=== PATIENT | male | born 1945 | race Caucasian/White ===

== ENCOUNTER 2016-10-21 17:18 | Observation (INO) ==
[2016-10-21 18:51] LABS: Basophils # 0.1 K/mcL (0.0-0.2); Basophils % 0.8 %; Eosinophils # 0.4 K/mcL (0.0-0.6); Eosinophils % 2.9 %; Hematocrit 41.1 % (37.5-50.1); Hemoglobin 12.8 g/dL (12.9-16.9); Immature Granulocytes % 0.3 % (0-4); Lymphocytes # 1.9 K/mcL (0.6-4.6); Lymphocytes % 14.7 %; Mean Corpuscular HGB Conc 31.1 g/dL (31.6-35.5); Mean Corpuscular Volume 89.9 fL (83.0-100.0); Mean Platelet Volume 9.7 fL (9.4-12.4); Monocytes % 7.8 %; Neutrophils # 9.3 K/mcL (1.6-8.9); Platelet Count 293 K/mcL (140-400); Red Blood Count 4.57 M/mcL (4.19-5.50); Red Cell Distribution Width 14.5 % (11.5-14.5); Segmented Neutrophils % 73.5 %
[2016-10-21 19:04] LABS: Calcium 10.2 mg/dL (8.6-10.8)
[2016-10-21 19:10] LABS: Potassium 6.9 mEq/L (3.5-4.5)
[2016-10-21] MEDS ORDERED: 0.9 % Sodium Chloride 500 ML IV ONE ×2 (19:32→21:41)
--- NOTE | 2016-10-21 19:40 | Emergency Department Note ---
Disposition Clinical Impression: Hyperkalemia, Hypoxia Disposition: Admitted As Inpatient Condition: Good Time of Disposition: 23:00 SOB HPI - General Chief Complaint: ED Shortness of Breath/Dyspnea Stated Complaint: sob Time Seen by Provider: 10/21/16 19:14 Source: patient Limitations: no limitations Nursing Notes Reviewed: Yes Vital Signs Reviewed: Yes - History of Present Illness 71-year-old male with a past medical history of CAD, DM, CKD stage III presents to the emergency department complaining of increased shortness of breath and cough for 3 days. He denies history of COPD, however he states a year ago he had pneumonia and is worried that he has this again. He has had congestion and cough that has worsened over the last 3 days, along with wheezing. He is coughing up yellow sputum occasionally. He has had a harder time breathing and is using his 's home oxygen. He does not regularly use home oxygen. He has also been using an albuterol inhaler. He states that when he is sitting on the cot he is having a worse time catching his breath. He complains that his abdomen is distended, but this is a chronic problem. He states it has not worsened in the last few days. He does state that the size of his belly makes it harder to breathe while sitting up. He cannot state whether or not it feels better if he is lying down or sitting up. He does state his SOB worsens when he is up walking around and coughing. He denies fever, chest pain, abdominal pain, nausea, vomiting, diarrhea, dysuria. - Related Data Home Medications Medication Instructions Recorded Confirmed Albuterol Sulfate [Proair 2 puff IH Q4HR PRN 10/04/15 07/25/16 Respiclick] Atorvastatin [Lipitor] 40 mg PO HS 10/04/15 07/25/16 Clopidogrel [Plavix] 75 mg PO DAILY 10/04/15 07/25/16 Metoprolol [Lopressor] 100 mg PO BID 10/04/15 07/25/16 OxyCODONE/APAP 5/325 [Percocet 1 each PO Q6HR PRN 10/04/15 07/25/16 5/325 MG] Previous Rx's Medication Instructions Recorded Isosorbide MONOnitrate (24 HR) 30 mg PO DAILY #30 tab.er.24h 01/25/16 [Imdur] Budesonide/Formoterol 160/4.5 2 puff IH BIDR #1 inhaler 03/19/16 [Symbicort 160/4.5] Ranitidine HCl 150 mg PO BID PRN #60 capsule 03/19/16 Azithromycin [Zithromax] 250 mg PO Q24H #3 tablet 07/28/16 Cefuroxime PO [Ceftin] 500 mg PO Q12HR #6 tablet 07/28/16 CloNIDine HCl 0.1 mg PO Q8HR #90 tablet 07/28/16 Insulin NPH/REG 70/30 (HUMAN) 55 unit SQ QPM@1700 [id number] 07/28/16 [Humulin 70/30 Vial] Insulin NPH/REG 70/30 (HUMAN) 75 unit SQ QAM@0800 [id number] 07/28/16 [Humulin 70/30 Vial] Lactobacillus [Culturelle] 1 each PO BID #6 cap.sprink 07/28/16 Allergies Allergy/AdvReac Type Severity Reaction Status Date / Time No Known Allergies Allergy Verified 10/21/16 17:28 All systems ED: reviewed and negative except as stated. Past Medical History - Past Medical History Medical history: Reports: CVA, dementia, diabetes, GERD, hyperlipidemia, hypertension, other Surgical history: Reports: coronary bypass (CABG) Psychiatric history: Reports: no psych history - Social History Smoking Status: Former smoker Smokeless Tobacco Status: No Alcohol use: Reports: none Drug use: Reports: none Physical Exam General: Alert and in no acute distress. Skin: Warm, dry, intact Head: Normocephalic and atraumatic Eye: PERRLA, EOMI Neck: Supple, trachea midline and no tenderness Cardiovascular: RRR, no murmur, normal perfusion, peripheral pulses equal b/l UE /LE Respiratory: diffuse expiratory wheezing throughout b/l, rhonci. No acute respiratory distress. Patient able to speak in full sentences, no tachypnea GI: Soft, nontender, nondistended. Bowel sounds present Musculoskeletal: Muscle strength WNL, no tenderness, swelling or deformity. b/l LE wrapped with kerlix, has chronic wounds. Neuro: A&O to person, place, time and situation. No focal deficits noted on exam Psychiatric: Cooperative and appropriate mood and affect - General Limitations: no limitations General appearance: alert, in no apparent distress Course Course Narrative: 71-year-old male with a past medical history of CAD, DM, CKD stage III presents to the emergency department complaining of increased shortness of breath and cough for 3 days. He denies history of COPD, however he states a year ago he had pneumonia and is worried that he has this again. He has had congestion and cough that has worsened over the last 3 days, along with wheezing. He is coughing up yellow sputum occasionally. He has had a harder time breathing and is using his 's home oxygen. He does not regularly use home oxygen. He has also been using an albuterol inhaler. He states that when he is sitting on the cot he is having a worse time catching his breath. He complains that his abdomen is distended, but this is a chronic problem. He states it has not worsened in the last few days. He does state that the size of his belly makes it harder to breathe while sitting up. He cannot state whether or not it feels better if he is lying down or sitting up. He does state his SOB worsens when he is up walking around and coughing. He denies fever, chest pain, abdominal pain, nausea, vomiting, diarrhea, dysuria. CXR shows Small bilateral pleural effusions and mild left basilar atelectasis versus scarring. WBC 12.7 with a left shift, K 6.9, Cr 1.48 which is around his baseline, BNP 594 which is elevated from baseline. Will recheck Potassium. May be high as patient states he drinks OJ, eats oranges, spaghetti sauce and even drinks cold spaghetti sauce daily. Repeat potassium 6.5. SOB has improved after duoneb and solumedrol. Discussed admission for hyperkalemia with hospitalist. Patient will be admitted in stable condition. - Consultations Consultation #1: Case discussed with hospitalist who has accepted for admission. Vital Signs Temperature 98.2 F 10/21/16 17:26 Pulse Rate 71 10/21/16 17:26 Respiratory Rate 20 10/21/16 17:26 Blood Pressure 183/70 10/21/16 17:26 O2 Sat by Pulse Oximetry 82 L 10/21/16 17:26 Temperature 98.2 F 10/21/16 23:59 Pulse Rate 84 10/21/16 23:59 Respiratory Rate 18 10/21/16 23:59 Blood Pressure 194/65 10/21/16 23:59 O2 Sat by Pulse Oximetry 94 L 10/21/16 23:59 Oxygen Delivery Oxygen Delivery Nasal Cannula Shortness of Breath/Dyspnea - Medical Records Medical records reviewed: Yes I reviewed the patient's medical records. - Lab Data Lab results reviewed: Yes I reviewed the patient's lab results. Result diagrams: 10/21/16 18:42 10/22/16 00:06 Lab Results 10/21/16 10/21/16 10/21/16 Range/Units 18:42 18:42 18:42 WBC 12.7 H (4.3-11.1) K/mcL RBC 4.57 (4.19-5.50) M/mcL Hgb 12.8 L (12.9-16.9) g/dL Hct 41.1 (37.5-50.1) % MCV 89.9 (83.0-100.0) fL MCH 28.0 (28.0-33.3) pg MCHC 31.1 L (31.6-35.5) g/dL RDW 14.5 (11.5-14.5) % Plt Count 293 (140-400) K/mcL MPV 9.7 (9.4-12.4) fL Immature Gran % 0.3 (0-4) % Seg Neutrophils % 73.5 % Lymphocytes % 14.7 % Monocytes % 7.8 % Eosinophils % 2.9 % Basophils % 0.8 % Neutrophils # 9.3 H (1.6-8.9) K/mcL Lymphocytes # 1.9 (0.6-4.6) K/mcL Monocytes # 1.0 (0.0-1.3) K/mcL Eosinophils # 0.4 (0.0-0.6) K/mcL Basophils # 0.1 (0.0-0.2) K/mcL Sodium 142 (136-145) mEq/L Potassium 6.9 H* (3.5-4.5) mEq/L Chloride 108 (98-109) mEq/L Carbon Dioxide 24 (19-29) mEq/L BUN 28 H (8-26) mg/dL Creatinine 1.48 H (0.72-1.25) mg/dL Est GFR ( Amer) 56 L (> 60) Est GFR (Non-Af Amer) 47 L (> 60) BUN/Creatinine Ratio 19 (6-26) Glucose 153 H (70-99) mg/dL Calculated Osmolality 303 H (280-300) Calcium 10.2 (8.6-10.8) mg/dL Troponin I 0.01 (0-0.03) ng/mL B-Natriuretic Peptide (0-100) pg/mL 10/21/16 10/21/16 Range/Units 18:42 20:22 WBC (4.3-11.1) K/mcL RBC (4.19-5.50) M/mcL Hgb (12.9-16.9) g/dL Hct (37.5-50.1) % MCV (83.0-100.0) fL MCH (28.0-33.3) pg MCHC (31.6-35.5) g/dL RDW (11.5-14.5) % Plt Count (140-400) K/mcL MPV (9.4-12.4) fL Immature Gran % (0-4) % Seg Neutrophils % % Lymphocytes % % Monocytes % % Eosinophils % % Basophils % % Neutrophils # (1.6-8.9) K/mcL Lymphocytes # (0.6-4.6) K/mcL Monocytes # (0.0-1.3) K/mcL Eosinophils # (0.0-0.6) K/mcL Basophils # (0.0-0.2) K/mcL Sodium 140 (136-145) mEq/L Potassium 6.5 H* (3.5-4.5) mEq/L Chloride 106 (98-109) mEq/L Carbon Dioxide 24 (19-29) mEq/L BUN 28 H (8-26) mg/dL Creatinine 1.42 H (0.72-1.25) mg/dL Est GFR ( Amer) 59 L (> 60) Est GFR (Non-Af Amer) 49 L (> 60) BUN/Creatinine Ratio 20 (6-26) Glucose 141 H (70-99) mg/dL Calculated Osmolality 298 (280-300) Calcium 9.9 (8.6-10.8) mg/dL Troponin I (0-0.03) ng/mL B-Natriuretic Peptide 564 H (0-100) pg/mL - Radiology Data Radiology results reviewed: Yes I reviewed the patient's radiology results. Chest X-Ray 10/21/16 18:18 IMPRESSION: Small bilateral pleural effusions and mild left basilar atelectasis versus scarring. D/ / Augustine Conley MD / Augustine Conley MD Interpreting Provider: Augustine Conley MD - EKG Data EKG attestation: Yes I reviewed and interpreted this EKG. EKG results narrative: Sinus Rhythm, VR 74 BPM, SC 204ms, QRS 82ms, QT 354. Q wave in V3/V4 Prior EKG show sinus tachycardia. Attestation Statement - Attestation Attestation: Dr. Boggs note: Patient was seen in conjunction with the resident Dr. Barnard; please see her chart for complete documentation. I spent [id number] time with the patient and agree with the patient's treatment and disposition. He presents short of breath progressive hypoxia but is noted also to have hyperkalemia. Mild renal insufficiency is not new. Patient admits to dietary intake of a large amount of orange juice, oranges, and tomato juice on almost a daily basis which is likely contributing to his hypokalemia. I discussed admission with the hospitalist prior to admission. His hyperkalemia has been treated with fluids and Kayexalate. No significant EKG changes of the QT interval or prolonged SC interval at this time. No indication for calcium gluconate, insulin, or bicarbonate.
[2016-10-21] MEDS ORDERED: Ipratropium/Albuterol Neb 3 ML IH ONE ×2 (19:41→19:42)
[2016-10-21] MEDS ORDERED: methylPREDNISolone 125 MG/2 ML VIAL IVP ONE (19:41)
[2016-10-21 20:42] LABS: Calcium 9.9 mg/dL (8.6-10.8)
[2016-10-21 20:47] LABS: Potassium 6.5 mEq/L (3.5-4.5)
[2016-10-22] MEDS ORDERED: Calcium Gluconate 1,000 MG in D5% in Water 100 ML IVPB ONE (00:58)
[2016-10-22] MEDS ORDERED: Lactulose Oral Soln 20 GM/30 ML UDC PO STA (00:59)
[2016-10-22] MEDS: cloNIDine HCl 0.1 MG TABLET PO SCH ×2 (01:26→07:43)
[2016-10-22] MEDS ORDERED: Naloxone 0.4 MG/ML INJ IVP PRN (03:23)
[2016-10-22] MEDS ORDERED: Acetaminophen 325 MG TABLET PO PRN (03:23)
[2016-10-22] MEDS ORDERED: D5% in Water 1,000 ML IV PRN (03:25)
[2016-10-22] MEDS ORDERED: *HR* Dextrose 50 % in Water (Syg) 50 ML SYRINGE IVP PRN (03:25)
[2016-10-22] MEDS ORDERED: Dextrose Gel 15 GM PO PRN ×2 (03:25)
[2016-10-22] MEDS ORDERED: levoFLOXacin 500 MG TABLET PO SCH (03:30)
--- NOTE | 2016-10-22 03:48 | Internal Med History&Physical ---
Date of Encounter: 10/22/16 Time of Encounter: 01:30 Assessment and Plan (1) Hyperkalemia Current visit: Yes Status: Acute Possibly secondary to oral intake of potassium / oranges and CKD. Treat with the calcium gluconate, IV sodium bicarbonate and Kayexalate. Monitor potassium levels. Advised patient to cut down/avoid orange juice. Renal / low potassium diet (2) COPD exacerbation Current visit: Yes Status: Acute Patient does not have prior diagnosis of COPD. However his presentation similar to COPD exacerbation. Will treat him with low-dose steroids in view of his diabetes, levofloxacin, mucinex and bronchodilators. (3) Acute respiratory failure Current visit: Yes Status: Acute Acute secondary to exacerbation of bronchitis/COPD. Continue supplemental oxygen. Patient may need resting and walking pulse ox monitor prior to discharge Qualifiers: Respiratory failure complication: hypoxia Qualified Code(s): J96.01 - Acute respiratory failure with hypoxia (4) CAD (coronary artery disease) Current visit: Yes Status: Chronic Stable. continue home meds Qualifiers: Coronary Disease-Associated Artery/Lesion type: [place] artery [place] vs. transplanted heart: [place] heart Associated angina: without angina Qualified Code(s): I25.10 - Atherosclerotic heart disease of [place] coronary artery without angina pectoris (5) GERD (gastroesophageal reflux disease) Current visit: No Status: Acute Qualifiers: Esophagitis presence: esophagitis presence not specified Qualified Code(s) : K21.9 - Gastro-esophageal reflux disease without esophagitis (6) CKD (chronic kidney disease) stage 3, GFR 30-59 ml/min Current visit: No Status: Chronic Monitor renal function. Avoid nephrotoxics (7) DM type 2 (diabetes mellitus, type 2) Current visit: Yes Status: Chronic Start sliding scale insulin. Resume home medications, when verified by pharmacy. At risk of hyperglycemia, due to steroids Qualifiers: Diabetes mellitus complication status: with kidney complications Diabetes mellitus complication detail: with chronic kidney disease Diabetes mellitus group home insulin use: without middle or intermediate school principal use Chronic kidney disease stage: stage 3 (moderate) Qualified Code(s): E11.22 - Type 2 diabetes mellitus with diabetic chronic kidney disease; N18.3 - Chronic kidney disease, stage 3 ( moderate) Internal Medicine - H&P: HPI Chief complaint: Shortness of breath Admitted From: Emergency Dept Plans for Post Hospital Care: Home History of present illness: 71-year-old male with a past medical history of CAD, DM, CKD stage III, HTN, GERD presents to the emergency department, with progressively worsening shortness of breath and cough with expectoration. He reports shortness of breath on exertion, which is worse now. He has been using an albuterol inhaler. He had congestion and cough that has worsened over the last 3 days, along with wheezing. He is coughing up clear to yellow sputum. He apparently has been using his wifes oxygen, which was helping his shortness of breath. He does not have a diagnosis of COPD. He is an ex- smoker. He denies chest pain, fever , chills, nausea, vomiting. He was evaluated in the emergency department and was given Solu-Medrol and duo-nebs. In the emergency department, he was noted to have hyperkalemia with serum potassium of 6.9 and repeat serum potassium was 6.5. He was given Kayexalate. He is admitted to the hospitalist service for further workup and management. Patient reports drinking a lot of orange juice, when his blood glucose is low and apparently drinks several times a day. He is not on oral potassium supplements Past Med Surg Social Fam HX - Past Medical History Medical history: CVA, dementia, diabetes, GERD, hyperlipidemia, hypertension, other Psychiatric history: no psych history - Past Surgical History Surgical History: coronary bypass (CABG) - Social History Smoking Status: Former smoker Smokeless Tobacco Status: No Alcohol use: none Drug use: none - Family History Mother Adopted: No Family Member Ethnicity: Non- Living Status: Age at : 82 Cause of : old age Hx Family Cardiac Disorders: No Hx Family Respiratory Disorders: No Hx Family Cancer: Yes (brother) Hx Family GI Disorders: No Hx Family Genitourinary Disorders: No Hx Family Endocrine Disorder: No Hx Family Musculoskeletal Disorders: No Hx Family Neuromuscular Disorders: No Hx Family Neurologic Disorders: No Hx Family HEENT Disorders: No Hx Family Autoimmune Disorders: No Hx Family Reproductive Disorders: No Hx Family Psychosocial Disorders: No Hx Family Medical Disorders: No Internal Medicine - H&P: Meds Albuterol Sulfate [Proair Respiclick] 2 puff IH Q4HR PRN 10/04/15 [History] Atorvastatin [Lipitor] 40 mg PO HS 10/04/15 [History] Clopidogrel [Plavix] 75 mg PO DAILY 10/04/15 [History] Metoprolol [Lopressor] 100 mg PO BID 10/04/15 [History] OxyCODONE/APAP 5/325 [Percocet 5/325 MG] 1 each PO Q6HR PRN 10/04/15 [History] Isosorbide MONOnitrate (24 HR) [Imdur] 30 mg PO DAILY #30 tab.er.24h 10/07/15 [ Rx] Budesonide/Formoterol 160/4.5 [Symbicort 160/4.5] 2 puff IH BIDR #1 inhaler 03/28 [Rx] Ranitidine HCl 150 mg PO BID PRN #60 capsule 03/19/16 [Rx] Azithromycin [Zithromax] 250 mg PO Q24H #3 tablet 07/28/16 [Rx] Cefuroxime PO [Ceftin] 500 mg PO Q12HR #6 tablet 07/28/16 [Rx] CloNIDine HCl 0.1 mg PO Q8HR #90 tablet 07/28/16 [Rx] Insulin NPH/REG 70/30 (HUMAN) [Humulin 70/30 Vial] 55 unit SQ QPM@1700 [id number] 07/28/16 [Rx] Insulin NPH/REG 70/30 (HUMAN) [Humulin 70/30 Vial] 75 unit SQ QAM@0800 [id number] 07/28/16 [Rx] Lactobacillus [Culturelle] 1 each PO BID #6 cap.sprink 07/28/16 [Rx] Allergies No Known Allergies Allergy (Verified 10/21/16 17:28) All Systems PM: A 10-system review of systems was performed and is negative for pertinent findings except as documented above in the HPI. - Constitutional Vitals: Temp Pulse Resp BP Pulse Ox 98.2 F 84 18 194/65 94 L 10/21/16 23:59 10/21/16 23:59 10/21/16 23:59 10/21/16 23:59 10/21/16 23:59 Exam: General: Not in acute distress at the time of my evaluation HEENT: Oral mucosa is moist. No conjunctival palor or scleral icterus Neck: No obvious neck swellings Lungs: Bilateral wheeze present Cardiac: Regular rate and rhythm. No significant murmurs Abdomen: Soft, non tender. Bowel sounds present Genitourinary: No alford catheter Neurological: Alert and oriented. No gross localizing deficits Psych: Not aggressive or agitated Extremities: Dressing present over both lower extremities Skin: No generalized rash Internal Med - H&P Results - Labs CBC & Chem 7: 10/21/16 18:42 10/22/16 00:06 Labs: BMP 10/22/16 00:06 Potassium 6.5 H* - EKG Data EKG shows normal: sinus rhythm Rate: normal - EKG Data EKG comments: Prominent T Waves. Q waves in the anterior chest leads. 10/22/16 05:10 - Impressions ITS Impressions Chest X-Ray 10/21/16 18:18 IMPRESSION: Small bilateral pleural effusions and mild left basilar atelectasis versus scarring. D/ / Augustine Conley MD / Augustine Conley MD Interpreting Provider: Augustine Conley MD - VTE Reasons for not Prescribing Prophylaxis: Treatment not Indicated - Low risk for VTE
[2016-10-22] MEDS: Ipratropium/Albuterol Neb 3 ML IH PRN ×2 (06:15→10:51)
[2016-10-22 06:23] LABS: Hemoglobin 12.1 g/dL (12.9-16.9); Mean Corpuscular HGB Conc 30.3 g/dL (31.6-35.5); Mean Corpuscular Hemoglobin 27.2 pg (28.0-33.3); Mean Corpuscular Volume 89.9 fL (83.0-100.0); Platelet Count 304 K/mcL (140-400); Red Blood Count 4.45 M/mcL (4.19-5.50); Red Cell Distribution Width 14.5 % (11.5-14.5)
[2016-10-22 06:35] LABS: Calcium 9.6 mg/dL (8.6-10.8); Potassium 5.9 mEq/L (3.5-4.5)
[2016-10-22] MEDS: Insulin LISPRO 300 UNITS/3 ML VIAL SQ SCH ×2 (07:43→11:52)
[2016-10-22] MEDS ORDERED: predniSONE 20 MG TABLET PO SCH (09:00)
[2016-10-22] MEDS ORDERED: Isosorbide MONOnitrate (24 HR) 30 MG TAB.ER.24H PO SCH (09:00)
[2016-10-22] MEDS ORDERED: Aspirin 81 MG TAB.CHEW PO SCH (09:00)
[2016-10-22] MEDS ORDERED: amLODIPine 5 MG TABLET PO SCH (09:00)
[2016-10-22] MEDS ORDERED: Metoprolol 100 MG TABLET PO SCH (09:00)
[2016-10-22] MEDS ORDERED: Budesonide/Formoterol 160/4.5 MDI IH SCH (10:00)
[2016-10-22 14:01] VITALS: BP 166/65
--- NOTE | 2016-10-22 14:09 | Discharge Summary ---
Date of Encounter: 10/23/16 Time of Encounter: 14:06 - Discharge Diagnosis (1) COPD exacerbation Priority: Primary Status: Acute (2) Hyperkalemia Priority: Primary Status: Acute (3) CAD (coronary artery disease) Priority: Secondary Status: Chronic Qualifiers: Coronary Disease-Associated Artery/Lesion type: [place] artery [place] vs. transplanted heart: [place] heart Associated angina: without angina Qualified Code(s): I25.10 - Atherosclerotic heart disease of [place] coronary artery without angina pectoris (4) DM type 2 (diabetes mellitus, type 2) Priority: Secondary Status: Chronic Qualifiers: Diabetes mellitus complication status: with kidney complications Diabetes mellitus complication detail: with chronic kidney disease Diabetes mellitus mcfp insulin use: without buttermaker continuous churn use Chronic kidney disease stage: stage 3 (moderate) Qualified Code(s): E11.22 - Type 2 diabetes mellitus with diabetic chronic kidney disease; N18.3 - Chronic kidney disease, stage 3 ( moderate) - Discharge Medications Prescriptions: Levofloxacin [Levaquin] 500 mg PO DAILY #3 tablet PredniSONE 20 mg PO DAILY #5 tablet Home Medications: Albuterol Sulfate [Proair Respiclick] 2 puff IH Q4HR PRN 10/04/15 [History] Atorvastatin [Lipitor] 40 mg PO HS 10/04/15 [History] Clopidogrel [Plavix] 75 mg PO DAILY 10/04/15 [History] Metoprolol [Lopressor] 100 mg PO BID 10/04/15 [History] OxyCODONE/APAP 5/325 [Percocet 5/325 MG] 1 each PO Q6HR PRN 10/04/15 [History] Isosorbide MONOnitrate (24 HR) [Imdur] 30 mg PO DAILY #30 tab.er.24h 10/07/15 [ Rx] Budesonide/Formoterol 160/4.5 [Symbicort 160/4.5] 2 puff IH BIDR #1 inhaler 03/28 [Rx] Ranitidine HCl 150 mg PO BID PRN #60 capsule 03/19/16 [Rx] CloNIDine HCl 0.1 mg PO Q8HR #90 tablet 07/28/16 [Rx] Lactobacillus [Culturelle] 1 each PO BID #6 cap.sprink 07/28/16 [Rx] Albuterol Neb [Proventil Neb] 2.5 mg IH Q4H PRN 10/22/16 [History] Amlodipine Besylate 10 mg PO DAILY 10/22/16 [History] Aspirin 81 mg PO DAILY 10/22/16 [History] Insulin NPH/REG 70/30 (HUMAN) [Humulin 70/30 Vial] 40 unit SQ QPM@1700 10/22/16 [History] Insulin NPH/REG 70/30 (HUMAN) [Humulin 70/30 Vial] 50 unit SQ QAM@0800 10/22/16 [History] Levofloxacin [Levaquin] 500 mg PO DAILY #3 tablet 10/22/16 [Rx] Lisinopril [Zestril] 20 mg PO DAILY 10/22/16 [History] PredniSONE 20 mg PO DAILY #5 tablet 10/22/16 [Rx] Allergies/Adverse Reactions: Allergies No Known Allergies Allergy (Verified 10/21/16 17:28) Date of admission: 10/21/16 23:04 Primary care physician: Antonietta Butler Consults: 10/22/16 04:37 Consult to Wound Care [CONS] Routine Reason for Consult: bilat leg dressings Call Completed: No Discharging clinician: Kelly Villanueva Anticipated date of discharge: 10/22/16 - Patient Status Disposition: Home, Self-Care Condition: Fair Functional capacity at discharge: independent ambulation Overall status at discharge: patient is back to baseline - Discharge Instructions Instructions: Prednisone (By mouth), Levofloxacin (By mouth), Hyperkalemia (DC) Follow Up With: Antonietta Butler MD [Primary Care Provider] - 10/27/16 4:00 pm (Please follow up as schedule.....) Additional Instructions: please check chemistry panel for hyperkalemia on the day of followup with PCP on 10/27 - Diet and Activity Activity: resume usual activities as tolerated Diet: advance to your usual diet Interval History: 1-year-old male with a past medical history of CAD, DM, CKD stage III, HTN, GERD presents to the emergency department, with progressively worsening shortness of breath and cough with expectoration. He does not have a diagnosis of COPD. He is an ex- smoker. He denies chest pain, fever, chills, nausea, vomiting. He was evaluated in the emergency department and was given Solu- Medrol and duo-nebs. In the emergency department, he was noted to have hyperkalemia with serum potassium of 6.9 and repeat serum potassium was 6.5. He was given Kayexalate. He is admitted to the hospitalist service for further workup and management. Patient reports drinking a lot of orange juice, when his blood glucose is low and apparently drinks several times a day. He is not on oral potassium supplements. he improved on IV steroids and breathing tx, no infiltrate on CXR. repeat K was 5.9, he refused to take additional dose of kayexalate due to diarrhea. he remained asymptomatic and stable.he is being dc today to f/u as OP with PCP and wound clinic with rpeat chem. will also dc on his home inhalers and oral prednisone for 5 days with oral levoflox for 5 days. Hospital course: Mr. Galindo is a 71 year old male Time spent discussing smoking cessation with patient: more than 10 minutes - Time Spent with Patient Total time spent providing and/or coordinating discharge services: Greater than 30 minutes - Constitutional Vitals: Temp Pulse Resp BP Pulse Ox 98.3 F 75 20 166/65 93 L 10/22/16 11:16 10/22/16 11:16 10/22/16 11:16 10/22/16 14:00 10/22/16 11:16 General appearance: Present: A&O X 3, no acute distress Exam: HEENT: Oral mucosa is moist. No conjunctival palor or scleral icterus Neck: No obvious neck swellings Lungs: Bilateral occ wheezing, no creptns Cardiac: Regular rate and rhythm. No significant murmurs Abdomen: Soft, non tender. Bowel sounds present Genitourinary: No alford catheter Neurological: Alert and oriented. No gross localizing deficits Psych: Not aggressive or agitated Extremities: Dressing present over both lower extremities Skin: No generalized rash - VTE Reasons for not Prescribing Prophylaxis: Treatment not Indicated - Low risk for VTE
--- NOTE | 2016-10-22 16:35 | Electrocardiograph Report ---
[place] [id number] Test Date: 2016-10-21 Pat Name: Joao Galindo Department: 105 Room: 2A Gender: M Operator: : 1945 Requested By: Jonnathan Smyth Order Number: [id number] Reading MD: Maury Alonzo Measurements Intervals [place] Rate: 74 P: 40 NV: 204 QRS: 27 QRSD: 82 T: 65 QT: 354 QTc: 381 Interpretive Statements SINUS RHYTHM Electronically Signed On 10-22-2016 16:33:50 EST by Maury Alonzo
[2016-10-22] MEDS ORDERED: Lisinopril 20 MG TABLET PO SCH (21:00)
== END 2016-10-22 14:50 | disposition home or self-care (01) ==
LOC: 2ANU 17:18 → EMEROO 17:18 → 2ANU 23:26
PROVIDERS: ADMIT Internal Medicine Endocrinology, Diabetes & Metabolism; ATTEND Internal Medicine Endocrinology, Diabetes & Metabolism

== ENCOUNTER 2018-08-30 01:23 | Inpatient (IN) ==
[2018-08-30] MEDS ORDERED: Ondansetron 4 MG/2 ML VIAL IVP PRN (01:40)
[2018-08-30] MEDS ORDERED: Naloxone 0.4 MG/ML INJ IVP PRN (01:42)
[2018-08-30] MEDS ORDERED: *HR* HYDROcodone/Acet 5/325 mg TABLET PO PRN (01:42)
[2018-08-30] MEDS ORDERED: Acetaminophen 325 MG TABLET PO PRN (01:42)
[2018-08-30] MEDS ORDERED: Ipratropium/Albuterol Neb 3 ML IH ONE (01:43)
[2018-08-30] MEDS ORDERED: Insulin Human Regular 10 UNIT in 0.9 % Sodium Chloride 10 ML IV ONE (01:45)
[2018-08-30] MEDS ORDERED: Albuterol 2.5 MG/3 ML NEBULIZER IH ONE (01:45)
[2018-08-30] MEDS ORDERED: *HR* Dextrose 50 % in Water (Syg) 50 ML SYRINGE IVP ONE (01:45)
[2018-08-30] MEDS ORDERED: 0.9 % Sodium Chloride 500 ML IVC ONE (01:47)
--- NOTE | 2018-08-30 02:04 | Internal Med History&Physical ---
<Blanca Paiz - Last Filed: 08/30/18 02:27> Date of Encounter: 08/30/18 Time of Encounter: 02:04 Internal Medicine - H&P: HPI Chief complaint: Hypertensive Emergency Admitted From: Hospital to Hospital Transfer History of present illness: Mr. Galindo is a 72 year old male with significant PMHx of CAD, hypertension, COPD, and dementia transferred to our facility for hypertensive emergency. Patient is a poor historian in the room. He states he went to the outside emergency department because he wasn't feeling well and hurting all over. At this time the patient denies any concerns or complaints. Patient denies any chest pain. Does disclose shortness of breath but he states this is baseline for him and is not getting worse. En route to our hospital patient was hypertensive with systolic blood pressure readings of 170s and 200s. Past Med Surg Social Fam HX - Past Medical History Source: old records reviewed Medical history: CHF, COPD, dementia, diabetes, GERD, hyperlipidemia, hypertension, other Additional medical history: CAD, Ventricular systolic function, obesity, dylipidemia, ascvd, unstable angina, lumbar degenerative disc disease, pvd, renal artery stenosis, osteomyelitis Psychiatric history: no psych history - Past Surgical History Surgical History: coronary bypass (CABG) Additional surgical history: open heart, bypass 5 vessel in 2006. right great toe amputation March 2016. cataracts - Social History Smoking Status: Former smoker Smokeless Tobacco Status: No Alcohol use: none Drug use: none - Family History Mother Adopted: No Family Member Ethnicity: Non- Living Status: Hx Family Cardiac Disorders: No Hx Family Respiratory Disorders: No Hx Family Cancer: No Hx Family GI Disorders: No Hx Family Endocrine Disorder: No Hx Family Neuromuscular Disorders: No Hx Family Neurologic Disorders: No Hx Family HEENT Disorders: No Hx Family Autoimmune Disorders: No Internal Medicine - H&P: Meds Albuterol Sulfate [Proair Respiclick] 2 puff IH Q4HR PRN 10/04/15 [History] Atorvastatin [Lipitor] 40 mg PO HS 10/04/15 [History] Clopidogrel [Plavix] 75 mg PO DAILY 10/04/15 [History] Metoprolol [Lopressor] 100 mg PO BID 10/04/15 [History] OxyCODONE/APAP 5/325 [Percocet 5/325 MG] 1 each PO TID 10/04/15 [History] Budesonide/Formoterol 160/4.5 [Symbicort 160/4.5] 2 puff IH BIDR #1 inhaler 03/19/16 [Rx] Albuterol Neb [Proventil Neb] 2.5 mg IH Q4H PRN 10/22/16 [History] Aspirin 81 mg PO DAILY 10/22/16 [History] cloNIDine HCl [Clonidine HCl] 0.2 mg PO Q8H #90 tab 11/06/16 [Rx] Lisinopril [Zestril] 20 mg PO DAILY 12/30/16 [History] Furosemide [Lasix] 20 mg PO DAILY 02/11/17 [History] Insulin NPH Hum/Reg Insulin Hm [Novolin 70-30 100 Unit/ml Vial] 35 unit SQ QPM 02/11/17 [History] Insulin NPH Hum/Reg Insulin Hm [Novolin 70-30 100 Unit/ml Vial] 40 unit SQ QAM 02/11/17 [History] amLODIPine [Norvasc] 5 mg PO DAILY #30 tablet 12/21/17 [Rx] Gabapentin [Neurontin] 200 mg PO HS 08/29/18 [History] Loratadine [Claritin] 10 mg PO DAILY 08/29/18 [History] Allergy/AdvReac Type Severity Reaction Status Date / Time ampicillin AdvReac Vomiting Verified 02/11/17 07:18 sulfamethoxazole AdvReac Vomiting Verified 02/11/17 07:18 [From Bactrim] trimethoprim [From Bactrim] AdvReac Vomiting Verified 02/11/17 07:18 All Systems PM: A 10-system review of systems was performed and is negative for pertinent findings except as documented above in the HPI. - Constitutional Constitutional: no fever(s) - EENT Eyes: as per HPI Ears: as per HPI Nose, mouth and throat: as per HPI - Breasts Breasts: as per HPI - Cardiovascular Cardiovascular ROS IM: dyspnea, no chest pain, no syncope - Respiratory Respiratory: dyspnea, no hemoptysis, no stridor - Gastrointestinal Gastrointestinal: no abdominal pain - Genitourinary Genitourinary ROS male: as per HPI - Musculoskeletal Musculoskeletal ROS IM: as per HPI - Integumentary Integumentary IM: as per HPI - Neurological Neurological ROS: as per HPI - Psychiatric Psychiatric: as per HPI - Endocrine Endocrine IM: as per HPI - Hematologic/Lymphatic Hematologic/Lymphatic: as per HPI - Allergic/Immunologic Allergic/Immunologic: as per HPI - Constitutional General appearance: Present: pleasant, no acute distress Exam: Patient in no distress on exam, pleasant, poor historian - Head Head exam: Present: atraumatic, normal inspection - ENT ENT exam: Present: mucous membranes moist - Respiratory Respiratory exam: Present: wheezes (greater on the right than the left). Absent: rales, respiratory distress - Cardiovascular Cardiovascular exam: Present: RRR - GI/Abdominal GI/Abdominal exam: Present: soft. Absent: rebound, rigid, tenderness - Extremities Exam Additional comments: bilateral lower extremities with redness and chronic venous stasis changes - Neurological Exam Neurological exam: Present: alert, no focal deficits - Skin Additional comments: redness and chronic venous stasis with small open wounds of the bilateral lower extremities redness and skin irritation in the groin area - Assessment and plan (1) Hypertensive emergency Current Visit: Yes Status: Acute Assessment and plan: Patient with systolic BPs >200 and elevated trop Will start cardene drip and q4 hour troponin levels (2) Elevated troponin Current Visit: Yes Status: Acute Assessment and plan: Repeat trop q4 hours Patient denies any chest pain EKG no STEMI (3) Chronic venous stasis Current Visit: Yes Status: Acute Assessment and plan: Wound consult placed (4) Wheezing Current Visit: Yes Status: Acute Assessment and plan: Albuterol Chest xray completed at outside ED negative for focal consolidation (5) Hyperkalemia Current Visit: Yes Status: Acute Assessment and plan: repeat BMP in the am albuterol, insulin/glucose, kayexalate (6) CKD (chronic kidney disease) Current Visit: Yes Status: Acute Assessment and plan: 500 fluid bolus, continue to monitor with bmp daily Qualifiers: Chronic kidney disease stage: unspecified stage Qualified Code(s): N18.9 - Chronic kidney disease, unspecified (7) DVT prophylaxis Current Visit: Yes Status: Acute Assessment and plan: SQ heparin - Time Spent With Patient Total time spent is greater than 50% in coordination of care (as documented) at patient's floor/unit and/or counseling patient: <Skip Ortiz - Last Filed: 08/30/18 07:37> Date of Encounter: 08/30/18 Internal Medicine - H&P: HPI History of present illness: Mr. Galindo is a 72 year old male All Systems PM: A 10-system review of systems was performed and is negative for pertinent findings except as documented above in the HPI. - Constitutional Vitals: Temp Pulse Resp BP Pulse Ox 98.6 F 73 14 153/63 96 08/30/18 01:56 08/30/18 06:00 08/30/18 06:00 08/30/18 06:00 08/30/18 06:00 Internal Med - H&P Results - Labs CBC & Chem 7: 08/30/18 02:48 08/30/18 02:48 Labs: Short CBC 08/30/18 Range/Units 02:48 WBC 10.9 (4.3-11.1) K/mcL Hgb 13.1 (12.9-16.9) g/dL Hct 42.4 (37.5-50.1) % Plt Count 297 (140-400) K/mcL Neutrophils # 8.0 (1.6-8.9) K/mcL BMP 08/30/18 02:48 Sodium 138 Potassium 4.9 Chloride 104 Carbon Dioxide 28 BUN 29 H Creatinine 1.52 H Glucose 225 H Calcium 9.3 Cardiac Enzymes 08/30/18 Range/Units 02:48 Troponin I 0.05 H* (< 0.04) ng/mL - Time Spent With Patient Total time spent is greater than 50% in coordination of care (as documented) at patient's floor/unit and/or counseling patient: - Attending Attestation I saw and evaluated the patient. I reviewed the residents note, performed my own physical examination and agree with findings and plan as documented in the residents note. Patient seen and examined on 08/30/18. Patient presented with hypertension, and elevated troponins. Patient denies chest pain. Patient is pleasant and cooperative with exam. No distress. Started cardene drip to help with blood pressures, and patient corrected quickly. Discontinued the drip and we will continue to monitor. Patient states that he has chronic wounds on his legs, but does not follow with wound care. Has history of toe amputations bilaterally on his feet secondary to diabetes. We placed wound care consult. Continue to monitor.
[2018-08-30] MEDS: niCARdipine 40 MG/200 ML MLS IVC SCH ×3 (02:12→18:10)
[2018-08-30] MEDS ORDERED: Dextrose Gel 15 GM/37.5 ML TUBE PO PRN ×2 (02:26)
[2018-08-30] MEDS ORDERED: D5% in Water 1,000 ML IVC PRN (02:26)
[2018-08-30 03:39] LABS: Basophils # 0.1 K/mcL (0.0-0.2); Basophils % 0.6 %; Eosinophils # 0.2 K/mcL (0.0-0.6); Eosinophils % 2.1 %; Hematocrit 42.4 % (37.5-50.1); Hemoglobin 13.1 g/dL (12.9-16.9); Immature Granulocytes % 0.6 % (0-4); Immature Platelets 2.6 % (1.1-6.1); Lymphocytes # 1.5 K/mcL (0.6-4.6); Lymphocytes % 13.7 %; Mean Corpuscular HGB Conc 30.9 g/dL (31.6-35.5); Mean Corpuscular Hemoglobin 27.6 pg (28.0-33.3); Mean Corpuscular Volume 89.5 fL (83.0-100.0); Mean Platelet Volume 10.5 fL (9.4-12.4); Monocytes # 1.1 K/mcL (0.0-1.3); Monocytes % 9.9 %; Platelet Count 297 K/mcL (140-400); Red Blood Count 4.74 M/mcL (4.19-5.50); Red Cell Distribution Width 13.7 % (11.5-14.5); Segmented Neutrophils % 73.1 %
[2018-08-30 03:54] LABS: Calcium 9.3 mg/dL (8.6-10.3); Potassium 4.9 mEq/L (3.5-5.1)
[2018-08-30] MEDS: *HR* Heparin 5,000 UNIT/ML VIAL SQ SCH ×2 (07:12→18:06)
[2018-08-30] MEDS: amLODIPine 5 MG TABLET PO SCH (08:44)
[2018-08-30] MEDS: Aspirin 81 MG TAB.CHEW PO SCH (08:44)
[2018-08-30] MEDS: Metoprolol 100 MG TABLET PO SCH ×2 (08:44→20:12)
[2018-08-30] MEDS: Furosemide 20 MG TABLET PO SCH (08:45)
[2018-08-30] MEDS: Nystatin POWDER 30 GM BOTTLE TP SCH ×3 (08:46→20:13)
[2018-08-30] MEDS ORDERED: amLODIPine 5 MG TABLET PO SCH (09:00)
[2018-08-30] MEDS ORDERED: Insulin LISPRO 300 UNITS/3 ML VIAL SQ ONE (11:33)
[2018-08-30] MEDS ORDERED: Insulin LISPRO 300 UNITS/3 ML VIAL SQ SCH ×3 (11:45→21:00)
--- NOTE | 2018-08-30 11:53 | Event Note ---
Date of Encounter: 08/30/18 Time of Encounter: 09:00 H&P reviewed. Patient with history of CAD, hypertension, COPD, diabetes is admitted for HTN emergency/urgency. Troponin 0.05 but downtrending. No focal complaints including chest pain, SOB, headache, leg swelling, or blurring of vision. No rhonchi or wheezing on exam. BP improved with cardene gtt, davonte resume all his home meds and increase norvasc to 10mg in an attempt to wean down cardene. Moderate dose sliding scale. Transfer to if beds available.
[2018-08-30] MEDS: cloNIDine HCl 0.1 MG TABLET PO SCH ×2 (13:26→20:13)
[2018-08-30] MEDS: Insulin LISPRO 300 UNITS/3 ML VIAL SQ SCH (13:26)
[2018-08-30] MEDS ORDERED: Gabapentin 100 MG CAPSULE PO SCH (21:00)
[2018-08-30] MEDS ORDERED: traZODone 50 MG TABLET PO SCH (21:00)
[2018-08-31] MEDS: niCARdipine 40 MG/200 ML MLS IVC SCH (03:30)
[2018-08-31] MEDS: cloNIDine HCl 0.1 MG TABLET PO SCH (03:31)
[2018-08-31 04:04] VITALS: BP 128/59
[2018-08-31] MEDS: *HR* Heparin 5,000 UNIT/ML VIAL SQ SCH (05:30)
[2018-08-31 06:32] LABS: Hematocrit 40.7 % (37.5-50.1); Hemoglobin 12.7 g/dL (12.9-16.9); Mean Corpuscular HGB Conc 31.2 g/dL (31.6-35.5); Mean Corpuscular Hemoglobin 27.9 pg (28.0-33.3); Mean Corpuscular Volume 89.3 fL (83.0-100.0); Platelet Count 302 K/mcL (140-400); Red Blood Count 4.56 M/mcL (4.19-5.50); Red Cell Distribution Width 13.9 % (11.5-14.5)
[2018-08-31 06:48] LABS: Calcium 8.9 mg/dL (8.6-10.3); Potassium 4.9 mEq/L (3.5-5.1)
[2018-08-31] MEDS: Aspirin 81 MG TAB.CHEW PO SCH (07:41)
[2018-08-31] MEDS: amLODIPine 5 MG TABLET PO SCH (07:41)
[2018-08-31] MEDS: Furosemide 20 MG TABLET PO SCH (07:41)
[2018-08-31] MEDS: Insulin LISPRO 300 UNITS/3 ML VIAL SQ SCH (07:42)
[2018-08-31] MEDS: Metoprolol 100 MG TABLET PO SCH (07:42)
[2018-08-31] MEDS ORDERED: Lisinopril 20 MG TABLET PO SCH (09:00)
--- NOTE | 2018-08-31 11:17 | Discharge Summary ---
- NOTES TO OUTPATIENT PROVIDER Notes to Outpatient Provider: Patient was admitted for hypertensive emergency requiring Cardene drip. He appears to have missed a few doses of his anti-HTN meds as he needs to take care of his who is debilitated. He was offered a possibility of short term rehab at [facility] but declined. Norvasc was increased to 10mg QD. He was also advised to hold off on lasix for 3 days with follow up BMP in 3 days. Defer reinitiation of lasix to PCP. Date of Encounter: 08/31/18 Time of Encounter: 08:45 - Discharge Diagnosis (1) CKD (chronic kidney disease) Priority: Secondary Status: Acute Qualifiers: Chronic kidney disease stage: unspecified stage Qualified Code(s): N18.9 - Chronic kidney disease, unspecified (2) Chronic venous stasis Priority: Secondary Status: Acute (3) Hypertensive emergency Priority: Primary Status: Acute Hospital course: Mr. Glaindo is a 72 year old male with PMHx of HTN, CAD, COPD, who was admitted for hypertensive emergency requiring Cardene drip. He appears to have missed a few doses of his anti-HTN meds as he needs to take care of his who is debilitated. He was offered a possibility of short term rehab at [facility] but de clined. Norvasc was increased to 10mg QD. He was also advised to hold off on lasix for 3 days with follow up BMP in 3 days. Defer reinitiation of lasix to PCP. Discharge discussed with: patient, nurse - Time Spent with Patient Total time spent providing and/or coordinating discharge services: 33 mins - Discharge Medications Prescriptions: amLODIPine [Norvasc] 10 mg PO DAILY 30 Days #60 tablet Home Medications: Albuterol Sulfate [Proair Respiclick] 2 puff IH Q4HR PRN 10/04/15 [History] Atorvastatin [Lipitor] 40 mg PO HS 10/04/15 [History] Clopidogrel [Plavix] 75 mg PO DAILY 10/04/15 [History] Metoprolol [Lopressor] 100 mg PO BID 10/04/15 [History] OxyCODONE/APAP 5/325 [Percocet 5/325 MG] 1 each PO Q6H PRN 10/04/15 [History] Budesonide/Formoterol 160/4.5 [Symbicort 160/4.5] 2 puff IH BIDR #1 inhaler 03/19/16 [Rx] Albuterol Neb [Proventil Neb] 2.5 mg IH Q4H 10/22/16 [History] Aspirin 81 mg PO DAILY 10/22/16 [History] cloNIDine HCl [Clonidine HCl] 0.2 mg PO Q8H #90 tab 11/06/16 [Rx] Lisinopril [Zestril] 20 mg PO DAILY 12/30/16 [History] Insulin NPH Hum/Reg Insulin Hm [Novolin 70-30 100 Unit/ml Vial] 40 unit SQ QPM 02/11/17 [History] Insulin NPH Hum/Reg Insulin Hm [Novolin 70-30 100 Unit/ml Vial] 50 unit SQ QAM 02/11/17 [History] Gabapentin [Neurontin] 200 mg PO HS 08/29/18 [History] Loratadine [Claritin] 10 mg PO DAILY 08/29/18 [History] Trazodone HCl 100 mg PO HS 08/30/18 [History] amLODIPine [Norvasc] 10 mg PO DAILY 30 Days #60 tablet 08/31/18 [Rx] Allergies/Adverse Reactions: Allergy/AdvReac Type Severity Reaction Status Date / Time ampicillin AdvReac Vomiting Verified 02/11/17 07:18 sulfamethoxazole AdvReac Vomiting Verified 02/11/17 07:18 [From Bactrim] trimethoprim [From Bactrim] AdvReac Vomiting Verified 02/11/17 07:18 Date of admission: 08/30/18 09:40 Primary care physician: Antonietta Butler Consults: 08/30/18 01:44 Consult to Wound Care [CONS] Routine Reason for Consult: Lower extremity venous stasis with open wounds Call Completed: No - Constitutional Vitals: Temp Pulse Resp BP Pulse Ox 97.8 F 60 18 128/59 97 08/31/18 07:40 08/31/18 07:00 08/31/18 03:58 08/31/18 03:58 08/31/18 03:58 General appearance: Present: pleasant, no acute distress Exam: General: Alert and oriented, not in acute distress. Cardiovascular:Normal S1 & S2, No JVD. Pulse regular. Lungs: clear to auscultation, no wheezes/rales Abdomen:Soft, non-tender, no rigidity. Extremities:No deformity or swelling Neurological:Normal cognition and motor skills. Non-focal - Patient Status Disposition: Home, Self-Care Condition: Fair Overall status at discharge: patient is progressing back to baseline - Discharge Instructions Instructions: Chronic Hypertension (DC) Follow Up With: Antonietta Butler MD [Primary Care Provider] - Additional Instructions: Norvasc increased to 10mg QD Lasix on hold in view of fluctuating Cr, BMP in 3 days and reinitiate lasix at the discretion of PCP - Diet and Activity Activity: resume usual activities as tolerated Diet: low salt diet
== END 2018-08-31 13:05 | disposition home or self-care (01) | DRG 305 ==
LOC: ICNU → SUATTDRO 01:23
PROVIDERS: ADMIT Internal Medicine; ATTEND Internal Medicine

== ENCOUNTER 2019-03-31 17:24 | Inpatient (IN) ==
[2019-03-31] MEDS ORDERED: Naloxone 0.4 MG/ML INJ IVP PRN (21:55)
[2019-03-31] MEDS ORDERED: *HR* Dextrose 50 % in Water (Syg) 50 ML SYRINGE IVP PRN (21:56)
[2019-03-31] MEDS ORDERED: Dextrose Gel 15 GM/37.5 ML TUBE PO PRN ×2 (21:56)
[2019-03-31] MEDS ORDERED: D5% in Water 1,000 ML IVC PRN (21:56)
--- NOTE | 2019-03-31 22:39 | Internal Med History&Physical ---
<Jonnathan Li - Last Filed: 04/01/19 02:11> Date of Encounter: 04/01/19 Time of Encounter: 20:45 Internal Medicine - H&P: HPI Chief complaint: Diabetic foot ulcer Admitted From: Hospital to Hospital Transfer Plans for Post Hospital Care: Home History of present illness: Mr. Galindo is a 73 year old male with history of diabetes, CAD status post CABG in 2004, CHF, COPD, dementia, hypertension, right and left great toe amputation who presents to the hospital from [facility] due to pain in right heel. He says that this started about one month ago and has been getting progressively worse. He has pain so severe that he has a hard time supporting weight on his right foot, and he feels that his legs are becoming more weak as well. He says that he has noticed a foul smelling odor coming from his foot as well. He does not notice any fevers, chills or sweats. He does find that he's had edema in his foot relat ed to this problem, and feels that he's had some redness as well. He denies any bleeding or purulent drainage from the wound. He was supposed to have an appointment with his vessel engineer, Dr. Mcintyre, on 03/29 however he was not able to attend. It was rescheduled for 04/10 however he did not feel that he could make it until then. In the ED at [facility] the patient had labs that demonstrated sodium 135, potassium 5.5, BUN 42, serum creatinine 2.3 (baseline 1.5), WBC 15.1, hemoglobin 11.3, platelet 445, ESR 130, CRP 16, lactate 1.2, UA normal. Right foot XR was negative for acute osteo, and CXR showed possible LLL infiltrate. He did receive a dose of kayexelate as well as vancomycin and rocephin. He will be admitted for treatment of diabetic foot ulcer, cellulitis and consultation by podiatry. Past Med Surg Social Fam HX - Past Medical History Medical history: CHF, COPD, dementia, diabetes, GERD, hyperlipidemia, hypertension, other Additional medical history: CAD, Ventricular systolic function, obesity, dylipidemia, ascvd, unstable angina, lumbar degenerative disc disease, pvd, renal artery stenosis, osteomyelitis Psychiatric history: no psych history - Past Surgical History Surgical History: coronary bypass (CABG) Additional surgical history: open heart, bypass 5 vessel in 2006. right great toe amputation March 2016. cataracts. lt great toe amputation - Social History Smoking Status: Former smoker Smokeless Tobacco Status: No Alcohol use: none Drug use: none - Family History Mother Adopted: No Family Member Ethnicity: Non- Living Status: Hx Family Cardiac Disorders: No Hx Family Respiratory Disorders: No Hx Family Cancer: No Hx Family GI Disorders: No Hx Family Endocrine Disorder: No Hx Family Neuromuscular Disorders: No Hx Family Neurologic Disorders: No Hx Family HEENT Disorders: No Hx Family Autoimmune Disorders: No Father Living Status: Internal Medicine - H&P: Meds Albuterol Sulfate [Proair Respiclick] 2 puff IH Q4HR PRN 10/04/15 [History] Atorvastatin [Lipitor] 40 mg PO HS 10/04/15 [History] Clopidogrel [Plavix] 75 mg PO DAILY 10/04/15 [History] Albuterol Neb [Proventil Neb] 2.5 mg IH Q4H 10/22/16 [History] Aspirin 81 mg PO DAILY 10/22/16 [History] cloNIDine HCl [Clonidine HCl] 0.2 mg PO Q8H #90 tab 11/06/16 [Rx] Insulin NPH Hum/Reg Insulin Hm [Novolin 70-30 100 Unit/ml Vial] 40 unit SQ QPM 02/11/17 [History] Insulin NPH Hum/Reg Insulin Hm [Novolin 70-30 100 Unit/ml Vial] 50 unit SQ QAM 02/11/17 [History] Loratadine [Claritin] 10 mg PO DAILY 08/29/18 [History] Trazodone HCl 50 mg PO HS 08/30/18 [History] Furosemide [Lasix] 20 mg PO DAILY 09/16/18 [History] Ibuprofen 800 mg PO TID PRN #15 tablet 09/16/18 [Rx] Oxycodone HCl/Acetaminophen [Percocet 10-325 mg Tablet] 1 each PO QID 09/16/18 [History] Amlodipine Besylate 10 mg PO DAILY 03/31/19 [History] Nebivolol HCl [Bystolic] 10 mg PO DAILY 03/31/19 [History] Vitamin B Complex [Balanced B-50] 1 each PO HS 03/31/19 [History] Allergy/AdvReac Type Severity Reaction Status Date / Time ampicillin AdvReac Vomiting Verified 09/16/18 10:01 sulfamethoxazole AdvReac Vomiting Verified 09/16/18 10:01 [From Bactrim] trimethoprim [From Bactrim] AdvReac Vomiting Verified 09/16/18 10:01 All Systems PM: A 10-system review of systems was performed and is negative for pertinent findings except as documented above in the HPI. Review of systems: Constitutional: Denies fevers, chills, weight loss, generalized fatigue Head/Neck: Denies LEE, neck stiffness EENT: Denies vision changes/blurriness, rhinorrhea, congestion, sore throat CVS: Denies chest pain, palpitations, SESAY, orthopnea, edema, PND Pulm: Denies SOB, cough, sputum, hemoptysis, wheezing GI: Denies abdominal pain, nausea, vomiting, diarrhea, constipation, melena, hematemasis : Denies dysuria, increased frequency, urgency, hematuria Heme: Denies ease of bleeding or bruising MSK: Denies joint pain, limited ROM Skin: Admits to redness and swelling of bilateral lower extremities, as well as ulceration right heel Neuro: Denies LEE, paresthesias, focal deficits, ataxia - Constitutional Vitals: Temp Pulse Resp BP Pulse Ox 98.7 F 69 18 163/61 94 03/31/19 20:54 03/31/19 20:54 03/31/19 20:54 03/31/19 20:54 03/31/19 20:54 Exam: Gen: Vitals noted. No acute distress. Eyes: anicteric sclerae, moist conjunctivae; no lid-lag; Pupils equal and reactive to light HENT: Atraumatic; oropharynx clear with moist mucous membranes and no mucosal ulcerations; normal hard and soft palate Neck: Trachea midline; supple, no thyromegaly or lymphadenopathy Cardiac: RRR, no murmur, +S1/S2 Pulmonary: CTA bilaterally, no wheezes, rales or rhonchi, equal chest expansion Abdomen: soft, nontender, no guarding. No masses or hepatosplenomegaly MSK: ROM intact, no joint swelling noted Extremities: 1-2+ b/l LE edema to knees with redness and evidence of chronic stasis. b/l great toe amputation Skin: Normal temperature, turgor. Chronic stasis present in b/l LEs, keratanized skin. There are nodules present on patient's upper back suspicious for sebaceous cysts vs lipoma. The patient has large 3x4cm malodorous ulcer present on right calcaneal surface with blackened appearance and surrounding necrotic tissue Neuro: moves all extremities, no focal deficits. Psych: Appropriate mood and behavior. A&Ox3 Internal Med - H&P Results - Labs CBC & Chem 7: 03/31/19 22:50 03/31/19 22:50 - Assessment and Plan (1) Diabetic foot ulcer Current Visit: Yes Status: Acute Assessment and plan: Diabetic foot ulcer involving heel Highly malodorous, blackened eschar appearance Uncertain depth, appears to involve at least the fat layers Patient is afebrile, however WBC 16.5. ESR >130, CRP 173 Ulceration Present for at least 3-4 weeks according to patient, high risk of osteomyelitis Blood cultures taken at [facility], will repeat here Will order MRI of right foot Podiatry consult ordered, NPO at midnight Start Vancomycin, Cefepime, Flagyl Qualifiers: Diabetic foot ulcer location: heel Diabetes mellitus type: type 2 Laterality: right Non-pressure ulcer stage: with fat layer exposed Qualified Code(s): E11.621 - Type 2 diabetes mellitus with foot ulcer; L97.412 - Non- pressure chronic ulcer of right heel and midfoot with fat layer exposed (2) Cellulitis Current Visit: Yes Status: Acute Assessment and plan: Cellulitis of skin surrounding right DM foot ulcer No purulent drainage noted at this time MRI of area pending Podiatry consult pending in AM Start Vanc, cefepime, flagyl Qualifiers: Site of cellulitis: extremity Site of cellulitis of extremity: lower extremity Laterality: right Qualified Code(s): L03.115 - Cellulitis of right lower limb (3) DM type 2 (diabetes mellitus, type 2) Current Visit: No Status: Chronic Assessment and plan: DM 2, in adequate control Glucose 78 on admission Will give q6h accuchecks while NPO Initiate levemir and SSI Qualifiers: Diabetes mellitus terminal clerk insulin use: without retirement use Diabetes mellitus complication status: with kidney complications Diabetes mellitus complication detail: with chronic kidney disease Chronic kidney disease stage: stage 3 (moderate) Qualified Code(s): E11.22 - Type 2 diabetes mellitus with diabetic chronic kidney disease; N18.3 - Chronic kidney disease, stage 3 (moderate) (4) Venous stasis dermatitis of both lower extremities Current Visit: No Status: Acute Assessment and plan: Patient has legs wrapped to reduce edema Will continue (5) CAD (coronary artery disease) Current Visit: Yes Status: Chronic Assessment and plan: CAD, hx of CABG Will hold ASA + Plavix pending surgical eval Conitnue statin, BB Qualifiers: Coronary Disease-Associated Artery/Lesion type: augustine artery Ruby vs. transplanted heart: augustine heart Associated angina: without angina Qualified Code(s): I25.10 - Atherosclerotic heart disease of augustine coronary artery without angina pectoris (6) Hypertension Current Visit: Yes Status: Chronic Assessment and plan: Continue home meds Qualifiers: Hypertension type: essential hypertension Qualified Code(s): I10 - Essential (primary) hypertension - Time Spent With Patient Total time spent is greater than 50% in coordination of care (as documented) at patient's floor/unit and/or counseling patient: <Blanquita Poole - Last Filed: 04/01/19 06:53> Date of Encounter: 03/31/19 Internal Medicine - H&P: HPI History of present illness: Mr. Galindo is a 73 year old male All Systems PM: A 10-system review of systems was performed and is negative for pertinent findings except as documented above in the HPI. - Constitutional Vitals: Temp Pulse Resp BP Pulse Ox 97.7 F 68 16 164/74 95 04/01/19 04:20 04/01/19 04:20 04/01/19 04:20 04/01/19 04:20 04/01/19 04:20 Internal Med - H&P Results - Labs CBC & Chem 7: 04/01/19 03:57 04/01/19 03:57 Labs: Short CBC 03/31/19 04/01/19 Range/Units 22:50 03:57 WBC 16.5 H 16.6 H (4.3-11.1) K/mcL Hgb 11.3 L 11.0 L (12.9-16.9) g/dL Hct 35.7 L 35.9 L (37.5-50.1) % Plt Count 368 412 H (140-400) K/mcL Neutrophils # 12.4 H 12.2 H (1.6-8.9) K/mcL BMP 03/31/19 04/01/19 22:50 03:57 Sodium 137 136 Potassium 5.1 5.0 Chloride 105 104 Carbon Dioxide 23 26 BUN 43 H 40 H Creatinine 2.08 H 1.97 H Glucose 168 H 147 H Calcium 8.8 8.9 - Time Spent With Patient Total time spent is greater than 50% in coordination of care (as documented) at patient's floor/unit and/or counseling patient: - Attending Attestation I performed a history and physical examination of the patient and discussed his management with the resident. I reviewed the residents note and agree with the documented findings and plan of care.
[2019-03-31] MEDS: Albuterol 2.5 MG/3 ML NEBULIZER IH SCH ×2 (22:40→22:54)
[2019-03-31 23:15] LABS: Basophils # 0.1 K/mcL (0.0-0.2); Basophils % 0.4 %; Eosinophils # 0.2 K/mcL (0.0-0.6); Eosinophils % 1.3 %; Hematocrit 35.7 % (37.5-50.1); Hemoglobin 11.3 g/dL (12.9-16.9); Immature Granulocytes % 0.4 % (0-4); Lymphocytes # 1.7 K/mcL (0.6-4.6); Lymphocytes % 10.2 %; Mean Corpuscular HGB Conc 31.7 g/dL (31.6-35.5); Mean Corpuscular Hemoglobin 27.4 pg (28.0-33.3); Mean Corpuscular Volume 86.7 fL (83.0-100.0); Mean Platelet Volume 9.9 fL (9.4-12.4); Monocytes # 2.1 K/mcL (0.0-1.3); Monocytes % 12.6 %; Neutrophils # 12.4 K/mcL (1.6-8.9); Platelet Count 368 K/mcL (140-400); Red Blood Count 4.12 M/mcL (4.19-5.50); Red Cell Distribution Width 14.6 % (11.5-14.5); Segmented Neutrophils % 75.1 %; White Blood Count 16.5 K/mcL (4.3-11.1)
[2019-03-31 23:22] LABS: Estimated Average Glucose 163 mg/dl
[2019-03-31 23:35] LABS: Calcium 8.8 mg/dL (8.6-10.3); Potassium 5.1 mEq/L (3.5-5.1)
[2019-03-31 23:37] LABS: Platelet Clumps Few (Not Present)
[2019-04-01] MEDS ORDERED: *HR* OxyCODONE Immed Rel 5 MG TABLET PO ONE (00:39)
[2019-04-01] MEDS: cloNIDine HCl 0.1 MG TABLET PO SCH ×4 (00:41→21:10)
[2019-04-01] MEDS: *HR* Heparin 5,000 UNIT/ML VIAL SQ SCH ×4 (00:41→21:11)
[2019-04-01] MEDS: Insulin LISPRO 300 UNITS/3 ML VIAL SQ SCH ×6 (00:49→21:12)
[2019-04-01] MEDS: Albuterol 2.5 MG/3 ML NEBULIZER IH SCH ×5 (04:05→19:50)
[2019-04-01 04:22] LABS: Basophils # 0.1 K/mcL (0.0-0.2); Basophils % 0.4 %; Eosinophils # 0.2 K/mcL (0.0-0.6); Eosinophils % 1.1 %; Hematocrit 35.9 % (37.5-50.1); Immature Granulocytes % 0.5 % (0-4); Lymphocytes # 2.1 K/mcL (0.6-4.6); Lymphocytes % 12.9 %; Mean Corpuscular HGB Conc 30.6 g/dL (31.6-35.5); Mean Platelet Volume 9.4 fL (9.4-12.4); Monocytes % 11.9 %; Neutrophils # 12.2 K/mcL (1.6-8.9); Platelet Count 412 K/mcL (140-400); Red Blood Count 4.08 M/mcL (4.19-5.50); Red Cell Distribution Width 14.6 % (11.5-14.5); Segmented Neutrophils % 73.2 %; White Blood Count 16.6 K/mcL (4.3-11.1)
[2019-04-01 04:29] LABS: INR 1.3; Prothrombin Time 14.3 Seconds (9.4-12.1)
[2019-04-01 04:33] LABS: Calcium 8.9 mg/dL (8.6-10.3); Magnesium 1.9 mg/dL (1.6-2.6); Phosphorous 2.9 mg/dL (2.7-4.5)
--- NOTE | 2019-04-01 08:15 | Internal Med Progress Note ---
Hospitalist Progress Note - Encounter Date of Encounter: 04/01/19 Time of Encounter: 08:12 - Subjective Interval History: Patient seen and examined this morning at bedside. No acute overnight events. Admitted overnight. Denies any fevers chills nausea vomiting or diarrhea. Denies any chest pain difficulty breathing. Has the some tingling numbness in both lower extremity. Feels his right leg is swollen. Denies significant pain. - Exam Vitals: Temp Pulse Resp BP Pulse Ox 98.8 F 64 16 171/77 93 04/01/19 07:23 04/01/19 07:23 04/01/19 07:23 04/01/19 07:23 04/01/19 07:23 Exam: General: In no acute distress. Respiratory exam: CTAB. no accessory muscle use, rales, rhonchi, wheezes Cardiovascular exam: RRR, +S1, +S2. no murmur, gallop, rubs. GI/Abdominal exam: Non-tender, Non-distended, normal bowel sounds, soft, no peritoneal signs. Extremities exam: feeble pulses palpable in b/l lower extremities. no calf tenderness. + 1b/l LE edema. b/l great toe amputation Skin: Chronic stasis dermatitis present in b/l LEs, keratanized skin. large 3x4cm malodorous ulcer present on right calcaneal surface with blackened appearance and surrounding necrotic tissue Neurological exam: CN II-XII intact, AO X3, no focal deficits. - Assessment and Plan (1) Diabetic foot ulcer Current Visit: Yes Status: Acute (2) CAD (coronary artery disease) Current Visit: Yes Status: Chronic (3) Hypertension Current Visit: Yes Status: Chronic (4) Chronic venous stasis Current Visit: No Status: Acute (5) Diabetic foot ulcer with osteomyelitis Current Visit: No Status: Acute (6) GERD (gastroesophageal reflux disease) Current Visit: No Status: Acute (7) CKD (chronic kidney disease) stage 3, GFR 30-59 ml/min Current Visit: No Status: Chronic (8) DM type 2 (diabetes mellitus, type 2) Current Visit: No Status: Chronic - Summary of Assessment and Plan Summary of Assessment and Plan: Assessment Acute Diabetic foot ulcer Early osteomyelitis of calcaneous. LORETO on CKD3 Chronic CAD COPD Dementia DM HLD HTN Plan - MRI with early signs of osteomyelitis on calcaneum. Podiatry consulted. c/w empiric vancomycin, cefepime and metronidazole. No signs of sepsis. f/u blood culture. Will need infectious disease input on wednesday. - c/w accuchecks achs with sliding scale and levemir at current regimen - hold lasix given loreto on ckd. keep on gentle IVF. Obtain urine sodium and creat. On ibuprofen prn at home. Will dc - c/w home antihypertensives. prn hydralazine for sbp>180 - aspirin, plavix hed. No h/o coronary stenting. will resume if no surgery is planned. - sc heparin for dvt Internal Medicine: Result - Labs CBC & Chem 7: 04/01/19 03:57 04/01/19 03:57 Labs: Short CBC 03/31/19 04/01/19 Range/Units 22:50 03:57 WBC 16.5 H 16.6 H (4.3-11.1) K/mcL Hgb 11.3 L 11.0 L (12.9-16.9) g/dL Hct 35.7 L 35.9 L (37.5-50.1) % Plt Count 368 412 H (140-400) K/mcL Neutrophils # 12.4 H 12.2 H (1.6-8.9) K/mcL BMP 03/31/19 04/01/19 22:50 03:57 Sodium 137 136 Potassium 5.1 5.0 Chloride 105 104 Carbon Dioxide 23 26 BUN 43 H 40 H Creatinine 2.08 H 1.97 H Glucose 168 H 147 H Calcium 8.8 8.9 - ABG Interpretation ABG results: PT/INR, D-dimer PT 14.3 Seconds (9.4-12.1) H 04/01/19 03:57 Consult Discharge Plan - Plan Referrals: Antonietta Butler MD [Primary Care Provider] - (1) Diabetic foot ulcer Qualifiers: Diabetic foot ulcer location: heel Diabetes mellitus type: type 2 Laterality: right Non-pressure ulcer stage: with fat layer exposed Qualified Code(s): E11.621 - Type 2 diabetes mellitus with foot ulcer; L97.412 - Non- pressure chronic ulcer of right heel and midfoot with fat layer exposed (2) CAD (coronary artery disease) Qualifiers: Coronary Disease-Associated Artery/Lesion type: [place] artery [place] vs. 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
[2019-04-01] MEDS ORDERED: Furosemide 20 MG TABLET PO SCH (09:00)
[2019-04-01] MEDS: metroNIDAZOLE 500 MG TABLET PO SCH ×3 (10:00→21:10)
[2019-04-01] MEDS: Cefepime HCl 1,000 MG in 0.9 % Sodium Chloride Mini Bag 100 ML IVPB SCH (10:01)
[2019-04-01] MEDS: amLODIPine 5 MG TABLET PO SCH (10:01)
[2019-04-01] MEDS: *HR* OxyCODONE/APAP 10/325 TABLET PO SCH ×4 (10:01→21:19)
[2019-04-01] MEDS: Loratadine 10 MG TABLET PO SCH (10:01)
[2019-04-01] MEDS ORDERED: Ringers Solution, Lactated 1,000 ML IVC SCH (12:00)
[2019-04-01 15:59] LABS: Sodium, Urine 115.8 mEq/L
[2019-04-01] MEDS: traZODone 50 MG TABLET PO SCH (21:10)
[2019-04-01] MEDS: Insulin DETEMIR 100 UNIT/ML X5UNITS SQ SCH (21:11)
[2019-04-02] MEDS: Albuterol 2.5 MG/3 ML NEBULIZER IH SCH ×7 (00:23→23:10)
[2019-04-02 04:28] LABS: Hematocrit 34.8 % (37.5-50.1); Hemoglobin 10.8 g/dL (12.9-16.9); Mean Corpuscular Hemoglobin 27.6 pg (28.0-33.3); Mean Corpuscular Volume 88.8 fL (83.0-100.0); Mean Platelet Volume 9.1 fL (9.4-12.4); Platelet Count 416 K/mcL (140-400); Red Blood Count 3.92 M/mcL (4.19-5.50); Red Cell Distribution Width 14.5 % (11.5-14.5); White Blood Count 12.9 K/mcL (4.3-11.1)
[2019-04-02 04:44] LABS: Calcium 8.9 mg/dL (8.6-10.3); Potassium 4.6 mEq/L (3.5-5.1)
[2019-04-02] MEDS: *HR* Heparin 5,000 UNIT/ML VIAL SQ SCH ×3 (05:16→21:28)
[2019-04-02] MEDS: cloNIDine HCl 0.1 MG TABLET PO SCH ×3 (05:16→21:27)
[2019-04-02] MEDS: Insulin LISPRO 300 UNITS/3 ML VIAL SQ SCH ×4 (08:30→21:28)
[2019-04-02] MEDS: Loratadine 10 MG TABLET PO SCH (08:31)
[2019-04-02] MEDS: *HR* OxyCODONE/APAP 10/325 TABLET PO SCH ×4 (08:31→21:27)
[2019-04-02] MEDS: metroNIDAZOLE 500 MG TABLET PO SCH ×3 (08:31→21:27)
[2019-04-02] MEDS: amLODIPine 5 MG TABLET PO SCH (08:31)
[2019-04-02] MEDS: Cefepime HCl 1,000 MG in 0.9 % Sodium Chloride Mini Bag 100 ML IVPB SCH (08:31)
--- NOTE | 2019-04-02 16:22 | Internal Med Progress Note ---
Hospitalist Progress Note - Encounter Date of Encounter: 04/02/19 Time of Encounter: 10:00 - Subjective Interval History: No major events overnight. Patient was seen this a.m. He denied fever, chills or night sweats. He has no nausea, vomiting or abdominal pain. Patient denied chest pain, shortness of breath or palpitation. History complaining about foul- smelling coming from his legs and he is requesting to clean his legs. - Exam Vitals: Temp Pulse Resp BP Pulse Ox 97.8 F 100 15 174/68 100 04/02/19 15:33 04/02/19 15:33 04/02/19 15:33 04/02/19 15:33 04/02/19 15:33 Exam: General: Patient is alert, oriented 3. Head: Atraumatic, normal inspection, normocephalic. Eye: EOMI, PERRLA, no scleral icterus noted. ENT: Mucous membranes moist. No odontogenic infection noted. Neck: Normal inspection, no meningismus. Respiratory: No respiratory distress, rhonchi, or wheezes noted. Cardiovascular: Regular rate and regular rhythm, S1 and S2 audible. No murmurs, rubs, or gallops. GI: Soft, nondistended, normal bowel sounds. Extremities:No joint swelling, pedal edema, or tenderness noted. Neurological: Alert, oriented 3, no focal deficits. Psychiatric: normal affect, normal mood. Skin: Dry, intact, warm. Normal color. large 3x4cm malodorous ulcer present on right calcaneal surface with blackened appearance and surrounding necrotic tissue - Assessment and Plan (1) Diabetic foot ulcer with osteomyelitis Current Visit: Yes Status: Acute (2) CKD (chronic kidney disease) stage 3, GFR 30-59 ml/min Current Visit: Yes Status: Chronic (3) DM type 2 (diabetes mellitus, type 2) Current Visit: Yes Status: Chronic (4) CAD (coronary artery disease) Current Visit: Yes Status: Chronic (5) GERD (gastroesophageal reflux disease) Current Visit: No Status: Acute (6) Hypertension Current Visit: Yes Status: Chronic (7) Chronic venous stasis Current Visit: Yes Status: Chronic (8) Diabetic foot ulcer Current Visit: Yes Status: Acute - Summary of Assessment and Plan Summary of Assessment and Plan: 73-year-old male with history of CAD status post CABG, IDDM, HTN, bilateral toe amputation, CKD STAGE III who came into the hospital after he failed outpatient therapy for his right heel foot ulcer. Right calcaneus OM: - On renally dosed vanc, cefepime and Flagyl. - Elevated ESR and CRP. MRI was significant of OM. Patient is afebrile, hemodynamically stable. Has leukocytosis. - Pediatrics consulted, we keep patient nothing by mouth in anticipation of procedure tomorrow. - Blood cultures are still pending. MRSA swab is pending. - Check CBC tomorrow. - Consult ID. LORETO on CKD stage III: - Cr bl is 1.3-1.4. Today 1.8. likely pre-renal from dehydration related to infection vs NSAIDs use. - We will keep lasix on hold. I/O -300 ml - check bmp tomorrow. IDDM: - A1c is 7.3 - On 70/30 protocol at home total of 90 units a day. - On Levemir 26 units with low sliding scale insulin. Accu-Chek 3 times a day before meals. CAD status post CABG: - Continue aspirin, beta blockers and Lipitor. HTN: - Continue with Norvasc and clonidine DVT ppx : heparin sc I reviewed independently all laboratory workup, pertinent images including x- rays and CT scans. I also reviewed independently and EKGs and my findings are in the body of my assessment and plan. I ordered the laboratory workup and images myself. I discussed finding with patient's, their families, RN's and consultants involved in the care of the patient. - Time Spent with Patient Total time spent is greater than 50% in coordination of care (as documented) at patient's floor/unit and/or counseling patient: Plan of Care Discussed with: patient Internal Medicine: Result - Labs CBC & Chem 7: 04/02/19 04:00 04/02/19 04:00 Labs: Short CBC 04/02/19 Range/Units 04:00 WBC 12.9 H (4.3-11.1) K/mcL Hgb 10.8 L (12.9-16.9) g/dL Hct 34.8 L (37.5-50.1) % Plt Count 416 H (140-400) K/mcL BMP 04/02/19 04:00 Sodium 136 Potassium 4.6 Chloride 103 Carbon Dioxide 28 BUN 39 H Creatinine 1.80 H Glucose 248 H Calcium 8.9 - ABG Interpretation ABG results: PT/INR, D-dimer PT 14.3 Seconds (9.4-12.1) H 04/01/19 03:57 Consult Discharge Plan - Plan Referrals: Antonietta Butler MD [Primary Care Provider] - (3) DM type 2 (diabetes mellitus, type 2) Qualifiers: Diabetes mellitus terminal gauger insulin use: with prison use Diabetes mellitus complication status: with kidney complications Diabetes mellitus complication detail: with chronic kidney disease Chronic kidney disease stage: stage 3 (moderate) Qualified Code(s): E11.22 - Type 2 diabetes mellitus with diabetic chronic kidney disease; N18.3 - Chronic kidney disease, stage 3 (moderate); Z 79.4 - snf (current) use of insulin (4) CAD (coronary artery disease) Qualifiers: Coronary Disease-Associated Artery/Lesion type: [place] artery [place] vs. transplanted heart: [place] heart Associated angina: without angina Qualified Code(s): I25.10 - Atherosclerotic heart disease of [place] coronary artery without angina pectoris (5) GERD (gastroesophageal reflux disease) Qualifiers: Esophagitis presence: esophagitis presence not specified Qualified Code(s): K21.9 - Gastro-esophageal reflux disease without esophagitis (6) Hypertension Qualifiers: Hypertension type: essential hypertension Qualified Code(s): I10 - Essential (primary) hypertension (8) Diabetic foot ulcer Qualifiers: Diabetic foot ulcer location: heel Diabetes mellitus type: type 2 Laterality: right Non-pressure ulcer stage: with fat layer exposed Qualified Code(s): E11.621 - Type 2 diabetes mellitus with foot ulcer; L97.412 - Non- pressure chronic ulcer of right heel and midfoot with fat layer exposed
--- NOTE | 2019-04-02 16:33 | Podiatry Consult Note ---
Date of Encounter: 04/02/19 Time of Encounter: 16:33 Assessment and Plan (1) Diabetic foot ulcer with osteomyelitis Current visit: Yes Status: Acute Assessment: #1: Necrotic ulcer right calcaneus with foul fetid odor and surrounding cellulitis #2: Multiple comorbidities Plan: #1: Agree with present broad-spectrum antibiotic therapy #2: Recommend formal incision and drainage and debridement of all necrotic tissue and deep cultures to guide antibiotic therapy #3: Discussed treatment options and surgical intervention in detail. #4: We will begin local wound care, and offloading. History of Present Illness Chief complaint: "I thought I got a [place] in my foot", is been about 4 weeks. HPI: Mr. Galindo is a 73 year old male, presented to [facility] with infection of his right foot and cellulitis with ongoing leukocytosis and left shift. Patient is known to me from previous treatment for venous ulcerations of both legs wound care clinic. He was lost to follow-up. Patient states he thought he got a "[place] in my foot". Patient states she has had wound there for at least 4 weeks he is aware of. Patient states his primary care doctor placed him on antibiotics to no avail. He now has a foul fetid necrotic ulceration on the plantar aspect plantar medial aspect of his right calcaneus. Long history of venous insufficiency which is been controlled with compression dressings. He presently is not complaining of any fever chills nausea vomiting chest pain or shortness of breath. He was using a nebulizer inhaler when examined today. Wound is an obvious need of debridement. MR is suspicious for osteomyelitis of the calcaneus. We will order plain films and wound care orders. Recommend patient proceed to the operating room with the next 24 hours for formal debridement and wound cultures and tissue cultures. We discussed risks versus benefits as well as alternatives to surgical intervention in terms he could understand. Risks include but limited to loss of toe toes foot leg life DVT blood clots, need for further surgery. Failure procedure produce desired results. We discussed types of anesthetic can be employed. Patient ample opportunity ask questions about planned procedure. Those questions are answered to his satisfaction. We will proceed expectantly. Past Med Surg Social Fam HX - Past Medical History Medical history: CHF, COPD, dementia, diabetes, GERD, hyperlipidemia, hypertension, other Additional medical history: CAD, Ventricular systolic function, obesity, dylipidemia, ascvd, unstable angina, lumbar degenerative disc disease, pvd, renal artery stenosis, osteomyelitis Psychiatric history: no psych history - Past Surgical History Surgical History: coronary bypass (CABG) Additional surgical history: open heart, bypass 5 vessel in 2006. right great toe amputation March 2016. cataracts. lt great toe amputation - Social History Smoking Status: Former smoker Smokeless Tobacco Status: No Alcohol use: none Drug use: none - Family History Mother Adopted: No Family Member Ethnicity: Non- Living Status: Hx Family Cardiac Disorders: No Hx Family Respiratory Disorders: No Hx Family Cancer: No Hx Family GI Disorders: No Hx Family Endocrine Disorder: No Hx Family Neuromuscular Disorders: No Hx Family Neurologic Disorders: No Hx Family HEENT Disorders: No Hx Family Autoimmune Disorders: No Father Living Status: Medications and Allergies Albuterol Sulfate [Proair Respiclick] 2 puff IH Q4HR PRN 10/04/15 [History] Atorvastatin [Lipitor] 40 mg PO HS 10/04/15 [History] Clopidogrel [Plavix] 75 mg PO DAILY 10/04/15 [History] Albuterol Neb [Proventil Neb] 2.5 mg IH Q4H 10/22/16 [History] Aspirin 81 mg PO DAILY 10/22/16 [History] cloNIDine HCl [Clonidine HCl] 0.2 mg PO Q8H #90 tab 11/06/16 [Rx] Insulin NPH Hum/Reg Insulin Hm [Novolin 70-30 100 Unit/ml Vial] 40 unit SQ QPM 02/11/17 [History] Insulin NPH Hum/Reg Insulin Hm [Novolin 70-30 100 Unit/ml Vial] 50 unit SQ QAM 02/11/17 [History] Loratadine [Claritin] 10 mg PO DAILY 08/29/18 [History] Trazodone HCl 50 mg PO HS 08/30/18 [History] Furosemide [Lasix] 20 mg PO DAILY 09/16/18 [History] Ibuprofen 800 mg PO TID PRN #15 tablet 09/16/18 [Rx] Oxycodone HCl/Acetaminophen [Percocet 10-325 mg Tablet] 1 each PO QID 09/16/18 [History] Amlodipine Besylate 10 mg PO DAILY 03/31/19 [History] Nebivolol HCl [Bystolic] 10 mg PO DAILY 03/31/19 [History] Vitamin B Complex [Balanced B-50] 1 each PO HS 03/31/19 [History] Allergy/AdvReac Type Severity Reaction Status Date / Time ampicillin AdvReac Vomiting Verified 04/02/19 13:19 sulfamethoxazole AdvReac Vomiting Verified 04/02/19 13:19 [From Bactrim] trimethoprim [From Bactrim] AdvReac Vomiting Verified 04/02/19 13:19 All Systems Reviewed: The remainder of the systems were reviewed and are negative Physical Exam - Constitutional Vitals: Temp Pulse Resp BP Pulse Ox 97.8 F 100 14 174/68 91 04/02/19 15:33 04/02/19 15:33 04/02/19 16:22 04/02/19 15:33 04/02/19 16:22 General appearance: no acute distress, obese - Expanded Lower Extremities Exam Gait: Present: not tested/not observed - Neurological Exam Additional comments: Absent to diminished epicritic vibratory protective sensation from toes to tibia . DTRs Achilles and patellar equal symmetrical 0/4. No spasticity rigidity or flaccidity. Babinski absent clonus is negative. - Psychiatric Psychiatric exam: Present: normal affect - Skin Skin Exam: Present: ulceration (Ulceration plantar medial aspect of the right calcaneus measuring approximately 6 cm in length and 4.5 cm in width full- thickness undetermined depth unstageable foul fetid black eschar. Spreading c ellulitis approximately 1-2 cm the periwound tissue. No fluctuance noted the periwound tissue. No ascending lymphangitis.), hernandez (Class 2/3), erythema Additional comments: Patient also exhibits a contusion to the third toe left foot and dorsal distal aspect from dropping a lawnmower deck approximately week ago. - Vascular Capillary Refill: Immediate Right Popliteal: Weak Left Popliteal: Weak Right Dorsalis Pedis: 1+ Left Dorsalis Pedis: 1+ Right Posterior Tibialis: 1+ Left Posterior Tibialis: 1+ Edema Degree: 1+ Edema (Patient with long history venous insufficiency. Minimal edema. Trophic changes of the skin of both legs no open wounds.) - Musculoskeletal Muscle Strength and Tone: Grade 4/5 Additional Comments: History of great toe amputations remote healed. Results - Labs Result Diagrams: 04/02/19 04:00 04/02/19 04:00 Labs: Abnormal lab results WBC 12.9 K/mcL (4.3-11.1) H 04/02/19 04:00 RBC 3.92 M/mcL (4.19-5.50) L 04/02/19 04:00 Hgb 10.8 g/dL (12.9-16.9) L 04/02/19 04:00 Hct 34.8 % (37.5-50.1) L 04/02/19 04:00 MCH 27.6 pg (28.0-33.3) L 04/02/19 04:00 MCHC 31.0 g/dL (31.6-35.5) L 04/02/19 04:00 RDW 14.6 % (11.5-14.5) H 04/01/19 03:57 Plt Count 416 K/mcL (140-400) H 04/02/19 04:00 MPV 9.1 fL (9.4-12.4) L 04/02/19 04:00 Neutrophils # 12.2 K/mcL (1.6-8.9) H 04/01/19 03:57 Monocytes # 2.0 K/mcL (0.0-1.3) H 04/01/19 03:57 Clumped Platelets Few (Not Present) A 03/31/19 22:50 ESR 127 mm/hr (0-10) H 03/31/19 22:50 PT 14.3 Seconds (9.4-12.1) H 04/01/19 03:57 BUN 39 mg/dL (8-23) H 04/02/19 04:00 Creatinine 1.80 mg/dL (0.70-1.30) H 04/02/19 04:00 Est GFR ( Amer) 45 (> 60) L 04/02/19 04:00 Est GFR (Non-Af Amer) 37 (> 60) L 04/02/19 04:00 Glucose 248 mg/dL (70-105) H 04/02/19 04:00 POC Glucose 295 mg/dL (70-99) H 04/01/19 20:16 Hemoglobin A1c 7.3 % (-5.6) H 03/31/19 22:50 C-Reactive Protein 173 mg/L (Less than 10) H 03/31/19 22:50 H & H 04/02/19 Range/Units 04:00 Hgb 10.8 L (12.9-16.9) g/dL Hct 34.8 L (37.5-50.1) % All other labs normal. - Diagnostic results Ankle/Foot MRI: report reviewed Consult Discharge Plan - Plan Referrals: Antonietta Butler MD [Primary Care Provider] -
[2019-04-02] MEDS ORDERED: Sennosides/Docusate Sodium TABLET PO SCH (21:00)
[2019-04-02] MEDS: Insulin DETEMIR 100 UNIT/ML X5UNITS SQ SCH (21:27)
[2019-04-02] MEDS: traZODone 50 MG TABLET PO SCH (21:27)
[2019-04-03] MEDS: *HR* Heparin 5,000 UNIT/ML VIAL SQ SCH ×3 (01:24→22:06)
[2019-04-03] MEDS: Albuterol 2.5 MG/3 ML NEBULIZER IH SCH ×6 (03:54→23:26)
[2019-04-03] MEDS: cloNIDine HCl 0.1 MG TABLET PO SCH ×3 (06:01→22:02)
[2019-04-03 07:30] LABS: Hematocrit 37.4 % (37.5-50.1); Hemoglobin 11.5 g/dL (12.9-16.9); Mean Corpuscular HGB Conc 30.7 g/dL (31.6-35.5); Mean Corpuscular Hemoglobin 26.7 pg (28.0-33.3); Mean Platelet Volume 9.3 fL (9.4-12.4); Platelet Count 452 K/mcL (140-400); Red Cell Distribution Width 14.5 % (11.5-14.5); White Blood Count 12.8 K/mcL (4.3-11.1)
[2019-04-03 07:50] LABS: Potassium 4.6 mEq/L (3.5-5.1)
[2019-04-03] MEDS ORDERED: Ringers Solution, Lactated 1,000 ML IVC SCH (08:30)
[2019-04-03] MEDS: Cefepime HCl 1,000 MG in 0.9 % Sodium Chloride Mini Bag 100 ML IVPB SCH (08:36)
[2019-04-03] MEDS: metroNIDAZOLE 500 MG TABLET PO SCH ×3 (08:37→22:03)
[2019-04-03] MEDS: amLODIPine 5 MG TABLET PO SCH (08:37)
[2019-04-03] MEDS: Loratadine 10 MG TABLET PO SCH (08:38)
[2019-04-03] MEDS: *HR* OxyCODONE/APAP 10/325 TABLET PO SCH ×4 (08:38→23:00)
[2019-04-03] MEDS: Insulin LISPRO 300 UNITS/3 ML VIAL SQ SCH ×4 (08:39→22:04)
[2019-04-03] MEDS ORDERED: Aspirin 81 MG TAB.CHEW PO SCH (09:00)
--- NOTE | 2019-04-03 12:04 | Internal Med Progress Note ---
Hospitalist Progress Note - Encounter Date of Encounter: 04/03/19 Time of Encounter: 10:00 - Subjective Interval History: No major events overnight. Patient was seen this a.m. He denied fever, chills or night sweats. He has no nausea, vomiting or abdominal pain. Patient denied chest pain, shortness of breath or palpitation. - Exam Vitals: Temp Pulse Resp BP Pulse Ox 97.9 F 78 17 170/53 94 04/03/19 11:35 04/03/19 11:35 04/03/19 11:35 04/03/19 11:35 04/03/19 11:35 Exam: General: Patient is alert, oriented 3. Head: Atraumatic, normal inspection, normocephalic. Eye: EOMI, PERRLA, no scleral icterus noted. ENT: Mucous membranes moist. No odontogenic infection noted. Neck: Normal inspection, no meningismus. Respiratory: No respiratory distress, rhonchi, or wheezes noted. Cardiovascular: Regular rate and regular rhythm, S1 and S2 audible. No murmurs, rubs, or gallops. GI: Soft, nondistended, normal bowel sounds. Extremities:No joint swelling, pedal edema, or tenderness noted. Bilateral lower extremity dressing and fould smelling odor Neurological: Alert, oriented 3, no focal deficits. Psychiatric: normal affect, normal mood. Skin: Dry, intact, warm. Normal color. large 3x4cm malodorous ulcer present on right calcaneal surface with blackened appearance and surrounding necrotic tissue - Assessment and Plan (1) Diabetic foot ulcer with osteomyelitis Current Visit: Yes Status: Acute (2) CKD (chronic kidney disease) stage 3, GFR 30-59 ml/min Current Visit: Yes Status: Chronic (3) DM type 2 (diabetes mellitus, type 2) Current Visit: Yes Status: Chronic (4) CAD (coronary artery disease) Current Visit: Yes Status: Chronic (5) GERD (gastroesophageal reflux disease) Current Visit: No Status: Acute (6) Hypertension Current Visit: Yes Status: Chronic (7) Chronic venous stasis Current Visit: No Status: Acute (8) Diabetic foot ulcer Current Visit: Yes Status: Acute - Summary of Assessment and Plan Summary of Assessment and Plan: 73-year-old male with history of CAD status post CABG, IDDM, HTN, bilateral toe amputation, CKD STAGE III who came into the hospital after he failed outpatient therapy for his right heel foot ulcer. Right calcaneus OM: - On renally dosed vanc, cefepime and Flagyl. - Elevated ESR and CRP. MRI was significant of OM. Patient is afebrile, hemodynamically stable. leukocytosis improved. - Pediatry consulted, scheduled for OR today. - Blood cultures are still pending. MRSA swab is -. - Check CBC tomorrow. - Consult ID. LORETO on CKD stage III: - Cr bl is 1.3-1.4. Today 1.88. likely pre-renal from dehydration related to infection vs NSAIDs use. - We will keep lasix on hold. I/O -700 ml. Will give 1L of LR today. - check bmp tomorrow. IDDM: not controlled - A1c is 7.3 - On /30 protocol at home total of 90 units a day. - increase Levemir to 40 units and increase LSSI to MSSi. Accu-Chek 3 times a day before meals. ADA. CAD status post CABG: - Continue aspirin, beta blockers and Lipitor. Plavix ON hold due to surgery today. HTN: Uncontrolled - Continue with Norvasc and clonidine. Hydralazine when necessary DVT ppx : heparin sc I reviewed independently all laboratory workup, pertinent images including x- rays and CT scans. I also reviewed independently and EKGs and my findings are in the body of my assessment and plan. I ordered the laboratory workup and images myself. I discussed finding with patient's, their families, RN's and consultants involved in the care of the patient. - Time Spent with Patient Total time spent is greater than 50% in coordination of care (as documented) at patient's floor/unit and/or counseling patient: Greater than 35 minutes Plan of Care Discussed with: patient Internal Medicine: Result - Labs CBC & Chem 7: 04/03/19 06:42 04/03/19 06:42 Labs: Short CBC 04/03/19 Range/Units 06:42 WBC 12.8 H (4.3-11.1) K/mcL Hgb 11.5 L (12.9-16.9) g/dL Hct 37.4 L (37.5-50.1) % Plt Count 452 H (140-400) K/mcL BMP 04/03/19 06:42 Sodium 140 Potassium 4.6 Chloride 104 Carbon Dioxide 25 BUN 36 H Creatinine 1.88 H Glucose 244 H Calcium 9.0 - ABG Interpretation ABG results: PT/INR, D-dimer PT 14.3 Seconds (9.4-12.1) H 04/01/19 03:57 - Impressions Impressions Foot X-Ray 04/02/19 16:47 IMPRESSION: No plain film evidence of osteomyelitis. No acute osseous abnormality. Mild dorsal soft tissue swelling without interval change. D/ / Bridger Cerna MD / Bridger Cerna MD Interpreting Provider: Bridger Cerna MD Consult Discharge Plan - Plan Referrals: Antonietta Butler MD [Primary Care Provider] - (3) DM type 2 (diabetes mellitus, type 2) Qualifiers: Diabetes mellitus superintendent terminal insulin use: with custodial use Diabetes mellitus complication status: with kidney complications Diabetes mellitus complication detail: with chronic kidney disease Chronic kidney disease stage: stage 3 (moderate) Qualified Code(s): E11.22 - Type 2 diabetes mellitus with diabetic chronic kidney disease; N18.3 - Chronic kidney disease, stage 3 (moderate); Z79.4 - senior care (current) use of insulin (4) CAD (coronary artery disease) Qualifiers: Coronary Disease-Associated Artery/Lesion type: [place] artery [place] vs. t ransplanted heart: [place] heart Associated angina: without angina Qualified Code(s): I25.10 - Atherosclerotic heart disease of [place] coronary artery without angina pectoris (5) GERD (gastroesophageal reflux disease) Qualifiers: Esophagitis presence: esophagitis presence not specified Qualified Code(s): K21.9 - Gastro-esophageal reflux disease without esophagitis (6) Hypertension Qualifiers: Hypertension type: essential hypertension Qualified Code(s): I10 - Essential (primary) hypertension (8) Diabetic foot ulcer Qualifiers: Diabetic foot ulcer location: heel Diabetes mellitus type: type 2 Laterality: right Non-pressure ulcer stage: with fat layer exposed Qualified Code(s): E11.621 - Type 2 diabetes mellitus with foot ulcer; L97.412 - Non- pressure chronic ulcer of right heel and midfoot with fat layer exposed
--- NOTE | 2019-04-03 13:27 | Infectious Disease Consult ---
Infectious Disease-Consult - Encounter Date/Time Date of Encounter: 04/03/19 Time of Encounter: 12:30 - Data of Consult Patient: new to practice Reason for consult: "Abx recommendation for calcaneus OM" Consult date: 04/03/19 Requesting Physician: Tj Feliciano Primary Care Provider: Antonietta Butler - [facility] HPI: Mr. Galindo is a 73-year-old male with past medical history of CAD, CHF, COPD, dementia, hypertension, hyperlipidemia, lumbar disc disease, PVD, renal artery stenosis, and osteomyelitis of the right great toe and left great toe status post amputations. The patient was admitted to the hospital 03/31/19 for right heel osteomyelitis. We are consulted 04/03/19 for antibiotic recommendations for right calcaneus OM. Briefly, the patient is a 73 year old male with a past medical history as stated above. The patient presented to [facility] ER with complaints of worsening right heel pain that started about a month ago. He reports that he took an unknown antibiotic prescribed by his PCP and continue to have regression of the wound. He presented to the emergency department for evaluation. Upon arrival, he was afebrile and hemodynamically stable. He had leukocytosis with an acute kidney injury. Lactic acid was normal. Urinalysis was negative. ESR is elevated at 130 with a CRP of 160. He had a right foot x-ray that was negative. Chest x- ray showed a possible left lower lobe infiltrate. His potassium was noted to be a little bit high so he was given a dose of Kayexalate as well as vancomycin and Rocephin. He was transferred here for further evaluation and treatment. His admission, the patient's leukocytosis has improved. He underwent an MRI of the right foot that showed findings consistent with cellulitis and early osteoporosis of the calcaneus. He had a chest x-ray that was negative for infiltrate. Blood cultures drawn at [facility] are no growth to date 2 sets. Repeat blood cultures drawn 04/01/19 are no growth to date. Podiatry was consulted and are recommending an operative I&D which is 2 occur today. MRSA nasal screen was negative. Acute kidney injury noted on admission has improved. Currently, he is on vancomycin, cefepime, and Flagyl. We have been asked to evaluate and make further recommendations. During my exam today, the patient states he noticed an ulcer to his right heel about a month ago of unknown etiology. He states the wound continued to get bigger and he saw his PCP who placed him on an oral antibiotic. Despite taking the oral antibiotic as prescribed, the wound continued to get bigger and recently developed a foul odor. He states he is unsure if there is any drainage. He states he did not notice any redness or swelling up his leg. He does report some intermittent calf pain. Denies fevers, chills, rigors. Denies chest pain, shortness of breath, or cough. Denies nausea, vomiting, diarrhea, or constipation. Denies abdominal pain or urinary complaints. Denies oral thrush or other skin lesions. The patient was at home with his . He is retired/disabled. He denies tobacco, alcohol, or illicit drug use. He states he has several cats at home, denies any bites or scratches. Denies any chronic infectious diseases. Denies any recent travel outside the [facility]. - ROS Review of Systems: All systems reviewed and no additional remarkable complaints except as stated. - Results CBC & Chem 7: 04/04/19 08:21 04/04/19 08:01 - Exam Vitals: Temp Pulse Resp BP Pulse Ox 97.8 F 67 16 165/73 91 04/03/19 11:56 04/03/19 11:56 04/03/19 12:03 04/03/19 11:56 04/03/19 12:03 Exam: Head: Atraumatic, normal inspection, normocephalic. Eye: EOMI, PERRLA, no scleral icterus noted. ENT: Mucous membranes moist. No odontogenic infection noted. Neck: Normal inspection, no meningismus. Respiratory: Clear to auscultation. No rales, respiratory distress, rhonchi, or wheezes noted. Cardiovascular: Regular rate and rhythm, S1 and S2 audible. No murmurs, rubs, or gallops. GI: Soft, obese, normal bowel sounds. Nontender Extremities:No joint swelling, pedal edema, or tenderness noted. Right foot dressing and heel protector boot intact. Foul smell noted. No erythema extending above the dressing. Back: Normal inspection. No vertebral tenderness noted. Neurological: Alert, oriented 3, no focal deficits. Psychiatric: normal affect, normal mood. Skin: Dry, intact, warm. Normal color. No rashes. Albuterol Sulfate [Proair Respiclick] 2 puff IH Q4HR PRN 10/04/15 [History] Atorvastatin [Lipitor] 40 mg PO HS 10/04/15 [History] Clopidogrel [Plavix] 75 mg PO DAILY 10/04/15 [History] Albuterol Neb [Proventil Neb] 2.5 mg IH Q4H 10/22/16 [History] Aspirin 81 mg PO DAILY 10/22/16 [History] cloNIDine HCl [Clonidine HCl] 0.2 mg PO Q8H #90 tab 11/06/16 [Rx] Insulin NPH Hum/Reg Insulin Hm [Novolin 70-30 100 Unit/ml Vial] 40 unit SQ QPM 02/11/17 [History] Insulin NPH Hum/Reg Insulin Hm [Novolin 70-30 100 Unit/ml Vial] 50 unit SQ QAM 0 02/11/17 [History] Loratadine [Claritin] 10 mg PO DAILY 08/29/18 [History] Trazodone HCl 50 mg PO HS 08/30/18 [History] Furosemide [Lasix] 20 mg PO DAILY 09/16/18 [History] Ibuprofen 800 mg PO TID PRN #15 tablet 09/16/18 [Rx] Oxycodone HCl/Acetaminophen [Percocet 10-325 mg Tablet] 1 each PO QID 09/16/18 [History] Amlodipine Besylate 10 mg PO DAILY 03/31/19 [History] Nebivolol HCl [Bystolic] 10 mg PO DAILY 03/31/19 [History] Vitamin B Complex [Balanced B-50] 1 each PO HS 03/31/19 [History] Allergy/AdvReac Type Severity Reaction Status Date / Time ampicillin AdvReac Vomiting Verified 04/02/19 13:19 sulfamethoxazole AdvReac Vomiting Verified 04/02/19 13:19 [From Bactrim] trimethoprim [From Bactrim] AdvReac Vomiting Verified 04/02/19 13:19 - Assessment and Plan (1) Sepsis Current Visit: Yes Status: Acute The patient had 2 sepsis criteria on admission plus acute kidney injury. Likely secondary to right foot osteomyelitis. Improved. White blood cell count trending down. Acute kidney injury improved. Tachycardia resolved. Blood cultures drawn 03/31/19 at [facility] are no growth to date 2 sets. Repeat blood cultures drawn 04/01/19 are no growth to date 2 sets. Qualifiers: Sepsis type: sepsis due to unspecified organism Qualified Code(s): A41.9 - Sepsis, unspecified organism SNOMED Code(s): 73779678 (2) Osteomyelitis Current Visit: No Status: Acute Location: Right calcaneus. Likely secondary to diabetic foot ulcer. Causative organism: Unclear. No wound cultures obtained. MRI showed findings consistent with early osteomyelitis of the calcaneus. ESR 127, CRP 173. Podiatry consult. Planning operative debridement later today. Currently on vancomycin, cefepime, and Flagyl. Qualifiers: Osteomyelitis location: foot Laterality: right SNOMED Code(s): 51244517 (3) Cellulitis Current Visit: Yes Status: Acute Location: Right lower extremity. Likely secondary to diabetic foot ulcer. Causative organism: Unclear. Podiatry consult and following. Currently on vancomycin, cefepime, and Flagyl. Qualifiers: Site of cellulitis: extremity Site of cellulitis of extremity: lower extremity Laterality: right Qualified Code(s): L03.115 - Cellulitis of right lower limb SNOMED Code(s): 916600778 (4) Acute kidney injury Current Visit: Yes Status: Acute Likely secondary to sepsis. Improved. Dose adjust antibiotics and avoid nephrotoxins as able. SNOMED Code(s): 34083573, 93643832 (5) Diabetic foot ulcer Current Visit: Yes Status: Acute Location: Right heel. Etiology: Unclear. Podiatry consult and following. Qualifiers: Diabetic foot ulcer location: heel Diabetes mellitus type: type 2 Laterality: right Non-pressure ulcer stage: with fat layer exposed Qualified Code(s): E11.621 - Type 2 diabetes mellitus with foot ulcer; L97.412 - Non- pressure chronic ulcer of right heel and midfoot with fat layer exposed SNOMED Code(s): 660977253 (6) CKD (chronic kidney disease) stage 3, GFR 30-59 ml/min Current Visit: Yes Status: Chronic SNOMED Code(s): 026408811 (7) DM type 2 (diabetes mellitus, type 2) Current Visit: Yes Status: Chronic Recommend aggressive glucose monitoring and control to promote wound healing and prevent reinfection. Management per the primary team. Qualifiers: Diabetes mellitus senior living insulin use: with terminal manager use Diabetes mellitus complication status: with kidney complications Diabetes mellitus complication detail: with chronic kidney disease Chronic kidney disease stage: stage 3 (moderate) Qualified Code(s): E11.22 - Type 2 diabetes mellitus with diabetic chronic kidney disease; N18.3 - Chronic kidney disease, stage 3 (moderate); Z79.4 - [facility] (current) use of insulin SNOMED Code(s): 75527340 (8) CAD (coronary artery disease) Current Visit: Yes Status: Chronic Qualifiers: Coronary Disease-Associated Artery/Lesion type: [place] artery [place] vs. transplanted heart: [place] heart Associated angina: without angina Qualified Code(s): I25.10 - Atherosclerotic heart disease of [place] coronary artery without angina pectoris SNOMED Code(s): 71637390 (9) Venous stasis dermatitis of both lower extremities Current Visit: No Status: Chronic SNOMED Code(s): 12691339 (10) GERD (gastroesophageal reflux disease) Current Visit: No Status: Chronic Qualifiers: Esophagitis presence: esophagitis presence not specified Qualified Code(s): K21.9 - Gastro-esophageal reflux disease without esophagitis SNOMED Code(s): 741649207 (11) Hypertension Current Visit: Yes Status: Chronic Qualifiers: Hypertension type: essential hypertension Qualified Code(s): I10 - Essential (primary) hypertension SNOMED Code(s): 64673594 - Recommendations Recommendations: Await blood cultures to finalize. Await intraoperative cultures and findings. Wound care per the podiatry team. Continue vancomycin IV. Pharmacy to dose. Goal trough approximately 15. Continue cefepime 2 g IV of hours. Continue Flagyl 500 mg by mouth 3 times a day. Duration of treatment depends on the clinical picture. Monitor renal function and for drug toxicity and dose adjust antibiotics. donor services technician to assist with discharge planning. Past Med Surg Social Fam HX - Past Medical History Attestation: Yes The following information was validated with the patient. Source: patient, old records reviewed, nursing notes reviewed Medical history: CHF, COPD, dementia, diabetes, GERD, hyperlipidemia, hypertension, other Additional medical history: CAD, Ventricular systolic function, obesity, dylipidemia, ascvd, unstable angina, lumbar degenerative disc disease, pvd, renal artery stenosis, osteomyelitis Psychiatric history: no psych history - Past Surgical History Surgical History: coronary bypass (CABG) Additional surgical history: open heart, bypass 5 vessel in 2006. right great toe amputation March 2016. cataracts. lt great toe amputation - Social History Smoking Status: Former smoker Smokeless Tobacco Status: No Alcohol use: none Drug use: none Occupational status: retired, disabled Current living situation: Home, With Family Activity Level: Independent ambulation Recent Out of Country Travel Within the Last 8 Weeks: No Exposure or Possible Exposure to Illness During Travel: No - Family History Mother Adopted: No Family Member Ethnicity: Non- Living Status: Hx Family Cardiac Disorders: No Hx Family Respiratory Disorders: No Hx Family Cancer: No Hx Family GI Disorders: No Hx Family Endocrine Disorder: No Hx Family Neuromuscular Disorders: No Hx Family Neurologic Disorders: No Hx Family HEENT Disorders: No Hx Family Autoimmune Disorders: No Father Living Status: Consult Discharge Plan - Plan Referrals: Antonietta Butler MD [Primary Care Provider] - - Attending Attestation I have personally performed a face to face evaluation on this patient. I have reviewed and agree with the care plan. History and Exam by me shows: This is an addendum to original report dictated by Vivi Carrera CNP. Please refer to Vivi's note for full detail. Agree with above history of present illness, review of system and physical exam findings. Assessment and plan: Sepsis Osteomyelitis of the right calcaneus causative organism not clear Acute kidney injury Diabetic foot ulcer Allergies to ampicillin and Bactrim Recommendations: Await for Intra-Op cultures Appreciate podiatry input Continue cefepime, Flagyl and vancomycin Goal vancomycin trough 10-15 Monitor kidney function very closely and if the patient cannot tolerate vancomycin we might have to switch the antibiotics around.
--- NOTE | 2019-04-03 13:48 | Event Note ---
Date of Encounter: 04/03/19 Time of Encounter: 13:22 Discussed need for surgical incision and drainage of right foot. Nature of the procedure, risks versus benefits, potential complications, consequences of surgery, and condition discussed. All questions and concerns addressed. Consent signed and placed in chart.
--- NOTE | 2019-04-03 15:32 | Anesthesia Evaluation PreOp ---
Date of Encounter: 04/03/19 Time of Encounter: 16:36 - Past History Planned Operation: I & D Right Foot Cardiac History: [place], HTN, Hyperlipidemia, Cardiac Surgery (CABG x 5, on plavix) Pulmonary History: Former smoker (quit 40 years ago), COPD Other Medical History: Renal (CKD, renal artery stenosis), Diabetes Type II Anesthesia History: No Prior Anesthetic Complications, Past Anesthesia Alcohol Use: none Drug use: none Medications and Allergies Albuterol Sulfate [Proair Respiclick] 2 puff IH Q4HR PRN 10/04/15 [History] Atorvastatin [Lipitor] 40 mg PO HS 10/04/15 [History] Clopidogrel [Plavix] 75 mg PO DAILY 10/04/15 [History] Albuterol Neb [Proventil Neb] 2.5 mg IH Q4H 10/22/16 [History] Aspirin 81 mg PO DAILY 10/22/16 [History] cloNIDine HCl [Clonidine HCl] 0.2 mg PO Q8H #90 tab 11/06/16 [Rx] Insulin NPH Hum/Reg Insulin Hm [Novolin 70-30 100 Unit/ml Vial] 40 unit SQ QPM 02/11/17 [History] Insulin NPH Hum/Reg Insulin Hm [Novolin 70-30 100 Unit/ml Vial] 50 unit SQ QAM 02/11/17 [History] Loratadine [Claritin] 10 mg PO DAILY 08/29/18 [History] Trazodone HCl 50 mg PO HS 08/30/18 [History] Furosemide [Lasix] 20 mg PO DAILY 09/16/18 [History] Ibuprofen 800 mg PO TID PRN #15 tablet 09/16/18 [Rx] Oxycodone HCl/Acetaminophen [Percocet 10-325 mg Tablet] 1 each PO QID 09/16/18 [History] Amlodipine Besylate 10 mg PO DAILY 03/31/19 [History] Nebivolol HCl [Bystolic] 10 mg PO DAILY 03/31/19 [History] Vitamin B Complex [Balanced B-50] 1 each PO HS 03/31/19 [History] Allergy/AdvReac Type Severity Reaction Status Date / Time ampicillin AdvReac Vomiting Verified 04/02/19 13:19 sulfamethoxazole AdvReac Vomiting Verified 04/02/19 13:19 [From Bactrim] trimethoprim [From Bactrim] AdvReac Vomiting Verified 04/02/19 13:19 - Meds/Allergy Pre-op Review Medications Reviewed: Yes Allergies Reviewed: Yes Beta Blockers on Current Med List: Yes If Beta Blockers taken, Date/Time (Last Dose taken): 04/03/2019 at 0837 Anesthesia Results - Labs 04/03/19 06:42 04/03/19 06:42 - Imaging EKG: report reviewed (11/20/2018 Sinus tachycardia with first degree AVB Borderline repolarization abnormality Baseline wander) Additional studies: 03/13/2016 Echo Impressions: Normal LV systolic function, LVEF 70-75%. Mild concentric left ventricular hypertrophy. Mild left ventricular diastolic dysfunction. Normal right ventricular structure and function. Mildly dilated left atrium. No significant valvular dysfunction. Unable to estimate RVSP due to lack of TR jet. Anesthesia Exam Vital Signs/O2 Sat/Glucose, Most Recent Temp Pulse Resp BP Pulse Ox 98.2 F 66 16 128/53 90 04/03/19 15:01 04/03/19 15:01 04/03/19 15:01 04/03/19 15:01 04/03/19 15:01 Blood Glucose* 246 Height: 5'5''/1.65m Weight: 220 lbs/100.1 kg NPO (# of Hours): 8 Pain Scale: 0 Pain Scale Used: Numeric (1 - 10) - HEENT Pupil (Motor): EOMI Mallampati: III Teeth: Edentulous Oral Opening: Greater than 3 - FRESH FOODS CAKE DECORATOR LOC: Oriented FRESH FOODS CAKE DECORATOR Motor: Normal RUE, Normal LUE, Normal RLE, Normal LLE, Normal Face FRESH FOODS CAKE DECORATOR Sensory: Normal: RUE, LUE, Face, Deficit: RLE, LLE - Cardiac Rhythm: Regular Murmur: None - Pulmonary Breath Sounds: bilateral Clear Respiratory Effort: Symmetrical Anesthesia Assess/Plan ASA Score: 3 Level of consciousness: Cooperative, Oriented, Tranquil Anesthetic Plan: MAC Monitoring Plan: Standard Monitors
[2019-04-03] MEDS ORDERED: Ropivicaine 0.25% 20 ml Syringe INTRAART ONE (16:15)
[2019-04-03] MEDS ORDERED: Propofol 500 MG/50 ML INFUS..BTL ONE (16:27)
[2019-04-03] MEDS ORDERED: Lidocaine -MPF 2% 2 ML VIAL ONE (17:43)
--- NOTE | 2019-04-03 18:03 | Orthopedic Operative Note ---
Date of procedure: 04/03/19 Pre-op diagnosis: #1: Infected diabetic foot ulcer with abscess right foot/ calcaneus Post-op diagnosis: same (Exposure periosteum right calcaneus) Procedure: 04/03/19 18:01 #1: Incision and drainage and debridement of multiple planes right foot Implants: None Complications: None Anesthesia: MAC, local Local Anesthetics: Other (Ropivacaine plain) Surgeon: Maury Mcintyre Was there an pet care assistant present: No Estimated blood loss (cc): 10 Tourniquet Time (Minutes): 0 Specimen: Swab cultures tissue culture tissue for HPT Condition: stable Disposition: floor Procedure in Detail: 04/03/19 18:03 Details in summary of procedure: Patient was brought to surgical suite. Sign in procedure performed. Patient transferred surgical table positioned properly safely securely. Right foot elevated on a foam block. No tourniquet used. Anesthetic timeout taken. Right ankle prepped with alcohol 3 times. Target nerve blocks carried out posterior tibial and sural nerve without difficulty or complication using ropivacaine plain. Right foot prepped and draped in usual sterile manner. Surgical timeout taken Wound measured approximately 4.5 cm x 4.5 cm the plantar plantar posterior aspect of the right calcaneus. Foul fetid odor full-thickness necrosis unstageable. The wound was then incised around the periphery with a #15 scalpel blade approximately 2 mm away from the necrotic skin. That juncture curved Metzenbaum scissor pickup were used to incise wound down to the subcutaneous tissue then onto the superficial fascia completely excising the necrotic soft tissue on the plantar plantar posterior aspect calcaneus, to the level of the deep fascia. The wound was continued to be debrided with a 15 scalpel blade pickup and and the Metzenbaum scissor. An ultrasonic Misonix debrider was used to debride the wound throughout from its edge. Ongoing debridement down to the periosteum with Metzenbaum scissor pickup. Wound was again re-debrided and irrigated using a Misonix ultrasonic debrider. Satisfied all nonviable necrotic tissue been excised was irrigated again inspected area no fluctuance was noted no loculated abscess. A 5 x 5 cm 25 cm PuraPly antimicrobial wound matrix was then applied to the wound covered with Adaptic 4 x 4's Kerlix and a Teddy wraps from the base the toes to tibial tubercle. No complications encountered. Hemostasis achieved with judicious use of a Bovie prior to applying the postoperative dressing. Estimated blood loss was 10 mL. No complications patient sent to holding room in good condition with vital signs stable. swab cultures aerobe and anaerobe were taken as well as tissue cultures and necrotic tissue was sent for histopathology.
--- NOTE | 2019-04-03 18:34 | Anesthesia Evaluation Post Op ---
Date of Encounter: 04/03/19 Time of Encounter: 18:32 - Vital Signs Vital Signs: Vital Signs/O2 Sat, Most Current Temp Pulse Resp BP Pulse Ox 98.2 F 66 18 128/53 92 04/03/19 15:01 04/03/19 15:01 04/03/19 15:49 04/03/19 15:01 04/03/19 15:49 - Lungs Lungs: Clear Ascult./Percussion - Airway Airway: Non-obstructed - Cardiovascular Regular Rate - Mental Status Mental Status: Alert & Oriented, Answers Appropriately - Pain Pain Scale: 0 Pain Scale used: Numeric (1 - 10) - Nausea Vomiting Nausea Vomiting: Not Present - Hydration Hydration: Tolerates oral liquids - Discharge PostOp Status: Discharge Patient to home
[2019-04-03] MEDS ORDERED: Dextrose Gel 15 GM/37.5 ML TUBE PO PRN ×2 (19:20)
[2019-04-03] MEDS ORDERED: *HR* Dextrose 50 % in Water (Syg) 50 ML SYRINGE IVP PRN (19:20)
[2019-04-03] MEDS ORDERED: Naloxone 0.4 MG/ML INJ IVP PRN (19:20)
[2019-04-03] MEDS ORDERED: D5% in Water 1,000 ML IVC PRN (19:20)
[2019-04-03] MEDS ORDERED: Insulin DETEMIR 100 UNIT/ML X5UNITS SQ SCH ×2 (21:00)
[2019-04-03] MEDS: Sennosides/Docusate Sodium TABLET PO SCH (22:02)
[2019-04-03] MEDS: traZODone 50 MG TABLET PO SCH (22:03)
[2019-04-04] MEDS: Albuterol 2.5 MG/3 ML NEBULIZER IH SCH ×5 (03:35→19:51)
[2019-04-04] MEDS: cloNIDine HCl 0.1 MG TABLET PO SCH ×3 (06:04→21:18)
[2019-04-04] MEDS: *HR* Heparin 5,000 UNIT/ML VIAL SQ SCH ×3 (06:04→21:18)
[2019-04-04] MEDS: Cefepime HCl 1,000 MG in Water for inj. (sterile) 10 ML IVPB SCH (08:44)
[2019-04-04] MEDS: amLODIPine 5 MG TABLET PO SCH (08:45)
[2019-04-04] MEDS: metroNIDAZOLE 500 MG TABLET PO SCH ×3 (08:45→21:17)
[2019-04-04] MEDS: *HR* OxyCODONE/APAP 10/325 TABLET PO SCH ×4 (08:45→21:17)
[2019-04-04] MEDS: Insulin LISPRO 300 UNITS/3 ML VIAL SQ SCH ×4 (08:46→21:18)
[2019-04-04] MEDS: Loratadine 10 MG TABLET PO SCH (08:46)
[2019-04-04] MEDS: Aspirin 81 MG TAB.CHEW PO SCH (08:46)
[2019-04-04 08:47] LABS: Hematocrit 35.9 % (37.5-50.1); Hemoglobin 10.9 g/dL (12.9-16.9); Mean Corpuscular HGB Conc 30.4 g/dL (31.6-35.5); Mean Corpuscular Hemoglobin 26.6 pg (28.0-33.3); Mean Corpuscular Volume 87.6 fL (83.0-100.0); Platelet Count 451 K/mcL (140-400); Red Cell Distribution Width 14.8 % (11.5-14.5)
[2019-04-04 09:02] LABS: Calcium 9.3 mg/dL (8.6-10.3); Potassium 5.1 mEq/L (3.5-5.1)
--- NOTE | 2019-04-04 12:01 | Infectious Disease Progress No ---
ID Progress Note Date of Encounter: 04/04/19 Time of Encounter: 11:59 - Subjective Subjective: Patient seen and examined. No acute events noted overnight. Patient states he feels okay. Denies fevers, chills, or rigors. Denies chest pain, shortness of breath, or cough. Denies nausea, vomiting, or diarrhea. States he hasn't had a BM in 3 days. Denies abdominal pain or urinary complaints. Denies oral thrush or skin rashes. States his appetite is good and he is hungry. - Objective CBC & Chem 7: 04/04/19 08:21 04/04/19 08:01 - Exam Vitals: Temp Pulse Resp BP Pulse Ox 98.5 F 68 18 162/73 96 04/04/19 10:24 04/04/19 10:24 04/04/19 11:07 04/04/19 10:24 04/04/19 11:07 Exam: Head: Atraumatic, normal inspection, normocephalic. Eye: EOMI, PERRLA, no scleral icterus noted. ENT: Mucous membranes moist. No odontogenic infection noted. Neck: Normal inspection, no meningismus. Respiratory: Clear to auscultation. No rales, respiratory distress, rhonchi, or wheezes noted. Cardiovascular: Regular rate and rhythm, S1 and S2 audible. No murmurs, rubs, or gallops. GI: Soft, obese, normal bowel sounds. Nontender Extremities:No joint swelling, pedal edema, or tenderness noted. BLE compression dressings noted. Right foot dressing and heel protector boot intact. No erythema extending above the dressing. Neurological: Alert, oriented 3, no focal deficits. Psychiatric: normal affect, normal mood. Skin: Dry, intact, warm. Normal color. No rashes. - Assessment and Plan (1) Sepsis Current Visit: Yes Status: Acute The patient had 2 sepsis criteria on admission plus acute kidney injury. Likely secondary to right foot osteomyelitis. Improved. White blood cell count back up a little today, likely reactive from surgery. Acute kidney injury improved. Tachycardia resolved. Blood cultures drawn 03/31/19 at [facility] are no growth to date 2 sets. Repeat blood cultures drawn 04/01/19 are no growth to date 2 sets. Qualifiers: Sepsis type: sepsis due to unspecified organism Qualified Code(s): A41.9 - Sepsis, unspecified organism SNOMED Code(s): 48249540 (2) Osteomyelitis Current Visit: No Status: Acute Location: Right calcaneus. Likely secondary to diabetic foot ulcer. Causative organism: Unclear. No wound cultures obtained. MRI showed findings consistent with early osteomyelitis of the calcaneus. ESR 127, CRP 173. Podiatry consult. Status post I & D right foot multiple planes 04/04/[address] Mcintyre. Operative note reviewed. Soft tissue and wound cultures and path report pending. Currently on vancomycin, cefepime, and Flagyl. Qualifiers: Osteomyelitis location: foot Laterality: right SNOMED Code(s): 34825094 (3) Cellulitis Current Visit: Yes Status: Acute Location: Right lower extremity. Likely secondary to diabetic foot ulcer. Causative organism: Unclear. Podiatry consult and following. Currently on vancomycin, cefepime, and Flagyl. Qualifiers: Site of cellulitis: extremity Site of cellulitis of extremity: lower extremity Laterality: right Qualified Code(s): L03.115 - Cellulitis of right lower limb SNOMED Code(s): 511588387 (4) Acute kidney injury Current Visit: Yes Status: Acute Likely secondary to sepsis. Improved. Dose adjust antibiotics and avoid nephrotoxins as able. SNOMED Code(s): 15000591, 94904514 (5) Diabetic foot ulcer Current Visit: Yes Status: Acute Location: Right heel. Etiology: Unclear. Podiatry consult and following. Qualifiers: Diabetic foot ulcer location: heel Diabetes mellitus type: type 2 Laterality: right Non-pressure ulcer stage: with fat layer exposed Qualified Code(s): E11.621 - Type 2 diabetes mellitus with foot ulcer; L97.412 - Non- pressure chronic ulcer of right heel and midfoot with fat layer exposed SNOMED Code(s): 480963741 (6) CKD (chronic kidney disease) stage 3, GFR 30-59 ml/min Current Visit: Yes Status: Chronic SNOMED Code(s): 019204943 (7) DM type 2 (diabetes mellitus, type 2) Current Visit: Yes Status: Chronic Recommend aggressive glucose monitoring and control to promote wound healing and prevent reinfection. Management per the primary team. 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 transplanted heart: [place] heart Associated angina: without angina Qualified Code(s): I25.10 - Atherosclerotic heart disease of [place] coronary artery without angina pectoris SNOMED Code(s): 19189401 (9) Venous stasis dermatitis of both lower extremities Current Visit: No Status: Chronic SNOMED Code(s): 68341240 (10) GERD (gastroesophageal reflux disease) Current Visit: No Status: Chronic Qualifiers: Esophagitis presence: esophagitis presence not specified Qualified Code(s): K21.9 - Gastro-esophageal reflux disease without esophagitis SNOMED Code(s): 878126449 (11) Hypertension Current Visit: Yes Status: Chronic Qualifiers: Hypertension type: essential hypertension Qualified Code(s): I10 - Essential (primary) hypertension SNOMED Code(s): 08742366 - Recommendations Recommendations: Await blood cultures to finalize. Await intraoperative cultures and path report. Wound care per the podiatry team. Continue vancomycin IV. Pharmacy to dose. Goal trough approximately 15. Continue cefepime 2 g IV of hours. Continue Flagyl 500 mg by mouth 3 times a day. Duration of treatment depends on the clinical picture. Monitor renal function and for drug toxicity and dose adjust antibiotics. client services manager to assist with discharge planning. Consult Discharge Plan - Plan Referrals: Antonietta Butler MD [Primary Care Provider] - - Attending Attestation I have personally performed a face to face evaluation on this patient. I have reviewed and agree with the care plan. History and Exam by me shows: Assessment and plan: 1.Sepsis 2.Osteomyelitis of the right calcaneus causative organism not clear 3.Acute kidney injury 4.Diabetic foot ulcer 5.Allergies to ampicillin and Bactrim Recommendations: Await for Intra-Op cultures Appreciate podiatry input Continue cefepime, Flagyl and vancomycin Goal vancomycin trough 10-15 Monitor kidney function very closely and if the patient cannot tolerate vancomycin we might have to switch the antibiotics around.
--- NOTE | 2019-04-04 12:58 | Podiatry Progress Note ---
Date of Encounter: 04/04/19 Time of Encounter: 12:20 - Assessment and Plan (1) Diabetic foot ulcer with osteomyelitis Current Visit: Yes Status: Acute Assessment: S/P Incision and drainage and debridement of multiple planes right foot, application of puraply graft on 04/03/[address] Miguelina Guardado grade III ulcer to right calcaneous WBC 13.0, likely reactive from surgery, afebrile Intra-op cultures pending ESR 127, CRP 173 Plan: Awaiting intra-op cultures Will likely need 6 weeks IV ATB- ID consulted, appreciate recommendations Provider dressing changes only, patient has puraply graft, may reinforce dressing as needed for saturation Subjective Interval history: Patient awake in bed. Alert and oriented. Denies any calf pain, chest pain, or shortness of breath. Denies any fevers, chills, nausea, vomiting, or diarrhea. Denies any pain to left foot. Reports needing legs wrapped at all times d/t swelling. No other questions or concerns at this time. Objective - Vital Signs Vital Signs: Vital Signs Temp Pulse Resp BP Pulse Ox 04/04/19 11:07 18 96 04/04/19 10:24 98.5 F 68 14 162/73 96 04/04/19 07:14 18 94 04/04/19 06:48 98.5 F 75 14 177/68 92 04/04/19 03:50 98.6 F 75 16 166/66 92 04/04/19 03:35 16 90 04/03/19 23:05 99.2 F 71 16 161/58 85 04/03/19 20:06 16 97 04/03/19 19:07 97.9 F 68 16 174/68 97 04/03/19 15:49 18 92 04/03/19 15:01 98.2 F 66 16 128/53 90 Intake and Output 04/03/19 04/04/19 04/04/19 23:59 07:59 15:59 Intake Total 0 / 130 Output Total 5 / 305 Balance -5 / -175 Intake: Oral 0 / 30 Output: Estimated Blood Loss 5 / 5 Other: Meal NPO Percent of Meal Consumed 0% # Voids 2 0 0 # Bowel Movements 0 0 Blood Glucose* 155 274 256 - Exam Exam: Constitiutional: Alert and oriented x 3. Well nourished. No acute distress noted Vascular: 1/4 DP/PT bilaterally, CFT <3 sec to all digits, warm to warm from tibia to toes bilaterally, no calf pain with squeeze BLE, multiple digit ampu tations noted Neurologic: Diminished sensation to touch, normal plantar response Dermatologic: Guardado stage III ulceration right calcaneous, erythema noted to surrounding tissue, puraply graft noted, xerosis noted to BLE, discoloration noted to BLE Musculoskeletal: 3/5 muscle strength and normal tone bilaterally. - Lab Result Diagrams: 04/04/19 08:21 04/04/19 08:01 Labs: Abnormal lab results WBC 13.0 K/mcL (4.3-11.1) H 04/04/19 08:21 RBC 4.10 M/mcL (4.19-5.50) L 04/04/19 08:21 Hgb 10.9 g/dL (12.9-16.9) L 04/04/19 08:21 Hct 35.9 % (37.5-50.1) L 04/04/19 08:21 MCH 26.6 pg (28.0-33.3) L 04/04/19 08:21 MCHC 30.4 g/dL (31.6-35.5) L 04/04/19 08:21 RDW 14.8 % (11.5-14.5) H 04/04/19 08:21 Plt Count 451 K/mcL (140-400) H 04/04/19 08:21 MPV 9.0 fL (9.4-12.4) L 04/04/19 08:21 Neutrophils # 12.2 K/mcL (1.6-8.9) H 04/01/19 03:57 Monocytes # 2.0 K/mcL (0.0-1.3) H 04/01/19 03:57 Clumped Platelets Few (Not Present) A 03/31/19 22:50 ESR 127 mm/hr (0-10) H 03/31/19 22:50 PT 14.3 Seconds (9.4-12.1) H 04/01/19 03:57 BUN 29 mg/dL (8-23) H 04/04/19 08:01 Creatinine 1.70 mg/dL (0.70-1.30) H 04/04/19 08:01 Est GFR ( Amer) 48 (> 60) L 04/04/19 08:01 Est GFR (Non-Af Amer) 39 (> 60) L 04/04/19 08:01 Glucose 244 mg/dL (70-105) H 04/04/19 08:01 POC Glucose 274 mg/dL (70-99) H 04/04/19 06:59 Hemoglobin A1c 7.3 % (-5.6) H 03/31/19 22:50 Calculated Osmolality 304 (280-300) H 04/04/19 08:01 C-Reactive Protein 173 mg/L (Less than 10) H 03/31/19 22:50 Vancomycin Trough 20 mcg/mL (5-10) H 04/03/19 19:24 Microbiology, Last 48 Hours 04/03/19 17:45 Surgical Biopsy Culture - Preliminary Right Foot 04/03/19 17:45 Wound Culture - Preliminary Right Foot Culture is incubating. 04/03/19 17:45 Anaerobic Culture - Preliminary Right Foot Culture is incubating. Consult Discharge Plan - Plan Referrals: Antonietta Butler MD [Primary Care Provider] -
--- NOTE | 2019-04-04 15:23 | Internal Med Progress Note ---
Hospitalist Progress Note - Encounter Date of Encounter: 04/04/19 Time of Encounter: 10:00 - Subjective Interval History: No major events overnight. Patient was seen this a.m. He denied fever, chills or night sweats. He has no nausea, vomiting or abdominal pain. Patient denied chest pain, shortness of breath or palpitation. - Exam Vitals: Temp Pulse Resp BP Pulse Ox 98.6 F 71 14 142/54 95 04/04/19 14:33 04/04/19 14:33 04/04/19 14:33 04/04/19 14:33 04/04/19 14:33 Exam: General: Patient is alert, oriented 3. Head: Atraumatic, normal inspection, normocephalic. Eye: EOMI, PERRLA, no scleral icterus noted. ENT: Mucous membranes moist. No odontogenic infection noted. Neck: Normal inspection, no meningismus. Respiratory: No respiratory distress, rhonchi, or wheezes noted. Cardiovascular: Regular rate and regular rhythm, S1 and S2 audible. No murmurs, rubs, or gallops. GI: Soft, nondistended, normal bowel sounds. Extremities:No joint swelling, pedal edema, or tenderness noted. Bilateral lower extremity dressing and fould smelling odor Neurological: Alert, oriented 3, no focal deficits. Psychiatric: normal affect, normal mood. Skin: Dry, intact, warm. Normal color. - Assessment and Plan (1) Diabetic foot ulcer with osteomyelitis Current Visit: Yes Status: Acute (2) CKD (chronic kidney disease) stage 3, GFR 30-59 ml/min Current Visit: Yes Status: Chronic (3) DM type 2 (diabetes mellitus, type 2) Current Visit: Yes Status: Chronic (4) CAD (coronary artery disease) Current Visit: Yes Status: Chronic (5) GERD (gastroesophageal reflux disease) Current Visit: No Status: Chronic (6) Hypertension Current Visit: Yes Status: Chronic (7) Chronic venous stasis Current Visit: No Status: Acute (8) Diabetic foot ulcer Current Visit: Yes Status: Acute (9) Sepsis Current Visit: Yes Status: Acute - Summary of Assessment and Plan Summary of Assessment and Plan: 73-year-old male with history of CAD status post CABG, IDDM, HTN, bilateral toe amputation, CKD STAGE III who came into the hospital after he failed outpatient therapy for his right heel foot ulcer. Sepsis: - Patient had 2 criteria at presentation. - Source as below Right calcaneus OM: POD-1 - Elevated ESR and CRP. MRI was significant of OM. Patient is afebrile, hemodynamically stable and has leukocytosis. - Pediatry consulted, had I &D yesterday. - Blood cultures are still pending. MRSA swab is -. Awaiting surgical wound cultures. - Continue renally dosed vanc, cefepime and Flagyl.. ID is consulted. - Check CBC tomorrow. LORETO on CKD stage III: - Cr bl is 1.3-1.4. Today 1.7. likely pre-renal from dehydration related to infection vs NSAIDs use. - We will keep lasix on hold. I/O -400 ml. - check bmp tomorrow. IDDM: not controlled - A1c is 7.3 - On 70/30 protocol at home total of 90 units a day. - increase Levemir to 50 units and keep MSSi. Accu-Chek 3 times a day before meals. ADA. CAD status post CABG: - Continue aspirin, beta blockers and Lipitor. Can resume plavix from tomorrow. HTN: Uncontrolled - Continue with Norvasc and clonidine. Hydralazine when necessary DVT ppx : heparin sc I reviewed independently all laboratory workup, pertinent images including x-ra ys and CT scans. I also reviewed independently and EKGs and my findings are in the body of my assessment and plan. I ordered the laboratory workup and images myself. I discussed finding with patient's, their families, RN's and consultants involved in the care of the patient. - Time Spent with Patient Total time spent is greater than 50% in coordination of care (as documented) at patient's floor/unit and/or counseling patient: Greater than 35 minutes Internal Medicine: Result - Labs CBC & Chem 7: 04/04/19 08:21 04/04/19 08:01 Labs: Short CBC 04/04/19 Range/Units 08:21 WBC 13.0 H (4.3-11.1) K/mcL Hgb 10.9 L (12.9-16.9) g/dL Hct 35.9 L (37.5-50.1) % Plt Count 451 H (140-400) K/mcL BMP 04/04/19 08:01 Sodium 140 Potassium 5.1 Chloride 106 Carbon Dioxide 27 BUN 29 H Creatinine 1.70 H Glucose 244 H Calcium 9.3 - ABG Interpretation ABG results: PT/INR, D-dimer PT 14.3 Seconds (9.4-12.1) H 04/01/19 03:57 Consult Discharge Plan - Plan Referrals: Antonietta Butler MD [Primary Care Provider] - (3) DM type 2 (diabetes mellitus, type 2) Qualifiers: Diabetes mellitus buttermaker continuous churn insulin use: with buttermaker continuous churn use Diabetes mellitus complication status: with kidney complications Diabetes mellitus complication detail: with chronic kidney disease Chronic kidney disease stage: stage 3 (moderate) Qualified Code(s): E11.22 - Type 2 diabetes mellitus with diabetic chronic kidney disease; N18.3 - Chronic kidney disease, stage 3 (moderate); 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 transplanted heart: [place] heart Associated angina: without angina Qualified Code(s): I25.10 - Atherosclerotic heart disease of [place] coronary artery without angina pectoris (5) GERD (gastroesophageal reflux disease) Qualifiers: Esophagitis presence: esophagitis presence not specified Qualified Code(s): K21.9 - Gastro-esophageal reflux disease without esophagitis (6) Hypertension Qualifiers: Hypertension type: essential hypertension Qualified Code(s): I10 - Essential (primary) hypertension (8) Diabetic foot ulcer Qualifiers: Diabetic foot ulcer location: heel Diabetes mellitus type: type 2 Laterality: right Non-pressure ulcer stage: with fat layer exposed Qualified Code(s): E11.621 - Type 2 diabetes mellitus with foot ulcer; L97.412 - Non- pressure chronic ulcer of right heel and midfoot with fat layer exposed (9) Sepsis Qualifiers: Sepsis type: sepsis due to unspecified organism Qualified Code(s): A41.9 - Sepsis, unspecified organism
[2019-04-04] MEDS ORDERED: Vancomycin 1 EACH in 0.9 % Sodium Chloride 250 ML IVPB PRN (19:00)
[2019-04-04 20:08] LABS: Hematocrit 34.7 % (37.5-50.1); Hemoglobin 10.5 g/dL (12.9-16.9); Mean Corpuscular HGB Conc 30.3 g/dL (31.6-35.5); Mean Corpuscular Hemoglobin 26.5 pg (28.0-33.3); Mean Corpuscular Volume 87.6 fL (83.0-100.0); Mean Platelet Volume 9.3 fL (9.4-12.4); Platelet Count 451 K/mcL (140-400); Red Blood Count 3.96 M/mcL (4.19-5.50); Red Cell Distribution Width 14.7 % (11.5-14.5); White Blood Count 12.3 K/mcL (4.3-11.1)
[2019-04-04] MEDS: Sennosides/Docusate Sodium TABLET PO SCH (21:17)
[2019-04-04] MEDS: traZODone 50 MG TABLET PO SCH (21:17)
[2019-04-04] MEDS: Insulin DETEMIR 100 UNIT/ML X5UNITS SQ SCH (21:18)
[2019-04-05] MEDS: Albuterol 2.5 MG/3 ML NEBULIZER IH SCH ×7 (00:03→23:43)
[2019-04-05] MEDS: *HR* Heparin 5,000 UNIT/ML VIAL SQ SCH ×3 (05:42→22:00)
[2019-04-05] MEDS: cloNIDine HCl 0.1 MG TABLET PO SCH ×3 (05:42→21:59)
[2019-04-05 06:26] LABS: Calcium 9.4 mg/dL (8.6-10.3); Potassium 4.7 mEq/L (3.5-5.1)
[2019-04-05] MEDS ORDERED: Aminoglycoside Consult 1 EACH MC ONE (07:40)
[2019-04-05] MEDS ORDERED: Ringers Solution, Lactated 1,000 ML IVC SCH (09:30)
[2019-04-05] MEDS: Aspirin 81 MG TAB.CHEW PO SCH (09:38)
[2019-04-05] MEDS: Cefepime HCl 1,000 MG in Water for inj. (sterile) 10 ML IVPB SCH (09:38)
[2019-04-05] MEDS: Loratadine 10 MG TABLET PO SCH (09:38)
[2019-04-05] MEDS: *HR* OxyCODONE/APAP 10/325 TABLET PO SCH ×4 (09:38→21:59)
[2019-04-05] MEDS: metroNIDAZOLE 500 MG TABLET PO SCH ×3 (09:38→22:00)
[2019-04-05] MEDS: amLODIPine 5 MG TABLET PO SCH (09:38)
[2019-04-05] MEDS: Insulin LISPRO 300 UNITS/3 ML VIAL SQ SCH ×4 (09:40→22:02)
--- NOTE | 2019-04-05 14:10 | Infectious Disease Progress No ---
ID Progress Note Date of Encounter: 04/05/19 Time of Encounter: 14:08 - Subjective Subjective: Patient seen and examined sitting up in the bedside chair. No acute events noted overnight. Patient states he feels okay. Denies fevers, chills, or rigors. Denies chest pain, shortness of breath, or cough. Denies nausea, vomiting, or diarrhea. States he hasn't had a BM in 3-4 days. Denies abdominal pain or urinary complaints. Denies oral thrush or skin rashes. States his appetite is good. Reports some mild stinging pain at the surgical site. - Objective CBC & Chem 7: 04/06/19 06:13 04/06/19 06:13 - Exam Vitals: Temp Pulse Resp BP Pulse Ox 98.3 F 77 14 179/61 92 04/05/19 10:20 04/05/19 10:20 04/05/19 10:20 04/05/19 10:20 04/05/19 10:20 Exam: Head: Atraumatic, normal inspection, normocephalic. Eye: EOMI, PERRLA, no scleral icterus noted. ENT: Mucous membranes moist. No odontogenic infection noted. Neck: Normal inspection, no meningismus. Respiratory: Clear to auscultation. No rales, respiratory distress, rhonchi, or wheezes noted. Cardiovascular: Regular rate and rhythm, S1 and S2 audible. No murmurs, rubs, or gallops. GI: Soft, obese, normal bowel sounds. Nontender Extremities:No joint swelling, pedal edema, or tenderness noted. BLE compression dressings noted. Right foot dressing and heel protector boot intact. No erythema extending above the dressing. Neurological: Alert, oriented 3, no focal deficits. Psychiatric: normal affect, normal mood. Skin: Dry, intact, warm. Normal color. No rashes. - Assessment and Plan (1) Sepsis Current Visit: Yes Status: Resolved The patient had 2 sepsis criteria on admission plus acute kidney injury. Likely secondary to right foot osteomyelitis. Improved. WBC not checked this morning. Tachycardia resolved. Blood cultures drawn 03/31/19 at [facility] are no growth to date 2 sets. Repeat blood cultures drawn 04/01/19 are no growth to date 2 sets. Qualifiers: Sepsis type: sepsis due to unspecified organism Qualified Code(s): A41.9 - Sepsis, unspecified organism SNOMED Code(s): 52593480 (2) Osteomyelitis Current Visit: No Status: Acute Location: Right calcaneus. Likely secondary to diabetic foot ulcer. Causative organism: Unclear. No wound cultures obtained before surgery. MRI showed findings consistent with early osteomyelitis of the calcaneus. ESR 127, CRP 173. Podiatry consult. Status post I & D right foot multiple planes 04/04/[address] Mcintyre. Operative note reviewed. Soft tissue and wound cultures and path report pending. Currently on vancomycin, cefepime, and Flagyl. Qualifiers: Osteomyelitis location: foot Laterality: right SNOMED Code(s): 81403220 (3) Cellulitis Current Visit: Yes Status: Acute Location: Right lower extremity. Likely secondary to diabetic foot ulcer. Causative organism: Unclear. Podiatry consult and following. Currently on vancomycin, cefepime, and Flagyl. Qualifiers: Site of cellulitis: extremity Site of cellulitis of extremity: lower extremity Laterality: right Qualified Code(s): L03.115 - Cellulitis of right lower limb SNOMED Code(s): 529287115 (4) Acute kidney injury Current Visit: Yes Status: Acute Likely secondary to sepsis. Improved initially, but worsened overnight. Will discontinue Vanc. Dose adjust antibiotics and avoid nephrotoxins as able. SNOMED Code(s): 82749907, 65636115 (5) Diabetic foot ulcer Current Visit: Yes Status: Chronic Location: Right heel. Etiology: Unclear. Podiatry consult and following. Qualifiers: Diabetic foot ulcer location: heel Diabetes mellitus type: type 2 Laterality: right Non-pressure ulcer stage: with fat layer exposed Qualified Code(s): E11.621 - Type 2 diabetes mellitus with foot ulcer; L97.412 - Non- pressure chronic ulcer of right heel and midfoot with fat layer exposed SNOMED Code(s): 006301720 (6) CKD (chronic kidney disease) stage 3, GFR 30-59 ml/min Current Visit: Yes Status: Chronic SNOMED Code(s): 863473085 (7) DM type 2 (diabetes mellitus, type 2) Current Visit: Yes Status: Chronic Recommend aggressive glucose monitoring and control to promote wound healing and prevent reinfection. Management per the primary team. Qualifiers: Diabetes mellitus fci insulin use: with termite technician use Diabetes mellitus complication status: with kidney complications Diabetes mellitus complication detail: with chronic kidney disease Chronic kidney disease stage: stage 3 (moderate) Qualified Code(s): E11.22 - Type 2 diabetes mellitus with diabetic chronic kidney disease; N18.3 - Chronic kidney disease, stage 3 (moderate); Z79.4 - nursing home (current) use of insulin SNOMED Code(s): 76180611 (8) CAD (coronary artery disease) Current Visit: Yes Status: Chronic Qualifiers: Coronary Disease-Associated Artery/Lesion type: [place] artery [place] vs. transplanted heart: [place] heart Associated angina: without angina Qualified Code(s): I25.10 - Atherosclerotic heart disease of [place] coronary artery without angina pectoris SNOMED Code(s): 93790978 (9) Venous stasis dermatitis of both lower extremities Current Visit: No Status: Chronic SNOMED Code(s): 30775950 (10) GERD (gastroesophageal reflux disease) Current Visit: No Status: Chronic Qualifiers: Esophagitis presence: esophagitis presence not specified Qualified Code(s): K21.9 - Gastro-esophageal reflux disease without esophagitis SNOMED Code(s): 790444267 (11) Hypertension Current Visit: Yes Status: Chronic Qualifiers: Hypertension type: essential hypertension Qualified Code(s): I10 - Essential (primary) hypertension SNOMED Code(s): 38145728 - Recommendations Recommendations: Check baseline CK. Await blood cultures to finalize. Await intraoperative cultures and path report. Wound care per the podiatry team. Start Daptomycin 6mg/kg IV Q48H (CrCl ~24). Continue cefepime 1 g IV Q24H. Continue Flagyl 500 mg by mouth 3 times a day. Hold atorvastatin while on Daptomycin. Duration of treatment depends on the clinical picture. Monitor renal function and for drug toxicity and dose adjust antibiotics. media services director to assist with discharge planning. Consult Discharge Plan - Plan Referrals: Antonietta Butler MD [Primary Care Provider] - - Attending Attestation I have personally performed a face to face evaluation on this patient. I have reviewed and agree with the care plan. History and Exam by me shows: Assessment and plan: 1.Sepsis 2.Osteomyelitis of the right calcaneus causative organism not clear 3.Acute kidney injury 4.Diabetic foot ulcer 5.Allergies to ampicillin and Bactrim Recommendations: Await for Intra-Op cultures Appreciate podiatry input Continue cefepime, Flagyl and vancomycin Goal vancomycin trough 10-15 Monitor kidney function very closely and if the patient cannot tolerate vancomycin we might have to switch the antibiotics around.
--- NOTE | 2019-04-05 14:29 | Internal Med Progress Note ---
Hospitalist Progress Note - Encounter Date of Encounter: 04/05/19 Time of Encounter: 10:00 - Subjective Interval History: No major events overnight. Patient was seen this a.m. He denied fever, chills or night sweats. He has no nausea, vomiting or abdominal pain. Patient denied chest pain, shortness of breath or palpitation. - Exam Vitals: Temp Pulse Resp BP Pulse Ox 98.5 F 65 14 157/52 95 04/05/19 14:16 04/05/19 14:16 04/05/19 14:16 04/05/19 14:16 04/05/19 14:16 Exam: General: Patient is alert, oriented 3. Head: Atraumatic, normal inspection, normocephalic. Eye: EOMI, PERRLA, no scleral icterus noted. ENT: Mucous membranes moist. No odontogenic infection noted. Neck: Normal inspection, no meningismus. Respiratory: No respiratory distress, rhonchi, or wheezes noted. Cardiovascular: Regular rate and regular rhythm, S1 and S2 audible. No murmurs, rubs, or gallops. GI: Soft, nondistended, normal bowel sounds. Extremities:No joint swelling, pedal edema, or tenderness noted. Bilateral lower extremity dressing . Neurological: Alert, oriented 3, no focal deficits. Psychiatric: normal affect, normal mood. Skin: Dry, intact, warm. Normal color. - Assessment and Plan (1) Diabetic foot ulcer with osteomyelitis Current Visit: Yes Status: Acute (2) CKD (chronic kidney disease) stage 3, GFR 30-59 ml/min Current Visit: Yes Status: Chronic (3) DM type 2 (diabetes mellitus, type 2) Current Visit: Yes Status: Chronic (4) CAD (coronary artery disease) Current Visit: Yes Status: Chronic (5) GERD (gastroesophageal reflux disease) Current Visit: No Status: Chronic (6) Hypertension Current Visit: Yes Status: Chronic (7) Chronic venous stasis Current Visit: No Status: Acute (8) Diabetic foot ulcer Current Visit: Yes Status: Acute (9) Sepsis Current Visit: Yes Status: Acute - Summary of Assessment and Plan Summary of Assessment and Plan: 73-year-old male with history of CAD status post CABG, IDDM, HTN, bilateral toe amputation, CKD STAGE III who came into the hospital after he failed outpatient therapy for his right heel foot ulcer. Sepsis: - Patient had 2 criteria at presentation. - Source as below Right calcaneus OM: POD-2 - Elevated ESR and CRP. MRI was significant of OM. Patient is afebrile, hemodynamically stable and has leukocytosis. - Pediatry consulted, had I &D on 04/03. - Blood cultures are still pending. MRSA swab is -. Awaiting surgical wound cultures. - ID is consulted Vancocin which with daptomycin, continue with the Flagyl and cefepime. - Check CBC tomorrow. LORETO on CKD stage III: - Cr bl is 1.3-1.4. Today 2. likely pre-renal from dehydration related to infection vs NSAIDs use vs high Vanc level. - We will keep lasix on hold. I/O is inaccurate. Will give a trial of 1 L of RL and check BMP tomorrow. IDDM: not controlled - A1c is 7.3 - On protocol at home total of 90 units a day. - continue Levemir 50 units and keep MSSi. Will add Lispro 7u TIDAC. Accu-Chek 3 times a day before meals. ADA. CAD status post CABG: - Continue aspirin, beta blockers and Lipitor. Can resume plavix from tomorrow. HTN: Uncontrolled - Continue with Norvasc and clonidine. Hydralazine when necessary DVT ppx : heparin sc I reviewed independently all laboratory workup, pertinent images including x- rays and CT scans. I also reviewed independently and EKGs and my findings are in the body of my assessment and plan. I ordered the laboratory workup and images myself. I discussed finding with patient's, their families, RN's and consultants involved in the care of the patient. - Time Spent with Patient Total time spent is greater than 50% in coordination of care (as documented) at patient's floor/unit and/or counseling patient: Plan of Care Discussed with: patient Internal Medicine: Result - Labs CBC & Chem 7: 04/04/19 19:30 04/05/19 05:51 Labs: Short CBC 04/04/19 Range/Units 19:30 WBC 12.3 H (4.3-11.1) K/mcL Hgb 10.5 L (12.9-16.9) g/dL Hct 34.7 L (37.5-50.1) % Plt Count 451 H (140-400) K/mcL BMP 04/05/19 05:51 Sodium 144 Potassium 4.7 Chloride 105 Carbon Dioxide 30 H BUN 36 H Creatinine 2.06 H Glucose 241 H Calcium 9.4 - ABG Interpretation ABG results: PT/INR, D-dimer PT 14.3 Seconds (9.4-12.1) H 04/01/19 03:57 Consult Discharge Plan - Plan Referrals: Antonietta Butler MD [Primary Care Provider] - (3) DM type 2 (diabetes mellitus, type 2) Qualifiers: Diabetes mellitus intermediate project manager insulin use: with intermediate project manager use Diabetes mellitus complication status: with kidney complications Diabetes mellitus complication detail: with chronic kidney disease Chronic kidney disease stage: stage 3 (moderate) Qualified Code(s): E11.22 - Type 2 diabetes mellitus with diabetic chronic kidney disease; N18.3 - Chronic kidney disease, stage 3 (moderate); Z79.4 - prison (current) use of insulin (4) CAD (coronary artery disease) Qualifiers: Coronary Disease-Associated Artery/Lesion type: [place] artery [place] vs. transplanted heart: [place] heart Associated angina: without angina Qualified Code(s): I25.10 - Atherosclerotic heart disease of [place] coronary artery witho ut angina pectoris (5) GERD (gastroesophageal reflux disease) Qualifiers: Esophagitis presence: esophagitis presence not specified Qualified Code(s): K21.9 - Gastro-esophageal reflux disease without esophagitis (6) Hypertension Qualifiers: Hypertension type: essential hypertension Qualified Code(s): I10 - Essential (primary) hypertension (8) Diabetic foot ulcer Qualifiers: Diabetic foot ulcer location: heel Diabetes mellitus type: type 2 Laterality: right Non-pressure ulcer stage: with fat layer exposed Qualified Code(s): E11.621 - Type 2 diabetes mellitus with foot ulcer; L97.412 - Non- pressure chronic ulcer of right heel and midfoot with fat layer exposed (9) Sepsis Qualifiers: Sepsis type: sepsis due to unspecified organism Qualified Code(s): A41.9 - Sepsis, unspecified organism
--- NOTE | 2019-04-05 16:23 | Podiatry Progress Note ---
Date of Encounter: 04/05/19 Time of Encounter: 15:00 - Assessment and Plan (1) Diabetic foot ulcer with osteomyelitis Current Visit: Yes Status: Acute Assessment: S/P Incision and drainage and debridement of multiple planes right foot, application of puraply graft on 04/03/[address] Mcintyre Guardado grade III ulcer to right calcaneous WBC 12.3, no labs today, afebrile Intra-op cultures pending, blood cultures pending ESR 127, CRP 173 Plan: Wound vac placed to right calcaneous MWF vac changes Awaiting intra-op cultures Will likely need 6 weeks IV ATB- ID consulted, appreciate recommendations Prepped skin with skin prep. Placed tegaderm drape in window pane fashion. Placed adaptic over puraply graft. Placed black granulafoam to wound bed. Covered with tegaderm drape. Placed to suction at -125 mmHG. Good seal noted. Secured with drain sponge, kerlix, and LYNDSAY wrap. Subjective Interval history: Patient awake in bed. Alert and oriented. Denies any calf pain, chest pain, or shortness of breath. Denies any fevers, chills, nausea, vomiting, or diarrhea. Denies any pain to left foot. Reports needing legs wrapped at all times d/t swelling. No other questions or concerns at this time. Objective - Vital Signs Vital Signs: Vital Signs Temp Pulse Resp BP Pulse Ox 04/05/19 16:05 18 95 04/05/19 14:16 98.5 F 65 14 157/52 95 04/05/19 10:20 98.3 F 77 14 179/61 92 04/05/19 07:15 18 96 04/05/19 06:44 97.9 F 64 14 174/61 96 04/05/19 03:55 98.0 F 70 15 167/63 95 04/05/19 03:40 17 98 04/05/19 00:03 16 98 04/04/19 23:25 98.0 F 82 15 165/62 96 04/04/19 20:02 98.3 F 86 15 170/54 95 04/04/19 19:51 17 96 Intake and Output 04/05/19 04/05/19 04/05/19 07:59 15:59 23:59 Intake Total 0 / 960 960 / 960 Output Total 0 / 0 Balance 0 / 960 960 / 960 Intake: Oral 0 / 960 960 / 960 Output: Urine 0 / 0 Other: Meal Lunch Percent of Meal Consumed 95% # Voids 1 0 # Bowel Movements 0 0 Weight 100.5 kg Blood Glucose* 252 269 Patient Weight 04/05/19 23:59 Weight 100.5 kg - Exam Exam: Constitiutional: Alert and oriented x 3. Well nourished. No acute distress noted Vascular: 1/4 DP/PT bilaterally, CFT <3 sec to all digits, warm to warm from tibia to toes bilaterally, no calf pain with squeeze BLE, multiple digit amputations noted Neurologic: Diminished sensation to touch, normal plantar response Dermatologic: Guardado stage III ulceration right calcaneous, erythema noted to surrounding tissue, puraply graft noted, xerosis noted to BLE, discoloration noted to BLE Musculoskeletal: 3/5 muscle strength and normal tone bilaterally. - Lab Result Diagrams: 04/04/19 19:30 04/05/19 05:51 Labs: Abnormal lab results WBC 12.3 K/mcL (4.3-11.1) H 04/04/19 19:30 RBC 3.96 M/mcL (4.19-5.50) L 04/04/19 19:30 Hgb 10.5 g/dL (12.9-16.9) L 04/04/19 19:30 Hct 34.7 % (37.5-50.1) L 04/04/19 19:30 MCH 26.5 pg (28.0-33.3) L 04/04/19 19:30 MCHC 30.3 g/dL (31.6-35.5) L 04/04/19 19:30 RDW 14.7 % (11.5-14.5) H 04/04/19 19:30 Plt Count 451 K/mcL (140-400) H 04/04/19 19:30 MPV 9.3 fL (9.4-12.4) L 04/04/19 19:30 Neutrophils # 12.2 K/mcL (1.6-8.9) H 04/01/19 03:57 Monocytes # 2.0 K/mcL (0.0-1.3) H 04/01/19 03:57 Clumped Platelets Few (Not Present) A 03/31/19 22:50 ESR 127 mm/hr (0-10) H 03/31/19 22:50 PT 14.3 Seconds (9.4-12.1) H 04/01/19 03:57 Carbon Dioxide 30 mEq/L (23-29) H 04/05/19 05:51 BUN 36 mg/dL (8-23) H 04/05/19 05:51 Creatinine 2.06 mg/dL (0.70-1.30) H 04/05/19 05:51 Est GFR ( Amer) 38 (> 60) L 04/05/19 05:51 Est GFR (Non-Af Amer) 32 (> 60) L 04/05/19 05:51 Glucose 241 mg/dL (70-105) H 04/05/19 05:51 POC Glucose 327 mg/dL (70-99) H 04/04/19 20:08 Hemoglobin A1c 7.3 % (-5.6) H 03/31/19 22:50 Calculated Osmolality 314 (280-300) H 04/05/19 05:51 C-Reactive Protein 173 mg/L (Less than 10) H 03/31/19 22:50 Vancomycin Trough 20 mcg/mL (5-10) H 04/03/19 19:24 Microbiology, Last 48 Hours 04/03/19 17:45 Wound Culture - Preliminary Right Foot Culture is incubating. 04/03/19 17:45 Surgical Biopsy Culture - Preliminary Right Foot 04/03/19 17:45 Anaerobic Culture - Preliminary Right Foot Culture is incubating. Consult Discharge Plan - Plan Referrals: Antonietta Butler MD [Primary Care Provider] -
[2019-04-05] MEDS: DAPTOmycin 600 MG in 0.9 % Sodium Chloride 100 ML IVPB SCH (16:27)
[2019-04-05] MEDS: traZODone 50 MG TABLET PO SCH (21:59)
[2019-04-05] MEDS: Sennosides/Docusate Sodium TABLET PO SCH (22:00)
[2019-04-05] MEDS: Insulin DETEMIR 100 UNIT/ML X5UNITS SQ SCH (22:01)
[2019-04-06] MEDS: Albuterol 2.5 MG/3 ML NEBULIZER IH SCH ×5 (03:57→20:06)
[2019-04-06] MEDS: cloNIDine HCl 0.1 MG TABLET PO SCH ×3 (06:31→21:32)
[2019-04-06] MEDS: *HR* Heparin 5,000 UNIT/ML VIAL SQ SCH ×3 (06:31→21:33)
[2019-04-06 06:56] LABS: Hematocrit 35.8 % (37.5-50.1); Mean Corpuscular HGB Conc 30.7 g/dL (31.6-35.5); Mean Corpuscular Hemoglobin 26.8 pg (28.0-33.3); Mean Corpuscular Volume 87.1 fL (83.0-100.0); Mean Platelet Volume 10.3 fL (9.4-12.4); Platelet Count 350 K/mcL (140-400); Red Blood Count 4.11 M/mcL (4.19-5.50); Red Cell Distribution Width 14.7 % (11.5-14.5); White Blood Count 14.3 K/mcL (4.3-11.1)
[2019-04-06 07:15] LABS: Calcium 8.9 mg/dL (8.6-10.3); Potassium 4.9 mEq/L (3.5-5.1)
[2019-04-06] MEDS: Cefepime HCl 1,000 MG in Water for inj. (sterile) 10 ML IVPB SCH (08:19)
[2019-04-06] MEDS: amLODIPine 5 MG TABLET PO SCH (08:20)
[2019-04-06] MEDS: metroNIDAZOLE 500 MG TABLET PO SCH ×3 (08:21→21:31)
[2019-04-06] MEDS: Aspirin 81 MG TAB.CHEW PO SCH (08:21)
[2019-04-06] MEDS: *HR* OxyCODONE/APAP 10/325 TABLET PO SCH ×4 (08:22→21:31)
[2019-04-06] MEDS: Loratadine 10 MG TABLET PO SCH (08:22)
[2019-04-06] MEDS: Insulin LISPRO 300 UNITS/3 ML VIAL SQ SCH ×7 (08:30→21:32)
[2019-04-06] MEDS: hydrALAZINE 25 MG TABLET PO SCH ×3 (08:36→23:56)
--- NOTE | 2019-04-06 09:33 | Infectious Disease Progress No ---
ID Progress Note Date of Encounter: 04/06/19 Time of Encounter: 09:31 - Subjective Subjective: Patient seen and examined sitting up in the bedside chair. No acute events noted overnight. Patient states he feels okay. Denies fevers, chills, or rigors. Denies chest pain, shortness of breath, or cough. Denies nausea, vomiting, or diarrhea. States he hasn't had a BM in 4 days. Denies abdominal pain or urinary complaints. Denies oral thrush or skin rashes. States his appetite is good. Reports some mild stinging pain at the surgical site. - Objective CBC & Chem 7: 04/07/19 03:29 04/07/19 03:29 - Exam Vitals: Temp Pulse Resp BP Pulse Ox 98.2 F 69 16 179/68 98 04/06/19 06:49 04/06/19 06:49 04/06/19 07:53 04/06/19 06:49 04/06/19 07:53 Exam: Head: Atraumatic, normal inspection, normocephalic. Eye: EOMI, PERRLA, no scleral icterus noted. ENT: Mucous membranes moist. No odontogenic infection noted. Neck: Normal inspection, no meningismus. Respiratory: Clear to auscultation. No rales, respiratory distress, rhonchi, or wheezes noted. Cardiovascular: Regular rate and rhythm, S1 and S2 audible. No murmurs, rubs, or gallops. GI: Soft, obese, normal bowel sounds. Nontender Extremities:No joint swelling, pedal edema, or tenderness noted. BLE compression dressings noted. Right foot dressing and heel protector boot intact. No erythema extending above the dressing. Neurological: Alert, oriented 3, no focal deficits. Psychiatric: normal affect, normal mood. Skin: Dry, intact, warm. Normal color. No rashes. - Assessment and Plan (1) Sepsis Current Visit: Yes Status: Resolved The patient had 2 sepsis criteria on admission plus acute kidney injury. Likely secondary to right foot osteomyelitis. Improved. WBC 14 today. Tachycardia resolved. Blood cultures drawn 03/31/19 at [facility] are negative 2 sets. Repeat blood cultures drawn 04/01/19 are negative 2 sets. Qualifiers: Sepsis type: sepsis due to unspecified organism Qualified Code(s): A41.9 - Sepsis, unspecified organism SNOMED Code(s): 36619589 (2) Osteomyelitis Current Visit: No Status: Acute Location: Right calcaneus. Likely secondary to diabetic foot ulcer. Causative organism: Unclear. No wound cultures obtained before surgery. Intra- op cultures positive for GPC. Final ID and sensitivities are pending. MRI showed findings consistent with early osteomyelitis of the calcaneus. ESR 127, CRP 173. Podiatry consult. Status post I & D right foot multiple planes 04/04/[address] Mcintyre. Operative note reviewed. Soft tissue and wound cultures as above. Pathology positive for gangrenous necrosis. Currently on Dapto, cefepime, and Flagyl. Qualifiers: Osteomyelitis location: foot Laterality: right SNOMED Code(s): 85643069 (3) Cellulitis Current Visit: Yes Status: Acute Location: Right lower extremity. Likely secondary to diabetic foot ulcer. Causative organism: Unclear. Intra-op cultures are positive for GPC. Podiatry consult and following. Currently on Dapto, cefepime, and Flagyl. Qualifiers: Site of cellulitis: extremity Site of cellulitis of extremity: lower extremity Laterality: right Qualified Code(s): L03.115 - Cellulitis of right lower limb SNOMED Code(s): 492907165 (4) Acute kidney injury Current Visit: Yes Status: Acute Likely secondary to sepsis and nephrotoxic medication. Improved today. Vanc discontinued. Dose adjust antibiotics and avoid nephrotoxins as able. SNOMED Code(s): 58704429, 56875973 (5) Diabetic foot ulcer Current Visit: Yes Status: Chronic Location: Right heel. Etiology: Unclear. Podiatry consult and following. Qualifiers: Diabetic foot ulcer location: heel Diabetes mellitus type: type 2 Laterality: right Non-pressure ulcer stage: with fat layer exposed Qualified Code(s): E11.621 - Type 2 diabetes mellitus with foot ulcer; L97.412 - Non- pressure chronic ulcer of right heel and midfoot with fat layer exposed SNOMED Code(s): 173943077 (6) CKD (chronic kidney disease) stage 3, GFR 30-59 ml/min Current Visit: Yes Status: Chronic SNOMED Code(s): 447789859 (7) DM type 2 (diabetes mellitus, type 2) Current Visit: Yes Status: Chronic Recommend aggressive glucose monitoring and control to promote wound healing and prevent reinfection. Management per the primary team. Qualifiers: Diabetes mellitus fpc insulin use: with superintendent marine oil terminal use Diabetes mellitus complication status: with kidney complications Diabetes mellitus complication detail: with chronic kidney disease Chronic kidney disease stage: stage 3 (moderate) Qualified Code(s): E11.22 - Type 2 diabetes mellitus with diabetic chronic kidney disease; N18.3 - Chronic kidney disease, stage 3 (moderate); Z79.4 - extermination inspector (current) use of insulin SNOMED Code(s): 65070962 (8) CAD (coronary artery disease) Current Visit: Yes Status: Chronic Qualifiers: Coronary Disease-Associated Artery/Lesion type: [place] artery [place] vs. transplanted heart: [place] heart Associated angina: without angina Qualified Code(s): I25.10 - Atherosclerotic heart disease of [place] coronary artery with out angina pectoris SNOMED Code(s): 78114896 (9) Venous stasis dermatitis of both lower extremities Current Visit: No Status: Chronic SNOMED Code(s): 25638031 (10) GERD (gastroesophageal reflux disease) Current Visit: No Status: Chronic Qualifiers: Esophagitis presence: esophagitis presence not specified Qualified Code(s): K21.9 - Gastro-esophageal reflux disease without esophagitis SNOMED Code(s): 429166882 (11) Hypertension Current Visit: Yes Status: Chronic Qualifiers: Hypertension type: essential hypertension Qualified Code(s): I10 - Essential (primary) hypertension SNOMED Code(s): 89345072 - Recommendations Recommendations: Await intraoperative cultures to finalize. Wound care per the podiatry team. Continue Daptomycin 6mg/kg IV Q48H (CrCl ~24). Baseline CK 31. Continue cefepime 1 g IV Q24H. Continue Flagyl 500 mg by mouth 3 times a day. Hold atorvastatin while on Daptomycin. Duration of treatment depends on the clinical picture. Monitor renal function and for drug toxicity and dose adjust antibiotics. fiscal services manager to assist with discharge planning. Consult Discharge Plan - Plan Referrals: Antonietta Butler MD [Primary Care Provider] - - Attending Attestation I have personally performed a face to face evaluation on this patient. I have reviewed and agree with the care plan. History and Exam by me shows: Assessment and plan: 1.Sepsis 2.Osteomyelitis of the right calcaneus causative organism gram-positive cocci 3.Acute kidney injury 4.Diabetic foot ulcer 5.Allergies to ampicillin and Bactrim Recommendations: Continue daptomycin for now every 48 hours [id number] Continue cefepime Continue Flagyl On discharge will need to check weekly CBC,BMP,ESR,CRP and CKl evel
[2019-04-06] MEDS ORDERED: Lactulose Oral Soln 20 GM/30 ML UDC PO PRN (10:00)
--- NOTE | 2019-04-06 10:03 | Internal Med Progress Note ---
Hospitalist Progress Note - Encounter Date of Encounter: 04/06/19 Time of Encounter: 10:01 - Subjective Interval History: I have seen and evaluated the patient at bedside. Patient reported feeling well, but would like to be more mobile. denies chest pain, shortness of breath, abdominal pain, nausea or vomiting. reports constipation, has not had a BM for the past 3-4 days. - Exam Vitals: Temp Pulse Resp BP Pulse Ox 98.2 F 69 16 179/68 98 04/06/19 06:49 04/06/19 06:49 04/06/19 07:53 04/06/19 06:49 04/06/19 07:53 Exam: Vitals: Reviewed General: Alert and oriented x4. In no acute distress Cardiovascular: RRR, normal S1 & S2, no rubs, murmurs or gallops. Lungs: CTA b/l, no wheezes or crackles. Abdomen: Obese, soft, non-tender, no rigidity. Extremities: Minimal edema. Neurological: Normal cognition and motor skills. Rest of the physical exam is non contributory - Assessment and Plan (1) CKD (chronic kidney disease) stage 3, GFR 30-59 ml/min Current Visit: Yes Status: Chronic Assessment and Plan: Kidney function at baseline. Continue to avoid nephrotoxic medication. We will reassess kidney function on the morning. (2) DM type 2 (diabetes mellitus, type 2) Current Visit: Yes Status: Chronic Assessment and Plan: Blood sugar suboptimally controlled. Plan - will change insulin coverage to levemir 30 units BID - Lispro increased to 10 units ac - continue lispro low dose sliding scale ac. - carbs controlled diet. (3) CAD (coronary artery disease) Current Visit: Yes Status: Chronic Assessment and Plan: Patient is on dual antiplatelet therapy. (4) Diabetic foot ulcer with osteomyelitis Current Visit: Yes Status: Acute Assessment and Plan: WBC remains elevated. hemodynamically stable, afebrile. S/P Incision and drainage and debridement of multiple planes right foot, application of puraply graft on 04/03/[address] Mcintyre Wound vac placed to right calcaneous Surgical biopsy cultures: Gram-positive cocci Wound cultures of the right foot: Gram-positive cocci Blood cultures: No growth final report Plan - Patient is on broad-spectrum IV antibiotics. - On cefepime, metronidazole, and daptomycin per ID recommendation. (5) GERD (gastroesophageal reflux disease) Current Visit: No Status: Chronic Assessment and Plan: PPIs added (6) Hypertension Current Visit: Yes Status: Chronic Assessment and Plan: Blood pressure suboptimally controlled. On clonidine, amlodipine, metoprolol, and Nebivolol. Hydralazine 25mg/PO TID added. will continue monitoring. (7) Chronic venous stasis Current Visit: No Status: Chronic (8) Sepsis Current Visit: Yes Status: Resolved DVT Prophylaxis: On heparin subcutaneous. - Summary of Assessment and Plan Summary of Assessment and Plan: Patient to remain in the hospital due to diabetic foot ulcer with osteomyelitis on broad spectrum IV antibiotics. - Time Spent with Patient Total time spent is greater than 50% in coordination of care (as documented) at patient's floor/unit and/or counseling patient: Greater than 35 minutes (40) Plan of Care Discussed with: patient (and the nurse.) Internal Medicine: Result - Labs CBC & Chem 7: 04/06/19 06:13 04/06/19 06:13 Labs: Short CBC 04/06/19 Range/Units 06:13 WBC 14.3 H (4.3-11.1) K/mcL Hgb 11.0 L (12.9-16.9) g/dL Hct 35.8 L (37.5-50.1) % Plt Count 350 (140-400) K/mcL BMP 04/05/19 04/06/19 05:51 06:13 Sodium 144 142 Potassium 4.7 4.9 Chloride 105 106 Carbon Dioxide 30 H 26 BUN 36 H 34 H Creatinine 2.06 H 1.70 H Glucose 241 H 250 H Calcium 9.4 8.9 - ABG Interpretation ABG results: PT/INR, D-dimer PT 14.3 Seconds (9.4-12.1) H 04/01/19 03:57 Consult Discharge Plan - Plan Referrals: Antonietta Butler MD [Primary Care Provider] - (2) DM type 2 (diabetes mellitus, type 2) Qualifiers: Diabetes mellitus prison insulin use: with manager intermediate use Diabetes mellitus complication status: with kidney complications Diabetes mellitus complication detail: with chronic kidney disease Chronic kidney disease stage: stage 3 (moderate) Qualified Code(s): E11.22 - Type 2 diabetes mellitus with diabetic chronic kidney disease; N18.3 - Chronic kidney disease, stage 3 (moderate); Z79.4 - termite technician (current) use of insulin (3) CAD (coronary artery disease) Qualifiers: Coronary Disease-Associated Artery/Lesion type: [place] artery [place] vs. transplanted heart: [place] heart Associated angina: without angina Qualified Code(s): I25.10 - Atherosclerotic heart disease of [place] coronary artery without angina pectoris (5) GERD (gastroesophageal reflux disease) Qualifiers: Esophagitis presence: esophagitis presence not specified Qualified Code(s): K21.9 - Gastro-esophageal reflux disease without esophagitis (6) Hypertension Qualifiers: Hypertension type: essential hypertension Qualified Code(s): I10 - Essential (primary) hypertension (8) Sepsis Qualifiers: Sepsis type: sepsis due to unspecified organism Qualified Code(s): A41.9 - Sepsis, unspecified organism
[2019-04-06] MEDS: traZODone 50 MG TABLET PO SCH (21:31)
[2019-04-06] MEDS: Sennosides/Docusate Sodium TABLET PO SCH (21:31)
[2019-04-06] MEDS: Insulin DETEMIR 100 UNIT/ML X5UNITS SQ SCH (21:32)
[2019-04-07] MEDS: Albuterol 2.5 MG/3 ML NEBULIZER IH SCH ×7 (00:08→23:55)
[2019-04-07 04:08] LABS: Basophils # 0.1 K/mcL (0.0-0.2); Eosinophils # 0.5 K/mcL (0.0-0.6); Eosinophils % 4.7 %; Hematocrit 35.8 % (37.5-50.1); Immature Granulocytes % 4.4 % (0-4); Lymphocytes # 2.4 K/mcL (0.6-4.6); Lymphocytes % 20.8 %; Mean Corpuscular HGB Conc 30.7 g/dL (31.6-35.5); Mean Corpuscular Volume 87.7 fL (83.0-100.0); Mean Platelet Volume 9.7 fL (9.4-12.4); Monocytes # 1.5 K/mcL (0.0-1.3); Monocytes % 12.7 %; Neutrophils # 6.5 K/mcL (1.6-8.9); Nucleated Red Blood Cells 0.2 /100 WBC (0); Platelet Count 427 K/mcL (140-400); Red Blood Count 4.08 M/mcL (4.19-5.50); Segmented Neutrophils % 56.4 %; White Blood Count 11.5 K/mcL (4.3-11.1)
[2019-04-07 04:20] LABS: Magnesium 1.9 mg/dL (1.6-2.6); Phosphorous 3.5 mg/dL (2.7-4.5); Potassium 4.8 mEq/L (3.5-5.1)
[2019-04-07] MEDS: *HR* Heparin 5,000 UNIT/ML VIAL SQ SCH ×2 (05:44→17:11)
[2019-04-07] MEDS: cloNIDine HCl 0.1 MG TABLET PO SCH ×3 (05:44→20:58)
[2019-04-07] MEDS: Insulin LISPRO 300 UNITS/3 ML VIAL SQ SCH ×7 (09:10→22:31)
[2019-04-07] MEDS: Insulin DETEMIR 100 UNIT/ML X5UNITS SQ SCH ×2 (09:11→20:59)
[2019-04-07] MEDS: Cefepime HCl 1,000 MG in Water for inj. (sterile) 10 ML IVPB SCH (09:13)
[2019-04-07] MEDS: *HR* OxyCODONE/APAP 10/325 TABLET PO SCH ×4 (09:17→20:58)
[2019-04-07] MEDS: amLODIPine 5 MG TABLET PO SCH (09:17)
[2019-04-07] MEDS: metroNIDAZOLE 500 MG TABLET PO SCH ×3 (09:17→20:58)
[2019-04-07] MEDS: Aspirin 81 MG TAB.CHEW PO SCH (09:17)
[2019-04-07] MEDS: hydrALAZINE 25 MG TABLET PO SCH ×4 (09:18→23:48)
[2019-04-07] MEDS: Loratadine 10 MG TABLET PO SCH (09:18)
--- NOTE | 2019-04-07 09:38 | Infectious Disease Progress No ---
ID Progress Note Date of Encounter: 04/07/19 Time of Encounter: 09:36 - Subjective Subjective: Patient seen and examined sitting up in the bedside chair. No acute events noted overnight. Patient states he feels okay. Denies fevers, chills, or rigors. Denies chest pain, shortness of breath, or cough. Denies nausea, vomiting, or diarrhea. States he hasn't had a BM in 5days. Denies abdominal pain or urinary complaints. Denies oral thrush or skin rashes. States his appetite is good. Reports some mild stinging pain at the surgical site. - Objective CBC & Chem 7: 04/10/19 06:21 04/10/19 06:21 - Exam Vitals: Temp Pulse Resp BP Pulse Ox 98.2 F 69 16 179/64 96 04/07/19 07:03 04/07/19 07:03 04/07/19 07:17 04/07/19 07:03 04/07/19 07:17 Exam: Head: Atraumatic, normal inspection, normocephalic. Eye: EOMI, PERRLA, no scleral icterus noted. ENT: Mucous membranes moist. No odontogenic infection noted. Neck: Normal inspection, no meningismus. Respiratory: Clear to auscultation. No rales, respiratory distress, rhonchi, or wheezes noted. Cardiovascular: Regular rate and rhythm, S1 and S2 audible. No murmurs, rubs, or gallops. GI: Soft, obese, normal bowel sounds. Nontender Extremities:No joint swelling, pedal edema, or tenderness noted. BLE compression dressings noted. Right foot wound VAC dressing and heel protector boot intact. No erythema extending above the dressing. Neurological: Alert, oriented 3, no focal deficits. Psychiatric: normal affect, normal mood. Skin: Dry, intact, warm. Normal color. No rashes. - Assessment and Plan (1) Sepsis Current Visit: Yes Status: Resolved The patient had 2 sepsis criteria on admission plus acute kidney injury. Likely secondary to right foot osteomyelitis. Improved. WBC improved. Tachycardia resolved. Blood cultures drawn 03/31/19 at [facility] are no growth to date 2 sets. Repeat blood cultures drawn 04/01/19 are negative 2 sets. Qualifiers: Sepsis type: sepsis due to unspecified organism Qualified Code(s): A41.9 - Sepsis, unspecified organism SNOMED Code(s): 23285471 (2) Osteomyelitis Current Visit: No Status: Acute Location: Right calcaneus. Likely secondary to diabetic foot ulcer. Causative organism: S. simulans and S. epi. MRI showed findings consistent with early osteomyelitis of the calcaneus. ESR 127, CRP 173. Podiatry consult. Status post I & D right foot multiple planes 04/04/[address] Mcintyre. Operative note reviewed. Soft tissue and wound cultures as above. Pathology positive for gangrenous necrosis. Currently on Dapto, cefepime, and Flagyl. Qualifiers: Osteomyelitis location: foot Laterality: right SNOMED Code(s): 66416012 (3) Cellulitis Current Visit: Yes Status: Acute Location: Right lower extremity. Likely secondary to diabetic foot ulcer. Causative organism: S. simulans and S. epi. Podiatry consult and following. Currently on Dapto, cefepime, and Flagyl. Qualifiers: Site of cellulitis: extremity Site of cellulitis of extremity: lower extremity Laterality: right Qualified Code(s): L03.115 - Cellulitis of right lower limb SNOMED Code(s): 500141111 (4) Acute kidney injury Current Visit: Yes Status: Acute Likely secondary to sepsis and nephrotoxic medication. Improved today. Vanc discontinued. Dose adjust antibiotics and avoid nephrotoxins as able. SNOMED Code(s): 56338113, 03087702 (5) Diabetic foot ulcer Current Visit: Yes Status: Chronic Location: Right heel. Etiology: Unclear. Podiatry consult and following. Qualifiers: Diabetic foot ulcer location: heel Diabetes mellitus type: type 2 Laterality: right Non-pressure ulcer stage: with fat layer exposed Qualified Code(s): E11.621 - Type 2 diabetes mellitus with foot ulcer; L97.412 - Non- pressure chronic ulcer of right heel and midfoot with fat layer exposed SNOMED Code(s): 294504095 (6) CKD (chronic kidney disease) stage 3, GFR 30-59 ml/min Current Visit: Yes Status: Chronic SNOMED Code(s): 678792850 (7) DM type 2 (diabetes mellitus, type 2) Current Visit: Yes Status: Chronic Recommend aggressive glucose monitoring and control to promote wound healing and prevent reinfection. Management per the primary team. Qualifiers: Diabetes mellitus penitentiary insulin use: with penitentiary use Diabetes [facility] complication status: with kidney complications Diabetes mellitus compl ication detail: with chronic kidney disease Chronic kidney disease stage: stage 3 (moderate) Qualified Code(s): E11.22 - Type 2 diabetes mellitus with diabetic chronic kidney disease; N18.3 - Chronic kidney disease, stage 3 (moderate); Z79.4 - snf (current) use of insulin SNOMED Code(s): 30393023 (8) CAD (coronary artery disease) Current Visit: Yes Status: Chronic Qualifiers: Coronary Disease-Associated Artery/Lesion type: [place] artery [place] vs. transplanted heart: [place] heart Associated angina: without angina Qualified Code(s): I25.10 - Atherosclerotic heart disease of [place] coronary artery without angina pectoris SNOMED Code(s): 25728509 (9) Venous stasis dermatitis of both lower extremities Current Visit: No Status: Chronic SNOMED Code(s): 56905945 (10) GERD (gastroesophageal reflux disease) Current Visit: No Status: Chronic Qualifiers: Esophagitis presence: esophagitis presence not specified Qualified Code(s): K21.9 - Gastro-esophageal reflux disease without esophagitis SNOMED Code(s): 329564805 (11) Hypertension Current Visit: Yes Status: Chronic Qualifiers: Hypertension type: essential hypertension Qualified Code(s): I10 - Essential (primary) hypertension SNOMED Code(s): 30765623 - Recommendations Recommendations: Await intraoperative cultures to finalize. Wound care per the podiatry team. Continue Daptomycin 6mg/kg IV Q48H (CrCl ~29). Baseline CK 31. Continue Flagyl 500 mg by mouth 3 times a day. Discontinue Cefepime. Hold atorvastatin while on Daptomycin. Duration of treatment depends on the clinical picture, but will likely need 6 weeks of IV Antibiotics. Continue flagyl until anaerobic cultures finalize and D/C if negative. Monitor renal function and for drug toxicity and dose adjust antibiotics. director of food and nutrition services to assist with discharge planning. Consult Discharge Plan - Plan Referrals: Antonietta Butler MD [Primary Care Provider] - - Attending Attestation I have personally performed a face to face evaluation on this patient. I have reviewed and agree with the care plan. History and Exam by me shows: Assessment and plan: 1.Sepsis 2.Osteomyelitis of the right calcaneus causative organism gram-positive cocci 3.Acute kidney injury 4.Diabetic foot ulcer 5.Allergies to ampicillin and Bactrim Recommendations: Continue daptomycin for now every 48 hours [id number] Continue cefepime Continue Flagyl On discharge will need to check weekly CBC,BMP,ESR,CRP and CKl evel
--- NOTE | 2019-04-07 10:16 | Internal Med Progress Note ---
Hospitalist Progress Note - Encounter Date of Encounter: 04/07/19 Time of Encounter: 10:14 - Subjective Interval History: I have seen and evaluated the patient at bedside. patient reports doing well, but reports he has not had a BM since he has been in the hospital. denies nausea, vomiting or abdominal pain. denies chest pain or shortness of breath. - Exam Vitals: Temp Pulse Resp BP Pulse Ox 98.2 F 69 16 179/64 96 04/07/19 07:03 04/07/19 07:03 04/07/19 07:17 04/07/19 07:03 04/07/19 07:17 Exam: Vitals: Reviewed General: Alert and oriented x4. In no acute distress Cardiovascular: RRR, normal S1 & S2, no rubs, murmurs or gallops. Lungs: CTA b/l, no wheezes or crackles. Abdomen: Obese, soft, non-tender, no rigidity. NABS in all 4 quadrants Extremities: Minimal edema. Neurological: No focal neurological abnormalities Rest of the physical exam is non contributory - Assessment and Plan (1) Diabetic foot ulcer with osteomyelitis Current Visit: Yes Status: Acute Assessment and Plan: WBC trending down. hemodynamically stable, afebrile. S/P Incision and drainage and debridement of multiple planes right foot, application of puraply graft on 04/03/[address] Mcintyre Wound vac placed to right calcaneous Surgical biopsy cultures: Gram-positive cocci, pending final report. Wound cultures of the right foot: Gram-positive cocci Blood cultures: No growth final report Plan - On cefepime, metronidazole, and daptomycin - ID recommendations appreciated. (2) CKD (chronic kidney disease) stage 3, GFR 30-59 ml/min Current Visit: Yes Status: Chronic Assessment and Plan: Kidney function at baseline. continue nephro-protective strategies will reassess kidney function on the morning. (3) DM type 2 (diabetes mellitus, type 2) Current Visit: Yes Status: Chronic Assessment and Plan: blood sugar is well controlled. continue carbs controlled diet and current insulin coverage. (4) CAD (coronary artery disease) Current Visit: Yes Status: Chronic Assessment and Plan: continue dual antiplatelet therapy. (5) GERD (gastroesophageal reflux disease) Current Visit: No Status: Chronic Assessment and Plan: On omeprazole 20 mg by mouth daily. (6) Hypertension Current Visit: Yes Status: Chronic Assessment and Plan: Blood pressure suboptimally controlled. On clonidine, amlodipine, metoprolol, and Nebivolol. Plan: Increase Hydralazine to 50mg/PO TID added. will continue monitoring. (7) Chronic venous stasis Current Visit: No Status: Chronic (8) Sepsis Current Visit: Yes Status: Resolved DVT Prophylaxis: On heparin subQ - Summary of Assessment and Plan Summary of Assessment and Plan: patient to remain in the hospital Awaiting intraoperative cultures to finalize. - Time Spent with Patient Total time spent is greater than 50% in coordination of care (as documented) at patient's floor/unit and/or counseling patient: Greater than 35 minutes (45) Plan of Care Discussed with: patient (and the nurse.) Internal Medicine: Result - Labs CBC & Chem 7: 04/07/19 03:29 04/07/19 03:29 Labs: Short CBC 04/07/19 Range/Units 03:29 WBC 11.5 H (4.3-11.1) K/mcL Hgb 11.0 L (12.9-16.9) g/dL Hct 35.8 L (37.5-50.1) % Plt Count 427 H (140-400) K/mcL Neutrophils # 6.5 (1.6-8.9) K/mcL BMP 04/07/19 03:29 Sodium 142 Potassium 4.8 Chloride 110 H Carbon Dioxide 27 BUN 43 H Creatinine 1.73 H Glucose 202 H Calcium 9.0 - ABG Interpretation ABG results: PT/INR, D-dimer PT 14.3 Seconds (9.4-12.1) H 04/01/19 03:57 Consult Discharge Plan - Plan Referrals: Antonietta Butler MD [Primary Care Provider] - (3) DM type 2 (diabetes mellitus, type 2) Qualifiers: Diabetes mellitus alf insulin use: with alf use Diabetes mellitus complication status: with kidney complications Diabetes mellitus complication detail: with chronic kidney disease Chronic kidney disease stage: stage 3 (moderate) Qualified Code(s): E11.22 - Type 2 diabetes mellitus with diabetic chronic kidney disease; N18.3 - Chronic kidney disease, stage 3 (moderate); Z79.4 - FDC (current) use of insulin (4) CAD (coronary artery disease) Qualifiers: Coronary Disease-Associated Artery/Lesion type: [place] artery [place] vs. transplanted heart: [place] heart Associated angina: without angina Qualified Code(s): I25.10 - Atherosclerotic heart disease of [place] coronary artery without angina pectoris (5) GERD (gastroesophageal reflux disease) Qualifiers: Esophagitis presence: esophagitis presence not specified Qualified Code(s): K21.9 - Gastro-esophageal reflux disease without esophagitis (6) Hypertension Qualifiers: Hypertension type: essential hypertension Qualified Code(s): I10 - Essential (primary) hypertension (8) Sepsis Qualifiers: Sepsis type: sepsis due to unspecified organism Qualified Code(s): A41.9 - Sepsis, unspecified organism
--- NOTE | 2019-04-07 11:51 | Podiatry Progress Note ---
Date of Encounter: 04/07/19 Time of Encounter: 11:49 - Assessment and Plan (1) Diabetic foot ulcer with osteomyelitis Current Visit: Yes Status: Acute Assessment: S/P Incision and drainage and debridement of multiple planes right foot, application of puraply graft on 04/03/[address] Mcintyre Wound vac in place, serous drainage noted to canister Guardado grade III ulcer to right calcaneous WBC 11.5, afebrile Intra-op cultures returned gram positive cocci, blood cultures pending Path returned gangrenous necrosis ESR 127, CRP 173 Plan: Wound vac changed MWF vac changes Will likely need 6 weeks IV ATB- ID consulted, appreciate recommendations Removed wound vac. Painted maceration with betadine. Covered maceration with 4x4 dry gauze. Prepped skin with skin prep. Placed tegaderm drape in window pane fashion. Placed adaptic over puraply graft. Placed black granulafoam to wound bed. Covered with tegaderm drape. Placed to suction at -125 mmHG. Good seal noted. Secured with drain sponge, kerlix, and LYNDSAY wrap. Subjective Principal diagnosis: Necrotic ulcer Interval history: Patient awake in bed. Alert and oriented. Denies any calf pain, chest pain, or shortness of breath. Denies any fevers, chills, nausea, vomiting, or diarrhea. Reports needing legs wrapped at all times d/t swelling. No other questions or concerns at this time. Objective - Vital Signs Vital Signs: Vital Signs Temp Pulse Resp BP Pulse Ox 04/07/19 10:48 16 96 04/07/19 10:30 98.4 F 64 16 144/56 97 04/07/19 07:17 16 96 04/07/19 07:03 98.2 F 69 16 179/64 93 04/07/19 03:05 16 97 04/07/19 02:04 97.9 F 73 15 168/56 94 04/07/19 00:08 16 97 04/06/19 22:46 97.7 F 73 15 150/63 99 04/06/19 20:06 16 97 04/06/19 18:32 97.6 F 69 15 161/61 92 04/06/19 15:28 16 95 04/06/19 15:09 98.1 F 75 18 194/72 100 Intake and Output 0704/07/19 04/07/19 23:59 07:59 15:59 Intake Total 370 / 370 Balance 370 / 370 Intake: IV Fluids Maxipime 1,000 MG In Water for inj. (sterile) 10 ML @ 300 mls/ hr IVPB DAILY [facility] Rx#: [id number] Oral 360 / 360 Other: Meal Breakfast Percent of Meal Consumed 100% # Voids 1 Weight 95 kg Blood Glucose* 301 196 Patient Weight 04/07/19 23:59 Weight 95 kg - Exam Exam: Constitiutional: Alert and oriented x 3. Well nourished. No acute distress noted Vascular: 1/4 DP/PT bilaterally, CFT <3 sec to all digits, warm to warm from tibia to toes bilaterally, no calf pain with squeeze BLE, multiple digit am putations noted Neurologic: Diminished sensation to touch, normal plantar response Dermatologic: Guardado stage III ulceration right calcaneous, erythema noted to surrounding tissue, puraply graft noted, xerosis noted to BLE, discoloration noted to BLE Musculoskeletal: 3/5 muscle strength and normal tone bilaterally. - Lab Result Diagrams: 04/07/19 03:29 04/07/19 03:29 Labs: Abnormal lab results WBC 11.5 K/mcL (4.3-11.1) H 04/07/19 03:29 RBC 4.08 M/mcL (4.19-5.50) L 04/07/19 03:29 Hgb 11.0 g/dL (12.9-16.9) L 04/07/19 03:29 Hct 35.8 % (37.5-50.1) L 04/07/19 03:29 MCH 27.0 pg (28.0-33.3) L 04/07/19 03:29 MCHC 30.7 g/dL (31.6-35.5) L 04/07/19 03:29 RDW 15.0 % (11.5-14.5) H 04/07/19 03:29 Plt Count 427 K/mcL (140-400) H 04/07/19 03:29 MPV 9.3 fL (9.4-12.4) L 04/04/19 19:30 Immature Gran % 4.4 % (0-4) H 04/07/19 03:29 Neutrophils # 12.2 K/mcL (1.6-8.9) H 04/01/19 03:57 Monocytes # 1.5 K/mcL (0.0-1.3) H 04/07/19 03:29 Nucleated RBCs/100 WBC 0.2 /100 WBC (0) H 04/07/19 03:29 Clumped Platelets Few (Not Present) A 03/31/19 22:50 ESR 127 mm/hr (0-10) H 03/31/19 22:50 PT 14.3 Seconds (9.4-12.1) H 04/01/19 03:57 Chloride 110 mEq/L (98-107) H 04/07/19 03:29 Carbon Dioxide 30 mEq/L (23-29) H 04/05/19 05:51 BUN 43 mg/dL (8-23) H 04/07/19 03:29 Creatinine 1.73 mg/dL (0.70-1.30) H 04/07/19 03:29 Est GFR ( Amer) 47 (> 60) L 04/07/19 03:29 Est GFR (Non-Af Amer) 39 (> 60) L 04/07/19 03:29 Glucose 202 mg/dL (70-105) H 04/07/19 03:29 POC Glucose 196 mg/dL (70-99) H 04/07/19 07:06 Hemoglobin A1c 7.3 % (-5.6) H 03/31/19 22:50 Calculated Osmolality 311 (280-300) H 04/07/19 03:29 C-Reactive Protein 173 mg/L (Less than 10) H 03/31/19 22:50 Vancomycin Trough 20 mcg/mL (5-10) H 04/03/19 19:24 Microbiology, Last 48 Hours 04/03/19 17:45 Surgical Biopsy Culture - Final Right Foot Staphylococcus simulans Staphylococcus epidermidis 04/03/19 17:45 Wound Culture - Preliminary Right Foot Gram Positive Cocci 04/01/19 03:59 Blood Culture - Final Peripheral Venipuncture No growth. Final report. 04/01/19 03:57 Blood Culture - Final Peripheral Venipuncture No growth. Final report. Consult Discharge Plan - Plan Referrals: Antonietta Butler MD [Primary Care Provider] -
[2019-04-07] MEDS: DAPTOmycin 600 MG in 0.9 % Sodium Chloride 100 ML IVPB SCH (15:23)
[2019-04-07] MEDS: Sennosides/Docusate Sodium TABLET PO SCH (20:58)
[2019-04-07] MEDS: traZODone 50 MG TABLET PO SCH (20:58)
[2019-04-08] MEDS: Albuterol 2.5 MG/3 ML NEBULIZER IH SCH ×6 (03:40→23:52)
[2019-04-08 04:39] LABS: Hematocrit 35.8 % (37.5-50.1); Hemoglobin 10.9 g/dL (12.9-16.9); Mean Corpuscular HGB Conc 30.4 g/dL (31.6-35.5); Mean Corpuscular Hemoglobin 26.9 pg (28.0-33.3); Mean Corpuscular Volume 88.4 fL (83.0-100.0); Mean Platelet Volume 9.3 fL (9.4-12.4); Platelet Count 418 K/mcL (140-400); Red Blood Count 4.05 M/mcL (4.19-5.50); Red Cell Distribution Width 15.1 % (11.5-14.5); White Blood Count 12.9 K/mcL (4.3-11.1)
[2019-04-08 04:51] LABS: Calcium 8.9 mg/dL (8.6-10.3); Magnesium 1.9 mg/dL (1.6-2.6); Phosphorous 3.7 mg/dL (2.7-4.5); Potassium 4.9 mEq/L (3.5-5.1)
[2019-04-08 05:06] LABS: Lymphocytes # 2.8 K/mcL (0.6-4.6)
[2019-04-08 05:07] LABS: Platelet Estimate Normal (Normal)
[2019-04-08] MEDS: cloNIDine HCl 0.1 MG TABLET PO SCH ×3 (06:08→16:17)
[2019-04-08] MEDS: *HR* Heparin 5,000 UNIT/ML VIAL SQ SCH ×2 (06:09→17:14)
[2019-04-08] MEDS: Insulin LISPRO 300 UNITS/3 ML VIAL SQ SCH ×7 (07:25→21:59)
[2019-04-08] MEDS: Cefepime HCl 1,000 MG in Water for inj. (sterile) 10 ML IVPB SCH (07:30)
[2019-04-08] MEDS: Aspirin 81 MG TAB.CHEW PO SCH (07:32)
[2019-04-08] MEDS: metroNIDAZOLE 500 MG TABLET PO SCH ×3 (07:32→22:09)
[2019-04-08] MEDS: Loratadine 10 MG TABLET PO SCH (07:32)
[2019-04-08] MEDS: hydrALAZINE 25 MG TABLET PO SCH ×2 (07:32→16:17)
[2019-04-08] MEDS: Insulin DETEMIR 100 UNIT/ML X5UNITS SQ SCH ×2 (07:34→22:09)
[2019-04-08] MEDS: amLODIPine 5 MG TABLET PO SCH (07:35)
[2019-04-08] MEDS: *HR* OxyCODONE/APAP 10/325 TABLET PO SCH ×4 (07:35→22:09)
--- NOTE | 2019-04-08 09:28 | Internal Med Progress Note ---
Hospitalist Progress Note - Encounter Date of Encounter: 04/08/19 Time of Encounter: 09:27 - Subjective Interval History: I have seen and evaluated the patient at bedside. Patient reports feeling okay, denies chest pain, nausea, vomiting. Reports passing gas, but stated that he has not moved his bowels yet. Denies abdominal pain. - Exam Vitals: Temp Pulse Resp BP Pulse Ox 98.0 F 73 16 168/65 97 04/08/19 06:46 04/08/19 06:46 04/08/19 07:16 04/08/19 06:46 04/08/19 07:16 Exam: Vitals: Reviewed General: Alert and oriented x4. In no acute distress Cardiovascular: RRR, normal S1 & S2, no rubs, murmurs or gallops. Lungs: CTA b/l, no wheezes or crackles. Abdomen: Obese, soft, non-tender, no rigidity. NABS in all 4 quadrants Extremities: Minimal edema. Neurological: No focal neurological abnormalities Rest of the physical exam is non contributory - Assessment and Plan (1) Diabetic foot ulcer with osteomyelitis Current Visit: Yes Status: Acute Assessment and Plan: WBC trending down. hemodynamically stable, afebrile. S/P Incision and drainage and debridement of multiple planes right foot, application of puraply graft on 04/03/[address] Mcintyre Wound vac placed to right calcaneous Surgical biopsy cultures: Multidrug resistant Staphylococcus simulans, and a Staphylococcus epidermides. Wound cultures of the right foot: Multidrug resistant Staphylococcus simulans, and a Staphylococcus epidermides Blood cultures: No growth final report Anaerobic cultures: Incubating Plan - DC cefepime - On metronidazole 500 mg by mouth 3 times a day, and daptomycin 600 mg IV every 48 hours. - ID recommendations appreciated - procurement services manager working on placement - Wound Vac management per podiatry recommendations - Patient will likely need 6 weeks of IV antibiotics (2) CKD (chronic kidney disease) stage 3, GFR 30-59 ml/min Current Visit: Yes Status: Chronic Assessment and Plan: Kidney function at baseline. Patient is on nephro-protective strategies (3) DM type 2 (diabetes mellitus, type 2) Current Visit: Yes Status: Chronic Assessment and Plan: blood sugar [place] between controlled on suboptimally controlled. continue carbs controlled diet and current insulin coverage. We will monitor and make adjustment if needed in the next 24 hours. (4) CAD (coronary artery disease) Current Visit: Yes Status: Chronic Assessment and Plan: continue aspirin 81 mg by mouth daily and clopidogrel 75 mg by mouth daily. (5) GERD (gastroesophageal reflux disease) Current Visit: No Status: Chronic Assessment and Plan: On omeprazole 20 mg by mouth daily. (6) Hypertension Current Visit: Yes Status: Chronic Assessment and Plan: Blood pressure sub-optimally controlled. Plan: - Increase clonidine to 0.3mg/PO TID - amlodipine 10mg/PO daily and Nebivolol. - Hydralazine to 50mg/PO TID (7) Chronic venous stasis Current Visit: No Status: Chronic (8) Sepsis Current Visit: Yes Status: Resolved DVT Prophylaxis: Patient is on heparin subcutaneous. - Summary of Assessment and Plan Summary of Assessment and Plan: Patient to remain in the hospital broad-spectrum IV antibiotics. Patient will need 6 weeks of IV antibiotics, pending assessment. - Time Spent with Patient Total time spent is greater than 50% in coordination of care (as documented) at patient's floor/unit and/or counseling patient: Greater than 35 minutes (40) Plan of Care Discussed with: patient (and the nurse) Internal Medicine: Result - Labs CBC & Chem 7: 04/08/19 04:09 04/08/19 04:09 Labs: Short CBC 04/08/19 Range/Units 04:09 WBC 12.9 H (4.3-11.1) K/mcL Hgb 10.9 L (12.9-16.9) g/dL Hct 35.8 L (37.5-50.1) % Plt Count 418 H (140-400) K/mcL Neutrophils # 9.0 H (1.6-8.9) K/mcL BMP 04/08/19 04:09 Sodium 138 Potassium 4.9 Chloride 108 H Carbon Dioxide 25 BUN 47 H Creatinine 1.85 H Glucose 278 H Calcium 8.9 - ABG Interpretation ABG results: PT/INR, D-dimer PT 14.3 Seconds (9.4-12.1) H 04/01/19 03:57 Consult Discharge Plan - Plan Referrals: Antonietta Butler MD [Primary Care Provider] - (3) DM type 2 (diabetes mellitus, type 2) Qualifiers: Diabetes mellitus pump attendant insulin use: with assisted use Diabetes mellitus complication status: with kidney complications Diabetes mellitus complication detail: with chronic kidney disease Chronic kidney disease stage: stage 3 (moderate) Qualified Code(s): E11.22 - Type 2 diabetes mellitus with diabetic chronic kidney disease; N18.3 - Chronic kidney disease, stage 3 (moderate); Z79.4 - senior living (current) use of insulin (4) CAD (coronary artery disease) Qualifiers: Coronary Disease-Associated Artery/Lesion type: [place] artery [place] vs. transplanted heart: [place] heart Associated angina: without angina Qualified Code(s): I25.10 - Atherosclerotic heart disease of [place] coronary artery without angina pectoris (5) GERD (gastroesophageal reflux disease) Qualifiers: Esophagitis presence: esophagitis presence not specified Qualified Code(s): K21.9 - Gastro-esophageal reflux disease without esophagitis (6) Hypertension Qualifiers: Hypertension type: essential hypertension Qualified Code(s): I10 - Essential (primary) hypertension (8) Sepsis Qualifiers: Sepsis type: sepsis due to unspecified organism Qualified Code(s): A41.9 - Sepsis, unspecified organism
[2019-04-08] MEDS: Sennosides/Docusate Sodium TABLET PO SCH (22:09)
[2019-04-08] MEDS: traZODone 50 MG TABLET PO SCH (22:09)
[2019-04-08] MEDS: Lactulose Oral Soln 20 GM/30 ML UDC PO SCH (22:09)
[2019-04-09] MEDS: hydrALAZINE 25 MG TABLET PO SCH ×3 (00:43→16:44)
[2019-04-09] MEDS: cloNIDine HCl 0.1 MG TABLET PO SCH ×3 (00:43→16:44)
[2019-04-09 01:35] LABS: Hematocrit 35.8 % (37.5-50.1); Hemoglobin 10.8 g/dL (12.9-16.9); Mean Corpuscular HGB Conc 30.2 g/dL (31.6-35.5); Mean Corpuscular Hemoglobin 26.7 pg (28.0-33.3); Mean Corpuscular Volume 88.4 fL (83.0-100.0); Platelet Count 374 K/mcL (140-400); Red Blood Count 4.05 M/mcL (4.19-5.50); Red Cell Distribution Width 15.6 % (11.5-14.5); White Blood Count 12.6 K/mcL (4.3-11.1)
[2019-04-09 01:48] LABS: Calcium 9.2 mg/dL (8.6-10.3); Phosphorous 4.4 mg/dL (2.7-4.5); Potassium 5.7 mEq/L (3.5-5.1)
[2019-04-09 01:58] LABS: Platelet Estimate Normal (Normal)
[2019-04-09 01:59] LABS: Eosinophils # 1.5 K/mcL (0.0-0.6); Lymphocytes # 2.5 K/mcL (0.6-4.6); Monocytes # 1.8 K/mcL (0.0-1.3); Neutrophils # 6.3 K/mcL (1.6-8.9); Smudge Cells Present (Not Present)
[2019-04-09] MEDS: Albuterol 2.5 MG/3 ML NEBULIZER IH SCH ×6 (03:51→23:07)
[2019-04-09] MEDS: *HR* Heparin 5,000 UNIT/ML VIAL SQ SCH ×2 (06:06→17:37)
[2019-04-09] MEDS: Insulin LISPRO 300 UNITS/3 ML VIAL SQ SCH ×7 (07:31→20:06)
[2019-04-09] MEDS: amLODIPine 5 MG TABLET PO SCH (07:32)
[2019-04-09] MEDS: Aspirin 81 MG TAB.CHEW PO SCH (07:32)
[2019-04-09] MEDS: Lactulose Oral Soln 20 GM/30 ML UDC PO SCH ×2 (07:33→20:05)
[2019-04-09] MEDS: Loratadine 10 MG TABLET PO SCH (07:33)
[2019-04-09] MEDS: Insulin DETEMIR 100 UNIT/ML X5UNITS SQ SCH ×2 (07:33→20:13)
[2019-04-09] MEDS: *HR* OxyCODONE/APAP 10/325 TABLET PO SCH ×4 (07:33→20:07)
[2019-04-09] MEDS: metroNIDAZOLE 500 MG TABLET PO SCH ×3 (07:33→20:05)
--- NOTE | 2019-04-09 09:44 | Internal Med Progress Note ---
Hospitalist Progress Note - Encounter Date of Encounter: 04/09/19 Time of Encounter: 09:41 - Subjective Interval History: I have seen and evaluated the patient at bedside. patient reports not having a BM for the past 7 days. denies nausea, vomiting or abdominal pain. reported he has not pass any gas this morning yet. - Exam Vitals: Temp Pulse Resp BP Pulse Ox 97.5 F L 64 16 154/68 96 04/09/19 07:04 04/09/19 07:04 04/09/19 07:42 04/09/19 07:04 04/09/19 07:42 Exam: Vitals: Reviewed General: Alert and oriented x4. In mild distress due to constipation. Cardiovascular: RRR, normal S1 & S2, no rubs, murmurs or gallops. Lungs: CTA b/l, no wheezes or crackles. Abdomen: Obese, soft, non-tender, no rigidity. NABS in all 4 quadrants Extremities: Minimal edema. Neurological: No focal neurological abnormalities Rest of the physical exam is non contributory - Assessment and Plan (1) Diabetic foot ulcer with osteomyelitis Current Visit: Yes Status: Acute Assessment and Plan: S/P Incision and drainage and debridement of multiple planes right foot, application of puraply graft on 04/03/[address] Mcintyre Wound vac placed to right calcaneous Surgical biopsy cultures: Multidrug resistant Staphylococcus simulans, and a Staphylococcus epidermides. Wound cultures of the right foot: Multidrug resistant Staphylococcus simulans, and a Staphylococcus epidermides Blood cultures: No growth final report Anaerobic cultures: Incubating Plan - On metronidazole 500 mg by mouth 3 times a day, and daptomycin 600 mg IV every 48 hours. - ID recommendations appreciated - Wound Vac management per podiatry recommendations - new client banking services clerk working on placement. (2) CKD (chronic kidney disease) stage 3, GFR 30-59 ml/min Current Visit: Yes Status: Chronic Assessment and Plan: Kidney function at baseline. nephro-protective strategies will re-assess kidney function tomorrow morning (3) DM type 2 (diabetes mellitus, type 2) Current Visit: Yes Status: Chronic Assessment and Plan: blood sugar better controlled. patient is on short and long acting insulin coverage carbs controlled diet (4) CAD (coronary artery disease) Current Visit: Yes Status: Chronic Assessment and Plan: On aspirin 81 mg by mouth daily and clopidogrel 75 mg by mouth daily. (5) GERD (gastroesophageal reflux disease) Current Visit: No Status: Chronic Assessment and Plan: On omeprazole 20 mg by mouth daily. (6) Hypertension Current Visit: Yes Status: Chronic Assessment and Plan: Blood pressure better controlled. Plan: - continue clonidine to 0.3mg/PO TID - amlodipine 10mg/PO daily and Nebivolol. - Hydralazine to 50mg/PO TID (7) Chronic venous stasis Current Visit: No Status: Chronic (8) Sepsis Current Visit: Yes Status: Resolved (9) Constipation Current Visit: Yes Status: Chronic Assessment and Plan: patient reported not having a bowel movement for the past 7 days. KUB ordered on Senna plus and lactulose (10) Hyperkalemia Current Visit: Yes Status: Acute Assessment and Plan: possible secondary to constipation. kayaxelate 15mg/PO x1. will re-check the BMP in the morning DVT Prophylaxis: Heparin subQ - Summary of Assessment and Plan Summary of Assessment and Plan: patient to remain in the hospital due to constipation. diabetic foot ulcer, on broad spectrum IV antibiotics, pending placement for ECF - Time Spent with Patient Total time spent is greater than 50% in coordination of care (as documented) at patient's floor/unit and/or counseling patient: Greater than 35 minutes (40) Plan of Care Discussed with: patient (and the nurse) Internal Medicine: Result - Labs CBC & Chem 7: 04/09/19 01:06 04/09/19 01:06 Labs: Short CBC 04/09/19 Range/Units 01:06 WBC 12.6 H (4.3-11.1) K/mcL Hgb 10.8 L (12.9-16.9) g/dL Hct 35.8 L (37.5-50.1) % Plt Count 374 (140-400) K/mcL Neutrophils # 6.3 (1.6-8.9) K/mcL BMP 04/09/19 01:06 Sodium 142 Potassium 5.7 H Chloride 111 H Carbon Dioxide 23 BUN 56 H Creatinine 2.13 H Glucose 200 H Calcium 9.2 - ABG Interpretation ABG results: PT/INR, D-dimer PT 14.3 Seconds (9.4-12.1) H 04/01/19 03:57 Consult Discharge Plan - Plan Referrals: Antonietta Butler MD [Primary Care Provider] - (3) DM type 2 (diabetes mellitus, type 2) Qualifiers: Diabetes mellitus manager terminal insulin use: with custodial use Diabetes mellitus complication status: with kidney complications Diabetes mellitus complication detail: with chronic kidney disease Chronic kidney disease stage: stage 3 (moderate) Qualified Code(s): E11.22 - Type 2 diabetes mellitus with diabetic chronic kidney disease; N18.3 - Chronic kidney disease, stage 3 (moderate); Z79.4 - ferry terminal supervisor (current) use of insulin (4) CAD (coronary artery disease) Qualifiers: Coronary Disease-Associated Artery/Lesion type: [place] artery [place] vs. transplanted heart: [place] heart Associated angina: without angina Qualified Code(s): I25.10 - Atherosclerotic heart disease of [place] coronary artery without angina pectoris (5) GERD (gastroesophageal reflux disease) Qualifiers: Esophagitis presence: esophagitis presence not specified Qualified Code(s): K21.9 - Gastro-esophageal reflux disease without esophagitis (6) Hypertension Qualifiers: Hypertension type: essential hypertension Qualified Code(s): I10 - Essential (primary) hypertension (8) Sepsis Qualifiers: Sepsis type: sepsis due to unspecified organism Qualified Code(s): A41.9 - Sepsis, unspecified organism (9) Constipation Qualifiers: Constipation type: unspecified constipation type Qualified Code(s): K59.00 - Constipation, unspecified
[2019-04-09] MEDS: DAPTOmycin 600 MG in 0.9 % Sodium Chloride 100 ML IVPB SCH (15:07)
[2019-04-09] MEDS: Sennosides/Docusate Sodium TABLET PO SCH (20:06)
[2019-04-09] MEDS: traZODone 50 MG TABLET PO SCH (20:06)
[2019-04-10] MEDS: hydrALAZINE 25 MG TABLET PO SCH ×3 (00:56→16:52)
[2019-04-10] MEDS: cloNIDine HCl 0.1 MG TABLET PO SCH ×3 (00:56→16:52)
[2019-04-10] MEDS: Albuterol 2.5 MG/3 ML NEBULIZER IH SCH ×6 (04:25→23:10)
[2019-04-10] MEDS: *HR* Heparin 5,000 UNIT/ML VIAL SQ SCH ×2 (06:03→16:55)
[2019-04-10 06:54] LABS: Basophils # 0.1 K/mcL (0.0-0.2); Basophils % 0.8 %; Eosinophils # 0.5 K/mcL (0.0-0.6); Eosinophils % 4.3 %; Hematocrit 36.4 % (37.5-50.1); Immature Granulocytes % 4.7 % (0-4); Lymphocytes # 2.1 K/mcL (0.6-4.6); Mean Corpuscular HGB Conc 30.2 g/dL (31.6-35.5); Mean Corpuscular Hemoglobin 27.2 pg (28.0-33.3); Mean Corpuscular Volume 89.9 fL (83.0-100.0); Mean Platelet Volume 9.5 fL (9.4-12.4); Monocytes # 1.3 K/mcL (0.0-1.3); Monocytes % 11.2 %; Platelet Count 403 K/mcL (140-400); Red Blood Count 4.05 M/mcL (4.19-5.50); Red Cell Distribution Width 15.9 % (11.5-14.5); White Blood Count 11.5 K/mcL (4.3-11.1)
[2019-04-10 07:06] LABS: Calcium 9.2 mg/dL (8.6-10.3); Potassium 6.1 mEq/L (3.5-5.1)
[2019-04-10 08:17] LABS: Albumin 3.2 g/dL (3.5-5.7); Albumin/Globulin Ratio 0.9 (1.1-2.2); Bilirubin,Indirect 0.3 mg/dL (0.0-1.2); Bilirubin,Total 0.3 mg/dL (0.3-1.0); Globulin 3.4 g/dL (2.4-3.5); Total Protein 6.6 g/dL (6.4-8.9)
[2019-04-10] MEDS: metroNIDAZOLE 500 MG TABLET PO SCH (08:31)
[2019-04-10] MEDS: Lactulose Oral Soln 20 GM/30 ML UDC PO SCH ×2 (08:31→20:09)
[2019-04-10] MEDS: Loratadine 10 MG TABLET PO SCH (08:32)
[2019-04-10] MEDS: *HR* OxyCODONE/APAP 10/325 TABLET PO SCH ×4 (08:32→20:09)
[2019-04-10] MEDS: Aspirin 81 MG TAB.CHEW PO SCH (08:32)
[2019-04-10] MEDS: amLODIPine 5 MG TABLET PO SCH (08:32)
[2019-04-10] MEDS: Insulin LISPRO 300 UNITS/3 ML VIAL SQ SCH ×6 (08:33→20:08)
[2019-04-10] MEDS: Insulin DETEMIR 100 UNIT/ML X5UNITS SQ SCH ×2 (08:39→20:10)
--- NOTE | 2019-04-10 09:53 | Infectious Disease Progress No ---
ID Progress Note Date of Encounter: 04/10/19 Time of Encounter: 09:05 - Subjective Subjective: Patient seen and examined sitting up in the bedside chair. No acute events noted overnight. Patient states he feels okay. Denies fevers, chills, or rigors. Denies chest pain, shortness of breath. Reports a moist cough after taking his breathing treatments. Denies nausea, vomiting, or diarrhea. Reports small BM yesterday. Denies abdominal pain or urinary complaints. Denies oral thrush or skin rashes. States his appetite is good. Reports some mild stinging pain at the surgical site, but states the pain medication is helping and he is currently pain-free. - Objective CBC & Chem 7: 04/12/19 04:00 04/13/19 05:22 - Exam Vitals: Temp Pulse Resp BP Pulse Ox 98.5 F 74 18 152/60 94 04/10/19 07:02 04/10/19 07:02 04/10/19 07:21 04/10/19 07:02 04/10/19 07:21 Exam: Head: Atraumatic, normal inspection, normocephalic. Eye: EOMI, PERRLA, no scleral icterus noted. ENT: Mucous membranes moist. No odontogenic infection noted. Neck: Normal inspection, no meningismus. Respiratory: Clear to auscultation. No rales, respiratory distress, rhonchi, or wheezes noted. Cardiovascular: Regular rate and rhythm, S1 and S2 audible. No murmurs, rubs, or gallops. GI: Soft, obese, normal bowel sounds. Nontender Extremities:No joint swelling, pedal edema, or tenderness noted. BLE compression dressings noted. Right foot wound VAC dressing and heel protector b oot intact. No leak or drainage noted. No erythema extending above the dressing. Neurological: Alert, oriented 3, no focal deficits. Psychiatric: normal affect, normal mood. Skin: Dry, intact, warm. Normal color. No rashes. - Assessment and Plan (1) Sepsis Current Visit: Yes Status: Resolved The patient had 2 sepsis criteria on admission plus acute kidney injury. Likely secondary to right foot osteomyelitis. Improved. WBC trending down. Tachycardia resolved. Blood cultures drawn 03/31/19 at [facility] are negative 2 sets. Repeat blood cultures drawn 04/01/19 are negative 2 sets. Qualifiers: Sepsis type: sepsis due to unspecified organism Qualified Code(s): A41.9 - Sepsis, unspecified organism SNOMED Code(s): 00509532 (2) Osteomyelitis Current Visit: No Status: Acute Location: Right calcaneus. Likely secondary to diabetic foot ulcer. Causative organism: S. epi and S. simulans (wound and soft tissue cultures). Anerobic cultures no growth. No bone cultures sent. MRI showed findings consistent with early osteomyelitis of the calcaneus. ESR 127, CRP 173. Podiatry consult. Status post I & D right foot multiple planes 04/04/[address] Mcintyre. Operative note reviewed. Soft tissue and wound cultures as above. Pathology positive for gangrenous necrosis. Currently on Dapto and Flagyl. Qualifiers: Osteomyelitis location: foot Laterality: right SNOMED Code(s): 66991364 (3) Cellulitis Current Visit: Yes Status: Acute Location: Right lower extremity. Likely secondary to diabetic foot ulcer. Causative organism: S. simulans and S. epi. Podiatry consult and following. Currently on Dapto and Flagyl. Qualifiers: Site of cellulitis: extremity Site of cellulitis of extremity: lower extremity Laterality: right Qualified Code(s): L03.115 - Cellulitis of right lower limb SNOMED Code(s): 236146299 (4) Acute kidney injury Current Visit: Yes Status: Acute Likely secondary to sepsis and nephrotoxic medication. Stable, but now has hyperkalemia. Vanc discontinued. Consider nephrology to evaluate. Dose adjust antibiotics and avoid nephrotoxins as able. SNOMED Code(s): 52570401, 77355492 (5) Diabetic foot ulcer Current Visit: Yes Status: Chronic Location: Right heel. Etiology: Unclear. Podiatry consult and following. Qualifiers: Diabetic foot ulcer location: heel Diabetes mellitus type: type 2 Laterality: right Non-pressure ulcer stage: with fat layer exposed Qualified Code(s): E11.621 - Type 2 diabetes mellitus with foot ulcer; L97.412 - Non-pressure chronic ulcer of right heel and midfoot with fat layer exposed SNOMED Code(s): 332281484 (6) CKD (chronic kidney disease) stage 3, GFR 30-59 ml/min Current Visit: Yes Status: Chronic SNOMED Code(s): 455034652 (7) DM type 2 (diabetes mellitus, type 2) Current Visit: Yes Status: Chronic Recommend aggressive glucose monitoring and control to promote wound healing and prevent reinfection. Management per the primary team. Qualifiers: Diabetes mellitus salvage determiner insulin use: with salvage determiner use Diabetes mellitus complication status: with kidney complications Diabetes mellitus complication detail: with chronic kidney disease Chronic kidney disease stage: stage 3 (moderate) Qualified Code(s): E11.22 - Type 2 diabetes mellitus with diabetic chronic kidney disease; N18.3 - Chronic kidney disease, stage 3 (moderate); Z79.4 - [facility] (current) use of insulin SNOMED Code(s): 32443592 (8) CAD (coronary artery disease) Current Visit: Yes Status: Chronic Qualifiers: Coronary Disease-Associated Artery/Lesion type: [place] artery [place] vs. transplanted heart: [place] heart Associated angina: without angina Qualified Code(s): I25.10 - Atherosclerotic heart disease of [place] coronary artery without angina pectoris SNOMED Code(s): 32128112 (9) Venous stasis dermatitis of both lower extremities Current Visit: No Status: Chronic SNOMED Code(s): 93861550 (10) GERD (gastroesophageal reflux disease) Current Visit: No Status: Chronic Qualifiers: Esophagitis presence: esophagitis presence not specified Qualified Code(s): K21.9 - Gastro-esophageal reflux disease without esophagitis SNOMED Code(s): 324229044 (11) Hypertension Current Visit: Yes Status: Chronic Qualifiers: Hypertension type: essential hypertension Qualified Code(s): I10 - Ess ential (primary) hypertension SNOMED Code(s): 26785277 (12) Constipation Current Visit: Yes Status: Resolved Small BM yesterday. Bowel regimen per the primary team. Qualifiers: Constipation type: unspecified constipation type Qualified Code(s): K59.00 - Constipation, unspecified SNOMED Code(s): 23404205 (13) Hyperkalemia Current Visit: Yes Status: Resolved K 6.1 today. Management per the primary team. SNOMED Code(s): 58484468 - Recommendations Recommendations: Re-check CK level in the AM. Await intraoperative anaerobic cultures to finalize. Wound care per the podiatry team. Continue Daptomycin 6mg/kg IV Q48H (CrCl ~29). Baseline CK 31. Discontinue flagyl. Hold atorvastatin while on Daptomycin. Duration of treatment depends on the clinical picture, but will likely need 6 weeks of IV Antibiotics. Continue flagyl until anaerobic cultures finalize and D/C if negative. Monitor renal function and for drug toxicity and dose adjust antibiotics. coordinator volunteer services to assist with discharge planning. Will need weekly CBC, BUN/Cr, ESR, CRP, CK. Will need weekly IV care per protocol. Follow up with ID 2 weeks post-discharge. Consult Discharge Plan - Plan Referrals: Antonietta Butler MD [Primary Care Provider] - Suzanne Chavira MD [Partnered Physician] - 05/10/19 10:15 am Prescriptions: DAPTOmycin [Daptomycin] 600 mg IV Q48H 34 Days #17 vial - Attending Attestation I have personally performed a face to face evaluation on this patient. I have reviewed and agree with the care plan. History and Exam by me shows: Assessment and plan: 1.Sepsis 2.Osteomyelitis of the right calcaneus causative organism gram-positive cocci Staph epi and S. simulans 3.Acute kidney injury 4.Diabetic foot ulcer 5.Allergies to ampicillin and Bactrim Recommendations: Continue Daptomycin 6mg/kg IV Q48H (CrCl ~29). Repeat CK 35. Hold atorvastatin while on Daptomycin. Duration of treatment depends on the clinical picture, but will likely need 6 weeks of IV Antibiotics. Treat through at least 05/15/19. Monitor renal function and for drug toxicity and dose adjust antibiotics. coordinator volunteer services to assist with discharge planning. Consult VAT for PICC line placement prior to discharge. Will need weekly CBC, BUN/Cr, ESR, CRP, CK. Will need weekly IV care per protocol. Follow up with ID 05/10/19 at 1015.
--- NOTE | 2019-04-10 11:53 | Internal Med Progress Note ---
Hospitalist Progress Note - Encounter Date of Encounter: 04/10/19 Time of Encounter: 11:50 - Subjective Interval History: I have seen and evaluated the patient at bedside. patient reported having a small bowel movement yesterday. denies nausea, vomiting or abdominal pain. denies chest pain, shortness of breath or light headedness - Exam Vitals: Temp Pulse Resp BP Pulse Ox 97.8 F 73 16 155/61 98 04/10/19 11:20 04/10/19 11:20 04/10/19 11:20 04/10/19 11:20 04/10/19 11:20 Exam: Vitals: Reviewed General: Alert and oriented x4. No acute distress Cardiovascular: RRR, normal S1 & S2, no rubs, murmurs or gallops. Lungs: CTA b/l, no wheezes or crackles. Abdomen: Obese, soft, non-tender, no rigidity. NABS in all 4 quadrants Extremities: Minimal edema. right lower extr slightly more edematous than the left Neurological: No focal neurological abnormalities Rest of the physical exam is non contributory - Assessment and Plan (1) Diabetic foot ulcer with osteomyelitis Current Visit: Yes Status: Acute Assessment and Plan: S/P Incision and drainage and debridement of multiple planes right foot, application of puraply graft on 04/03/[address] Mcintyre Wound vac placed to right calcaneous Surgical biopsy cultures: Multidrug resistant Staphylococcus simulans, and a Staphylococcus epidermides. Wound cultures of the right foot: Multidrug resistant Staphylococcus simulans, and a Staphylococcus epidermides Blood cultures: No growth final report Anaerobic cultures: Incubating Plan - discussed with ID antibiotics management, recommended to dc On metronidazole 500 mg by mouth 3 times a day, - To continue daptomycin 600 mg IV every 48 hours. x6 weeks total - ID recommendations appreciated - Wound Vac management per podiatry recommendations - LFTs ordered (2) CKD (chronic kidney disease) stage 3, GFR 30-59 ml/min Current Visit: Yes Status: Chronic Assessment and Plan: Kidney function slightly worsening today. Plan - started on 0.45NS @75ml/hr x 1 litter - will re-assess kidney function tomorrow morning - UA for cast ordered - nephrology consulted (3) DM type 2 (diabetes mellitus, type 2) Current Visit: Yes Status: Chronic Assessment and Plan: blood sugar sub-optimally controlled. - increase levemir to 35 units BID. and lispro to 12 ac. continue low dose sliding scale - tight glycemic control recommended. - carbs controlled diet (4) CAD (coronary artery disease) Current Visit: Yes Status: Chronic Assessment and Plan: On aspirin 81 mg by mouth daily and clopidogrel 75 mg by mouth daily. (5) GERD (gastroesophageal reflux disease) Current Visit: No Status: Chronic Assessment and Plan: On omeprazole 20 mg by mouth daily. (6) Hypertension Current Visit: Yes Status: Chronic Assessment and Plan: Blood pressure better controlled. Plan: - Continue current management. On clonidine to 0.3mg/PO TID - amlodipine 10mg/PO daily and Nebivolol. - Hydralazine to 50mg/PO TID (7) Chronic venous stasis Current Visit: No Status: Chronic (8) Sepsis Current Visit: Yes Status: Resolved (9) Constipation Current Visit: Yes Status: Chronic Assessment and Plan: Patient reported passing an small BM yesterday. continues to pass gas. refused to have and enema now. wants to wait and see if the laxative will work. [id number] XR/XR KUB IMPRESSION: Nonspecific bowel gas pattern with moderate colonic stool burden. Plan patient is on Senna plus and lactulose (10) Hyperkalemia Current Visit: Yes Status: Acute Assessment and Plan: possible due constipation. kayexale 30mg/PO x1 ordered. 12 lead ekg ordered. monitor worker. will repeat BMP at 5pm. DVT Prophylaxis: On heparin SubQ - Summary of Assessment and Plan Summary of Assessment and Plan: Patient to remain in the hospital due to worsening kidney function and constipation. - Time Spent with Patient Total time spent is greater than 50% in coordination of care (as documented) at patient's floor/unit and/or counseling patient: Greater than 35 minutes (45) Plan of Care Discussed with: patient (and the nurse.) Internal Medicine: Result - Labs CBC & Chem 7: 04/10/19 06:21 04/10/19 06:21 Labs: Short CBC 04/10/19 Range/Units 06:21 WBC 11.5 H (4.3-11.1) K/mcL Hgb 11.0 L (12.9-16.9) g/dL Hct 36.4 L (37.5-50.1) % Plt Count 403 H (140-400) K/mcL Neutrophils # 7.0 (1.6-8.9) K/mcL BMP 04/10/19 06:21 Sodium 141 Potassium 6.1 H Chloride 107 Carbon Dioxide 23 BUN 60 H Creatinine 2.25 H Glucose 277 H Calcium 9.2 Liver Function 04/10/19 Range/Units 06:21 Total Bilirubin 0.3 (0.3-1.0) mg/dL Direct Bilirubin 0.0 (0.0-0.2) mg/dL AST 20 (13-39) Units/L ALT 19 (7-52) Units/L Alkaline Phosphatase 83 (34-104) Units/L Albumin 3.2 L (3.5-5.7) g/dL - ABG Interpretation ABG results: PT/INR, D-dimer PT 14.3 Seconds (9.4-12.1) H 04/01/19 03:57 - Impressions Impressions KUB X-Ray 04/09/19 09:40 IMPRESSION: Nonspecific bowel gas pattern with moderate colonic stool burden. D/ / Dagoberto Gomes / Dagoberto Gomes Interpreting Provider: Dagoberto Gomes Consult Discharge Plan - Plan Referrals: Antonietta Butler MD [Primary Care Provider] - (3) DM type 2 (diabetes mellitus, type 2) Qualifiers: Diabetes mellitus terminal clerk insulin use: with terminal clerk use Diabetes mellitus complication status: with kidney complications Diabetes mellitus complication detail: with chronic kidney disease Chronic kidney disease stage: stage 3 (moderate) Qualified Code(s): E11.22 - Type 2 diabetes mellitus with diabetic chronic kidney disease; N18.3 - Chronic kidney disease, stage 3 (moderate); Z79.4 - intermediate project manager (current) use of insulin (4) CAD (coronary artery disease) Qualifiers: Coronary Disease-Associated Artery/Lesion type: [place] artery [place] vs. transplanted heart: [place] heart Associated angina: without angina Qualified Code(s): I25.10 - Atherosclerotic heart disease of [place] coronary artery without angina pectoris (5) GERD (gastroesophageal reflux disease) Qualifiers: Esophagitis presence: esophagitis presence not specified Qualified Code(s): K21.9 - Gastro-esophageal reflux disease without esophagitis (6) Hypertension Qualifiers: Hypertension type: essential hypertension Qualified Code(s): I10 - Essential (primary) hypertension (8) Sepsis Qualifiers: Sepsis type: sepsis due to unspecified organism Qualified Code(s): A41.9 - Sepsis, unspecified organism (9) Constipation Qualifiers: Constipation type: unspecified constipation type Qualified Code(s): K59.00 - Constipation, unspecified
--- NOTE | 2019-04-10 12:09 | Podiatry Progress Note ---
Date of Encounter: 04/10/19 Time of Encounter: 11:30 - Assessment and Plan (1) Diabetic foot ulcer with osteomyelitis Current Visit: Yes Status: Acute Assessment: S/P Incision and drainage and debridement of multiple planes right foot, application of puraply graft on 04/03/[address] Mcintyre Wound vac in place, serous drainage noted to canister 5ml Guardado grade III ulcer to right calcaneous WBC 11.5, afebrile Intra-op cultures returned S. epi and s simuians and current under treatment per ID, dapto and flagyl Path returned gangrenous necrosis ESR 127, CRP 173 Plan: Wound vac removed at bedside Wound assessed Appears to be healing as expected Cleansed site with saline, applied betadine to macerated tissue draped skin to dorsal aspect of foot with tegaderm for protection, applied small black simplace sponge over adaptic which was placed to cover graft site, tracked to dorsal aspect of foot, applied 125mmhg suction. Good seal noted. no leak. r eplaced kerlix and lyndsay MWF vac changes Will likely need 6 weeks IV ATB- ID consulted, appreciate recommendations (2) Chronic venous stasis Current Visit: No Status: Chronic LLE compression dressing removed and skin assessed MWF changes Remove dressing, drape skin to LLE with adaptic, apply kerlix and LYNDSAY No open wounds, chronic edema and scaling Monitor skin for any breakdown Monitor scab to toe #3 for any signs of infection or necrosis. appears to be healing at this time Subjective Principal diagnosis: Necrotic ulcer Interval history: Patient s/p debridement of right heel with graft and wound vac placement. Resting comfortably up to chair. Wound vac intact an running without leak. Patient states wound is painful if manipulated but otherwise denies pain. Denies any fevers chills n/v or fls. Denies any calf pain or sob Objective - Vital Signs Vital Signs: Vital Signs Temp Pulse Resp BP Pulse Ox 04/10/19 11:20 97.8 F 73 16 155/61 98 04/10/19 07:21 18 94 04/10/19 07:02 98.5 F 74 18 152/60 93 04/10/19 04:45 98.0 F 87 15 150/54 95 04/10/19 04:25 18 95 04/10/19 00:15 98.5 F 82 16 152/60 96 04/09/19 23:09 16 97 04/09/19 20:18 16 94 04/09/19 19:56 98.1 F 71 16 154/51 91 04/09/19 15:23 16 97 04/09/19 14:42 98.2 F 63 17 147/63 96 Intake and Output 04/09/19 04/10/19 04/10/19 23:59 07:59 15:59 Intake Total 120 / 460 240 / 600 360 / 600 Output Total 0 / 0 0 / 0 Balance 120 / 460 240 / 600 360 / 600 Intake: Oral 120 / 360 240 / 600 360 / 600 Output: Urine 0 / 0 Wound Drainage 0 / 0 0 / 0 Right Heel 0 / 0 0 / 0 Other: Meal Dinner Breakfast Percent of Meal Consumed 95% 90% # Voids 1 1 # Urine Diapers 1 Weight 99.6 kg Blood Glucose* 81 290 276 Patient Weight 04/10/19 23:59 Weight 99.6 kg - Exam Exam: Constitiutional: Alert and oriented x 3. Well nourished. No acute distress noted Vascular: 1/4 DP/PT bilaterally, CFT <3 sec to all digits, warm to warm from tibia to toes bilaterally, no calf pain with squeeze BLE, multiple digit amputations noted Neurologic: Diminished sensation to touch, normal plantar response Dermatologic: Guardado stage III ulceration right calcaneous, erythema noted to surrounding tissue, improved since previous assessment. Slight maceration to lateral border of wound without evidence of ischemia. puraply graft noted, xerosis cutis noted to BLE, discoloration noted to BLE. RLE, dressing removed, evidence of PVD with stasis dermatitis. There is a healing scab to dorsal aspect toe #3 right, no appearance of infection or drainage. 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 Musculoskeletal: 3/5 muscle strength and normal tone bilaterally. - Lab Result Diagrams: 04/10/19 06:21 04/10/19 06:21 Labs: Abnormal lab results WBC 11.5 K/mcL (4.3-11.1) H 04/10/19 06:21 RBC 4.05 M/mcL (4.19-5.50) L 04/10/19 06:21 Hgb 11.0 g/dL (12.9-16.9) L 04/10/19 06:21 Hct 36.4 % (37.5-50.1) L 04/10/19 06:21 MCH 27.2 pg (28.0-33.3) L 04/10/19 06:21 MCHC 30.2 g/dL (31.6-35.5) L 04/10/19 06:21 RDW 15.9 % (11.5-14.5) H 04/10/19 06:21 Plt Count 403 K/mcL (140-400) H 04/10/19 06:21 MPV 9.3 fL (9.4-12.4) L 04/08/19 04:09 Immature Gran % 4.7 % (0-4) H 04/10/19 06:21 Band Neutrophils % 6.0 % (0-4) H 04/08/19 04:09 Myelocytes % 4.0 % (0) H 04/09/19 01:06 Neutrophils # 9.0 K/mcL (1.6-8.9) H 04/08/19 04:09 Monocytes # 1.8 K/mcL (0.0-1.3) H 04/09/19 01:06 Eosinophils # 1.5 K/mcL (0.0-0.6) H 04/09/19 01:06 Nucleated RBCs/100 WBC 0.2 /100 WBC (0) H 04/07/19 03:29 Smudge Cells Present (Not Present) A 04/09/19 01:06 Clumped Platelets Few (Not Present) A 03/31/19 22:50 ESR 127 mm/hr (0-10) H 03/31/19 22:50 PT 14.3 Seconds (9.4-12.1) H 04/01/19 03:57 Potassium 6.1 mEq/L (3.5-5.1) H 04/10/19 06:21 Chloride 111 mEq/L (98-107) H 04/09/19 01:06 Carbon Dioxide 30 mEq/L (23-29) H 04/05/19 05:51 BUN 60 mg/dL (8-23) H 04/10/19 06:21 Creatinine 2.25 mg/dL (0.70-1.30) H 04/10/19 06:21 Est GFR ( Amer) 35 (> 60) L 04/10/19 06:21 Est GFR (Non-Af Amer) 29 (> 60) L 04/10/19 06:21 BUN/Creatinine Ratio 27 (6-26) H 04/10/19 06:21 Glucose 277 mg/dL (70-105) H 04/10/19 06:21 POC Glucose 290 mg/dL (70-99) H 04/10/19 07:05 Hemoglobin A1c 7.3 % (-5.6) H 03/31/19 22:50 Calculated Osmolality 319 (280-300) H 04/10/19 06:21 C-Reactive Protein 173 mg/L (Less than 10) H 03/31/19 22:50 Albumin 3.2 g/dL (3.5-5.7) L 04/10/19 06:21 Albumin/Globulin Ratio 0.9 (1.1-2.2) L 04/10/19 06:21 Vancomycin Trough 20 mcg/mL (5-10) H 04/03/19 19:24 Microbiology, Last 48 Hours 04/03/19 17:45 Wound Culture - Final Right Foot Staphylococcus simulans Staphylococcus epidermidis Consult Discharge Plan - Plan Referrals: Antonietta Butler MD [Primary Care Provider] -
[2019-04-10 17:26] LABS: Bilirubin,Urine Negative (Negative); Blood,Urine Small (Negative); Clarity,Urine Cloudy (Clear); Color,Urine Yellow (Yellow); Glucose,Urine (UA) 250 mg/dL (Normal); Ketones,Urine Negative (Negative); Leukocyte Esterase,Urine Small (Negative); Nitrite,Urine Negative (Negative); PH,Urine 5.5 pH Units (5.0-8.0); Protein,Urine 100 mg/dL (Neg-Trace); Urobilinogen,Urine Normal (Normal)
[2019-04-10 17:32] LABS: Bacteria,Urine None Seen per hpf (None-Few); Hyaline Casts,Urine None Seen per lpf (None-Few); Squamous Epithelial Cell,Urine Many per lpf (None-Few); WBC,Urine 30-50 per hpf (0-3)
[2019-04-10 17:42] LABS: Yeast,Urine Few per hpf (None Seen)
[2019-04-10] MEDS: traZODone 50 MG TABLET PO SCH (20:10)
[2019-04-10] MEDS: Sennosides/Docusate Sodium TABLET PO SCH (20:10)
[2019-04-10 21:24] LABS: Calcium 9.2 mg/dL (8.6-10.3)
[2019-04-11] MEDS: hydrALAZINE 25 MG TABLET PO SCH ×3 (00:29→15:19)
[2019-04-11] MEDS: cloNIDine HCl 0.1 MG TABLET PO SCH ×3 (00:29→15:19)
[2019-04-11 01:33] LABS: Calcium 9.1 mg/dL (8.6-10.3); Magnesium 2.3 mg/dL (1.6-2.6); Phosphorous 4.8 mg/dL (2.7-4.5); Potassium 5.3 mEq/L (3.5-5.1)
[2019-04-11] MEDS: Albuterol 2.5 MG/3 ML NEBULIZER IH SCH ×6 (03:19→23:57)
[2019-04-11] MEDS: *HR* Heparin 5,000 UNIT/ML VIAL SQ SCH ×2 (06:31→18:46)
[2019-04-11 07:28] LABS: Basophils # 0.1 K/mcL (0.0-0.2); Basophils % 0.9 %; Eosinophils # 0.5 K/mcL (0.0-0.6); Eosinophils % 4.6 %; Hematocrit 36.4 % (37.5-50.1); Immature Granulocytes % 4.1 % (0-4); Lymphocytes # 1.9 K/mcL (0.6-4.6); Lymphocytes % 17.7 %; Mean Corpuscular HGB Conc 30.2 g/dL (31.6-35.5); Mean Corpuscular Hemoglobin 27.4 pg (28.0-33.3); Mean Corpuscular Volume 90.5 fL (83.0-100.0); Mean Platelet Volume 9.4 fL (9.4-12.4); Monocytes # 1.2 K/mcL (0.0-1.3); Monocytes % 11.8 %; Neutrophils # 6.4 K/mcL (1.6-8.9); Platelet Count 413 K/mcL (140-400); Red Blood Count 4.02 M/mcL (4.19-5.50); Red Cell Distribution Width 16.4 % (11.5-14.5); Segmented Neutrophils % 60.9 %; White Blood Count 10.5 K/mcL (4.3-11.1)
[2019-04-11] MEDS: Insulin LISPRO 300 UNITS/3 ML VIAL SQ SCH ×8 (07:53→21:51)
--- NOTE | 2019-04-11 09:36 | Infectious Disease Progress No ---
ID Progress Note Date of Encounter: 04/11/19 Time of Encounter: 09:32 - Subjective Subjective: Patient seen and examined sitting up in the bedside chair. No acute events noted overnight. Patient states he feels okay. Denies fevers, chills, or rigors. Denies chest pain, shortness of breath, or cough. Denies nausea, vomiting, or diarrhea. Reports BM yesterday x 2. Denies abdominal pain or urinary complaints. Denies oral thrush or skin rashes. States his appetite is good. Reports some mild stinging pain at the surgical site, but states the pain medication is helping and he is currently pain-free. - Objective CBC & Chem 7: 04/12/19 04:00 04/13/19 05:22 - Exam Vitals: Temp Pulse Resp BP Pulse Ox 97.7 F 72 18 156/66 97 04/11/19 07:09 04/11/19 07:09 04/11/19 07:34 04/11/19 07:09 04/11/19 07:34 Exam: Head: Atraumatic, normal inspection, normocephalic. Eye: EOMI, PERRLA, no scleral icterus noted. ENT: Mucous membranes moist. No odontogenic infection noted. Neck: Normal inspection, no meningismus. Respiratory: Clear to auscultation. No rales, respiratory distress, rhonchi, or wheezes noted. Cardiovascular: Regular rate and rhythm, S1 and S2 audible. No murmurs, rubs, or gallops. GI: Soft, obese, normal bowel sounds. Nontender Extremities:No joint swelling, pedal edema, or tenderness noted. BLE compression dressings noted. Right foot wound VAC dressing and heel protector boot intact. No leak or drainage noted. No erythema extending above the dressing. Neurological: Alert, oriented 3, no focal deficits. Psychiatric: normal affect, normal mood. Skin: Dry, intact, warm. Normal color. No rashes. - Assessment and Plan (1) Sepsis Current Visit: Yes Status: Resolved The patient had 2 sepsis criteria on admission plus acute kidney injury. Likely secondary to right foot osteomyelitis. Improved. WBC normal. Tachycardia resolved. Blood cultures drawn 03/31/19 at [facility] are no growth to date 2 sets. Repeat blood cultures drawn 04/01/19 are negative 2 sets. Qualifiers: Sepsis type: sepsis due to unspecified organism SNOMED Code(s): 82668134 (2) Osteomyelitis Current Visit: No Status: Acute Location: Right calcaneus. Likely secondary to diabetic foot ulcer. Causative organism: S. epi and S. simulans (wound and soft tissue cultures). Anerobic cultures no growth. No bone cultures sent. MRI showed findings consistent with early osteomyelitis of the calcaneus. ESR 127, CRP 173. Podiatry consult. Status post I & D right foot multiple planes 04/04/[address] Mcintyre. Operative note reviewed. Soft tissue and wound cultures as above. Pathology positive for gangrenous necrosis. Currently on Dapto. Qualifiers: Osteomyelitis location: foot Laterality: right SNOMED Code(s): 53524276 (3) Cellulitis Current Visit: Yes Status: Acute Location: Right lower extremity. Likely secondary to diabetic foot ulcer. Causative organism: S. simulans and S. epi. Podiatry consult and following. Currently on Dapto. Qualifiers: Site of cellulitis: extremity Site of cellulitis of extremity: lower extremity Laterality: right Qualified Code(s): L03.115 - Cellulitis of right lower limb SNOMED Code(s): 876332283 (4) Acute kidney injury Current Visit: Yes Status: Acute Likely secondary to sepsis and nephrotoxic medication. Improved. Vanc discontinued. Dose adjust antibiotics and avoid nephrotoxins as able. SNOMED Code(s): 62005831, 79730654 (5) Diabetic foot ulcer Current Visit: Yes Status: Chronic Location: Right heel. Etiology: Unclear. Podiatry consult and following. Qualifiers: Diabetic foot ulcer location: heel Diabetes mellitus type: type 2 Laterality: right Non-pressure ulcer stage: with fat layer exposed Qualified Code(s): E11.621 - Type 2 diabetes mellitus with foot ulcer; L97.412 - Non- pressure chronic ulcer of right heel and midfoot with fat layer exposed SNOMED Code(s): 774241339 (6) CKD (chronic kidney disease) stage 3, GFR 30-59 ml/min Current Visit: Yes Status: Chronic SNOMED Code(s): 500117143 (7) DM type 2 (diabetes mellitus, type 2) Current Visit: Yes Status: Chronic Recommend aggressive glucose monitoring and control to promote wound healing and prevent reinfection. Management per the primary team. Qualifiers: Diabetes mellitus alf insulin use: with alf use Diabetes mellitus complication status: with kidney complications Diabetes mellitus complication detail: with chronic kidney disease Chronic kidney disease stage: stage 3 (moderate) Qualified Code(s): E11.22 - Type 2 diabetes mellitus with diabetic chronic kidney disease; N18.3 - Chronic kidney disease, stage 3 (moderate); Z79.4 - halfway (current) use of insulin SNOMED Code(s): 38631870 (8) CAD (coronary artery disease) Current Visit: Yes Status: Chronic Qualifiers: Coronary Disease-Associated Artery/Lesion type: [place] artery [place] vs. transplanted heart: [place] heart Associated angina: without angina Qualified Code(s): I25.10 - Atherosclerotic heart disease of [place] coronary artery without angina pectoris SNOMED Code(s): 81122960 (9) Venous stasis dermatitis of both lower extremities Current Visit: No Status: Chronic SNOMED Code(s): 03713139 (10) GERD (gastroesophageal reflux disease) Current Visit: No Status: Chronic Qualifiers: Esophagitis presence: esophagitis presence not specified Qualified Code(s): K21.9 - Gastro-esophageal reflux disease without esophagitis SNOMED Code(s): 914873960 (11) Hypertension Current Visit: Yes Status: Chronic Qualifiers: Hypertension type: essential hypertension Qualified Code(s): I10 - Essential (primary) hypertension SNOMED Code(s): 18293719 (12) Constipation Current Visit: Yes Status: Resolved Improved. Bowel regimen per the primary team. Qualifiers: Constipation type: unspecified constipation type Qualified Code(s): K59.00 - Constipation, unspecified SNOMED Code(s): 58226807 (13) Hyperkalemia Current Visit: Yes Status: Resolved Resolved. Management per the primary team. SNOMED Code(s): 65098864 - Recommendations Recommendations: Wound care per the podiatry team. Continue Daptomycin 6mg/kg IV Q48H (CrCl ~29). Repeat CK 35. Hold atorvastatin while on Daptomycin. Duration of treatment depends on the clinical picture, but will likely need 6 weeks of IV Antibiotics. Treat through at least 05/15/19. Monitor renal function and for drug toxicity and dose adjust antibiotics. multicultural services librarian to assist with discharge planning. Consult VAT for PICC line placement prior to discharge. Will need weekly CBC, BUN/Cr, ESR, CRP, CK. Will need weekly IV care per protocol. Follow up with ID 05/10/19 at 1015. Consult Discharge Plan - Plan Referrals: Antonietta Butler MD [Primary Care Provider] - Suzanne Chavira MD [Partnered Physician] - 05/10/19 10:15 am Prescriptions: DAPTOmycin [Daptomycin] 600 mg IV Q48H 34 Days #17 vial - Attending Attestation I have personally performed a face to face evaluation on this patient. I have reviewed and agree with the care plan. History and Exam by me shows: Assessment and plan: 1.Sepsis 2.Osteomyelitis of the right calcaneus causative organism gram-positive cocci 3.Acute kidney injury 4.Diabetic foot ulcer 5.Allergies to ampicillin and Bactrim Recommendations: Re-check CK level in the AM. Await intraoperative anaerobic cultures to finalize. Wound care per the podiatry team. Continue Daptomycin 6mg/kg IV Q48H (CrCl ~29). Baseline CK 31. Discontinue flagyl. Hold atorvastatin while on Daptomycin. Duration of treatment depends on the clinical picture, but will likely need 6 weeks of IV Antibiotics. Continue flagyl until anaerobic cultures finalize and D/C if negative. Monitor renal function and for drug toxicity and dose adjust antibiotics. multicultural services librarian to assist with discharge planning. Will need weekly CBC, BUN/Cr, ESR, CRP, CK. Will need weekly IV care per protocol. Follow up with ID 2 weeks post-discharge.
[2019-04-11] MEDS: Lactulose Oral Soln 20 GM/30 ML UDC PO SCH ×2 (10:00→21:50)
[2019-04-11] MEDS: Insulin DETEMIR 100 UNIT/ML X5UNITS SQ SCH ×2 (10:01→22:57)
[2019-04-11] MEDS: amLODIPine 5 MG TABLET PO SCH (10:02)
[2019-04-11] MEDS: Aspirin 81 MG TAB.CHEW PO SCH (10:03)
[2019-04-11] MEDS: Loratadine 10 MG TABLET PO SCH (10:03)
[2019-04-11] MEDS: *HR* OxyCODONE/APAP 10/325 TABLET PO SCH ×4 (10:03→21:50)
[2019-04-11] MEDS ORDERED: Lidocaine -MPF 1% 5 ML AMPUL INFILT ONE (11:20)
--- NOTE | 2019-04-11 14:15 | Nephrology Consult Note ---
<Renan Jamesont M - Last Filed: 04/12/19 05:15> Date of Encounter: 04/12/19 Time of Encounter: 11:00 Assessment and Plan (1) Acute kidney injury superimposed on chronic kidney disease Current Visit: Yes Status: Acute Known history of CKD, stage 3 based on chart review, unknown to patient Baseline GFR 45, currently hovering around 30 Creatine 2.08 on admission, 1.98 today Patient does take Ibuprofen 800 TID On Lasix 20mg daily at home, currently on hold ABX switched from Vancomycin to Daptomycin Likely secondary to nephrotoxic agents, NSAIDS+ABX, in setting of sepsis and poorly controlled DM/HTN Was temporarily improved 2/2 to holding NSAIDS/Diuretic/Vanc Now worsening x3 days, possibly 2/2 intravascular depletion FENa on arrival 4.7%, however patient does take diuretics UOP has remained adequate Plan: U/S kidneys UA with urine Na, Microalbumin, Creatinine, Urea ALEJANDRO, C3, C4 for autoimmune causes PTH/VitD levels SPEP/Urine Immunoelectrophoresis (2) Hyperkalemia Current Visit: Yes Status: Acute May give kayexalate if continues to rise May give calcium gluconate if continues to rise Monitor with daily BMP Renal Diet (3) DM type 2 (diabetes mellitus, type 2) Current Visit: Yes Status: Chronic Likely major contributor to CKD Patient has been poorly controlled prior to admission AVG Blood Sugar during admission aroughly 200 Patient will benefit from target BS 140-180 Diabetic diet Qualifiers: 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 Diabetes mellitus complication status: with kidney complications Diabetes mellitus complication detail: with chronic kidney disease Chronic kidney disease stage: stage 3 (moderate) Qualified Code(s): E11.22 - Type 2 diabetes mellitus with diabetic chronic kidney disease; N18.3 - Chronic kidney disease, stage 3 (moderate); Z79.4 - residential (current) use of insulin (4) Hypertension Current Visit: Yes Status: Chronic Continue home meds Monitor closely rest of plan as above Qualifiers: Hypertension type: essential hypertension Qualified Code(s): I10 - Ess ential (primary) hypertension History of Present Illness - History of Present Illness Mr. Carrera is a 73 y/o male with a PMHx of CAD s/p CABG 2004, HTN, poorly controlled T2DM, amputations of the right and left great toe 2/2 osteomyelitis, Hyperlipidemeia, CHF, COPD, PVD, Renal Artery Stenosis and CKD stage 3 who is admitted to [facility] for diabetic foot ulcer with resultant osteomyelitis in addition to LORETO on CKD. Nephrology was consulted 04/11 to provide further recommendations regarding increasing potassium and worsening LORETO. The patient reports a month long history of worsening right heel pain. Was seen outpatient by his PCP and started on oral ABX but without improvement. Was seen in [facility] and transferred here for further management of presumed osteomyelitis of the heel with LORETO on CKD. Patient did have significatnly elevated CRP/ESR both greater than 100, would cultures positive for MDR Staph Epi and imaging confirmed suspicion of Osteo. Patient was started on Vanc, Cefepime, Flagyl, and podiatry was consulted, ultimately received Incision and Drainage in the OR. Patients kidney function did worsen and infectious disease did recommend switching the patient to Daptomycin from Vancomycin. On my examination, the patient reports that his T2DM has been up and down over the last several months. He has had trouble controlling his blood sugars secodnary to what he eats. He states that when he does not eat sweets his current regimen of Novolin 70/30 maintains his morning blood sugars in the low 100's. However, he has had trouble controlling what he eats and has even forgotten to take his insulin completely at least a couple times per month. He reports roughly 5 times per month of readings greater than 300 and has even had once monthly >500 blood sugar readings. He was aware of his history of CKD but was unaware that this was related to his diabetes or hypertension. He admits to polyuria but denies vision changes. He does have problems with chronic lower extremity edema and takes lasix 20 and uses compression stockings. Additonally, he does take Norvasc 10 which could be worsening the edema. On my exam, the patient is mildly fluid overloaded, with crackles at the bases, +2 pretibial edema, and chronic venous stasis dermatitis. Blood Pressure has been elevated since admission, this morning 171/63. Labs significant for Hgb 11, Potassium 5.3, BUN 64, Creatinine 1.98 (baseline roughly 1.5), GFR 33 (baseline roughly 45). Urinalysis completed yesterday did reveal proteinuria, glucosuria, microscopic hematuria and was positive for leukocyte esterase. Past Med Surg Social Fam HX - Past Medical History Medical history: CHF, COPD, dementia, diabetes, GERD, hyperlipidemia, hypertension, other Additional medical history: CAD, Ventricular systolic function, obesity, dylipidemia, ascvd, unstable angina, lumbar degenerative disc disease, pvd, renal artery stenosis, osteomyelitis Psychiatric history: no psych history - Past Surgical History Surgical History: coronary bypass (CABG) Additional surgical history: open heart, bypass 5 vessel in 2006. right great toe amputation March 2016. cataracts. lt great toe amputation - Social History Smoking Status: Former smoker Smokeless Tobacco Status: No Alcohol use: none Drug use: none - Family History Mother Adopted: No Family Member Ethnicity: Non- Living Status: Hx Family Cardiac Disorders: No Hx Family Respiratory Disorders: No Hx Family Cancer: No Hx Family GI Disorders: No Hx Family Endocrine Disorder: No Hx Family Neuromuscular Disorders: No Hx Family Neurologic Disorders: No Hx Family HEENT Disorders: No Hx Family Autoimmune Disorders: No Father Living Status: Medications and Allergies Albuterol Sulfate [Proair Respiclick] 2 puff IH Q4HR PRN 10/04/15 [History] Atorvastatin [Lipitor] 40 mg PO HS 10/04/15 [History] Clopidogrel [Plavix] 75 mg PO DAILY 10/04/15 [History] Albuterol Neb [Proventil Neb] 2.5 mg IH Q4H 10/22/16 [History] Aspirin 81 mg PO DAILY 10/22/16 [History] cloNIDine HCl [Clonidine HCl] 0.2 mg PO Q8H #90 tab 11/06/16 [Rx] Insulin NPH Hum/Reg Insulin Hm [Novolin 70-30 100 Unit/ml Vial] 40 unit SQ QPM 02/11/17 [History] Insulin NPH Hum/Reg Insulin Hm [Novolin 70-30 100 Unit/ml Vial] 50 unit SQ QAM 02/11/17 [History] Loratadine [Claritin] 10 mg PO DAILY 08/29/18 [History] Trazodone HCl 50 mg PO HS 08/30/18 [History] Furosemide [Lasix] 20 mg PO DAILY 09/16/18 [History] Amlodipine Besylate 10 mg PO DAILY 03/31/19 [History] Vitamin B Complex [Balanced B-50] 1 each PO HS 03/31/19 [History] DAPTOmycin [Daptomycin] 600 mg IV Q48H 34 Days #17 vial 04/11/19 [Rx] Carvedilol [Coreg] 3.125 mg PO BIDWM #60 tablet 04/14/19 [Rx] Oxycodone HCl/Acetaminophen [Percocet 10-325 mg Tablet] 1 each PO QID 5 Days #20 tablet 04/14/19 [Rx] hydrALAZINE [HydrALAZINE] 50 mg PO Q6H #120 tablet 04/14/19 [Rx] metroNIDAZOLE [Flagyl] 500 mg PO TID 30 Days #90 tablet 04/14/19 [Rx] Allergy/AdvReac Type Severity Reaction Status Date / Time ampicillin AdvReac Vomiting Verified 04/02/19 13:19 sulfamethoxazole AdvReac Vomiting Verified 04/02/19 13:19 [From Bactrim] trimethoprim [From Bactrim] AdvReac Vomiting Verified 04/02/19 13:19 Review of Systems All Systems: reviewed and no additional remarkable complaints except as stated Exam - Vital Signs Vital signs: Initial Vital Signs Temp Pulse Resp BP Pulse Ox 97.5 F L 80 18 104/73 99 03/31/19 09:25 03/31/19 09:25 03/31/19 09:25 03/31/19 09:25 03/31/19 09:25 Vital Signs - Last 8 Hours Temp Pulse Resp BP Pulse Ox 04/11/19 11:22 18 97 04/11/19 10:24 97.9 F 78 14 171/63 98 04/11/19 07:34 18 97 04/11/19 07:09 97.7 F 72 14 156/66 95 Intake and Output 04/10/19 04/11/19 04/11/19 23:59 07:59 15:59 Intake Total 1000 / 1240 240 / 1240 Output Total 150 / 150 0 / 0 Balance -150 / 690 1000 / 1240 240 / 1240 Intake: IV Fluids 1000 / 1000 0.45% Sodium Chloride 1,000 ML 1000 / 1000 @ 75 mls/hr IVC .[id number] JODI Rx #:[id number] Oral 240 / 240 Output: Urine 150 / 150 Wound Drainage 0 / 0 0 / 0 LLE 0 / 0 Right Heel 0 / 0 0 / 0 Other: Meal Breakfast Percent of Meal Consumed 100% # Voids 0 0 # Bowel Movements 0 0 Blood Glucose* 187 294 - General Appearance Exam: General: Alert and Oriented x 3, NAD, conversant and pleasant HEENT: Mucous Membranes Moist, oropharynx clear, EOMI Neck: no lymphadenopathy, no thyromegaly, trachea midline CV: RRR, no murmurs gallops rubs Lung: Mild wheeze noted throughout, crackles appreciated at bases, non-labored breathing, SpO2 stable RA ABD: soft, nontender, nondistended, no guarding Ext: +2 pretibial edema, venous stasis dermatitis Results - Lab Results 04/12/19 04:00 04/12/19 04:00 Consult Discharge Plan - Plan Referrals: Antonietta Butler MD [Primary Care Provider] - Suzanne Chavira MD [Partnered Physician] - 05/10/19 10:15 am Prescriptions: Carvedilol [Coreg] 3.125 mg PO BIDWM #60 tablet DAPTOmycin [Daptomycin] 600 mg IV Q48H 34 Days #17 vial metroNIDAZOLE [Flagyl] 500 mg PO TID 30 Days #90 tablet hydrALAZINE [HydrALAZINE] 50 mg PO Q6H #120 tablet Oxycodone HCl/Acetaminophen [Percocet 10-325 mg Tablet] 1 each PO QID 5 Days #20 tablet <Jose Luis Adan - Last Filed: 04/18/19 21:44> Date of Encounter: 04/12/19 Exam - Vital Signs Vital signs: Initial Vital Signs Temp Pulse Resp BP Pulse Ox 97.5 F L 80 18 104/73 99 03/31/19 09:25 03/31/19 09:25 03/31/19 09:25 03/31/19 09:25 03/31/19 09:25 Vital Signs - Last 8 Hours Temp Pulse Resp BP Pulse Ox 04/18/19 20:24 19 95 04/18/19 19:16 99.2 F 80 15 146/65 95 04/18/19 16:45 17 92 04/18/19 16:25 98.2 F 86 18 146/78 92 04/18/19 15:01 20 89 04/18/19 14:39 98.7 F 79 18 130/47 86 Intake and Output 04/18/19 04/18/19 04/18/19 07:59 15:59 23:59 Intake Total 200 / 1250 900 / 1250 150 / 1250 Output Total 400 / 1475 275 / 1475 800 / 1475 Balance -200 / -225 625 / -225 -650 / -225 Intake: IV Fluids 800 / 950 150 / 950 0.9 % Sodium Chloride 1,000 ML 800 / 800 @ 50 mls/hr IVC .Q20H JODI Rx#: [id number] Levaquin Premix 750mg/150 mL 150 / 150 750 mg In 150 ml @ 100 mls/hr IVPB Q48H JODI Rx#:[id number] Oral 200 / 300 100 / 300 0 / 300 Output: Urine 400 / 1475 275 / 1475 800 / 1475 Other: Meal Breakfast npo Percent of Meal Consumed 0% 0% Stool Size Small Stool Consistency soft Stool Characteristics Normal for Patient Stool Color Thomas Colored # Voids 1 # Bowel Movements 2 Weight 101.6 kg Blood Glucose* 166 128 Patient Weight 04/18/19 23:59 Weight 101.6 kg Results - Lab Results 04/18/19 16:15 04/18/19 04:00 - Attending Attestation I examined this patient and my medical decision-making was reviewed with the Resident Physician. I agree with the documented findings, disposition and treatment plan as described except to the extent set forth below. In brief; 73 y o male with PMH of DM, HTN, PVD, CAD and stage 3 CKD on labs pt unaware admitted with diabetic foot ulcer with osteomyelitis. renal consylted for worsening SCr and potassium. On exam: Gen with NAD, lungs coarse BS bilat, heart S1S2, abd soft NT/ND, ext with LE edema bilat and neuro AAOx3. LORETO in the setting of sepsis with osteo, exposure to vanco and diuretics held. Agree with holding diuretics and all nephrotoxins. will initaite LORETO workup and well as CKD workup. Agree with volume repletion. Renal diet, kayexalate prn. 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
[2019-04-11] MEDS: DAPTOmycin 600 MG in 0.9 % Sodium Chloride 100 ML IVPB SCH (15:18)
--- NOTE | 2019-04-11 15:40 | Internal Med Progress Note ---
Hospitalist Progress Note - Encounter Date of Encounter: 04/11/19 Time of Encounter: 15:40 - Subjective Interval History: Patient seen and examined this morning at bedside. No acute overnight events. Denies new complaints. Denies any fever or chills nausea vomiting or diarrhea. Denies any bowel or bladder complaints. Is having breakfast. Denies any palpitation or lightheadedness or dizziness. - Exam Vitals: Temp Pulse Resp BP Pulse Ox 97.9 F 78 16 171/63 97 04/11/19 10:24 04/11/19 10:24 04/11/19 15:37 04/11/19 10:24 04/11/19 15:37 Exam: General: In no acute distress. obese Respiratory exam: CTAB. no accessory muscle use, rales, rhonchi, wheezes Cardiovascular exam: RRR, +S1, +S2. no murmur, gallop, rubs. GI/Abdominal exam: Non-tender, Non-distended, normal bowel sounds, soft, no peritoneal signs. Extremities exam: 1+ pedal edema b/l, rt Foot with dressing and wound Vac and boot. no calf tenderness Neurological exam: CN II-XII intact, AO X3, no focal deficits. Skin exam: No worrisome skin rash. - Assessment and Plan (1) CKD (chronic kidney disease) stage 3, GFR 30-59 ml/min Current Visit: Yes Status: Chronic (2) DM type 2 (diabetes mellitus, type 2) Current Visit: Yes Status: Chronic (3) CAD (coronary artery disease) Current Visit: Yes Status: Chronic (4) Diabetic foot ulcer with osteomyelitis Current Visit: Yes Status: Acute (5) GERD (gastroesophageal reflux disease) Current Visit: No Status: Chronic (6) Hypertension Current Visit: Yes Status: Chronic (7) Chronic venous stasis Current Visit: No Status: Chronic (8) Sepsis Current Visit: Yes Status: Resolved (9) Constipation Current Visit: Yes Status: Chronic (10) Hyperkalemia Current Visit: Yes Status: Acute - Summary of Assessment and Plan Summary of Assessment and Plan: Assessment Acute Diabetic foot ulcer with osteomyelitis Sepsis-resolved Hyperkalemia chronic venous stasis Chronic HTN CKD3 DM GERD CAD Plan - S/P Incision and drainage and debridement of multiple planes right foot, application of puraply graft on 04/03/[address] Mcintyre. Has wound vac placed to right calcaneous. Surgical biopsy cultures with MDR Staphylococcus simulans, Staphylococcus epidermides. Blood cultures 04/01/19-NGTD, Anaerobic cultures incubating. To continue daptomycin 600 q48 hr till 05/15/19. No further need for flagyl. Will need weekly CBC, BUN/Cr, ESR, CRP, CK. - LORETO on CKD. continue to hold home lasix and ibuprofen. did get 1 lit 0.45 NS. will hold further fluids. Discussed with Nephrology. Not significantly different beyond baseline. Hyperkalmia likely as off lasix and not on renal diet. Will obtain renal ultrasound and urine studies. Likely is not following Nephrology outpatient. Ok with nephrology to DC if renal function stable to follow outp atient in 1-2 weeks. - Hyperkalemia. Likely due to CKD while not on renal diet and off lasix. Will switch to renal diet. Did get kayexalate this morning. - c/w levemir to 35 units BID, premeal insulin and SSI with accuchecks - c/w home aspirin and clopidogrel - c/w home clonidine, amlodipine and Nebivolol. c/w added Hydralazine. Slighly elevated BP but will limit adding not more than one extra antihypertensive if possible. Monitor BP. - Constipation. No recorded BM. c/w bowel regimen with Senna and lactulose - heparin SubQ for DVT ppx. - awaiting arrangement of antibiotics and placement, while nephrology workup. However will proceed with DC if GFR remains stable. Internal Medicine: Result - Labs CBC & Chem 7: 04/11/19 07:09 04/11/19 00:58 Labs: Short CBC 04/11/19 Range/Units 07:09 WBC 10.5 (4.3-11.1) K/mcL Hgb 11.0 L (12.9-16.9) g/dL Hct 36.4 L (37.5-50.1) % Plt Count 413 H (140-400) K/mcL Neutrophils # 6.4 (1.6-8.9) K/mcL BMP 04/10/19 04/11/19 20:03 00:58 Sodium 141 141 Potassium 5.0 5.3 H Chloride 105 110 H Carbon Dioxide 25 24 BUN 63 H 64 H Creatinine 1.96 H 1.98 H Glucose 209 H 196 H Calcium 9.2 9.1 Urine 04/10/19 Range/Units 17:00 Urine Color Yellow (Yellow) Urine Clarity Cloudy A (Clear) Urine pH 5.5 (5.0-8.0) pH Units Ur Specific [place] 1.020 (1.010-1.025) Urine Protein 100 H (Neg-Trace) mg/dL Urine Glucose (UA) 250 H (Normal) mg/dL - ABG Interpretation ABG results: PT/INR, D-dimer PT 14.3 Seconds (9.4-12.1) H 04/01/19 03:57 Consult Discharge Plan - Plan Referrals: Antonietta Butler MD [Primary Care Provider] - Suzanne Chavira MD [Partnered Physician] - 05/10/19 10:15 am Prescriptions: DAPTOmycin [Daptomycin] 600 mg IV Q48H 34 Days #17 vial (2) DM type 2 (diabetes mellitus, type 2) Qualifiers: Diabetes mellitus skilled nursing insulin use: with skilled nursing use Diabetes mellitus complication status: with kidney complications Diabetes mellitus complication detail: with chronic kidney disease Chronic kidney disease stage: stage 3 (moderate) Qualified Code(s): E11.22 - Type 2 diabetes mellitus with diabetic chronic kidney disease; N18.3 - Chronic kidney disease, stage 3 (moderate); 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 transplanted heart: [place] heart Associated angina: without angina Qualified Code(s): I25.10 - Atherosclerotic heart disease of [place] coronary artery without angina pectoris (5) GERD (gastroesophageal reflux disease) Qualifiers: Esophagitis presence: esophagitis presence not specified Qualified Code(s): K21.9 - Gastro-esophageal reflux disease without esophagitis (6) Hypertension Qualifiers: Hypertension type: essential hypertension Qualified Code(s): I10 - Essential (primary) hypertension (8) Sepsis Qualifiers: Sepsis type: sepsis due to unspecified organism Qualified Code(s): A41.9 - Sepsis, unspecified organism (9) Constipation Qualifiers: Constipation type: unspecified constipation type Qualified Code(s): K59.00 - Constipation, unspecified
[2019-04-11 17:45] LABS: Sodium, Urine 39.5 mEq/L
[2019-04-11] MEDS: Sennosides/Docusate Sodium TABLET PO SCH (21:51)
[2019-04-11] MEDS: traZODone 50 MG TABLET PO SCH (21:51)
[2019-04-12] MEDS: cloNIDine HCl 0.1 MG TABLET PO SCH ×3 (00:45→15:35)
[2019-04-12] MEDS: hydrALAZINE 25 MG TABLET PO SCH ×3 (00:45→15:35)
[2019-04-12 04:22] LABS: Basophils # 0.1 K/mcL (0.0-0.2); Basophils % 0.7 %; Eosinophils # 0.5 K/mcL (0.0-0.6); Eosinophils % 5.1 %; Hematocrit 34.1 % (37.5-50.1); Hemoglobin 10.3 g/dL (12.9-16.9); Immature Granulocytes % 2.8 % (0-4); Lymphocytes # 2.1 K/mcL (0.6-4.6); Lymphocytes % 21.5 %; Mean Corpuscular HGB Conc 30.2 g/dL (31.6-35.5); Mean Corpuscular Hemoglobin 26.9 pg (28.0-33.3); Mean Platelet Volume 9.6 fL (9.4-12.4); Monocytes # 1.2 K/mcL (0.0-1.3); Monocytes % 11.7 %; Neutrophils # 5.8 K/mcL (1.6-8.9); Platelet Count 408 K/mcL (140-400); Red Blood Count 3.83 M/mcL (4.19-5.50); Red Cell Distribution Width 16.4 % (11.5-14.5); Segmented Neutrophils % 58.2 %
[2019-04-12] MEDS: Albuterol 2.5 MG/3 ML NEBULIZER IH SCH ×6 (04:38→23:53)
[2019-04-12 04:49] LABS: Potassium 4.6 mEq/L (3.5-5.1)
[2019-04-12 05:17] LABS: Complement C3 116 mg/dL (87-200)
[2019-04-12] MEDS: *HR* Heparin 5,000 UNIT/ML VIAL SQ SCH ×2 (06:10→17:54)
[2019-04-12] MEDS: Loratadine 10 MG TABLET PO SCH (08:34)
[2019-04-12] MEDS: amLODIPine 5 MG TABLET PO SCH (08:34)
[2019-04-12] MEDS: *HR* OxyCODONE/APAP 10/325 TABLET PO SCH ×4 (08:34→20:27)
[2019-04-12] MEDS: Aspirin 81 MG TAB.CHEW PO SCH (08:34)
[2019-04-12] MEDS: Insulin LISPRO 300 UNITS/3 ML VIAL SQ SCH ×7 (08:35→20:21)
[2019-04-12] MEDS: Lactulose Oral Soln 20 GM/30 ML UDC PO SCH ×2 (08:35→20:27)
[2019-04-12] MEDS: Insulin DETEMIR 100 UNIT/ML X5UNITS SQ SCH ×2 (08:38→20:27)
--- NOTE | 2019-04-12 10:56 | Infectious Disease Progress No ---
ID Progress Note Date of Encounter: 04/12/19 Time of Encounter: 10:54 - Subjective Subjective: Patient seen and examined with Podiatry at bedside for wound VAC change. No acute events noted overnight. Patient states he feels okay. Denies fevers, chills, or rigors. Denies chest pain, shortness of breath, or cough. Denies nausea, vomiting, or diarrhea. Reports he is having BMs regularly. Denies abdominal pain or urinary complaints. Denies oral thrush or skin rashes. States his appetite is good. Reports some mild stinging pain at the surgical site. - Objective CBC & Chem 7: 04/12/19 04:00 04/13/19 05:22 - Exam Vitals: Temp Pulse Resp BP Pulse Ox 98.4 F 68 18 152/65 98 04/12/19 06:48 04/12/19 06:48 04/12/19 07:22 04/12/19 06:48 04/12/19 07:22 Exam: Head: Atraumatic, normal inspection, normocephalic. Eye: EOMI, PERRLA, no scleral icterus noted. ENT: Mucous membranes moist. No odontogenic infection noted. Neck: Normal inspection, no meningismus. Respiratory: Clear to auscultation. No rales, respiratory distress, rhonchi, or wheezes noted. Cardiovascular: Regular rate and rhythm, S1 and S2 audible. No murmurs, rubs, or gallops. GI: Soft, obese, normal bowel sounds. Nontender Extremities:No joint swelling, pedal edema, or tenderness noted. RLE venous stasis dermatitis noted. Wound VAC dressing intact. LLE compression dressing C/D/I. Neurological: Alert, oriented 3, no focal deficits. Psychiatric: normal affect, normal mood. Skin: Dry, intact, warm. Normal color. No rashes. - Assessment and Plan (1) Sepsis Current Visit: Yes Status: Resolved The patient had 2 sepsis criteria on admission plus acute kidney injury. Likely secondary to right foot osteomyelitis. Improved. WBC normal. Tachycardia resolved. Blood cultures drawn 03/31/19 at [facility] are negative 2 sets. Repeat blood cultures drawn 04/01/19 are negative 2 sets. Qualifiers: Sepsis type: sepsis due to unspecified organism SNOMED Code(s): 72019077 (2) Osteomyelitis Current Visit: No Status: Acute Location: Right calcaneus. Likely secondary to diabetic foot ulcer. Causative organism: S. epi and S. simulans (wound and soft tissue cultures). Ane robic cultures still pending. No bone cultures sent. MRI showed findings consistent with early osteomyelitis of the calcaneus. ESR 127, CRP 173. Podiatry consult. Status post I & D right foot multiple planes 04/04/[address] Mcintyre. Operative note reviewed. Soft tissue and wound cultures as above. Mari erobic cultures still pending. Called and spoke with lanre who states it looks like there is an anaerobic organism growing. Pathology positive for gangrenous necrosis. Currently on Dapto. Qualifiers: Osteomyelitis location: foot Laterality: right SNOMED Code(s): 24031634 (3) Cellulitis Current Visit: Yes Status: Acute Location: Right lower extremity. Likely secondary to diabetic foot ulcer. Causative organism: S. simulans and S. epi and possible anaerobe. Podiatry consult and following. Currently on Dapto. Qualifiers: Site of cellulitis: extremity Site of cellulitis of extremity: lower extremity Laterality: right Qualified Code(s): L03.115 - Cellulitis of right lower limb SNOMED Code(s): 423016223 (4) Acute kidney injury Current Visit: Yes Status: Acute Likely secondary to sepsis and nephrotoxic medication. Improved. Vanc discontinued. Nephrology consulted and following. RP UTS negative. Dose adjust antibiotics and avoid nephrotoxins as able. SNOMED Code(s): 04886595, 31124069 (5) Diabetic foot ulcer Current Visit: Yes Status: Chronic Location: Right heel. Etiology: Unclear. Podiatry consult and following. Qualifiers: Diabetic foot ulcer location: heel Diabetes mellitus type: type 2 Laterality: right Non-pressure ulcer stage: with fat layer exposed Qualified Code(s): E11.621 - Type 2 diabetes mellitus with foot ulcer; L97.412 - Non- pressure chronic ulcer of right heel and midfoot with fat layer exposed SNOMED Code(s): 365851312 (6) CKD (chronic kidney disease) stage 3, GFR 30-59 ml/min Current Visit: Yes Status: Chronic SNOMED Code(s): 036238303 (7) DM type 2 (diabetes mellitus, type 2) Current Visit: Yes Status: Chronic Recommend aggressive glucose monitoring and control to promote wound healing and prevent reinfection. Management per the primary team. Qualifiers: Diabetes mellitus terminal supervisor insulin use: with terminal supervisor use Diabetes mellitus complication status: with kidney complications Diabetes mellitus complication detail: with chronic kidney disease Chronic kidney disease stage: stage 3 (moderate) Qualified Code(s): E11.22 - Type 2 diabetes mellitus with diabetic chronic kidney disease; N18.3 - Chronic kidney disease, stage 3 (moderate); Z79.4 - group home (current) use of insulin SNOMED Code(s): 28486553 (8) CAD (coronary artery disease) Current Visit: Yes Status: Chronic Qualifiers: Coronary Disease-Associated Artery/Lesion type: [place] artery [place] vs. transplanted heart: [place] heart Associated angina: without angina Qualified Code(s): I25.10 - Atherosclerotic heart disease of [place] coronary artery without angina pectoris SNOMED Code(s): 12989811 (9) Venous stasis dermatitis of both lower extremities Current Visit: No Status: Chronic SNOMED Code(s): 14574728 (10) GERD (gastroesophageal reflux disease) Current Visit: No Status: Chronic Qualifiers: Esophagitis presence: esophagitis presence not specified Qualified Code(s): K21.9 - Gastro-esophageal reflux disease without esophagitis SNOMED Code(s): 589365952 (11) Hypertension Current Visit: Yes Status: Chronic Qualifiers: Hypertension type: essential hypertension Qualified Code(s): I10 - Essential (primary) hypertension SNOMED Code(s): 55895093 (12) Constipation Current Visit: Yes Status: Resolved Improved. Bowel regimen per the primary team. Qualifiers: Constipation type: unspecified constipation type Qualified Code(s): K59.00 - Constipation, unspecified SNOMED Code(s): 67485518 (13) Hyperkalemia Current Visit: Yes Status: Resolved Resolved. Management per the primary team. SNOMED Code(s): 32162129 - Recommendations Recommendations: Await anaerobic cultures to finalize. Wound care per the podiatry team. Continue Daptomycin 6mg/kg IV Q48H (CrCl ~29). Repeat CK 35. Hold atorvastatin while on Daptomycin. Re-start flagyl 500mg PO TID. Duration of treatment depends on the clinical picture, but will likely need 6 weeks of IV Antibiotics. Treat through at least 05/15/19. Monitor renal function and for drug toxicity and dose adjust antibiotics. oil well services dispatcher to assist with discharge planning. Consult VAT for PICC line placement prior to discharge. Will need weekly CBC, BUN/Cr, ESR, CRP, CK. Will need weekly IV care per protocol. Follow up with ID 05/10/19 at 1015. Consult Discharge Plan - Plan Referrals: Antonietta Butler MD [Primary Care Provider] - Suzanne Chavira MD [Partnered Physician] - 05/10/19 10:15 am Prescriptions: DAPTOmycin [Daptomycin] 600 mg IV Q48H 34 Days #17 vial - Attending Attestation I have personally performed a face to face evaluation on this patient. I have reviewed and agree with the care plan. History and Exam by me shows: Assessment and plan: 1.Sepsis 2.Osteomyelitis of the right calcaneus causative organism gram-positive cocci 3.Acute kidney injury 4.Diabetic foot ulcer 5.Allergies to ampicillin and Bactrim Recommendations: Continue Daptomycin 6mg/kg IV Q48H (CrCl ~29). Repeat CK 35. Hold atorvastatin while on Daptomycin. Re-start flagyl 500mg PO TID. Duration of treatment depends on the clinical picture, but will likely need 6 weeks of IV Antibiotics. Treat through at least 05/15/19. Monitor renal function and for drug toxicity and dose adjust antibiotics.
--- NOTE | 2019-04-12 11:07 | Nephrology Progress Note ---
<Lino Jameson M - Last Filed: 04/12/19 13:22> Date of Encounter: 04/12/19 Time of Encounter: 11:00 - Assessment and Plan (1) Acute kidney injury superimposed on chronic kidney disease Status: Acute Serum creatinine much improved today 2.08 on admission, lilibeth to 2.25 on 04/10, down to 1.76 today Baseline roughly 1.5 GFR usually 45, today 38 UOP remains good Patient does have secondary hyperparathyroidism based on labs Remaining CKD workup pending Plan: continue to encourage fluids continue to trend BUN/Cr continue to monitor UOP Follow up labwork Follow up O/P with Dr. Champagne for management of CKD (2) Hyperkalemia Status: Resolved continue to monitor Kayexalate as needed renal diet (3) DM type 2 (diabetes mellitus, type 2) Status: Chronic Recommend stricter glycemic control Likely contributing to CKD stage 3 Defer to primary team Qualifiers: Diabetes mellitus fpc insulin use: with fpc use Diabetes mellitus complication status: with kidney complications Diabetes mellitus complication detail: with chronic kidney disease Chronic kidney disease stage: stage 3 (moderate) Qualified Code(s): E11.22 - Type 2 diabetes mellitus with diabetic chronic kidney disease; N18.3 - Chronic kidney disease, stage 3 (moderate); Z79.4 - guide winder (current) use of insulin (4) Hypertension Status: Chronic Continue home meds Avoid LYNDSAY/ARB in setting of LORETO Monitor Qualifiers: Hypertension type: essential hypertension Qualified Code(s): I10 - Essential (primary) hypertension Subjective Principal diagnosis: Necrotic ulcer Interval history: Patient seen and examined at bedside. Patient reports good urine output overnight. Has no new or worsening complaints at time of interview. Serum creatinine has gone done, 1.7 today. Does have evidence of secondary Hyperp arathyroidism based on labwork. Patient will have follow-up with Dr. Champagne in the outpatient setting for management of his Chronic Kidney Disease. Objective - Vital Signs Vital signs: Vital Signs Temp Pulse Resp BP Pulse Ox 04/12/19 09:40 92 04/12/19 07:22 18 98 04/12/19 06:48 98.4 F 68 15 152/65 97 04/12/19 04:38 16 95 04/12/19 03:21 98.5 F 71 16 166/56 97 04/11/19 23:59 16 96 04/11/19 23:37 98.4 F 74 16 166/52 95 04/11/19 20:41 98.1 F 78 15 156/55 95 04/11/19 20:17 20 97 04/11/19 15:37 16 97 04/11/19 11:22 18 97 Intake and Output 04/11/19 04/12/19 04/12/19 23:59 07:59 15:59 Intake Total 0 / 1240 Output Total 375 / 375 0 / 375 Balance 0 / 1240 -375 / -375 0 / -375 Intake: Oral 0 / 240 Output: Urine 375 / 375 Wound Drainage 0 / 0 Right Heel 0 / 0 Other: Stool Size Small Stool Consistency liquid soft Stool Color Brown # Voids 1 2 # Bowel Movements 1 Weight 100.2 kg Blood Glucose* 93 144 Patient Weight 04/12/19 23:59 Weight 100.2 kg - General Appearance Exam: Gen: A&Ox3, NAD, vitals noted HEENT: Mucous Membranes Moist, oropharynx clear Neck: soft, supple, trachea midline CV: RRR, no murmurs gallops rubs CV: lungs CTAB, no wheezes rales rhonchi Abd: soft, nontender, no rigidity, no organomegaly Ext: Venous stasis dermatitis present B/L, dressing c/d/I - Lab 04/12/19 04:00 04/12/19 04:00 Most recent lab results 04/12/19 04:00 Calcium 9.0 Consult Discharge Plan - Plan Referrals: [facility] [Other] - 04/27/19 1:00 pm () Suzanne Chavira MD [Partnered Physician] - 05/10/19 10:15 am Prescriptions: Carvedilol [Coreg] 3.125 mg PO BIDWM #60 tablet DAPTOmycin [Daptomycin] 600 mg IV Q48H 34 Days #17 vial metroNIDAZOLE [Flagyl] 500 mg PO TID 30 Days #90 tablet hydrALAZINE [HydrALAZINE] 50 mg PO Q6H #120 tablet Levofloxacin [Levaquin] 750 mg PO Q48H 6 Days #3 tablet Sodium Zirconium Cyclosilicate [Lokelma] 10 gm PO DAILY 30 Days #30 powd.pack Oxycodone HCl/Acetaminophen [Percocet 10-325 mg Tablet] 1 each PO QID 5 Days #20 tablet <OrimiliJose Luis finch - Last Filed: 04/30/19 11:37> Date of Encounter: 04/12/19 Objective - Lab 04/18/19 16:15 04/20/19 06:00 - Attending Attestation I examined this patient and my medical decision-making was reviewed with the Resident Physician. I agree with the documented findings, disposition and treatment plan as described except to the extent set forth below. Pt seen and examined doing well. On exam: Gen with NAD, lungs good areation BS bilat, heart S1S2, abd soft NT/ND, ext with LE edema bilat and neuro AAOx3. SCr improving at 1.76, GFr 38 close to baseline off diuretics. Continue to avoid nephrotoxins if possible. Continue po fluids. UOP not documented
--- NOTE | 2019-04-12 12:12 | Podiatry Progress Note ---
Date of Encounter: 04/12/19 Time of Encounter: 11:00 - Assessment and Plan (1) Diabetic foot ulcer with osteomyelitis Current Visit: Yes Status: Acute Assessment: S/P Incision and drainage and debridement of multiple planes right foot, application of puraply graft on 04/03/[address] Mcintyre Wound vac in place, serous drainage noted to canister 5ml Guardado grade III ulcer to right calcaneous WBC 10.0, afebrile Intra-op cultures returned S. epi and s simuians and current under treatment per ID, dapto and flagyl Path returned gangrenous necrosis ESR 127, CRP 173 Plan: Wound vac removed at bedside Wound assessed Appears to be healing as expected Cleansed site with saline, applied betadine to macerated tissue draped skin to dorsal aspect of foot with tegaderm for protection, applied small black simplace sponge over adaptic which was placed to cover graft site, tracked to dorsal aspect of foot, applied 125mmhg suction. Good seal noted. no leak. r eplaced kerlix and lyndsay MWF vac changes Will likely need 6 weeks IV ATB- ID consulted, appreciate recommendations (2) Chronic venous stasis Current Visit: No Status: Chronic LLE compression dressing removed and skin assessed MWF changes Remove dressing, drape skin to LLE with adaptic, apply kerlix and LYNDSAY No open wounds, chronic edema and scaling Monitor skin for any breakdown Monitor scab to toe #3 for any signs of infection or necrosis. appears to be healing at this time Subjective Principal diagnosis: Necrotic ulcer Interval history: Patient s/p debridement of right heel with graft and wound vac placement. Resting comfortably up to chair. Wound vac intact an running without leak. Patient states wound is painful if manipulated but otherwise denies pain. Denies any fevers chills n/v or fls. Denies any calf pain or sob Objective - Vital Signs Vital Signs: Vital Signs Temp Pulse Resp BP Pulse Ox 04/12/19 09:40 92 04/12/19 07:22 18 98 04/12/19 06:48 98.4 F 68 15 152/65 97 04/12/19 04:38 16 95 04/12/19 03:21 98.5 F 71 16 166/56 97 04/11/19 23:59 16 96 04/11/19 23:37 98.4 F 74 16 166/52 95 04/11/19 20:41 98.1 F 78 15 156/55 95 04/11/19 20:17 20 97 04/11/19 15:37 16 97 Intake and Output 04/11/19 04/12/19 04/12/19 23:59 07:59 15:59 Intake Total 0 / 1240 Output Total 375 / 475 100 / 475 Balance 0 / 1240 -375 / -475 -100 / -475 Intake: Oral 0 / 240 Output: Urine 375 / 475 100 / 475 Wound Drainage 0 / 0 Right Heel 0 / 0 Other: Stool Size Small Stool Consistency liquid soft Stool Color Brown # Voids 1 2 # Bowel Movements 1 Weight 100.2 kg Blood Glucose* 93 144 188 Patient Weight 04/12/19 23:59 Weight 100.2 kg - Exam Exam: Constitiutional: Alert and oriented x 3. Well nourished. No acute distress noted Vascular: 1/4 DP/PT bilaterally, CFT <3 sec to all digits, warm to warm from tibia to toes bilaterally, no calf pain with squeeze BLE, multiple digit amputations noted Neurologic: Diminished sensation to touch, normal plantar response Dermatologic: Guardado stage III ulceration right calcaneous, erythema noted to surrounding tissue, improved since previous assessment. Slight maceration to lateral border of wound without evidence of ischemia. Small fluid blister noted to anterior right ankle, serous fluid. puraply graft noted, xerosis cutis noted to BLE, discoloration noted to BLE. RLE, dressing removed, evidence of PVD with stasis dermatitis. There is a healing scab to dorsal aspect toe #3 right, no appearance of infection or drainage. 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 Musculoskeletal: 3/5 muscle strength and normal tone bilaterally. - Lab Result Diagrams: 04/12/19 04:00 04/12/19 04:00 Labs: Abnormal lab results WBC 11.5 K/mcL (4.3-11.1) H 04/10/19 06:21 RBC 3.83 M/mcL (4.19-5.50) L 04/12/19 04:00 Hgb 10.3 g/dL (12.9-16.9) L 04/12/19 04:00 Hct 34.1 % (37.5-50.1) L 04/12/19 04:00 MCH 26.9 pg (28.0-33.3) L 04/12/19 04:00 MCHC 30.2 g/dL (31.6-35.5) L 04/12/19 04:00 RDW 16.4 % (11.5-14.5) H 04/12/19 04:00 Plt Count 408 K/mcL (140-400) H 04/12/19 04:00 MPV 9.3 fL (9.4-12.4) L 04/08/19 04:09 Immature Gran % 4.1 % (0-4) H 04/11/19 07:09 Band Neutrophils % 6.0 % (0-4) H 04/08/19 04:09 Myelocytes % 4.0 % (0) H 04/09/19 01:06 Neutrophils # 9.0 K/mcL (1.6-8.9) H 04/08/19 04:09 Monocytes # 1.8 K/mcL (0.0-1.3) H 04/09/19 01:06 Eosinophils # 1.5 K/mcL (0.0-0.6) H 04/09/19 01:06 Nucleated RBCs/100 WBC 0.2 /100 WBC (0) H 04/07/19 03:29 Smudge Cells Present (Not Present) A 04/09/19 01:06 Clumped Platelets Few (Not Present) A 03/31/19 22:50 ESR 127 mm/hr (0-10) H 03/31/19 22:50 PT 14.3 Seconds (9.4-12.1) H 04/01/19 03:57 Potassium 5.3 mEq/L (3.5-5.1) H 04/11/19 00:58 Chloride 108 mEq/L (98-107) H 04/12/19 04:00 Carbon Dioxide 30 mEq/L (23-29) H 04/05/19 05:51 BUN 60 mg/dL (8-23) H 04/12/19 04:00 Creatinine 1.76 mg/dL (0.70-1.30) H 04/12/19 04:00 Est GFR ( Amer) 46 (> 60) L 04/12/19 04:00 Est GFR (Non-Af Amer) 38 (> 60) L 04/12/19 04:00 BUN/Creatinine Ratio 34 (6-26) H 04/12/19 04:00 Glucose 137 mg/dL (70-105) H 04/12/19 04:00 POC Glucose 294 mg/dL (70-99) H 04/11/19 12:08 Hemoglobin A1c 7.3 % (-5.6) H 03/31/19 22:50 Calculated Osmolality 309 (280-300) H 04/12/19 04:00 Phosphorus 4.8 mg/dL (2.7-4.5) H 04/11/19 00:58 C-Reactive Protein 173 mg/L (Less than 10) H 03/31/19 22:50 Albumin 3.2 g/dL (3.5-5.7) L 04/10/19 06:21 Albumin/Globulin Ratio 0.9 (1.1-2.2) L 04/10/19 06:21 25-OH Vitamin D Total 21 ng/mL (30-80) L 04/12/19 04:00 PTH Intact 105.2 pg/ml (10.0-65.0) H 04/12/19 04:00 Urine Clarity Cloudy (Clear) A 04/10/19 17:00 Urine Protein 100 mg/dL (Neg-Trace) H 04/10/19 17:00 Urine Glucose (UA) 250 mg/dL (Normal) H 04/10/19 17:00 Urine Blood Small (Negative) H 04/10/19 17:00 Ur Leukocyte Esterase Small (Negative) H 04/10/19 17:00 Urine Microscopic RBC 5-15 per hpf (0-3) H 04/10/19 17:00 Urine Microscopic WBC 30-50 per hpf (0-3) H 04/10/19 17:00 Ur Squamous Epith Cells Many per lpf (None-Few) H 04/10/19 17:00 Urine Yeast Few per hpf (None Seen) H 04/10/19 17:00 Microalb/Creat Ratio 602 mcg/mg (Less than 30) H 04/11/19 16:55 Vancomycin Trough 20 mcg/mL (5-10) H 04/03/19 19:24 Consult Discharge Plan - Plan Referrals: Antonietta Butler MD [Primary Care Provider] - Suzanne Chavira MD [Partnered Physician] - 05/10/19 10:15 am Prescriptions: DAPTOmycin [Daptomycin] 600 mg IV Q48H 34 Days #17 vial
--- NOTE | 2019-04-12 14:45 | Internal Med Progress Note ---
Hospitalist Progress Note - Encounter Date of Encounter: 04/12/19 Time of Encounter: 12:00 - Subjective Interval History: No acute events overnight. No fever/chills or N/V. Denies any SOB or cough - Exam Vitals: Temp Pulse Resp BP Pulse Ox 98.3 F 75 15 144/47 93 04/12/19 14:19 04/12/19 14:19 04/12/19 14:19 04/12/19 14:19 04/12/19 14:19 Exam: General: In no acute distress. obese Respiratory exam: CTAB. no accessory muscle use, rales, rhonchi, wheezes Cardiovascular exam: RRR, +S1, +S2. no murmur, gallop, rubs. GI/Abdominal exam: Non-tender, Non-distended, normal bowel sounds, soft, no peritoneal signs. Extremities exam: R foot with wound VAC. Neurological exam: CN II-XII intact, AO X3, no focal deficits. - Assessment and Plan (1) Sepsis Current Visit: Yes Status: Resolved (2) Diabetic foot ulcer with osteomyelitis Current Visit: Yes Status: Acute (3) Acute on chronic kidney failure Current Visit: Yes Status: Acute (4) DM type 2 (diabetes mellitus, type 2) Current Visit: Yes Status: Chronic (5) CAD (coronary artery disease) Current Visit: Yes Status: Chronic (6) GERD (gastroesophageal reflux disease) Current Visit: No Status: Chronic (7) Hypertension Current Visit: Yes Status: Chronic (8) Chronic venous stasis Current Visit: No Status: Chronic DVT Prophylaxis: SQ heparin - Summary of Assessment and Plan Summary of Assessment and Plan: Assessment Acute Sepsis secondary to diabetic foot ulcer with R calcaneal osteomyelitis - resolving AoCKD stage III Chronic HTN CKD3 DM GERD CAD Plan - S/P I&D and debridement of multiple planes right foot, application of puraply graft on 04/03/[address] Mcintyre. Has wound vac placed to right calcaneous. To be changed MWF per podiatry, appreciate input - Surgical biopsy cultures with MDR Staphylococcus simulans, Staphylococcus epidermides, and now with anaerobic GNRs. Blood cultures 04/01/19-NGTD. On daptomycin and flagyl restarted by ID today. Appreciate input - LORETO on CKD. Improving, continue to hold home lasix and ibuprofen. US unremarkable. Will hold further fluids. Nephrology input appreciated. Hyperkalmia resolved as well. Will need outpatient nephrology follow up. - c/w basal-bolus insulin but will decrease premeal insulin to 10U TIDmeals - c/w home meds for CAD and HTN except for statin while on daptomycin - heparin SubQ for DVT ppx. - awaiting arrangement of ECF placement for IV antibiotics - Time Spent with Patient Total time spent is greater than 50% in coordination of care (as documented) at patient's floor/unit and/or counseling patient: 25 - 35 minutes Plan of Care Discussed with: case management Internal Medicine: Result - Labs CBC & Chem 7: 04/12/19 04:00 04/12/19 04:00 Labs: Short CBC 04/12/19 Range/Units 04:00 WBC 10.0 (4.3-11.1) K/mcL Hgb 10.3 L (12.9-16.9) g/dL Hct 34.1 L (37.5-50.1) % Plt Count 408 H (140-400) K/mcL Neutrophils # 5.8 (1.6-8.9) K/mcL BMP 04/12/19 04:00 Sodium 140 Potassium 4.6 Chloride 108 H Carbon Dioxide 26 BUN 60 H Creatinine 1.76 H Glucose 137 H Calcium 9.0 - ABG Interpretation ABG results: PT/INR, D-dimer PT 14.3 Seconds (9.4-12.1) H 04/01/19 03:57 - Impressions Impressions Retroperitoneum Ultrasound 04/11/19 17:30 IMPRESSION: Unremarkable ultrasound of the kidneys and urinary bladder. D/ / Dunia Mercedes Cha, MD / Dunia Mercedes Cha, MD Interpreting Provider: Dunia Mercedes Cha, MD Consult Discharge Plan - Plan Referrals: Antonietta Butler MD [Primary Care Provider] - Suzanne Chavira MD [Partnered Physician] - 05/10/19 10:15 am Prescriptions: DAPTOmycin [Daptomycin] 600 mg IV Q48H 34 Days #17 vial (1) Sepsis Qualifiers: Sepsis type: sepsis due to unspecified organism Qualified Code(s): A41.9 - Sepsis, unspecified organism (3) Acute on chronic kidney failure Qualifiers: Acute renal failure type: unspecified Chronic kidney disease stage: stage 3 (moderate) Qualified Code(s): N17.9 - Acute kidney failure, unspecified; N18.3 - Chronic kidney disease, stage 3 (moderate) (4) DM type 2 (diabetes mellitus, type 2) Qualifiers: Diabetes mellitus moth exterminator insulin use: with moth exterminator use Diabetes mellitus complication status: with kidney complications Diabetes mellitus complication detail: with chronic kidney disease Chronic kidney disease stage: stage 3 (moderate) Qualified Code(s): E11.22 - Type 2 diabetes mellitus with diabetic chronic kidney disease; N18.3 - Chronic kidney disease, stage 3 (moderate); Z79.4 - [facility] (current) use of insulin (5) CAD (coronary artery disease) Qualifiers: Coronary Disease-Associated Artery/Lesion type: [place] artery [place] vs. transplanted heart: [place] heart Associated angina: without angina Qualified Code(s): I25.10 - Atherosclerotic heart disease of [place] coronary artery without angina pectoris (6) GERD (gastroesophageal reflux disease) Qualifiers: Esophagitis presence: esophagitis presence not specified Qualified Code(s): K21.9 - Gastro-esophageal reflux disease without esophagitis (7) Hypertension Qualifiers: Hypertension type: essential hypertension Qualified Code(s): I10 - Essential (primary) hypertension
[2019-04-12] MEDS: metroNIDAZOLE 500 MG TABLET PO SCH ×2 (15:36→20:27)
[2019-04-12] MEDS: traZODone 50 MG TABLET PO SCH (20:27)
[2019-04-12] MEDS: Sennosides/Docusate Sodium TABLET PO SCH (20:27)
[2019-04-13] MEDS: cloNIDine HCl 0.1 MG TABLET PO SCH ×3 (00:08→16:11)
[2019-04-13] MEDS: hydrALAZINE 25 MG TABLET PO SCH ×3 (00:08→16:11)
[2019-04-13] MEDS: Albuterol 2.5 MG/3 ML NEBULIZER IH SCH ×6 (03:59→23:58)
[2019-04-13] MEDS: *HR* Heparin 5,000 UNIT/ML VIAL SQ SCH ×2 (05:17→17:40)
[2019-04-13 06:10] LABS: Calcium 9.3 mg/dL (8.6-10.3); Potassium 4.9 mEq/L (3.5-5.1)
[2019-04-13] MEDS: Insulin LISPRO 300 UNITS/3 ML VIAL SQ SCH ×7 (07:51→21:10)
[2019-04-13] MEDS: amLODIPine 5 MG TABLET PO SCH (08:29)
[2019-04-13] MEDS: Loratadine 10 MG TABLET PO SCH (08:29)
[2019-04-13] MEDS: *HR* OxyCODONE/APAP 10/325 TABLET PO SCH ×4 (08:29→21:41)
[2019-04-13] MEDS: Lactulose Oral Soln 20 GM/30 ML UDC PO SCH ×2 (08:29→21:41)
[2019-04-13] MEDS: metroNIDAZOLE 500 MG TABLET PO SCH ×3 (08:29→21:41)
[2019-04-13] MEDS: Aspirin 81 MG TAB.CHEW PO SCH (08:30)
[2019-04-13] MEDS: Insulin DETEMIR 100 UNIT/ML X5UNITS SQ SCH ×2 (08:30→21:10)
[2019-04-13 09:02] LABS: Protein/Creatinine Ratio,Urine 1.66 mg/mg (0.00-0.20)
--- NOTE | 2019-04-13 12:24 | Infectious Disease Progress No ---
ID Progress Note Date of Encounter: 04/13/19 Time of Encounter: 12:22 - Subjective Subjective: Patient seen and examinedNo acute events noted overnight. Patient states he doesn't feel very well today. Denies fevers, chills, or rigors. Denies chest pain, shortness of breath, or cough. Denies nausea, vomiting, or diarrhea. Reports he is having BMs regularly. Denies abdominal pain or urinary complaints. Denies oral thrush or skin rashes. States his appetite is good. Reports some mild stinging pain at the surgical site. Complains of worsening chronic back pain from sitting up in the chair, but states he can't lie in bed because he can't use the urinal in bed and nursing staff takes to long to assist him to the bedside commode. - Objective CBC & Chem 7: 04/12/19 04:00 04/13/19 05:22 - Exam Vitals: Temp Pulse Resp BP Pulse Ox 98.6 F 67 15 137/87 96 04/13/19 11:24 04/13/19 11:24 04/13/19 11:24 04/13/19 11:24 04/13/19 11:24 Exam: Head: Atraumatic, normal inspection, normocephalic. Eye: EOMI, PERRLA, no scleral icterus noted. ENT: Mucous membranes moist. No odontogenic infection noted. Neck: Normal inspection, no meningismus. Respiratory: Clear to auscultation. No rales, respiratory distress, rhonchi, or wheezes noted. Cardiovascular: Regular rate and rhythm, S1 and S2 audible. No murmurs, rubs, or gallops. GI: Soft, obese, normal bowel sounds. Nontender Extremities:No joint swelling or tenderness noted. 1+ edema noted to the BLE. BLE compression dressing C/D/I. Neurological: Alert, oriented 3, no focal deficits. Psychiatric: normal affect, normal mood. Skin: Dry, intact, warm. Normal color. No rashes. - Assessment and Plan (1) Sepsis Current Visit: Yes Status: Resolved The patient had 2 sepsis criteria on admission plus acute kidney injury. Likely secondary to right foot osteomyelitis. Improved. WBC normal. Tachycardia resolved. Blood cultures drawn 03/31/19 at [facility] are negative 2 sets. Repeat blood cultures drawn 04/01/19 are negative 2 sets. Qualifiers: Sepsis type: sepsis due to unspecified organism SNOMED Code(s): 04306929 (2) Osteomyelitis Current Visit: No Status: Acute Location: Right calcaneus. Likely secondary to diabetic foot ulcer. Causative organism: S. epi and S. simulans (wound and soft tissue cultures). Anerobic cultures positive. No bone cultures sent. MRI showed findings consistent with early osteomyelitis of the calcaneus. ESR 127, CRP 173. Podiatry consult. Status post I & D right foot multiple planes 04/04/[address] Mcintyre. Operative note reviewed. Soft tissue and wound cultures as above. Pathology positive for gangrenous necrosis. Currently on Dapto and flagyl. Qualifiers: Osteomyelitis location: foot Laterality: right SNOMED Code(s): 09909672 (3) Cellulitis Current Visit: Yes Status: Acute Location: Right lower extremity. Likely secondary to diabetic foot ulcer. Causative organism: S. simulans and S. epi and anaerobes. Podiatry consult and following. Currently on Dapto and flagyl. Qualifiers: Site of cellulitis: extremity Site of cellulitis of extremity: lower extremity Laterality: right Qualified Code(s): L03.115 - Cellulitis of right lower limb SNOMED Code(s): 525641302 (4) Acute kidney injury Current Visit: Yes Status: Acute Likely secondary to sepsis and nephrotoxic medication. Improved. Vanc discontinued. Nephrology consulted and following. RP UTS negative. Dose adjust antibiotics and avoid nephrotoxins as able. SNOMED Code(s): 62106767, 07251221 (5) Diabetic foot ulcer Current Visit: Yes Status: Chronic Location: Right heel. Etiology: Unclear. Podiatry consult and following. Qualifiers: Diabetic foot ulcer location: heel Diabetes mellitus type: type 2 Laterality: right Non-pressure ulcer stage: with fat layer exposed Qualified Code(s): E11.621 - Type 2 diabetes mellitus with foot ulcer; L97.412 - Non- pressure chronic ulcer of right heel and midfoot with fat layer exposed SNOMED Code(s): 662250265 (6) CKD (chronic kidney disease) stage 3, GFR 30-59 ml/min Current Visit: Yes Status: Chronic SNOMED Code(s): 946623471 (7) DM type 2 (diabetes mellitus, type 2) Current Visit: Yes Status: Chronic Recommend aggressive glucose monitoring and control to promote wound healing and prevent reinfection. Management per the primary team. Qualifiers: Diabetes mellitus custodial insulin use: with buttermaker continuous churn use Diabetes mellitus complication status: with kidney complications Diabetes mellitus complication detail: with chronic kidney disease Chronic kidney disease stage: stage 3 (moderate) Qualified Code(s): E11.22 - Type 2 diabetes mellitus with diabetic chronic kidney disease; N18.3 - Chronic kidney disease, stage 3 (moderate); Z79.4 - terminal gauger (current) use of insulin SNOMED Code(s): 98877242 (8) CAD (coronary artery disease) Current Visit: Yes Status: Chronic Qualifiers: Coronary Disease-Associated Artery/Lesion type: [place] artery [place] vs. transplanted heart: [place] heart Associated angina: without angina Qualified Code(s): I25.10 - Atherosclerotic heart disease of [place] coronary artery without angina pectoris SNOMED Code(s): 06094365 (9) Venous stasis dermatitis of both lower extremities Current Visit: No Status: Chronic SNOMED Code(s): 62920711 (10) GERD (gastroesophageal reflux disease) Current Visit: No Status: Chronic Qualifiers: Esophagitis presence: esophagitis presence not specified Qualified Code(s): K21.9 - Gastro-esophageal reflux disease without esophagitis SNOMED Code(s): 374784326 (11) Hypertension Current Visit: Yes Status: Chronic Qualifiers: Hypertension type: essential hypertension Qualified Code(s): I10 - Essential (primary) hypertension SNOMED Code(s): 69434684 (12) Constipation Current Visit: Yes Status: Resolved Improved. Bowel regimen per the primary team. Qualifiers: Constipation type: unspecified constipation type Qualified Code(s): K59.00 - Constipation, unspecified SNOMED Code(s): 36013532 (13) Hyperkalemia Current Visit: Yes Status: Resolved Resolved. Management per the primary team. SNOMED Code(s): 67641664 - Recommendations Recommendations: Wound care per the podiatry team. Continue Daptomycin 6mg/kg IV Q48H (CrCl ~29). Repeat CK 35. Hold atorvastatin while on Daptomycin. Continue flagyl 500mg PO TID. Duration of treatment depends on the clinical picture, but will likely need 6 we eks of IV Antibiotics. Treat through at least 05/15/19. Monitor renal function and for drug toxicity and dose adjust antibiotics. visitor services representative to assist with discharge planning. Consult VAT for PICC line placement prior to discharge. Will need weekly CBC, BUN/Cr, ESR, CRP, CK. Will need weekly IV care per protocol. Follow up with ID 05/10/19 at 1015. Consult Discharge Plan - Plan Referrals: Antonietta Butler MD [Primary Care Provider] - Suzanne Chavira MD [Partnered Physician] - 05/10/19 10:15 am Prescriptions: DAPTOmycin [Daptomycin] 600 mg IV Q48H 34 Days #17 vial
--- NOTE | 2019-04-13 13:36 | Nephrology Progress Note ---
<Lino Jameson M - Last Filed: 04/13/19 13:34> Date of Encounter: 04/13/19 Time of Encounter: 10:00 - Assessment and Plan (1) Acute kidney injury superimposed on chronic kidney disease Status: Acute LORETO continues to resolve, 1.69 today GFR 40, his baseline is roughly 45 Patient does have baseline lower extremity swelling Takes amlodipine 10 mg at home, would recommend outpatient adjustment Urine output remains adequate Patient to follow-up with Dr. Champagne in her nephrology clinic in 4-6 weeks We will sign off at this time, please reconsult when necessary (2) Hyperkalemia Status: Resolved Potassium within normal limits today Stable since yesterday Would recommend continuing with a renal diet (3) DM type 2 (diabetes mellitus, type 2) Status: Chronic Blood sugars have been mildly elevated Improved from day before Continue with strict glycemic control Qualifiers: Diabetes mellitus ad terminal makeup operator insulin use: with fpc use Diabetes mellitus complication status: with kidney complications Diabetes mellitus complication detail: with chronic kidney disease Chronic kidney disease stage: stage 3 (moderate) Qualified Code(s): E11.22 - Type 2 diabetes mellitus with diabetic chronic kidney disease; N18.3 - Chronic kidney disease, stage 3 (moderate); Z79.4 - assisted (current) use of insulin (4) Hypertension Status: Chronic Blood pressure has been stable Continue with home meds Recommend adjustment outpatient to minimize lower extremity swelling Qualifiers: Hypertension type: essential hypertension Qualified Code(s): I10 - Essenti al (primary) hypertension Subjective Principal diagnosis: Necrotic ulcer Interval history: Patient seen and examined at bedside. Patient reports good urine output again today. Has no new or worsening complaints at time of interview. Patient's serum creatinine has gone down again today, GFR 38, baseline roughly 45. Patient does have secondary hyperparathyroidism, vitamin D deficiency. Will start on calcitriol, and follow-up with Dr. Champagne in the nephrology clinic. Nephrology will sign off at this time Objective - Vital Signs Vital signs: Vital Signs Temp Pulse Resp BP Pulse Ox 04/13/19 11:24 98.6 F 67 15 137/87 96 04/13/19 11:13 15 96 04/13/19 07:22 97.9 F 71 15 149/59 96 04/13/19 07:13 16 98 04/13/19 04:05 97.5 F L 65 16 164/63 98 04/13/19 03:59 14 91 04/13/19 00:05 98.0 F 04/12/19 23:54 18 90 04/12/19 23:40 98.0 F 72 16 159/51 92 04/12/19 20:14 98.3 F 74 17 135/51 92 04/12/19 19:54 18 90 04/12/19 15:51 17 93 04/12/19 14:19 98.3 F 75 15 144/47 93 Intake and Output 04/12/19 04/13/19 04/13/19 23:59 07:59 15:59 Intake Total 120 / 360 1240 / 1240 Output Total 150 / 925 0 / 150 150 / 150 Balance -30 / -565 0 / 1090 1090 / 1090 Intake: Oral 120 / 360 1240 / 1240 Output: Urine 150 / 925 150 / 150 Wound Drainage 0 / 0 0 / 0 0 / 0 Right Heel 0 / 0 0 / 0 0 / 0 Other: Meal Dinner Breakfast Percent of Meal Consumed 100% 85% Stool Size Small Stool Consistency soft # Voids 1 # Bowel Movements 1 Blood Glucose* 189 131 171 - General Appearance Exam: Gen: A&Ox3, NAD, vitals noted HEENT: Mucous Membranes Moist, oropharynx clear Neck: soft, supple, trachea midline CV: RRR, no murmurs gallops rubs CV: lungs CTAB, no wheezes rales rhonchi Abd: soft, nontender, no rigidity, no organomegaly Ext: Venous stasis dermatitis present B/L, dressing c/d/I - Lab 04/12/19 04:00 04/13/19 05:22 Most recent lab results 04/13/19 04/13/19 05:22 08:40 Calcium 9.3 Urine Creatinine 65 Urine Total Protein 108 H Consult Discharge Plan - Plan Referrals: [facility] [Other] - 04/27/19 1:00 pm () Suzanne Chavira MD [Partnered Physician] - 05/10/19 10:15 am Prescriptions: Carvedilol [Coreg] 3.125 mg PO BIDWM #60 tablet DAPTOmycin [Daptomycin] 600 mg IV Q48H 34 Days #17 vial metroNIDAZOLE [Flagyl] 500 mg PO TID 30 Days #90 tablet hydrALAZINE [HydrALAZINE] 50 mg PO Q6H #120 tablet Levofloxacin [Levaquin] 750 mg PO Q48H 6 Days #3 tablet Sodium Zirconium Cyclosilicate [Lokelma] 10 gm PO DAILY 30 Days #30 powd.pack Oxycodone HCl/Acetaminophen [Percocet 10-325 mg Tablet] 1 each PO QID 5 Days #20 tablet <ProsperanaiJose Luis finch - Last Filed: 04/30/19 22:50> Date of Encounter: 04/13/19 Objective - Lab 04/18/19 16:15 04/20/19 06:00 - Attending Attestation I examined this patient and my medical decision-making was reviewed with the Resident Physician. I agree with the documented findings, disposition and treatment plan as described except to the extent set forth below. Pt seen and examined doing well. On exam: Gen with NAD, lungs good areation BS bilat, heart S1S2, abd soft NT/ND, ext with LE edema bilat and neuro AAOx3. SCr improving at 1.69, GFr 40 close to baseline off diuretics. Continue to avoid nephrotoxins if possible. Continue po fluids. UOP noted at 925cc in thr past 24hrs.
--- NOTE | 2019-04-13 14:05 | Internal Med Progress Note ---
Hospitalist Progress Note - Encounter Date of Encounter: 04/13/19 Time of Encounter: 11:00 - Subjective Interval History: No acute events overnight. No fever/chills or N/V. Denies any worsening R foot pain - Exam Vitals: Temp Pulse Resp BP Pulse Ox 98.6 F 67 15 137/87 96 04/13/19 11:24 04/13/19 11:24 04/13/19 11:24 04/13/19 11:24 04/13/19 11:24 Exam: General: In no acute distress. obese Respiratory exam: CTAB. no accessory muscle use, rales, rhonchi, wheezes Cardiovascular exam: RRR, +S1, +S2. no murmur, gallop, rubs. GI/Abdominal exam: Non-tender, Non-distended, normal bowel sounds, soft, no peritoneal signs. Extremities exam: R foot with wound VAC. Neurological exam: CN II-XII intact, AO X3, no focal deficits. - Assessment and Plan (1) Sepsis Current Visit: Yes Status: Resolved (2) Diabetic foot ulcer with osteomyelitis Current Visit: Yes Status: Acute (3) Acute on chronic kidney failure Current Visit: Yes Status: Acute (4) DM type 2 (diabetes mellitus, type 2) Current Visit: Yes Status: Chronic (5) CAD (coronary artery disease) Current Visit: Yes Status: Chronic (6) GERD (gastroesophageal reflux disease) Current Visit: No Status: Chronic (7) Hypertension Current Visit: Yes Status: Chronic (8) Chronic venous stasis Current Visit: No Status: Chronic DVT Prophylaxis: SQ hep - Summary of Assessment and Plan Summary of Assessment and Plan: Assessment Acute Sepsis secondary to diabetic foot ulcer with R calcaneal osteomyelitis - resolving AoCKD stage III - resolving Chronic HTN CKD3 DM GERD CAD Plan - S/P I&D and debridement of multiple planes right foot, application of puraply graft on 04/03/[address] Mcintyre. Has wound vac placed to right calcaneous. To be changed MWF per podiatry, appreciate input - Surgical biopsy cultures with MDR Staphylococcus simulans, Staphylococcus epidermides, and also with anaerobic GNRs (Prevotella oralisandmelaninogenica). Blood cultures 04/01/19-NGTD. On IV daptomycin, flagyl restarted by ID on 04/12. Appreciate input - LORETO on CKD. Improving, continue to hold home lasix and ibuprofen. US unremarkable. Will hold further fluids. Nephrology input appreciated. Hyperkalmia resolved as well. Will need outpatient nephrology follow up. - c/w basal-bolus insulin - c/w home meds for CAD and HTN except for statin while on daptomycin - heparin SubQ for DVT ppx - awaiting arrangement of ECF placement for IV antibiotics - Time Spent with Patient Total time spent is greater than 50% in coordination of care (as documented) at patient's floor/unit and/or counseling patient: less than 15 minutes Plan of Care Discussed with: patient Internal Medicine: Result - Labs CBC & Chem 7: 04/12/19 04:00 04/13/19 05:22 Labs: BMP 04/13/19 05:22 Sodium 141 Potassium 4.9 Chloride 105 Carbon Dioxide 27 BUN 62 H Creatinine 1.69 H Glucose 139 H Calcium 9.3 - ABG Interpretation ABG results: PT/INR, D-dimer PT 14.3 Seconds (9.4-12.1) H 04/01/19 03:57 Consult Discharge Plan - Plan Referrals: Antonietta Butler MD [Primary Care Provider] - Suzanne Chavira MD [Partnered Physician] - 05/10/19 10:15 am Prescriptions: DAPTOmycin [Daptomycin] 600 mg IV Q48H 34 Days #17 vial (1) Sepsis Qualifiers: Sepsis type: sepsis due to unspecified organism Qualified Code(s): A41.9 - Sepsis, unspecified organism (3) Acute on chronic kidney failure Qualifiers: Acute renal failure type: unspecified Chronic kidney disease stage: stage 3 (moderate) Qualified Code(s): N17.9 - Acute kidney failure, unspecified; N18.3 - Chronic kidney disease, stage 3 (moderate) (4) DM type 2 (diabetes mellitus, type 2) Qualifiers: Diabetes mellitus long-term insulin use: with local intermodal truck driver use Diabetes mellitus complication status: with kidney complications Diabetes mellitus complication detail: with chronic kidney disease Chronic kidney disease stage: stage 3 (moderate) Qualified Code(s): E11.22 - Type 2 diabetes mellitus with diabetic chronic kidney disease; N18.3 - Chronic kidney disease, stage 3 (moderate); Z79.4 - buttermaker continuous churn (current) use of insulin (5) CAD (coronary artery disease) Qualifiers: Coronary Disease-Associated Artery/Lesion type: [place] artery [place] vs. transplanted heart: [place] heart Associated angina: without angina Qualified Code(s): I25.10 - Atherosclerotic heart disease of [place] coronary artery without angina pectoris (6) GERD (gastroesophageal reflux disease) Qualifiers: Esophagitis presence: esophagitis presence not specified Qualified Code(s): K21.9 - Gastro-esophageal reflux disease without esophagitis (7) Hypertension Qualifiers: Hypertension type: essential hypertension Qualified Code(s): I10 - Essential (primary) hypertension
[2019-04-13] MEDS: DAPTOmycin 600 MG in 0.9 % Sodium Chloride 100 ML IVPB SCH (16:07)
[2019-04-13] MEDS: Sennosides/Docusate Sodium TABLET PO SCH (21:41)
[2019-04-13] MEDS: traZODone 50 MG TABLET PO SCH (21:41)
[2019-04-14] MEDS: cloNIDine HCl 0.1 MG TABLET PO SCH ×3 (00:38→15:30)
[2019-04-14] MEDS: hydrALAZINE 25 MG TABLET PO SCH ×4 (00:39→17:12)
[2019-04-14] MEDS: Albuterol 2.5 MG/3 ML NEBULIZER IH SCH ×6 (03:58→23:17)
[2019-04-14] MEDS: *HR* Heparin 5,000 UNIT/ML VIAL SQ SCH ×2 (05:55→17:12)
[2019-04-14] MEDS: Insulin LISPRO 300 UNITS/3 ML VIAL SQ SCH ×7 (08:47→21:47)
[2019-04-14] MEDS: Loratadine 10 MG TABLET PO SCH (08:48)
[2019-04-14] MEDS: amLODIPine 5 MG TABLET PO SCH (08:48)
[2019-04-14] MEDS: metroNIDAZOLE 500 MG TABLET PO SCH ×3 (08:48→21:31)
[2019-04-14] MEDS: *HR* OxyCODONE/APAP 10/325 TABLET PO SCH ×4 (08:49→21:31)
[2019-04-14] MEDS: Aspirin 81 MG TAB.CHEW PO SCH (08:49)
[2019-04-14] MEDS: Lactulose Oral Soln 20 GM/30 ML UDC PO SCH ×2 (08:49→21:31)
[2019-04-14] MEDS: Insulin DETEMIR 100 UNIT/ML X5UNITS SQ SCH ×2 (09:42→21:32)
[2019-04-14 10:36] LABS: ANA IgG by ELISA NONE DETECTED (None Detected)
[2019-04-14 10:46] LABS: Urine Collection Volume RANDOM mL
--- NOTE | 2019-04-14 11:31 | Infectious Disease Progress No ---
ID Progress Note Date of Encounter: 04/14/19 Time of Encounter: 11:29 - Subjective Subjective: Patient seen and examined. No acute events noted overnight. Patient states he feels better today. Denies fevers, chills, or rigors. Denies chest pain, shortness of breath. STates he has a cough when he gets his breathing treatments. Denies nausea, vomiting, or diarrhea. Reports he is having BMs regularly. Denies abdominal pain or urinary complaints. Denies oral thrush or skin rashes. States his appetite is good. Reports some mild stinging pain at the surgical site. - Objective CBC & Chem 7: 04/12/19 04:00 04/13/19 05:22 - Exam Vitals: Temp Pulse Resp BP Pulse Ox 98.0 F 67 17 178/66 99 04/14/19 11:10 04/14/19 11:10 04/14/19 11:10 04/14/19 11:10 04/14/19 11:10 Exam: Head: Atraumatic, normal inspection, normocephalic. Eye: EOMI, PERRLA, no scleral icterus noted. ENT: Mucous membranes moist. No odontogenic infection noted. Neck: Normal inspection, no meningismus. Respiratory: Fine expiratory wheezes throughout. No rales, respiratory d istress, rhonchi, noted. Cardiovascular: Regular rate and rhythm, S1 and S2 audible. No murmurs, rubs, or gallops. GI: Soft, obese, normal bowel sounds. Nontender Extremities:No joint swelling or tenderness noted. 1+ edema noted to the BLE. BLE compression dressing C/D/I. Neurological: Alert, oriented 3, no focal deficits. Psychiatric: normal affect, normal mood. Skin: Dry, intact, warm. Normal color. No rashes. - Assessment and Plan (1) Sepsis Current Visit: Yes Status: Resolved The patient had 2 sepsis criteria on admission plus acute kidney injury. Likely secondary to right foot osteomyelitis. Improved. WBC normal. Tachycardia resolved. Blood cultures drawn 03/31/19 at [facility] are negative 2 sets. Repeat blood cultures drawn 04/01/19 are negative 2 sets. Qualifiers: Sepsis type: sepsis due to unspecified organism SNOMED Code(s): 14241182 (2) Osteomyelitis Current Visit: No Status: Acute Location: Right calcaneus. Likely secondary to diabetic foot ulcer. Causative organism: S. epi and S. simulans (wound and soft tissue cultures). Anerobic cultures positive. No bone cultures sent. MRI showed findings consistent with early osteomyelitis of the calcaneus. ESR 127, CRP 173. Podiatry consult. Status post I & D right foot multiple planes 04/04/[address] Mcintyre. Operative note reviewed. Soft tissue and wound cultures as above. Pathology positive for gangrenous necrosis. Currently on Dapto and flagyl. Qualifiers: Osteomyelitis location: foot Laterality: right SNOMED Code(s): 18668867 (3) Cellulitis Current Visit: Yes Status: Acute Location: Right lower extremity. Likely secondary to diabetic foot ulcer. Causative organism: S. simulans and S. epi and anaerobes. Podiatry consult and following. Currently on Dapto and flagyl. Qualifiers: Site of cellulitis: extremity Site of cellulitis of extremity: lower extremity Laterality: right Qualified Code(s): L03.115 - Cellulitis of right lower limb SNOMED Code(s): 734314461 (4) Acute kidney injury Current Visit: Yes Status: Acute Likely secondary to sepsis and nephrotoxic medication. Improved. Vanc discontinued. Nephrology consulted and following. RP UTS negative. Dose adjust antibiotics and avoid nephrotoxins as able. SNOMED Code(s): 30715123, 94234580 (5) Diabetic foot ulcer Current Visit: Yes Status: Chronic Location: Right heel. Etiology: Unclear. Podiatry consult and following. Qualifiers: Diabetic foot ulcer location: heel Diabetes mellitus type: type 2 Laterality: right Non-pressure ulcer stage: with fat layer exposed Qualified Code(s): E11.621 - Type 2 diabetes mellitus with foot ulcer; L97.412 - Non- pressure chronic ulcer of right heel and midfoot with fat layer exposed SNOMED Code(s): 620530275 (6) CKD (chronic kidney disease) stage 3, GFR 30-59 ml/min Current Visit: Yes Status: Chronic SNOMED Code(s): 203815734 (7) DM type 2 (diabetes mellitus, type 2) Current Visit: Yes Status: Chronic Recommend aggressive glucose monitoring and control to promote wound healing and prevent reinfection. Management per the primary team. Qualifiers: Diabetes mellitus shelter insulin use: with stone sandblaster use Diabetes mellitus complication status: with kidney complications Diabetes mellitus complication detail: with chronic kidney disease Chronic kidney disease stage: stage 3 (moderate) Qualified Code(s): E11.22 - Type 2 diabetes mellitus with diabetic chronic kidney disease; N18.3 - Chronic kidney disease, stage 3 (moderate); Z79.4 - correction (current) use of insulin SNOMED Code(s): 66679883 (8) CAD (coronary artery disease) Current Visit: Yes Status: Chronic Qualifiers: Coronary Disease-Associated Artery/Lesion type: [place] artery [place] vs. transplanted heart: [place] heart Associated angina: without angina Qualified Code(s): I25.10 - Atherosclerotic heart disease of [place] coronary artery without angina pectoris SNOMED Code(s): 68858475 (9) Venous stasis dermatitis of both lower extremities Current Visit: No Status: Chronic SNOMED Code(s): 11230735 (10) GERD (gastroesophageal reflux disease) Current Visit: No Status: Chronic Qualifiers: Esophagitis presence: esophagitis presence not specified Qualified Code(s): K21.9 - Gastro-esophageal reflux disease without esophagitis SNOMED Code(s): 143367315 (11) Hypertension Current Visit: Yes Status: Chronic Qualifiers: Hypertension type: essential hypertension Qualified Code(s): I10 - Essential (primary) hypertension SNOMED Code(s): 96890887 (12) Constipation Current Visit: Yes Status: Resolved Improved. Bowel regimen per the primary team. Qualifiers: Constipation type: unspecified constipation type Qualified Code(s): K59.00 - Constipation, unspecified SNOMED Code(s): 21992169 (13) Hyperkalemia Current Visit: Yes Status: Resolved Resolved. Management per the primary team. SNOMED Code(s): 26470891 - Recommendations Recommendations: Repeat CK level on Wednesday. Wound care per the podiatry team. Continue Daptomycin 6mg/kg IV Q48H (CrCl ~29). Repeat CK 35. Hold atorvastatin while on Daptomycin. Continue flagyl 500mg PO TID. Duration of treatment depends on the clinical picture, but will likely need 6 weeks of IV Antibiotics. Treat through at least 05/15/19. Monitor renal function and for drug toxicity and dose adjust antibiotics. client services analyst to assist with discharge planning. Consult VAT for PICC line placement prior to discharge. Will need weekly CBC, BUN/Cr, ESR, CRP, CK. Will need weekly IV care per protocol. Follow up with ID 05/10/19 at 1015. Consult Discharge Plan - Plan Referrals: Antonietta Butler MD [Primary Care Provider] - Suzanne Chavira MD [Partnered Physician] - 05/10/19 10:15 am Prescriptions: DAPTOmycin [Daptomycin] 600 mg IV Q48H 34 Days #17 vial
--- NOTE | 2019-04-14 15:41 | Internal Med Progress Note ---
Hospitalist Progress Note - Encounter Date of Encounter: 04/14/19 Time of Encounter: 11:00 - Subjective Interval History: No acute events overnight. No fever/chills or N/V. Frustrated that his ECF placement is taking a long time for approval - Exam Vitals: Temp Pulse Resp BP Pulse Ox 98.0 F 67 17 139/57 93 04/14/19 14:48 04/14/19 14:48 04/14/19 14:48 04/14/19 14:48 04/14/19 14:48 Exam: General: In no acute distress. obese Respiratory exam: CTAB. no accessory muscle use, rales, rhonchi, wheezes Cardiovascular exam: RRR, +S1, +S2. no murmur, gallop, rubs. GI/Abdominal exam: Non-tender, Non-distended, normal bowel sounds, soft, no peritoneal signs. Extremities exam: R foot with wound VAC. Neurological exam: CN II-XII intact, AO X3, no focal deficits. - Assessment and Plan (1) Sepsis Current Visit: Yes Status: Resolved (2) Diabetic foot ulcer with osteomyelitis Current Visit: Yes Status: Acute (3) Acute on chronic kidney failure Current Visit: Yes Status: Acute (4) DM type 2 (diabetes mellitus, type 2) Current Visit: Yes Status: Chronic (5) CAD (coronary artery disease) Current Visit: Yes Status: Chronic (6) GERD (gastroesophageal reflux disease) Current Visit: No Status: Chronic (7) Hypertension Current Visit: Yes Status: Chronic (8) Chronic venous stasis Current Visit: No Status: Chronic DVT Prophylaxis: SQ hep - Summary of Assessment and Plan Summary of Assessment and Plan: Assessment Acute Sepsis secondary to diabetic foot ulcer with R calcaneal osteomyelitis - resolving AoCKD stage III - resolving Chronic HTN CKD3 DM GERD CAD Plan - S/P I&D and debridement of multiple planes right foot, application of puraply graft on 04/03/[address] Mcintyre. Has wound vac placed to right calcaneous. To be changed MWF per podiatry, appreciate input - Surgical biopsy cultures with MDR Staphylococcus simulans, Staphylococcus epidermides, and also with anaerobic GNRs (Prevotella oralisandmelaninogenica). Blood cultures 04/01/19-NGTD. On IV daptomycin, flagyl restarted by ID on 04/12. Treat through 05/15, appreciate input - LORETO on CKD. Improving, continue to hold home lasix and ibuprofen. US unremarkable. Will hold further fluids. Nephrology input appreciated. Hyperkalmia resolved as well. Will need outpatient nephrology follow up. Repeat BMP tomorrow and resume lasix if Cr stable - c/w basal-bolus insulin, decrease levemir to 30U BID - c/w home meds for CAD and HTN except for statin while on daptomycin - heparin SubQ for DVT ppx - awaiting arrangement of ECF placement for IV antibiotics - Time Spent with Patient Total time spent is greater than 50% in coordination of care (as documented) at patient's floor/unit and/or counseling patient: less than 15 minutes Plan of Care Discussed with: case management Internal Medicine: Result - Labs CBC & Chem 7: 04/12/19 04:00 04/13/19 05:22 - ABG Interpretation ABG results: PT/INR, D-dimer PT 14.3 Seconds (9.4-12.1) H 04/01/19 03:57 Consult Discharge Plan - Plan Referrals: Antonietta Butler MD [Primary Care Provider] - Suzanne Chavira MD [Partnered Physician] - 05/10/19 10:15 am Prescriptions: Carvedilol [Coreg] 3.125 mg PO BIDWM #60 tablet DAPTOmycin [Daptomycin] 600 mg IV Q48H 34 Days #17 vial metroNIDAZOLE [Flagyl] 500 mg PO TID 30 Days #90 tablet hydrALAZINE [HydrALAZINE] 50 mg PO Q6H #120 tablet Oxycodone HCl/Acetaminophen [Percocet 10-325 mg Tablet] 1 each PO QID 5 Days #20 tablet (1) Sepsis Qualifiers: Sepsis type: sepsis due to unspecified organism (3) Acute on chronic kidney failure Qualifiers: Acute renal failure type: unspecified Chronic kidney disease stage: stage 3 (moderate) Qualified Code(s): N17.9 - Acute kidney failure, unspecified; N18.3 - Chronic kidney disease, stage 3 (moderate) (4) DM type 2 (diabetes mellitus, type 2) Qualifiers: Diabetes mellitus assisted insulin use: with assisted use Diabetes mellitus complication status: with kidney complications Diabetes mellitus complication detail: with chronic kidney disease Chronic kidney disease stage: stage 3 (moderate) Qualified Code(s): E11.22 - Type 2 diabetes mellitus with diabetic chronic kidney disease; N18.3 - Chronic kidney disease, stage 3 (moderate); Z79.4 - 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 transplanted heart: [place] heart Associated angina: without angina Qualified Code(s): I25.10 - Atherosclerotic heart disease of [place] coronary artery without angina pectoris (6) GERD (gastroesophageal reflux disease) Qualifiers: Esophagitis presence: esophagitis presence not specified Qualified Code(s): K21.9 - Gastro-esophageal reflux disease without esophagitis (7) Hypertension Qualifiers: Hypertension type: essential hypertension Qualified Code(s): I10 - Essential (primary) hypertension
[2019-04-14] MEDS: Sennosides/Docusate Sodium TABLET PO SCH (21:31)
[2019-04-14] MEDS: traZODone 50 MG TABLET PO SCH (21:31)
[2019-04-14 22:52] LABS: Alpha 2 Globulin (PEP) 0.96 g/dL (0.48-1.05); Beta Globulin (PEP) 0.83 g/dL (0.48-1.10)
[2019-04-15] MEDS: cloNIDine HCl 0.1 MG TABLET PO SCH ×3 (00:03→17:51)
[2019-04-15] MEDS: hydrALAZINE 25 MG TABLET PO SCH ×4 (00:03→17:51)
[2019-04-15] MEDS: Albuterol 2.5 MG/3 ML NEBULIZER IH SCH ×6 (03:59→23:57)
[2019-04-15] MEDS: *HR* Heparin 5,000 UNIT/ML VIAL SQ SCH ×2 (05:20→17:53)
[2019-04-15 05:58] LABS: Calcium 9.3 mg/dL (8.6-10.3); Potassium 5.8 mEq/L (3.5-5.1)
[2019-04-15] MEDS: Insulin LISPRO 300 UNITS/3 ML VIAL SQ SCH ×7 (07:44→21:13)
[2019-04-15 08:22] LABS: IFE Reflexed IFE Done; Immunoglobulin G 1210 mg/dL (768-1632); Immunoglobulin M 75 mg/dL (35-263)
[2019-04-15 08:23] LABS: Immunoglobulin A 305 mg/dL (68-408)
[2019-04-15] MEDS: 0.9 % Sodium Chloride 1,000 ML IVC SCH ×2 (09:39→20:42)
[2019-04-15] MEDS: Aspirin 81 MG TAB.CHEW PO SCH (09:40)
[2019-04-15] MEDS: Lactulose Oral Soln 20 GM/30 ML UDC PO SCH ×2 (09:40→20:14)
[2019-04-15] MEDS: amLODIPine 5 MG TABLET PO SCH (09:40)
[2019-04-15] MEDS: metroNIDAZOLE 500 MG TABLET PO SCH ×3 (09:40→20:14)
[2019-04-15] MEDS: Loratadine 10 MG TABLET PO SCH (09:40)
[2019-04-15] MEDS: *HR* OxyCODONE/APAP 10/325 TABLET PO SCH ×4 (09:40→20:14)
[2019-04-15] MEDS: Insulin DETEMIR 100 UNIT/ML X5UNITS SQ SCH ×2 (09:41→20:14)
--- NOTE | 2019-04-15 12:26 | Internal Med Progress Note ---
Hospitalist Progress Note - Encounter Date of Encounter: 04/15/19 Time of Encounter: 09:30 - Subjective Interval History: No acute events overnight, denies any dysuria, urinary frequency, or incomplete voiding. No fever/chills or nausea/vomiting. - Exam Vitals: Temp Pulse Resp BP Pulse Ox 98.2 F 69 16 136/58 90 04/15/19 06:49 04/15/19 06:49 04/15/19 07:28 04/15/19 07:28 04/15/19 07:28 Exam: General: In no acute distress. obese Respiratory exam: CTAB. no accessory muscle use, rales, rhonchi, wheezes Cardiovascular exam: RRR, +S1, +S2. no murmur, gallop, rubs. GI/Abdominal exam: Non-tender, Non-distended, normal bowel sounds, soft, no peritoneal signs. Extremities exam: R foot with wound VAC. Neurological exam: CN II-XII intact, AO X3, no focal deficits. - Assessment and Plan (1) Sepsis Current Visit: Yes Status: Resolved (2) Diabetic foot ulcer with osteomyelitis Current Visit: Yes Status: Acute (3) Acute on chronic kidney failure Current Visit: Yes Status: Acute (4) DM type 2 (diabetes mellitus, type 2) Current Visit: Yes Status: Chronic (5) CAD (coronary artery disease) Current Visit: Yes Status: Chronic (6) GERD (gastroesophageal reflux disease) Current Visit: No Status: Chronic (7) Hypertension Current Visit: Yes Status: Chronic (8) Chronic venous stasis Current Visit: No Status: Chronic DVT Prophylaxis: SQ hep - Summary of Assessment and Plan Summary of Assessment and Plan: Assessment Acute AoCKD stage III Sepsis secondary to diabetic foot ulcer with R calcaneal osteomyelitis - resolving Chronic HTN CKD3 DM GERD CAD Plan - S/P I&D and debridement of multiple planes right foot, application of puraply graft on 04/03/[address] Mcintyre. Has wound vac placed to right calcaneous. To be changed MWF per podiatry, appreciate input - Surgical biopsy cultures with MDR Staphylococcus simulans, Staphylococcus epidermides, and also with anaerobic GNRs (Prevotella oralisandmelaninogenica). Blood cultures 04/01/19-NGTD. On IV daptomycin, flagyl restarted by ID on 04/12. Treat through 05/15, appreciate input - LORETO on CKD. Cr increased again to 2.13 today. Will check CPK as the pt is on daptomycin. Continue to hold home lasix and ibuprofen. Will give IVF today and monitor Cr -> if continues to get worsen, would reconsult nephrology. 1 dose of kayexalate for mild hyperkalemia of 5.8 - c/w basal-bolus insulin - c/w home meds for CAD and HTN except for statin while on daptomycin - heparin SubQ for DVT ppx - awaiting arrangement of ECF placement for IV antibiotics - Time Spent with Patient Total time spent is greater than 50% in coordination of care (as documented) at patient's floor/unit and/or counseling patient: 25 - 35 minutes Plan of Care Discussed with: patient Internal Medicine: Result - Labs CBC & Chem 7: 04/12/19 04:00 04/15/19 05:20 Labs: BMP 04/15/19 05:20 Sodium 140 Potassium 5.8 H Chloride 104 Carbon Dioxide 26 BUN 61 H Creatinine 2.13 H Glucose 132 H Calcium 9.3 - ABG Interpretation ABG results: PT/INR, D-dimer PT 14.3 Seconds (9.4-12.1) H 04/01/19 03:57 Consult Discharge Plan - Plan Referrals: Antonietta Butler MD [Primary Care Provider] - Suzanne Chavira MD [Partnered Physician] - 05/10/19 10:15 am Prescriptions: Carvedilol [Coreg] 3.125 mg PO BIDWM #60 tablet DAPTOmycin [Daptomycin] 600 mg IV Q48H 34 Days #17 vial metroNIDAZOLE [Flagyl] 500 mg PO TID 30 Days #90 tablet hydrALAZINE [HydrALAZINE] 50 mg PO Q6H #120 tablet Oxycodone HCl/Acetaminophen [Percocet 10-325 mg Tablet] 1 each PO QID 5 Days #20 tablet (1) Sepsis Qualifiers: Sepsis type: sepsis due to unspecified organism (3) Acute on chronic kidney failure Qualifiers: Acute renal failure type: unspecified Chronic kidney disease stage: stage 3 (moderate) Qualified Code(s): N17.9 - Acute kidney failure, unspecified; N18.3 - Chronic kidney disease, stage 3 (moderate) (4) DM type 2 (diabetes mellitus, type 2) Qualifiers: Diabetes mellitus salvage determiner insulin use: with detention use Diabetes mellitus complication status: with kidney complications Diabetes mellitus complication detail: with chronic kidney disease Chronic kidney disease stage: stage 3 (moderate) Qualified Code(s): E11.22 - Type 2 diabetes mellitus with diabetic chronic kidney disease; N18.3 - Chronic kidney disease, stage 3 (moderate); 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 transplanted heart: [place] heart Associated angina: without angina Qualified Code(s): I25.10 - Atherosclerotic heart disease of [place] coronary artery without angina pectoris (6) GERD (gastroesophageal reflux disease) Qualifiers: Esophagitis presence: esophagitis presence not specified Qualified Code(s): K21.9 - Gastro-esophageal reflux disease without esophagitis (7) Hypertension Qualifiers: Hypertension type: essential hypertension Qualified Code(s): I10 - Essential (primary) hypertension
[2019-04-15] MEDS: DAPTOmycin 600 MG in 0.9 % Sodium Chloride 100 ML IVPB SCH (18:52)
[2019-04-15] MEDS: traZODone 50 MG TABLET PO SCH (20:14)
[2019-04-15] MEDS: Sennosides/Docusate Sodium TABLET PO SCH (20:14)
[2019-04-16] MEDS: cloNIDine HCl 0.1 MG TABLET PO SCH ×4 (00:22→23:42)
[2019-04-16] MEDS: hydrALAZINE 25 MG TABLET PO SCH ×5 (00:23→23:42)
[2019-04-16] MEDS: Albuterol 2.5 MG/3 ML NEBULIZER IH SCH ×6 (03:43→23:28)
[2019-04-16 04:51] LABS: Basophils # 0.1 K/mcL (0.0-0.2); Basophils % 0.8 %; Eosinophils # 0.6 K/mcL (0.0-0.6); Hematocrit 33.5 % (37.5-50.1); Hemoglobin 10.2 g/dL (12.9-16.9); Immature Granulocytes % 0.9 % (0-4); Lymphocytes # 2.2 K/mcL (0.6-4.6); Lymphocytes % 23.3 %; Mean Corpuscular HGB Conc 30.4 g/dL (31.6-35.5); Mean Corpuscular Hemoglobin 27.1 pg (28.0-33.3); Mean Corpuscular Volume 89.1 fL (83.0-100.0); Mean Platelet Volume 10.3 fL (9.4-12.4); Monocytes # 1.5 K/mcL (0.0-1.3); Monocytes % 15.7 %; Platelet Count 391 K/mcL (140-400); Red Blood Count 3.76 M/mcL (4.19-5.50); Red Cell Distribution Width 16.2 % (11.5-14.5); Segmented Neutrophils % 53.3 %; White Blood Count 9.3 K/mcL (4.3-11.1)
[2019-04-16 05:12] LABS: Calcium 9.1 mg/dL (8.6-10.3)
[2019-04-16] MEDS: *HR* Heparin 5,000 UNIT/ML VIAL SQ SCH ×2 (05:37→17:10)
[2019-04-16] MEDS ORDERED: 0.9 % Sodium Chloride 1,000 ML IVC SCH (08:00)
[2019-04-16] MEDS: Insulin LISPRO 300 UNITS/3 ML VIAL SQ SCH ×7 (08:19→20:39)
[2019-04-16] MEDS: Lactulose Oral Soln 20 GM/30 ML UDC PO SCH ×2 (09:54→20:35)
[2019-04-16] MEDS: Insulin DETEMIR 100 UNIT/ML X5UNITS SQ SCH ×2 (09:54→20:36)
[2019-04-16] MEDS: amLODIPine 5 MG TABLET PO SCH (09:55)
[2019-04-16] MEDS: *HR* OxyCODONE/APAP 10/325 TABLET PO SCH ×4 (09:55→20:34)
[2019-04-16] MEDS: Loratadine 10 MG TABLET PO SCH (09:55)
[2019-04-16] MEDS: metroNIDAZOLE 500 MG TABLET PO SCH ×3 (09:56→20:34)
[2019-04-16] MEDS: Aspirin 81 MG TAB.CHEW PO SCH (09:56)
--- NOTE | 2019-04-16 11:22 | Internal Med Progress Note ---
Hospitalist Progress Note - Encounter Date of Encounter: 04/16/19 Time of Encounter: 09:00 - Subjective Interval History: No acute events overnight. No fever/chills, nausea/vomiting, chest pain, shortness of breath, or wheezing. Denies any complaint to his right foot. - Exam Vitals: Temp Pulse Resp BP Pulse Ox 97.8 F 76 16 163/58 94 04/16/19 07:36 04/16/19 07:36 04/16/19 11:02 04/16/19 07:36 04/16/19 11:02 Exam: General: In no acute distress. obese Respiratory exam: CTAB. no accessory muscle use, rales, rhonchi, wheezes Cardiovascular exam: RRR, +S1, +S2. no murmur, gallop, rubs. GI/Abdominal exam: Non-tender, Non-distended, normal bowel sounds, soft, no peritoneal signs. Extremities exam: R foot dressing c/d/i Neurological exam: CN II-XII intact, AO X3, no focal deficits. - Assessment and Plan (1) Sepsis Current Visit: Yes Status: Resolved (2) Diabetic foot ulcer with osteomyelitis Current Visit: Yes Status: Acute (3) Acute on chronic kidney failure Current Visit: Yes Status: Acute (4) DM type 2 (diabetes mellitus, type 2) Current Visit: Yes Status: Chronic (5) CAD (coronary artery disease) Current Visit: Yes Status: Chronic (6) GERD (gastroesophageal reflux disease) Current Visit: No Status: Chronic (7) Hypertension Current Visit: Yes Status: Chronic (8) Chronic venous stasis Current Visit: No Status: Chronic DVT Prophylaxis: SQ hep - Summary of Assessment and Plan Summary of Assessment and Plan: Assessment Acute AoCKD stage III Sepsis secondary to diabetic foot ulcer with R calcaneal osteomyelitis - resolving Chronic HTN CKD3 DM GERD CAD Plan - S/P I&D and debridement of multiple planes right foot, application of puraply graft on 04/03/[address] Mcintyre. Has wound vac placed to right calcaneous. To be changed MWF per podiatry, appreciate input - Surgical biopsy cultures with MDR Staphylococcus simulans, Staphylococcus epidermides, and also with anaerobic GNRs (Prevotella oralisandmelaninogenica). Blood cultures 04/01/19-NGTD. On IV daptomycin. Flagyl restarted by ID on 04/12. Treat through 05/15, appreciate ID input - LORETO on CKD. Fluctuating Cr, now improving from 2.13 to 1.95 today. CPK normal. Continue to hold home lasix, ibuprofen, and will give low rate of mIVF today. Continue to monitor Cr. K normalized - c/w basal-bolus insulin but will decrease levemir to 20U BID - c/w home meds for CAD and HTN except for statin while on daptomycin - heparin SubQ for DVT ppx - awaiting arrangement of ECF placement for IV antibiotics and VAC dressing care - Time Spent with Patient Total time spent is greater than 50% in coordination of care (as documented) at patient's floor/unit and/or counseling patient: less than 15 minutes Plan of Care Discussed with: patient Internal Medicine: Result - Labs CBC & Chem 7: 04/16/19 04:00 04/16/19 04:00 Labs: Short CBC 04/16/19 Range/Units 04:00 WBC 9.3 (4.3-11.1) K/mcL Hgb 10.2 L (12.9-16.9) g/dL Hct 33.5 L (37.5-50.1) % Plt Count 391 (140-400) K/mcL Neutrophils # 5.0 (1.6-8.9) K/mcL BMP 04/16/19 04:00 Sodium 141 Potassium 5.0 Chloride 108 H Carbon Dioxide 26 BUN 59 H Creatinine 1.95 H Glucose 86 Calcium 9.1 - ABG Interpretation ABG results: PT/INR, D-dimer PT 14.3 Seconds (9.4-12.1) H 04/01/19 03:57 Consult Discharge Plan - Plan Referrals: Antonietta Butler MD [Primary Care Provider] - Suzanne Chavira MD [Partnered Physician] - 05/10/19 10:15 am Prescriptions: Carvedilol [Coreg] 3.125 mg PO BIDWM #60 tablet DAPTOmycin [Daptomycin] 600 mg IV Q48H 34 Days #17 vial metroNIDAZOLE [Flagyl] 500 mg PO TID 30 Days #90 tablet hydrALAZINE [HydrALAZINE] 50 mg PO Q6H #120 tablet Oxycodone HCl/Acetaminophen [Percocet 10-325 mg Tablet] 1 each PO QID 5 Days #20 tablet (1) Sepsis Qualifiers: Sepsis type: sepsis due to unspecified organism (3) Acute on chronic kidney failure Qualifiers: Acute renal failure type: unspecified Chronic kidney disease stage: stage 3 (moderate) Qualified Code(s): N17.9 - Acute kidney failure, unspecified; N18.3 - Chronic kidney disease, stage 3 (moderate) (4) DM type 2 (diabetes mellitus, type 2) Qualifiers: Diabetes mellitus intermediate project manager insulin use: with fci use Diabetes mellitus complication status: with kidney complications Diabetes mellitus complication detail: with chronic kidney disease Chronic kidney disease stage: stage 3 (moderate) Qualified Code(s): E11.22 - Type 2 diabetes mellitus with diabetic chronic kidney disease; N18.3 - Chronic kidney disease, stage 3 (moderate); Z79.4 - penitentiary (current) use of insulin (5) CAD (coronary artery disease) Qualifiers: Coronary Disease-Associated Artery/Lesion type: [place] artery [place] vs. transplanted heart: [place] heart Associated angina: without angina Qualified Code(s): I25.10 - Atherosclerotic heart disease of [place] coronary artery without angina pectoris (6) GERD (gastroesophageal reflux disease) Qualifiers: Esophagitis presence: esophagitis presence not specified Qualified Code(s): K21.9 - Gastro-esophageal reflux disease without esophagitis (7) Hypertension Qualifiers: Hypertension type: essential hypertension Qualified Code(s): I10 - Essential (primary) hypertension
[2019-04-16] MEDS: Sennosides/Docusate Sodium TABLET PO SCH (20:34)
[2019-04-16] MEDS: traZODone 50 MG TABLET PO SCH (20:34)
[2019-04-17] MEDS: Albuterol 2.5 MG/3 ML NEBULIZER IH SCH ×5 (04:00→20:28)
[2019-04-17] MEDS: *HR* Heparin 5,000 UNIT/ML VIAL SQ SCH ×2 (05:45→17:25)
[2019-04-17] MEDS: hydrALAZINE 25 MG TABLET PO SCH ×3 (05:45→17:26)
[2019-04-17 06:47] LABS: Calcium 9.4 mg/dL (8.6-10.3); Potassium 5.7 mEq/L (3.5-5.1)
[2019-04-17] MEDS: Lactulose Oral Soln 20 GM/30 ML UDC PO SCH ×2 (08:29→22:25)
[2019-04-17] MEDS: cloNIDine HCl 0.1 MG TABLET PO SCH ×2 (08:30→15:34)
[2019-04-17] MEDS: Insulin LISPRO 300 UNITS/3 ML VIAL SQ SCH ×7 (08:32→22:13)
[2019-04-17] MEDS: Loratadine 10 MG TABLET PO SCH (08:32)
[2019-04-17] MEDS: Aspirin 81 MG TAB.CHEW PO SCH (08:32)
[2019-04-17] MEDS: Insulin DETEMIR 100 UNIT/ML X5UNITS SQ SCH ×2 (08:33→22:26)
[2019-04-17] MEDS: metroNIDAZOLE 500 MG TABLET PO SCH ×3 (08:33→22:25)
[2019-04-17] MEDS: *HR* OxyCODONE/APAP 10/325 TABLET PO SCH ×4 (08:34→22:24)
[2019-04-17] MEDS: amLODIPine 5 MG TABLET PO SCH (08:34)
--- NOTE | 2019-04-17 10:32 | Infectious Disease Progress No ---
ID Progress Note Date of Encounter: 04/17/19 Time of Encounter: 10:29 - Subjective Subjective: Patient seen and examined. No acute events noted overnight. Patient states he feels better today. Denies fevers, chills, or rigors. Denies chest pain, shortness of breath. STates he has a cough when he gets his breathing treatments. Denies nausea, vomiting, or diarrhea. Reports he is having BMs regularly. Denies abdominal pain or urinary complaints. Denies oral thrush or skin rashes. States his appetite is good. Reports some mild stinging pain at the surgical site and complains of back pain when he lies in bed for a long time. - Objective CBC & Chem 7: 04/16/19 04:00 04/17/19 06:07 - Exam Vitals: Temp Pulse Resp BP Pulse Ox 97.9 F 64 16 161/56 96 04/17/19 07:03 04/17/19 07:03 04/17/19 07:26 04/17/19 07:03 04/17/19 07:26 Exam: Head: Atraumatic, normal inspection, normocephalic. Eye: EOMI, PERRLA, no scleral icterus noted. ENT: Mucous membranes moist. No odontogenic infection noted. Neck: Normal inspection, no meningismus. Respiratory: Fine expiratory wheezes throughout. No rales, respiratory distress, rhonchi, noted. Cardiovascular: Regular rate and rhythm, S1 and S2 audible. No murmurs, rubs, or gallops. GI: Soft, obese, normal bowel sounds. Nontender Extremities:No joint swelling or tenderness noted. 1+ edema noted to the BLE. BLE compression dressing C/D/I. Neurological: Alert, oriented 3, no focal deficits. Psychiatric: normal affect, normal mood. Skin: Dry, intact, warm. Normal color. No rashes. - Assessment and Plan (1) Sepsis Current Visit: Yes Status: Resolved The patient had 2 sepsis criteria on admission plus acute kidney injury. Likely secondary to right foot osteomyelitis. Improved. WBC normal. Tachycardia resolved. Blood cultures drawn 03/31/19 at [facility] are negative 2 sets. Repeat blood cultures drawn 04/01/19 are negative 2 sets. Qualifiers: Sepsis type: sepsis due to unspecified organism Sepsis acute organ dysfunction status: without acute organ dysfunction Qualified Code(s): A41.9 - Sepsis, unspecified organism SNOMED Code(s): 28660514 (2) Osteomyelitis Current Visit: No Status: Acute Location: Right calcaneus. Likely secondary to diabetic foot ulcer. Causative organism: S. epi and S. simulans (wound and soft tissue cultures). Anerobic cultures positive. No bone cultures sent. MRI showed findings consistent with early osteomyelitis of the calcaneus. ESR 127, CRP 173. Podiatry consult. Status post I & D right foot multiple planes 04/04/[address] Mcintyre. Operative note reviewed. Soft tissue and wound cultures as above. Pathology positive for gangrenous necrosis. Currently on Dapto and flagyl. Qualifiers: Osteomyelitis location: foot Laterality: right SNOMED Code(s): 88909518 (3) Cellulitis Current Visit: Yes Status: Acute Location: Right lower extremity. Likely secondary to diabetic foot ulcer. Causative organism: S. simulans and S. epi and anaerobes. Podiatry consult and following. Currently on Dapto and flagyl. Qualifiers: Site of cellulitis: extremity Site of cellulitis of extremity: lower ex tremity Laterality: right Qualified Code(s): L03.115 - Cellulitis of right lower limb SNOMED Code(s): 007050508 (4) Acute kidney injury Current Visit: Yes Status: Acute Likely secondary to sepsis and nephrotoxic medication. Improved. Vanc discontinued. Nephrology consulted and following. RP UTS negative. Dose adjust antibiotics and avoid nephrotoxins as able. SNOMED Code(s): 14519074, 10766651 (5) Diabetic foot ulcer Current Visit: Yes Status: Chronic Location: Right heel. Etiology: Unclear. Podiatry consult and following. Qualifiers: Diabetic foot ulcer location: heel Diabetes mellitus type: type 2 Laterality: right Non-pressure ulcer stage: with fat layer exposed Qualified Code(s): E11.621 - Type 2 diabetes mellitus with foot ulcer; L97.412 - Non- pressure chronic ulcer of right heel and midfoot with fat layer exposed SNOMED Code(s): 394219756 (6) CKD (chronic kidney disease) stage 3, GFR 30-59 ml/min Current Visit: Yes Status: Chronic SNOMED Code(s): 499829772 (7) DM type 2 (diabetes mellitus, type 2) Current Visit: Yes Status: Chronic Recommend aggressive glucose monitoring and control to promote wound healing and prevent reinfection. Management per the primary team. Qualifiers: Diabetes mellitus skilled nursing insulin use: with intermediate manager use Diabetes mellitus complication status: with kidney complications Diabetes mellitus complication detail: with chronic kidney disease Chronic kidney disease stage: stage 3 (moderate) Qualified Code(s): E11.22 - Type 2 diabetes mellitus with diabetic chronic kidney disease; N18.3 - Chronic kidney disease, stage 3 (m oderate); Z79.4 - exterminator helper (current) use of insulin SNOMED Code(s): 86024625 (8) CAD (coronary artery disease) Current Visit: Yes Status: Chronic Qualifiers: Coronary Disease-Associated Artery/Lesion type: [place] artery [place] vs. transplanted heart: [place] heart Associated angina: without angina Qualified Code(s): I25.10 - Atherosclerotic heart disease of [place] coronary artery withou t angina pectoris SNOMED Code(s): 35062633 (9) Venous stasis dermatitis of both lower extremities Current Visit: No Status: Chronic SNOMED Code(s): 51330132 (10) GERD (gastroesophageal reflux disease) Current Visit: No Status: Chronic Qualifiers: Esophagitis presence: esophagitis presence not specified Qualified Code(s): K21.9 - Gastro-esophageal reflux disease without esophagitis SNOMED Code(s): 913583485 (11) Hypertension Current Visit: Yes Status: Chronic Qualifiers: Hypertension type: essential hypertension Qualified Code(s): I10 - Essential (primary) hypertension SNOMED Code(s): 57483892 (12) Constipation Current Visit: Yes Status: Resolved Improved. Bowel regimen per the primary team. Qualifiers: Constipation type: unspecified constipation type Qualified Code(s): K59.00 - Constipation, unspecified SNOMED Code(s): 39475387 (13) Hyperkalemia Current Visit: Yes Status: Resolved Resolved. Management per the primary team. SNOMED Code(s): 39867694 - Recommendations Recommendations: Wound care per the podiatry team. Continue Daptomycin 6mg/kg IV Q48H (CrCl ~29). Repeat CK 35. Hold atorvastatin while on Daptomycin. Continue flagyl 500mg PO TID. Duration of treatment depends on the clinical picture, but will likely need 6 weeks of IV Antibiotics. Treat through at least 05/15/19. Monitor renal function and for drug toxicity and dose adjust antibiotics. director of social services to assist with discharge planning. Consult VAT for PICC line placement prior to discharge. Will need weekly CBC, BUN/Cr, ESR, CRP, CK. Will need weekly IV care per protocol. Follow up with ID 05/10/19 at 1015. Consult Discharge Plan - Plan Referrals: Antonietta Butler MD [Primary Care Provider] - Suzanne Chavira MD [Partnered Physician] - 05/10/19 10:15 am Prescriptions: Carvedilol [Coreg] 3.125 mg PO BIDWM #60 tablet DAPTOmycin [Daptomycin] 600 mg IV Q48H 34 Days #17 vial metroNIDAZOLE [Flagyl] 500 mg PO TID 30 Days #90 tablet hydrALAZINE [HydrALAZINE] 50 mg PO Q6H #120 tablet Oxycodone HCl/Acetaminophen [Percocet 10-325 mg Tablet] 1 each PO QID 5 Days #20 tablet
--- NOTE | 2019-04-17 11:33 | Internal Med Progress Note ---
Hospitalist Progress Note - Encounter Date of Encounter: 04/17/19 Time of Encounter: 09:30 - Subjective Interval History: No acute events overnight. No fever/chills, nausea/vomiting, chest pain, shortness of breath, wheezing, abdominal pain, or R foot pain - Exam Vitals: Temp Pulse Resp BP Pulse Ox 97.9 F 64 16 161/56 96 04/17/19 07:03 04/17/19 07:03 04/17/19 07:26 04/17/19 07:03 04/17/19 07:26 Exam: General: In no acute distress. obese Respiratory exam: CTAB. no accessory muscle use, rales, rhonchi, wheezes Cardiovascular exam: RRR, +S1, +S2. no murmur, gallop, rubs. GI/Abdominal exam: Non-tender, Non-distended, normal bowel sounds, soft, no peritoneal signs. Extremities exam: R foot dressing c/d/i Neurological exam: CN II-XII intact, AO X3, no focal deficits. - Assessment and Plan (1) Sepsis Current Visit: Yes Status: Resolved (2) Diabetic foot ulcer with osteomyelitis Current Visit: Yes Status: Acute (3) Acute on chronic kidney failure Current Visit: Yes Status: Acute (4) DM type 2 (diabetes mellitus, type 2) Current Visit: Yes Status: Chronic (5) CAD (coronary artery disease) Current Visit: Yes Status: Chronic (6) GERD (gastroesophageal reflux disease) Current Visit: No Status: Chronic (7) Hypertension Current Visit: Yes Status: Chronic (8) Chronic venous stasis Current Visit: No Status: Chronic DVT Prophylaxis: SQ hep - Summary of Assessment and Plan Summary of Assessment and Plan: Acute AoCKD stage III - resolving Sepsis secondary to diabetic foot ulcer with R calcaneal osteomyelitis - resolving Chronic HTN CKD3 DM GERD CAD Plan - S/P I&D and debridement of multiple planes right foot, application of puraply graft on 04/03/[address] Mcintyre. Has wound vac placed to right calcaneous. To be changed MWF per podiatry, appreciate input - Surgical biopsy cultures with MDR Staphylococcus simulans, Staphylococcus epidermides, and also with anaerobic GNRs (Prevotella oralisandmelaninogenica). Blood cultures 04/01/19-NGTD. On IV daptomycin. Flagyl restarted by ID on 04/12. Treat through 05/15, appreciate ID input - LORETO on CKD. Fluctuating Cr, improving from 2.13 - 1.95 - 1.86. Repeat CPK. Continue to hold home lasix, ibuprofen, and decrease the rate of mIVF today. Continue to monitor Cr and potassium - c/w basal-bolus insulin - c/w home meds for CAD and HTN except for statin while on daptomycin - heparin SubQ for DVT ppx - awaiting arrangement of ECF placement for IV antibiotics and VAC dressing care - Time Spent with Patient Total time spent is greater than 50% in coordination of care (as documented) at patient's floor/unit and/or counseling patient: less than 15 minutes Plan of Care Discussed with: social work Internal Medicine: Result - Labs CBC & Chem 7: 04/16/19 04:00 04/17/19 06:07 Labs: BMP 04/17/19 06:07 Sodium 142 Potassium 5.7 H Chloride 107 Carbon Dioxide 24 BUN 56 H Creatinine 1.86 H Glucose 129 H Calcium 9.4 - ABG Interpretation ABG results: PT/INR, D-dimer PT 14.3 Seconds (9.4-12.1) H 04/01/19 03:57 Consult Discharge Plan - Plan Referrals: Antonietta Butler MD [Primary Care Provider] - Suzanne Chavira MD [Partnered Physician] - 05/10/19 10:15 am Prescriptions: Carvedilol [Coreg] 3.125 mg PO BIDWM #60 tablet DAPTOmycin [Daptomycin] 600 mg IV Q48H 34 Days #17 vial metroNIDAZOLE [Flagyl] 500 mg PO TID 30 Days #90 tablet hydrALAZINE [HydrALAZINE] 50 mg PO Q6H #120 tablet Oxycodone HCl/Acetaminophen [Percocet 10-325 mg Tablet] 1 each PO QID 5 Days #20 tablet (1) Sepsis Qualifiers: Sepsis type: sepsis due to unspecified organism Sepsis acute organ dysfunction status: without acute organ dysfunction Qualified Code(s): A41.9 - Sepsis, unspecified organism (3) Acute on chronic kidney failure Qualifiers: Acute renal failure type: unspecified Chronic kidney disease stage: stage 3 (moderate) Qualified Code(s): N17.9 - Acute kidney failure, unspecified; N18.3 - Chronic kidney disease, stage 3 (moderate) (4) DM type 2 (diabetes mellitus, type 2) Qualifiers: Diabetes mellitus alf insulin use: with alf use Diabetes mellitus complication status: with kidney complications Diabetes mellitus complication detail: with chronic kidney disease Chronic kidney disease stage: stage 3 (moderate) Qualified Code(s): E11.22 - Type 2 diabetes mellitus with diabetic chronic kidney disease; N18.3 - Chronic kidney disease, stage 3 (moderate); Z79.4 - shelter (current) use of insulin (5) CAD (coronary artery disease) Qualifiers: Coronary Disease-Associated Artery/Lesion type: [place] artery [place] vs. transplanted heart: [place] heart Associated angina: without angina Qualified Code(s): I25.10 - Atherosclerotic heart disease of [place] coronary artery without angina pectoris (6) GERD (gastroesophageal reflux disease) Qualifiers: Esophagitis presence: esophagitis presence not specified Qualified Code(s): K21.9 - Gastro-esophageal reflux disease without esophagitis (7) Hypertension Qualifiers: Hypertension type: essential hypertension Qualified Code(s): I10 - Essential (primary) hypertension
[2019-04-17] MEDS: 0.9 % Sodium Chloride 1,000 ML IVC SCH (12:04)
--- NOTE | 2019-04-17 15:07 | Podiatry Progress Note ---
Date of Encounter: 04/17/19 Time of Encounter: 14:55 - Assessment and Plan (1) Diabetic foot ulcer with osteomyelitis Current Visit: Yes Status: Acute Assessment: S/P Incision and drainage and debridement of multiple planes right foot, application of puraply graft on 04/03/[address] Mcintyre Bilateral lower extremity dressings saturated Maceration noted to BLE Guardado grade III ulcer to right calcaneous, slough noted to wound bed WBC 9.3, afebrile Intra-op cultures returned staph epidermis, staph simulans Wound cultures returned staph epidermis, staph simulans Anaerobic cultures returned prevotella oralis, prevotella melaninogenica Path returned gangrenous necrosis ESR 127, CRP 173 3 plus pitting edema noted BLE, weeping Clear fluid filled bullae noted to left posterior calcaneous Plan: Awaiting placement to ECF Dressing changed, see below Heel medix boots to BLE, nursing to place Patient to keep BLE elevated at all times when in bed and when in chair Will likely need 6 weeks IV ATB- ID following Follow up in wound care clinc 1 week sp discharge Cleansed BLE with hibiclens. Covered RLE with calcium alginate x 4, 4x4 dry gauze, ABD pads. Covered right calcenous ulcer with adaptic. Painted all maceration to right foot with betadine x 3. Covered right lower extremity with kerlix x 2 and LYNDSAY wraps x 2 Covered LLE with 4x4 dry gauze, ABD pads. Painted left posterior calaneous with betadine. Covered with kerlix x 2 and LYNDSAY wraps x 2 (2) Venous stasis dermatitis of both lower extremities Current Visit: Yes Status: Chronic Subjective Principal diagnosis: Necrotic ulcer Interval history: Patient awake in bed. Alert and oriented. Denies any calf pain, chest pain, or shortness of breath. Denies any fevers, chills, nausea, vomiting, or diarrhea. States has been up in the chair all day. No other questions or concerns at this time. Objective - Vital Signs Vital Signs: Vital Signs Temp Pulse Resp BP Pulse Ox 04/17/19 11:58 98.0 F 63 16 160/54 94 04/17/19 07:26 16 96 04/17/19 07:03 97.9 F 64 16 161/56 94 04/17/19 04:01 18 94 04/17/19 00:52 97.9 F 62 16 150/58 96 04/16/19 23:29 17 98 04/16/19 20:39 97.9 F 65 16 163/55 98 04/16/19 20:17 17 91 04/16/19 16:34 97.9 F 70 16 144/66 98 04/16/19 15:53 16 94 Intake and Output 04/16/19 04/17/19 04/17/19 23:59 07:59 15:59 Intake Total 0 / 120 1000 / 1480 480 / 1480 Output Total 300 / 450 0 / 470 470 / 470 Balance -300 / -330 1000 / 1010 10 / 1010 Intake: IV Fluids 1000 / 1000 0.9 % Sodium Chloride 1,000 ML 1000 / 1000 @ 60 mls/hr IVC .[id number] [facility] Rx #:[id number] Oral 0 / 120 0 / 480 480 / 480 Output: Urine 300 / 450 0 / 470 470 / 470 Other: Meal Breakfast Percent of Meal Consumed 100% Stool Size Moderate Stool Consistency soft Stool Characteristics Normal for Patient # Bowel Movement Diapers 1 Blood Glucose* 91 121 - Exam Exam: Constitiutional: Alert and oriented x 3. Well nourished. No acute distress noted Vascular: 1/4 DP/PT bilaterally, CFT <3 sec to all digits, warm to warm from tibia to toes bilaterally, no calf pain with squeeze BLE, multiple digit amputations noted, 3/4 pitting edema noted BLE, weeping Neurologic: Diminished sensation to touch, normal plantar response Dermatologic: Guardado stage III ulceration right calcaneous, maceration noted to surrounding tissue, slough noted to wound bed, xerosis noted to LLE, discoloration noted to BLE, bullae noted to LLE with clear fluid Musculoskeletal: 3/5 muscle strength and normal tone bilaterally. - Lab Result Diagrams: 04/16/19 04:00 04/17/19 06:07 Labs: Abnormal lab results WBC 11.5 K/mcL (4.3-11.1) H 04/10/19 06:21 RBC 3.76 M/mcL (4.19-5.50) L 04/16/19 04:00 Hgb 10.2 g/dL (12.9-16.9) L 04/16/19 04:00 Hct 33.5 % (37.5-50.1) L 04/16/19 04:00 MCH 27.1 pg (28.0-33.3) L 04/16/19 04:00 MCHC 30.4 g/dL (31.6-35.5) L 04/16/19 04:00 RDW 16.2 % (11.5-14.5) H 04/16/19 04:00 Plt Count 408 K/mcL (140-400) H 04/12/19 04:00 MPV 9.3 fL (9.4-12.4) L 04/08/19 04:09 Immature Gran % 4.1 % (0-4) H 04/11/19 07:09 Band Neutrophils % 6.0 % (0-4) H 04/08/19 04:09 Myelocytes % 4.0 % (0) H 04/09/19 01:06 Neutrophils # 9.0 K/mcL (1.6-8.9) H 04/08/19 04:09 Monocytes # 1.5 K/mcL (0.0-1.3) H 04/16/19 04:00 Eosinophils # 1.5 K/mcL (0.0-0.6) H 04/09/19 01:06 Nucleated RBCs/100 WBC 0.2 /100 WBC (0) H 04/07/19 03:29 Smudge Cells Present (Not Present) A 04/09/19 01:06 Clumped Platelets Few (Not Present) A 03/31/19 22:50 ESR 127 mm/hr (0-10) H 03/31/19 22:50 PT 14.3 Seconds (9.4-12.1) H 04/01/19 03:57 Potassium 5.7 mEq/L (3.5-5.1) H 04/17/19 06:07 Chloride 108 mEq/L (98-107) H 04/16/19 04:00 Carbon Dioxide 30 mEq/L (23-29) H 04/05/19 05:51 BUN 56 mg/dL (8-23) H 04/17/19 06:07 Creatinine 1.86 mg/dL (0.70-1.30) H 04/17/19 06:07 Est GFR ( Amer) 43 (> 60) L 04/17/19 06:07 Est GFR (Non-Af Amer) 36 (> 60) L 04/17/19 06:07 BUN/Creatinine Ratio 30 (6-26) H 04/17/19 06:07 Glucose 129 mg/dL (70-105) H 04/17/19 06:07 POC Glucose 162 mg/dL (70-99) H 04/16/19 11:46 Hemoglobin A1c 7.3 % (-5.6) H 03/31/19 22:50 Calculated Osmolality 311 (280-300) H 04/17/19 06:07 Phosphorus 4.8 mg/dL (2.7-4.5) H 04/11/19 00:58 C-Reactive Protein 173 mg/L (Less than 10) H 03/31/19 22:50 Albumin 3.2 g/dL (3.5-5.7) L 04/10/19 06:21 Albumin (PEP) 3.04 g/dL (3.75-5.01) L 04/12/19 04:00 Albumin/Globulin Ratio 0.9 (1.1-2.2) L 04/10/19 06:21 25-OH Vitamin D Total 21 ng/mL (30-80) L 04/12/19 04:00 PTH Intact 105.2 pg/ml (10.0-65.0) H 04/12/19 04:00 Urine Clarity Cloudy (Clear) A 04/10/19 17:00 Urine Protein 100 mg/dL (Neg-Trace) H 04/10/19 17:00 Urine Glucose (UA) 250 mg/dL (Normal) H 04/10/19 17:00 Urine Blood Small (Negative) H 04/10/19 17:00 Ur Leukocyte Esterase Small (Negative) H 04/10/19 17:00 Urine Microscopic RBC 5-15 per hpf (0-3) H 04/10/19 17:00 Urine Microscopic WBC 30-50 per hpf (0-3) H 04/10/19 17:00 Ur Squamous Epith Cells Many per lpf (None-Few) H 04/10/19 17:00 Urine Yeast Few per hpf (None Seen) H 04/10/19 17:00 Microalb/Creat Ratio 602 mcg/mg (Less than 30) H 04/11/19 16:55 Protein/Creatinin Ratio 1.66 mg/mg (0.00-0.20) H 04/13/19 08:40 Urine Total Protein 108 mg/dL (1-14) H 04/13/19 08:40 U Free [place] Ch 50.80 mg/dL (0.14-2.42) H 04/12/19 00:00 U Free [place] Ch 5.25 mg/dL (0.02-0.67) H 04/12/19 00:00 Vancomycin Trough 20 mcg/mL (5-10) H 04/03/19 19:24 Consult Discharge Plan - Plan Referrals: Antonietta Butler MD [Primary Care Provider] - Suzanne Chavira MD [Partnered Physician] - 05/10/19 10:15 am Prescriptions: Carvedilol [Coreg] 3.125 mg PO BIDWM #60 tablet DAPTOmycin [Daptomycin] 600 mg IV Q48H 34 Days #17 vial metroNIDAZOLE [Flagyl] 500 mg PO TID 30 Days #90 tablet hydrALAZINE [HydrALAZINE] 50 mg PO Q6H #120 tablet Oxycodone HCl/Acetaminophen [Percocet 10-325 mg Tablet] 1 each PO QID 5 Days #20 tablet
[2019-04-17] MEDS: DAPTOmycin 600 MG in 0.9 % Sodium Chloride 100 ML IVPB SCH (15:34)
[2019-04-17] MEDS: Sennosides/Docusate Sodium TABLET PO SCH (22:25)
[2019-04-17] MEDS: traZODone 50 MG TABLET PO SCH (22:25)
[2019-04-18] MEDS: hydrALAZINE 25 MG TABLET PO SCH ×4 (00:06→17:34)
[2019-04-18] MEDS: cloNIDine HCl 0.1 MG TABLET PO SCH ×3 (00:06→16:41)
[2019-04-18] MEDS: Albuterol 2.5 MG/3 ML NEBULIZER IH SCH ×6 (00:44→20:21)
[2019-04-18] MEDS ORDERED: *HR* OxyCODONE Immed Rel 5 MG TABLET PO ONE (02:40)
[2019-04-18] MEDS: *HR* Heparin 5,000 UNIT/ML VIAL SQ SCH ×2 (05:08→17:35)
[2019-04-18 05:23] LABS: Potassium 5.6 mEq/L (3.5-5.1)
[2019-04-18] MEDS: 0.9 % Sodium Chloride 1,000 ML IVC SCH (07:30)
[2019-04-18] MEDS: Lactulose Oral Soln 20 GM/30 ML UDC PO SCH ×2 (07:55→21:19)
[2019-04-18] MEDS: Aspirin 81 MG TAB.CHEW PO SCH (07:57)
[2019-04-18] MEDS: Loratadine 10 MG TABLET PO SCH (07:57)
[2019-04-18] MEDS: metroNIDAZOLE 500 MG TABLET PO SCH ×3 (07:58→21:19)
[2019-04-18] MEDS: Insulin DETEMIR 100 UNIT/ML X5UNITS SQ SCH ×2 (07:59→21:21)
[2019-04-18] MEDS: amLODIPine 5 MG TABLET PO SCH (08:00)
[2019-04-18] MEDS: *HR* OxyCODONE/APAP 10/325 TABLET PO SCH ×4 (08:00→21:18)
[2019-04-18] MEDS: Insulin LISPRO 300 UNITS/3 ML VIAL SQ SCH ×4 (08:47→21:36)
--- NOTE | 2019-04-18 09:56 | Podiatry Progress Note ---
Date of Encounter: 04/18/19 Time of Encounter: 09:54 - Assessment and Plan (1) Diabetic foot ulcer with osteomyelitis Current Visit: Yes Status: Acute Assessment: S/P Incision and drainage and debridement of multiple planes right foot, application of puraply graft on 04/03/[address] Mcintyre Bilateral lower extremity dressings with drainage Maceration improved from previous assessment, minimal maceration noted to posterior right lower extremity Guardado grade III ulcer to right calcaneous, slough noted to wound bed WBC 9.3, no labs today, afebrile Intra-op cultures returned staph epidermis, staph simulans Wound cultures returned staph epidermis, staph simulans Anaerobic cultures returned prevotella oralis, prevotella melaninogenica Path returned gangrenous necrosis ESR 127, CRP 173 2/4 edema noted BLE Clear fluid filled bullae noted to left posterior calcaneous Plan: Awaiting placement to ECF Dressing removed, santyl ordered for right calcaneous, nursing to change dressing Local wound care orders placed, nursing to change Heel medix boots to BLE Patient to keep BLE elevated at all times when in bed and when in chair Will likely need 6 weeks IV ATB- ID following Follow up in wound care clinc 1 week sp discharge, please make appointment prior to d/c (2) Venous stasis dermatitis of both lower extremities Current Visit: Yes Status: Chronic Subjective Principal diagnosis: Necrotic ulcer Interval history: Patient awake in bed. Alert and oriented. Denies any calf pain, chest pain, or shortness of breath. Denies any fevers, chills, nausea, vomiting, or diarrhea. States legs burned all night last night. States does not want iodine placed to feet. States he can not lay in bed because it causes him to feel sick. No other questions or concerns at this time. Objective - Vital Signs Vital Signs: Vital Signs Temp Pulse Resp BP Pulse Ox 04/18/19 07:24 18 93 04/18/19 06:31 98.2 F 79 15 161/68 93 04/18/19 04:22 18 92 04/18/19 03:11 98.3 F 71 16 159/62 92 04/18/19 00:45 18 94 04/17/19 20:28 18 94 04/17/19 19:13 98.4 F 79 16 144/53 93 04/17/19 16:15 16 96 04/17/19 15:08 98.4 F 70 16 149/56 94 04/17/19 11:58 98.0 F 63 16 160/54 94 04/17/19 11:33 16 96 Intake and Output 04/17/19 04/18/19 04/18/19 23:59 07:59 15:59 Intake Total 360 / 1840 200 / 1000 800 / 1000 Output Total 400 / 870 400 / 400 Balance -40 / 970 -200 / 600 800 / 600 Intake: IV Fluids 300 / 1300 800 / 800 0.9 % Sodium Chloride 1,000 ML 200 / 200 800 / 800 @ 50 mls/hr IVC .Q20H [facility] Rx#: [id number] Cubicin 600 MG In 0.9 % Sodium 100 / 100 Chloride 100 ML @ 200 mls/hr IVPB Q48H [facility] Rx#:[id number] Oral 60 / 540 200 / 200 0 / 200 Output: Urine 400 / 870 400 / 400 Other: Meal Breakfast Percent of Meal Consumed 0% Weight 101.6 kg Blood Glucose* 87 150 Patient Weight 04/18/19 23:59 Weight 101.6 kg - Exam Exam: Constitiutional: Alert and oriented x 3. Well nourished. No acute distress noted Vascular: 1/4 DP/PT bilaterally, CFT <3 sec to all digits, warm to warm from tibia to toes bilaterally, no calf pain with squeeze BLE, multiple digit amputations noted, 2/4 edema noted BLE Neurologic: Diminished sensation to touch, normal plantar response Dermatologic: Guardado stage III ulceration right calcaneous, slough noted to wound bed, maceration noted posterior lower extremity, xerosis noted to LLE, discoloration noted to BLE, bullae noted to LLE with clear fluid Musculoskeletal: 3/5 muscle strength and normal tone bilaterally. - Lab Result Diagrams: 04/18/19 16:15 04/18/19 04:00 Labs: Abnormal lab results WBC 11.5 K/mcL (4.3-11.1) H 04/10/19 06:21 RBC 3.76 M/mcL (4.19-5.50) L 04/16/19 04:00 Hgb 10.2 g/dL (12.9-16.9) L 04/16/19 04:00 Hct 33.5 % (37.5-50.1) L 04/16/19 04:00 MCH 27.1 pg (28.0-33.3) L 04/16/19 04:00 MCHC 30.4 g/dL (31.6-35.5) L 04/16/19 04:00 RDW 16.2 % (11.5-14.5) H 04/16/19 04:00 Plt Count 408 K/mcL (140-400) H 04/12/19 04:00 MPV 9.3 fL (9.4-12.4) L 04/08/19 04:09 Immature Gran % 4.1 % (0-4) H 04/11/19 07:09 Band Neutrophils % 6.0 % (0-4) H 04/08/19 04:09 Myelocytes % 4.0 % (0) H 04/09/19 01:06 Neutrophils # 9.0 K/mcL (1.6-8.9) H 04/08/19 04:09 Monocytes # 1.5 K/mcL (0.0-1.3) H 04/16/19 04:00 Eosinophils # 1.5 K/mcL (0.0-0.6) H 04/09/19 01:06 Nucleated RBCs/100 WBC 0.2 /100 WBC (0) H 04/07/19 03:29 Smudge Cells Present (Not Present) A 04/09/19 01:06 Clumped Platelets Few (Not Present) A 03/31/19 22:50 ESR 127 mm/hr (0-10) H 03/31/19 22:50 PT 14.3 Seconds (9.4-12.1) H 04/01/19 03:57 Potassium 5.6 mEq/L (3.5-5.1) H 04/18/19 04:00 Chloride 112 mEq/L (98-107) H 04/18/19 04:00 Carbon Dioxide 30 mEq/L (23-29) H 04/05/19 05:51 BUN 54 mg/dL (8-23) H 04/18/19 04:00 Creatinine 1.74 mg/dL (0.70-1.30) H 04/18/19 04:00 Est GFR ( Amer) 47 (> 60) L 04/18/19 04:00 Est GFR (Non-Af Amer) 38 (> 60) L 04/18/19 04:00 BUN/Creatinine Ratio 31 (6-26) H 04/18/19 04:00 Glucose 134 mg/dL (70-105) H 04/18/19 04:00 POC Glucose 162 mg/dL (70-99) H 04/16/19 11:46 Hemoglobin A1c 7.3 % (-5.6) H 03/31/19 22:50 Calculated Osmolality 309 (280-300) H 04/18/19 04:00 Phosphorus 4.8 mg/dL (2.7-4.5) H 04/11/19 00:58 C-Reactive Protein 173 mg/L (Less than 10) H 03/31/19 22:50 Albumin 3.2 g/dL (3.5-5.7) L 04/10/19 06:21 Albumin (PEP) 3.04 g/dL (3.75-5.01) L 04/12/19 04:00 Albumin/Globulin Ratio 0.9 (1.1-2.2) L 04/10/19 06:21 25-OH Vitamin D Total 21 ng/mL (30-80) L 04/12/19 04:00 PTH Intact 105.2 pg/ml (10.0-65.0) H 04/12/19 04:00 Urine Clarity Cloudy (Clear) A 04/10/19 17:00 Urine Protein 100 mg/dL (Neg-Trace) H 04/10/19 17:00 Urine Glucose (UA) 250 mg/dL (Normal) H 04/10/19 17:00 Urine Blood Small (Negative) H 04/10/19 17:00 Ur Leukocyte Esterase Small (Negative) H 04/10/19 17:00 Urine Microscopic RBC 5-15 per hpf (0-3) H 04/10/19 17:00 Urine Microscopic WBC 30-50 per hpf (0-3) H 04/10/19 17:00 Ur Squamous Epith Cells Many per lpf (None-Few) H 04/10/19 17:00 Urine Yeast Few per hpf (None Seen) H 04/10/19 17:00 Microalb/Creat Ratio 602 mcg/mg (Less than 30) H 04/11/19 16:55 Protein/Creatinin Ratio 1.66 mg/mg (0.00-0.20) H 04/13/19 08:40 Urine Total Protein 108 mg/dL (1-14) H 04/13/19 08:40 U Free [place] Ch 50.80 mg/dL (0.14-2.42) H 04/12/19 00:00 U Free [place] Ch 5.25 mg/dL (0.02-0.67) H 04/12/19 00:00 Vancomycin Trough 20 mcg/mL (5-10) H 04/03/19 19:24 Consult Discharge Plan - Plan Referrals: Antonietta Butler MD [Primary Care Provider] - Suzanne Chavira MD [Partnered Physician] - 05/10/19 10:15 am Prescriptions: Carvedilol [Coreg] 3.125 mg PO BIDWM #60 tablet DAPTOmycin [Daptomycin] 600 mg IV Q48H 34 Days #17 vial metroNIDAZOLE [Flagyl] 500 mg PO TID 30 Days #90 tablet hydrALAZINE [HydrALAZINE] 50 mg PO Q6H #120 tablet Oxycodone HCl/Acetaminophen [Percocet 10-325 mg Tablet] 1 each PO QID 5 Days #20 tablet
--- NOTE | 2019-04-18 15:04 | Internal Med Progress Note ---
Hospitalist Progress Note - Encounter Date of Encounter: 04/18/19 Time of Encounter: 11:00 - Subjective Interval History: No acute events overnight, remains afebrile and hemodynamically stable. - Exam Vitals: Temp Pulse Resp BP Pulse Ox 98.7 F 79 18 130/47 86 04/18/19 14:39 04/18/19 14:39 04/18/19 14:39 04/18/19 14:39 04/18/19 14:39 Exam: General: In no acute distress. obese Respiratory exam: CTAB. no accessory muscle use, rales, rhonchi, wheezes Cardiovascular exam: RRR, +S1, +S2. no murmur, gallop, rubs. GI/Abdominal exam: Non-tender, Non-distended, normal bowel sounds, soft, no peritoneal signs. Extremities exam: R foot dressing c/d/i Neurological exam: CN II-XII intact, AO X3, no focal deficits. - Assessment and Plan (1) Sepsis Current Visit: Yes Status: Resolved (2) Diabetic foot ulcer with osteomyelitis Current Visit: Yes Status: Acute (3) Acute on chronic kidney failure Current Visit: Yes Status: Acute (4) DM type 2 (diabetes mellitus, type 2) Current Visit: Yes Status: Chronic (5) CAD (coronary artery disease) Current Visit: Yes Status: Chronic (6) GERD (gastroesophageal reflux disease) Current Visit: No Status: Chronic (7) Hypertension Current Visit: Yes Status: Chronic (8) Chronic venous stasis Current Visit: No Status: Chronic DVT Prophylaxis: SQ hep - Summary of Assessment and Plan Summary of Assessment and Plan: Acute AoCKD stage III - resolving Sepsis secondary to diabetic foot ulcer with R calcaneal osteomyelitis - resolving Chronic HTN CKD3 DM GERD CAD Plan - S/P I&D and debridement of multiple planes right foot, application of puraply graft on 04/03/[address] Mcintyre. Had wound vac placed to right calcaneous post- op which is now discontinued. Appreciate input podiatry input - Surgical biopsy cultures with MDR Staphylococcus simulans, Staphylococcus epidermides, and also with anaerobic GNRs (Prevotella oralisandmelaninogenica). Blood cultures 04/01/19-NGTD. On IV daptomycin. Flagyl restarted by ID on 04/12. Treat through 9/2, appreciate ID input - LORETO on CKD. Fluctuating Cr, continues to improve from 2.13 - 1.95 - 1.86 - 1.74 but persistent mild hyperkalemia noted. Continue to hold home lasix, ibuprofen, and will d/c IVF today. Discussed with nephrology regarding persistent hyperkalemia who will evaluate the pt today, appreciate input - c/w basal-bolus insulin - c/w home meds for CAD and HTN except for statin while on daptomycin - heparin SubQ for DVT ppx - awaiting arrangement of ECF placement for IV antibiotics - Time Spent with Patient Total time spent is greater than 50% in coordination of care (as documented) at patient's floor/unit and/or counseling patient: less than 15 minutes Plan of Care Discussed with: case management Internal Medicine: Result - Labs CBC & Chem 7: 04/16/19 04:00 04/18/19 04:00 Labs: BMP 04/18/19 04:00 Sodium 141 Potassium 5.6 H Chloride 112 H Carbon Dioxide 24 BUN 54 H Creatinine 1.74 H Glucose 134 H Calcium 9.0 - ABG Interpretation ABG results: PT/INR, D-dimer PT 14.3 Seconds (9.4-12.1) H 04/01/19 03:57 Consult Discharge Plan - Plan Referrals: Antonietta Butler MD [Primary Care Provider] - Suzanne Chavira MD [Partnered Physician] - 05/10/19 10:15 am Prescriptions: Carvedilol [Coreg] 3.125 mg PO BIDWM #60 tablet DAPTOmycin [Daptomycin] 600 mg IV Q48H 34 Days #17 vial metroNIDAZOLE [Flagyl] 500 mg PO TID 30 Days #90 tablet hydrALAZINE [HydrALAZINE] 50 mg PO Q6H #120 tablet Oxycodone HCl/Acetaminophen [Percocet 10-325 mg Tablet] 1 each PO QID 5 Days #20 tablet (1) Sepsis Qualifiers: Sepsis type: sepsis due to unspecified organism Sepsis acute organ dysfunction status: without acute organ dysfunction Qualified Code(s): A41.9 - Sepsis, unspecified organism (3) Acute on chronic kidney failure Qualifiers: Acute renal failure type: unspecified Chronic kidney disease stage: stage 3 (moderate) Qualified Code(s): N17.9 - Acute kidney failure, unspecified; N18.3 - Chronic kidney disease, stage 3 (moderate) (4) DM type 2 (diabetes mellitus, type 2) Qualifiers: Diabetes mellitus correction insulin use: with correction use Diabetes mellitus complication status: with kidney complications Diabetes mellitus complication detail: with chronic kidney disease Chronic kidney disease stage: stage 3 (moderate) Qualified Code(s): E11.22 - Type 2 diabetes mellitus with diabetic chronic kidney disease; N18.3 - Chronic kidney disease, stage 3 (moderate); Z79.4 - detention (current) use of insulin (5) CAD (coronary artery disease) Qualifiers: Coronary Disease-Associated Artery/Lesion type: [place] artery [place] vs. transplanted heart: [place] heart Associated angina: without angina Qualified Code(s): I25.10 - Atherosclerotic heart disease of [place] coronary artery without angina pectoris (6) GERD (gastroesophageal reflux disease) Qualifiers: Esophagitis presence: esophagitis presence not specified Qualified Code(s): K21.9 - Gastro-esophageal reflux disease without esophagitis (7) Hypertension Qualifiers: Hypertension type: essential hypertension Qualified Code(s): I10 - Essential (primary) hypertension
--- NOTE | 2019-04-18 15:21 | Infectious Disease Progress No ---
ID Progress Note Date of Encounter: 04/18/19 Time of Encounter: 15:19 - Subjective Subjective: Patient seen and examined. No acute events noted overnight. Patient states he feels better today, but is having some reproducible left sided chest tightness that is worse with cough or deep inspiration. Denies fevers, chills, or rigors. States he has a cough when he gets his breathing treatments and thinks he needs one now. Denies nausea, vomiting, or diarrhea. Reports he is having BMs regularly. Denies abdominal pain or urinary complaints. Denies oral thrush or skin rashes. States his appetite is good. Denies pain at this time. - Objective CBC & Chem 7: 04/16/19 04:00 04/18/19 04:00 - Exam Vitals: Temp Pulse Resp BP Pulse Ox 98.7 F 79 20 130/47 89 04/18/19 14:39 04/18/19 14:39 04/18/19 15:01 04/18/19 14:39 04/18/19 15:01 Exam: Head: Atraumatic, normal inspection, normocephalic. Eye: EOMI, PERRLA, no scleral icterus noted. ENT: Mucous membranes moist. No odontogenic infection noted. Neck: Normal inspection, no meningismus. Respiratory: Fine expiratory wheezes throughout. No rales, respiratory distress, rhonchi, noted. Cardiovascular: Regular rate and rhythm, S1 and S2 audible. No murmurs, rubs, or gallops. GI: Soft, obese, normal bowel sounds. Nontender Extremities:No joint swelling or tenderness noted. 1+ edema noted to the BLE. BLE compression dressing C/D/I. Neurological: Alert, oriented 3, no focal deficits. Psychiatric: normal affect, normal mood. Skin: Dry, intact, warm. Normal color. No rashes. - Assessment and Plan (1) Sepsis Current Visit: Yes Status: Resolved The patient had 2 sepsis criteria on admission plus acute kidney injury. Likely secondary to right foot osteomyelitis. Improved. WBC normal. Tachycardia resolved. Blood cultures drawn 03/31/19 at [facility] are negative 2 sets. Repeat blood cultures drawn 04/01/19 are negative 2 sets. Qualifiers: Sepsis type: sepsis due to unspecified organism Sepsis acute organ dysfunction status: without acute organ dysfunction Qualified Code(s): A41.9 - Sepsis, unspecified organism SNOMED Code(s): 41069799 (2) Osteomyelitis Current Visit: No Status: Acute Location: Right calcaneus. Likely secondary to diabetic foot ulcer. Causative organism: S. epi and S. simulans (wound and soft tissue cultures). Anerobic cultures positive. No bone cultures sent. MRI showed findings consistent with early osteomyelitis of the calcaneus. ESR 127, CRP 173. Podiatry consult. Status post I & D right foot multiple planes 04/04/[address] Mcintyre. Operative note reviewed. Soft tissue and wound cultures as above. Pathology positive for gangrenous necrosis. Currently on Dapto and flagyl. Qualifiers: Osteomyelitis location: foot Laterality: right SNOMED Code(s): 13032334 (3) Cellulitis Current Visit: Yes Status: Acute Location: Right lower extremity. Likely secondary to diabetic foot ulcer. Causative organism: S. simulans and S. epi and anaerobes. Podiatry consult and following. Currently on Dapto and flagyl. Qualifiers: Site of cellulitis: extremity Site of cellulitis of extremity: lower e xtremity Laterality: right Qualified Code(s): L03.115 - Cellulitis of right lower limb SNOMED Code(s): 361471977 (4) Acute kidney injury Current Visit: Yes Status: Acute Likely secondary to sepsis and nephrotoxic medication. Improved. Vanc discontinued. Nephrology consulted and following. RP UTS negative. Dose adjust antibiotics and avoid nephrotoxins as able. SNOMED Code(s): 14799114, 09927054 (5) Diabetic foot ulcer Current Visit: Yes Status: Chronic Location: Right heel. Etiology: Unclear. Podiatry consult and following. Qualifiers: Diabetic foot ulcer location: heel Diabetes mellitus type: type 2 Laterality: right Non-pressure ulcer stage: with fat layer exposed Qualified Code(s): E11.621 - Type 2 diabetes mellitus with foot ulcer; L97.412 - Non- pressure chronic ulcer of right heel and midfoot with fat layer exposed SNOMED Code(s): 305541723 (6) CKD (chronic kidney disease) stage 3, GFR 30-59 ml/min Current Visit: Yes Status: Chronic SNOMED Code(s): 015922092 (7) DM type 2 (diabetes mellitus, type 2) Current Visit: Yes Status: Chronic Recommend aggressive glucose monitoring and control to promote wound healing and prevent reinfection. Management per the primary team. Qualifiers: Diabetes mellitus halfway insulin use: with halfway use Diabetes mellitus complication status: with kidney complications Diabetes mellitus complication detail: with chronic kidney disease Chronic kidney disease stage: stage 3 (moderate) Qualified Code(s): E11.22 - Type 2 diabetes mellitus with diabetic chronic kidney disease; N18.3 - Chronic kidney disease, stage 3 ( moderate); Z79.4 - senior living (current) use of insulin SNOMED Code(s): 18177588 (8) CAD (coronary artery disease) Current Visit: Yes Status: Chronic Qualifiers: Coronary Disease-Associated Artery/Lesion type: [place] artery [place] vs. transplanted heart: [place] heart Associated angina: without angina Qualified Code(s): I25.10 - Atherosclerotic heart disease of [place] coronary artery witho ut angina pectoris SNOMED Code(s): 78194784 (9) Venous stasis dermatitis of both lower extremities Current Visit: Yes Status: Chronic SNOMED Code(s): 34566933 (10) GERD (gastroesophageal reflux disease) Current Visit: No Status: Chronic Qualifiers: Esophagitis presence: esophagitis presence not specified Qualified Code(s): K21.9 - Gastro-esophageal reflux disease without esophagitis SNOMED Code(s): 722209828 (11) Hypertension Current Visit: Yes Status: Chronic Qualifiers: Hypertension type: essential hypertension Qualified Code(s): I10 - Essential (primary) hypertension SNOMED Code(s): 84248957 (12) Constipation Current Visit: Yes Status: Resolved Improved. Bowel regimen per the primary team. Qualifiers: Constipation type: unspecified constipation type Qualified Code(s): K59.00 - Constipation, unspecified SNOMED Code(s): 70484909 (13) Hyperkalemia Current Visit: Yes Status: Resolved Resolved. Management per the primary team. SNOMED Code(s): 31377389 - Recommendations Recommendations: Wound care per the podiatry team. Continue Daptomycin 6mg/kg IV Q48H (CrCl ~29). Repeat CK 35. Hold atorvastatin while on Daptomycin. Continue flagyl 500mg PO TID. Duration of treatment depends on the clinical picture, but will likely need 6 weeks of IV Antibiotics. Treat through at least 05/15/19. Monitor renal function and for drug toxicity and dose adjust antibiotics. creative services intern to assist with discharge planning. Will need weekly CBC, BUN/Cr, ESR, CRP, CK. Will need weekly IV care per protocol. Follow up with ID 05/10/19 at 1015. Consult Discharge Plan - Plan Referrals: Antonietta Butler MD [Primary Care Provider] - Suzanne Chavira MD [Partnered Physician] - 05/10/19 10:15 am Prescriptions: Carvedilol [Coreg] 3.125 mg PO BIDWM #60 tablet DAPTOmycin [Daptomycin] 600 mg IV Q48H 34 Days #17 vial metroNIDAZOLE [Flagyl] 500 mg PO TID 30 Days #90 tablet hydrALAZINE [HydrALAZINE] 50 mg PO Q6H #120 tablet Oxycodone HCl/Acetaminophen [Percocet 10-325 mg Tablet] 1 each PO QID 5 Days #20 tablet
[2019-04-18] MEDS ORDERED: Furosemide 40 MG/4 ML VIAL IVP ONE (16:30)
[2019-04-18 16:33] LABS: Basophils # 0.1 K/mcL (0.0-0.2); Basophils % 0.5 %; Eosinophils # 0.1 K/mcL (0.0-0.6); Eosinophils % 0.8 %; Hematocrit 35.1 % (37.5-50.1); Hemoglobin 10.6 g/dL (12.9-16.9); Immature Granulocytes % 0.6 % (0-4); Lymphocytes # 1.8 K/mcL (0.6-4.6); Lymphocytes % 14.2 %; Mean Corpuscular HGB Conc 30.2 g/dL (31.6-35.5); Mean Corpuscular Hemoglobin 27.2 pg (28.0-33.3); Mean Platelet Volume 10.6 fL (9.4-12.4); Monocytes # 1.4 K/mcL (0.0-1.3); Monocytes % 11.3 %; Neutrophils # 9.2 K/mcL (1.6-8.9); Platelet Count 349 K/mcL (140-400); Red Cell Distribution Width 16.8 % (11.5-14.5); Segmented Neutrophils % 72.6 %; White Blood Count 12.7 K/mcL (4.3-11.1)
[2019-04-18] MEDS: Furosemide 20 MG TABLET PO SCH (16:51)
[2019-04-18] MEDS: levoFLOXacin 750 MG/150 ML 750 MG/150 ML BAG IVPB SCH (16:51)
[2019-04-18] MEDS: Ipratropium/Albuterol Neb 3 ML IH SCH (20:21)
--- NOTE | 2019-04-18 20:33 | Nephrology Progress Note ---
Date of Encounter: 04/18/19 Time of Encounter: 15:00 - Assessment and Plan (1) Acute kidney injury superimposed on chronic kidney disease Current Visit: Yes Status: Acute LORETO on CKD Creatinine downtrending UOP remains adequate Peripheral edema still present Has had persistently elevated potassium Not on Diuretic Plan: -Start 20mg Lasix PO daily -Patient will benefit from Lokelma 10mg daily on discharge -Continue Renal Diet -Trend Creatinine and Potassium -Follow-up with [facility] in 4-6 weeks (2) Hyperkalemia Current Visit: Yes Status: Resolved Plan as above (3) DM type 2 (diabetes mellitus, type 2) Current Visit: Yes Status: Chronic Management per primary team Qualifiers: Diabetes mellitus half-way insulin use: with terminal operator use Diabetes mellitus complication status: with kidney complications Diabetes mellitus complication detail: with chronic kidney disease Chronic kidney disease stage: stage 3 (moderate) Qualified Code(s): E11.22 - Type 2 diabetes mellitus with diabetic chronic kidney disease; N18.3 - Chronic kidney disease, stage 3 (moderate); Z79.4 - intermodal customer service (current) use of insulin (4) Hypertension Current Visit: Yes Status: Chronic Continue home meds Plan per primary team Qualifiers: Hypertension type: essential hypertension Qualified Code(s): I10 - Essential (primary) hypertension Subjective Principal diagnosis: Necrotic ulcer Interval history: Patient seen and examined at bedside. Reports some pleuritic type pain on deep inspiration and sensation of "water on my lungs". Receiving breathing treatment at time of encounter. Denies any other complaints. Swelling in legs not improved from time of nephrology sign-off. Potassium did increase again as well. Creatinine is trending down x 3 days. Objective - Vital Signs Vital signs: Vital Signs Temp Pulse Resp BP Pulse Ox 04/18/19 20:24 19 95 04/18/19 19:16 99.2 F 80 15 146/65 95 04/18/19 16:45 17 92 04/18/19 16:25 98.2 F 86 18 146/78 92 04/18/19 15:01 20 89 04/18/19 14:39 98.7 F 79 18 130/47 86 04/18/19 12:33 98.2 F 77 15 137/52 89 04/18/19 07:24 18 93 04/18/19 06:31 98.2 F 79 15 161/68 93 04/18/19 04:22 18 92 04/18/19 03:11 98.3 F 71 16 159/62 92 04/18/19 00:45 18 94 Intake and Output 04/18/19 04/18/19 04/18/19 07:59 15:59 23:59 Intake Total 200 / 1250 900 / 1250 150 / 1250 Output Total 400 / 1200 275 / 1200 525 / 1200 Balance -200 / 50 625 / 50 -375 / 50 Intake: IV Fluids 800 / 950 150 / 950 0.9 % Sodium Chloride 1,000 ML 800 / 800 @ 50 mls/hr IVC .Q20H JODI Rx#: [id number] Levaquin Premix 750mg/150 mL 150 / 150 750 mg In 150 ml @ 100 mls/hr IVPB Q48H JODI Rx#:[id number] Oral 200 / 300 100 / 300 0 / 300 Output: Urine 400 / 1200 275 / 1200 525 / 1200 Other: Meal Breakfast npo Percent of Meal Consumed 0% 0% Stool Size Small Stool Consistency soft Stool Characteristics Normal for Patient Stool Color Thomas Colored # Voids 1 # Bowel Movements 2 Weight 101.6 kg Blood Glucose* 166 Patient Weight 04/18/19 23:59 Weight 101.6 kg - General Appearance Exam: Gen: A&Ox3, NAD, vitals noted HEENT: Mucous Membranes Moist, oropharynx clear Neck: soft, supple, trachea midline CV: RRR, no murmurs gallops rubs CV: Some mild wheeze noted on left lung, right lung clear, no crackles ap preciated Abd: soft, nontender, no rigidity, no organomegaly Ext: Venous stasis dermatitis present B/L, dressing c/d/I, +2 pitting edema - Lab 04/18/19 16:15 04/18/19 04:00 Consult Discharge Plan - Plan Referrals: Antonietta Butler MD [Primary Care Provider] - Suzanne Chavira MD [Partnered Physician] - 05/10/19 10:15 am Prescriptions: Carvedilol [Coreg] 3.125 mg PO BIDWM #60 tablet DAPTOmycin [Daptomycin] 600 mg IV Q48H 34 Days #17 vial metroNIDAZOLE [Flagyl] 500 mg PO TID 30 Days #90 tablet hydrALAZINE [HydrALAZINE] 50 mg PO Q6H #120 tablet Oxycodone HCl/Acetaminophen [Percocet 10-325 mg Tablet] 1 each PO QID 5 Days #20 tablet
[2019-04-18] MEDS: traZODone 50 MG TABLET PO SCH (21:19)
[2019-04-18] MEDS: Sennosides/Docusate Sodium TABLET PO SCH (21:19)
[2019-04-19] MEDS: hydrALAZINE 25 MG TABLET PO SCH ×4 (00:38→18:00)
[2019-04-19] MEDS: cloNIDine HCl 0.1 MG TABLET PO SCH ×3 (00:38→16:25)
[2019-04-19] MEDS: Ipratropium/Albuterol Neb 3 ML IH SCH ×6 (04:09→19:56)
[2019-04-19] MEDS: Albuterol 2.5 MG/3 ML NEBULIZER IH SCH ×6 (04:10→19:56)
[2019-04-19 04:59] LABS: Calcium 9.1 mg/dL (8.6-10.3); Potassium 5.1 mEq/L (3.5-5.1)
[2019-04-19] MEDS: *HR* Heparin 5,000 UNIT/ML VIAL SQ SCH ×2 (05:32→18:00)
--- NOTE | 2019-04-19 08:30 | Internal Med Progress Note ---
Hospitalist Progress Note - Encounter Date of Encounter: 04/19/19 Time of Encounter: 08:01 - Subjective Interval History: Patient seen and examined this morning. No acute overnight events. Was on BiPAP overnight. Denies any difficulty breathing or chest pain. Does not want to be on BiPAP anymore. Denies any fevers chills nausea vomiting or diarrhea. - Exam Vitals: Temp Pulse Resp BP Pulse Ox 97.8 F 82 15 162/57 92 04/19/19 07:06 04/19/19 07:06 04/19/19 07:16 04/19/19 07:06 04/19/19 07:16 Exam: General: In no acute distress. Respiratory exam: no accessory muscle use. occasional scattered rhonchi and rales at base Cardiovascular exam: RRR, +S1, +S2. no murmur, gallop, rubs. GI/Abdominal exam: Non-tender, Non-distended, normal bowel sounds, soft, no peritoneal signs. Extremities exam: b/l 2+ pedal edema till knee with compression dressing Neurological exam: CN II-XII intact, AO X3, no focal deficits. Skin exam: LE wound not visualized my self but image reviewed with podiatry. significant maceration. - Assessment and Plan (1) DM type 2 (diabetes mellitus, type 2) Current Visit: Yes Status: Chronic (2) CAD (coronary artery disease) Current Visit: Yes Status: Chronic (3) Diabetic foot ulcer with osteomyelitis Current Visit: Yes Status: Acute (4) GERD (gastroesophageal reflux disease) Current Visit: No Status: Chronic (5) Hypertension Current Visit: Yes Status: Chronic (6) Chronic venous stasis Current Visit: No Status: Chronic (7) Sepsis Current Visit: Yes Status: Resolved (8) Acute on chronic kidney failure Current Visit: Yes Status: Acute - Summary of Assessment and Plan Summary of Assessment and Plan: Acute AoCKD stage III - resolving Sepsis secondary to diabetic foot ulcer with R calcaneal osteomyelitis - resolving Acute hypoxic respiratory failure LLL pneumonia Chronic HTN CKD3 DM GERD CAD Plan - S/P I&D and debridement of multiple planes right foot, application of puraply graft on 04/03/[address] Mcintyre. Had wound vac placed to right calcaneous post- op which is now discontinued. daily dressing with podiatry. Patient non compliant with leg elevation. No further intervention with podiatry - Surgical biopsy cultures with MDR Staphylococcus simulans, Staphylococcus epidermidis, and also with anaerobic GNRs (Prevotella oralis and melaninog enica). Blood cultures 04/01/19-NGTD. On IV daptomycin. Flagyl restarted by ID on 04/12. Treat through 05/15 per ID. Started on levaquin renally adjusted for pneumonia. Finish 7 day course. ID following. recommendation appreciated. - LORETO on CKD. hold home ibuprofen. stable renal function for last 3 days. will dose lasix with albumin one dose given still LE edema contributing to poor healing. Nephrology recommended starting lokelma 10 mg for hyperkalemia on DC. Will follow outpatient. - c/w basal-bolus insulin - c/w home meds for CAD and HTN except for statin while on daptomycin - heparin SubQ for DVT ppx - awaiting arrangement of ECF placement for IV antibiotics - Time Spent with Patient Total time spent is greater than 50% in coordination of care (as documented) at patient's floor/unit and/or counseling patient: Internal Medicine: Result - Labs CBC & Chem 7: 04/18/19 16:15 04/19/19 04:25 Labs: Short CBC 04/18/19 Range/Units 16:15 WBC 12.7 H (4.3-11.1) K/mcL Hgb 10.6 L (12.9-16.9) g/dL Hct 35.1 L (37.5-50.1) % Plt Count 349 (140-400) K/mcL Neutrophils # 9.2 H (1.6-8.9) K/mcL BMP 04/19/19 04:25 Sodium 142 Potassium 5.1 Chloride 111 H Carbon Dioxide 27 BUN 51 H Creatinine 1.69 H Glucose 120 H Calcium 9.1 Cardiac Enzymes 04/18/19 04/18/19 04/19/19 Range/Units 16:15 22:30 04:25 Troponin I 0.03 0.04 H* 0.03 (< 0.04) ng/mL - ABG Interpretation ABG results: PT/INR, D-dimer PT 14.3 Seconds (9.4-12.1) H 04/01/19 03:57 - Impressions Impressions Chest X-Ray 04/18/19 16:02 IMPRESSION: New left basilar airspace consolidation suggesting left lower lobe pneumonia. D/ / 04/18/2019 16:42:42 Cade Rollins MD / maribelay Interpreting Provider: Cade Rollins MD Consult Discharge Plan - Plan Referrals: Antonietta Butler MD [Primary Care Provider] - Suzanne Chavira MD [Partnered Physician] - 05/10/19 10:15 am Prescriptions: Carvedilol [Coreg] 3.125 mg PO BIDWM #60 tablet DAPTOmycin [Daptomycin] 600 mg IV Q48H 34 Days #17 vial metroNIDAZOLE [Flagyl] 500 mg PO TID 30 Days #90 tablet hydrALAZINE [HydrALAZINE] 50 mg PO Q6H #120 tablet Oxycodone HCl/Acetaminophen [Percocet 10-325 mg Tablet] 1 each PO QID 5 Days #20 tablet (1) DM type 2 (diabetes mellitus, type 2) Qualifiers: Diabetes mellitus assisted insulin use: with remote computer terminal operator use Diabetes mellitus complication status: with kidney complications Diabetes mellitus complication detail: with chronic kidney disease Chronic kidney disease stage: stage 3 (moderate) Qualified Code(s): E11.22 - Type 2 diabetes mellitus with diabetic chronic kidney disease; N18.3 - Chronic kidney disease, stage 3 (moderate); Z79.4 - detention (current) use of insulin (2) CAD (coronary artery disease) Qualifiers: Coronary Disease-Associated Artery/Lesion type: [place] artery [place] vs. transplanted heart: [place] heart Associated angina: without angina Qualified Code(s): I25.10 - Atherosclerotic heart disease of [place] coronary artery without angina pectoris (4) GERD (gastroesophageal reflux disease) Qualifiers: Esophagitis presence: esophagitis presence not specified Qualified Code(s): K21.9 - Gastro-esophageal reflux disease without esophagitis (5) Hypertension Qualifiers: Hypertension type: essential hypertension Qualified Code(s): I10 - Essential (primary) hypertension (7) Sepsis Qualifiers: Sepsis type: sepsis due to unspecified organism Sepsis acute organ dysfunction status: without acute organ dysfunction Qualified Code(s): A41.9 - Sepsis, unspecified organism (8) Acute on chronic kidney failure Qualifiers: Acute renal failure type: unspecified Chronic kidney disease stage: stage 3 (moderate) Qualified Code(s): N17.9 - Acute kidney failure, unspecified; N18.3 - Chronic kidney disease, stage 3 (moderate)
[2019-04-19] MEDS: metroNIDAZOLE 500 MG TABLET PO SCH ×2 (08:39→15:30)
[2019-04-19] MEDS: Furosemide 20 MG TABLET PO SCH (08:39)
[2019-04-19] MEDS: amLODIPine 5 MG TABLET PO SCH (08:39)
[2019-04-19] MEDS: Aspirin 81 MG TAB.CHEW PO SCH (08:39)
[2019-04-19] MEDS: Lactulose Oral Soln 20 GM/30 ML UDC PO SCH (08:40)
[2019-04-19] MEDS: Insulin DETEMIR 100 UNIT/ML X5UNITS SQ SCH (08:40)
[2019-04-19] MEDS: Loratadine 10 MG TABLET PO SCH (08:41)
[2019-04-19] MEDS: Insulin LISPRO 300 UNITS/3 ML VIAL SQ SCH ×3 (08:41→16:42)
[2019-04-19] MEDS: *HR* OxyCODONE/APAP 10/325 TABLET PO SCH ×3 (08:42→18:00)
[2019-04-19] MEDS ORDERED: Perflutren Lipid Microsphere 1.3 ML in 0.9 % Sodium Chloride 8.7 ML IVP ONE (13:08)
[2019-04-19] MEDS ORDERED: Perflutren Lipid Microsphere 2 ML VIAL ONE (13:12)
--- NOTE | 2019-04-19 13:42 | Electrocardiograph Report ---
[place] [id number] Test Date: 2019-04-18 Pat Name: Joao Galindo Department: 115 Room: 3A13 Gender: M Regional Director: : 1945 Requested By: Wilberto Iglesias Order Number: [id number] Reading MD: Dion Burgos Measurements Intervals [employer] Rate: 90 P: 21 AK: 253 QRS: -5 QRSD: 98 T: 26 QT: 354 QTc: 402 Interpretive Statements SINUS RHYTHM WITH FIRST DEGREE AV BLOCK INFERIOR MYOCARDIAL INFARCTION, PROBABLY OLD Poor R wave progression Electronically Signed On 04-19-2019 13:41:06 EDT by Dion Burgos
[2019-04-19] MEDS ORDERED: Furosemide 40 MG/4 ML VIAL IVP ONE (14:44)
[2019-04-19] MEDS: DAPTOmycin 600 MG in 0.9 % Sodium Chloride 100 ML IVPB SCH (15:30)
--- NOTE | 2019-04-19 16:00 | Infectious Disease Progress No ---
ID Progress Note Date of Encounter: 04/19/19 Time of Encounter: 15:58 - Subjective Subjective: Patient seen and examined. No acute events noted overnight. Patient states he feels better today. States left sided chest pain improved. Denies fevers, chills, or rigors. States he has a cough when he gets his breathing treatments. Denies shortness of breath today. Denies nausea, vomiting, or diarrhea. Reports he is having BMs regularly. Denies abdominal pain or urinary complaints. Denies oral thrush or skin rashes. States his appetite is good. Reports mild stinging pain to the right foot. - Objective CBC & Chem 7: 04/18/19 16:15 04/19/19 04:25 - Exam Vitals: Temp Pulse Resp BP Pulse Ox 98.5 F 76 18 148/55 93 04/19/19 14:21 04/19/19 14:21 04/19/19 14:21 04/19/19 14:21 04/19/19 14:21 Exam: Head: Atraumatic, normal inspection, normocephalic. Eye: EOMI, PERRLA, no scleral icterus noted. ENT: Mucous membranes moist. No odontogenic infection noted. Neck: Normal inspection, no meningismus. Respiratory: CTA T/O. No rales, respiratory distress, rhonchi, noted. Cardiovascular: Regular rate and rhythm, S1 and S2 audible. No murmurs, rubs, or gallops. GI: Soft, obese, normal bowel sounds. Nontender Extremities:No joint swelling or tenderness noted. 1+ edema noted to the BLE. BLE compression dressing C/D/I. Neurological: Alert, oriented 3, no focal deficits. Psychiatric: normal affect, normal mood. Skin: Dry, intact, warm. Normal color. No rashes. - Assessment and Plan (1) Sepsis Current Visit: Yes Status: Resolved The patient had 2 sepsis criteria on admission plus acute kidney injury. Likely secondary to right foot osteomyelitis. Improved. WBC back up yesterday, not checked today. Tachycardia resolved. Blood cultures drawn 03/31/19 at [facility] are negative 2 sets. Repeat blood cultures drawn 04/01/19 are negative 2 sets. Qualifiers: Sepsis type: sepsis due to unspecified organism Sepsis acute organ dysfunction status: without acute organ dysfunction Qualified Code(s): A41.9 - Sepsis, unspecified organism SNOMED Code(s): 85165498 (2) Osteomyelitis Current Visit: No Status: Acute Location: Right calcaneus. Likely secondary to diabetic foot ulcer. Causative organism: S. epi and S. simulans (wound and soft tissue cultures). Anerobic cultures positive. No bone cultures sent. MRI showed findings consistent with early osteomyelitis of the calcaneus. ESR 127, CRP 173. Podiatry consult. Status post I & D right foot multiple planes 04/04/[address] Mcintyre. Operative note reviewed. Soft tissue and wound cultures as above. Pathology positive for gangrenous necrosis. Currently on Dapto and flagyl. Qualifiers: Osteomyelitis location: foot Laterality: right SNOMED Code(s): 99675771 (3) Cellulitis Current Visit: Yes Status: Acute Location: Right lower extremity. Likely secondary to diabetic foot ulcer. Causative organism: S. simulans and S. epi and anaerobes. Podiatry consult and following. Currently on Dapto and flagyl. Qualifiers: Site of cellulitis: extremity Site of cellulitis of extremity: lower extremity Laterality: right Qualified Code(s): L03.115 - Cellulitis of right lower limb SNOMED Code(s): 206386476 (4) Acute kidney injury Current Visit: Yes Status: Acute Likely secondary to sepsis and nephrotoxic medication. Improved. Vanc discontinued. Nephrology consulted and following. RP UTS negative. Dose adjust antibiotics and avoid nephrotoxins as able. SNOMED Code(s): 78382597, 36119698 (5) Diabetic foot ulcer Current Visit: Yes Status: Chronic Location: Right heel. Etiology: Unclear. Podiatry consult and following. Qualifiers: Diabetic foot ulcer location: heel Diabetes mellitus type: type 2 Later ality: right Non-pressure ulcer stage: with fat layer exposed Qualified Code(s): E11.621 - Type 2 diabetes mellitus with foot ulcer; L97.412 - Non- pressure chronic ulcer of right heel and midfoot with fat layer exposed SNOMED Code(s): 449268258 (6) CKD (chronic kidney disease) stage 3, GFR 30-59 ml/min Current Visit: Yes Status: Chronic SNOMED Code(s): 001854770 (7) DM type 2 (diabetes mellitus, type 2) Current Visit: Yes Status: Chronic Recommend aggressive glucose monitoring and control to promote wound healing and prevent reinfection. Management per the primary team. Qualifiers: Diabetes mellitus [employer] insulin use: with usp use Diabetes mellitus complication status: with kidney complications Diabetes mellitus complication detail: with chronic kidney disease Chronic kidney disease stage: stage 3 (moderate) Qualified Code(s): E11.22 - Type 2 diabetes mellitus with diabetic chronic kidney disease; N18.3 - Chronic kidney disease, stage 3 (moderate); Z79.4 - [employer] (current) use of insulin SNOMED Code(s): 15107676 (8) CAD (coronary artery disease) Current Visit: Yes Status: Chronic Qualifiers: Coronary Disease-Associated Artery/Lesion type: [place] artery [place] vs. transplanted heart: [place] heart Associated angina: without angina Qualified Code(s): I25.10 - Atherosclerotic heart disease of [place] coronary artery without angina pectoris SNOMED Code(s): 01283913 (9) Venous stasis dermatitis of both lower extremities Current Visit: Yes Status: Chronic SNOMED Code(s): 84681957 (10) GERD (gastroesophageal reflux disease) Current Visit: No Status: Chronic Qualifiers: Esophagitis presence: esophagitis presence not specified Qualified Code(s): K21.9 - Gastro-esophageal reflux disease without esophagitis SNOMED Code(s): 908916835 (11) Hypertension Current Visit: Yes Status: Chronic Qualifiers: Hypertension type: essential hypertension Qualified Code(s): I10 - Essential (primary) hypertension SNOMED Code(s): 24107432 (12) Constipation Current Visit: Yes Status: Resolved Improved. Bowel regimen per the primary team. Qualifiers: Constipation type: unspecified constipation type Qualified Code(s): K59.00 - Constipation, unspecified SNOMED Code(s): 22108921 (13) Hyperkalemia Current Visit: Yes Status: Resolved Resolved. Management per the primary team. SNOMED Code(s): 69353038 (14) Pneumonia Current Visit: Yes Status: Acute Location: LLL Causative organism: Unclear. Aspiration low on differential. Currently on PO Levaquin. Qualifiers: Pneumonia type: due to unspecified organism Laterality: left Lung locatio n: lower lobe of lung Qualified Code(s): J18.1 - Lobar pneumonia, unspecified organism SNOMED Code(s): 568821772 - Recommendations Recommendations: Wound care per the podiatry team. Continue Daptomycin 6mg/kg IV Q48H (CrCl ~29). Repeat CK 35. Hold atorvastatin while on Daptomycin. Continue flagyl 500mg PO TID. Continue Levaquin 750mg IV Q48H. Duration of treatment depends on the clinical picture, but will likely need 6 weeks of IV Antibiotics (Dapto and PO Flagyl). Treat through at least 05/15/19. Continue Levaquin to complete a 7 day course (through 04/24/19). Can transition to PO when ready for discharge. Monitor renal function and for drug toxicity and dose adjust antibiotics. manager administrative services to assist with discharge planning. Will need weekly CBC, BUN/Cr, ESR, CRP, CK. Will need weekly IV care per protocol. Follow up with ID 05/10/19 at 1015. Consult Discharge Plan - Plan Referrals: Antonietta Butler MD [Primary Care Provider] - Suzanne Chavira MD [Partnered Physician] - 05/10/19 10:15 am Prescriptions: Carvedilol [Coreg] 3.125 mg PO BIDWM #60 tablet DAPTOmycin [Daptomycin] 600 mg IV Q48H 34 Days #17 vial metroNIDAZOLE [Flagyl] 500 mg PO TID 30 Days #90 tablet hydrALAZINE [HydrALAZINE] 50 mg PO Q6H #120 tablet Oxycodone HCl/Acetaminophen [Percocet 10-325 mg Tablet] 1 each PO QID 5 Days #20 tablet
[2019-04-19] MEDS: Albumin 25% 25gram/100mL 25 GM/100 ML IV.SOLN IVC SCH ×2 (16:26→18:01)
[2019-04-20] MEDS: Albuterol 2.5 MG/3 ML NEBULIZER IH SCH ×3 (00:19→07:11)
[2019-04-20] MEDS: Ipratropium/Albuterol Neb 3 ML IH SCH ×5 (00:19→15:22)
[2019-04-20] MEDS: Insulin LISPRO 300 UNITS/3 ML VIAL SQ SCH ×4 (00:37→16:36)
[2019-04-20] MEDS: Insulin DETEMIR 100 UNIT/ML X5UNITS SQ SCH ×2 (00:40→07:57)
[2019-04-20] MEDS: *HR* OxyCODONE/APAP 10/325 TABLET PO SCH ×4 (00:41→16:38)
[2019-04-20] MEDS: traZODone 50 MG TABLET PO SCH (00:41)
[2019-04-20] MEDS: cloNIDine HCl 0.1 MG TABLET PO SCH ×3 (00:41→15:49)
[2019-04-20] MEDS: hydrALAZINE 25 MG TABLET PO SCH ×4 (00:41→17:30)
[2019-04-20] MEDS: Lactulose Oral Soln 20 GM/30 ML UDC PO SCH ×2 (00:41→07:58)
[2019-04-20] MEDS: metroNIDAZOLE 500 MG TABLET PO SCH ×3 (00:41→15:00)
[2019-04-20] MEDS: Sennosides/Docusate Sodium TABLET PO SCH (00:46)
[2019-04-20] MEDS: *HR* Heparin 5,000 UNIT/ML VIAL SQ SCH ×2 (05:43→17:28)
[2019-04-20 06:44] LABS: Calcium 9.8 mg/dL (8.6-10.3); Potassium 4.5 mEq/L (3.5-5.1)
[2019-04-20] MEDS: Furosemide 20 MG TABLET PO SCH (08:00)
[2019-04-20] MEDS: Aspirin 81 MG TAB.CHEW PO SCH (08:01)
[2019-04-20] MEDS: Loratadine 10 MG TABLET PO SCH (08:01)
[2019-04-20] MEDS: amLODIPine 5 MG TABLET PO SCH (08:02)
--- NOTE | 2019-04-20 08:03 | Internal Med Progress Note ---
Hospitalist Progress Note - Encounter Date of Encounter: 04/20/19 Time of Encounter: 08:03 - Exam Vitals: Temp Pulse Resp BP Pulse Ox 97.5 F L 103 18 157/56 90 04/20/19 07:34 04/20/19 07:34 04/20/19 07:34 04/20/19 07:34 04/20/19 07:34 - Assessment and Plan (1) DM type 2 (diabetes mellitus, type 2) Current Visit: Yes Status: Chronic (2) CAD (coronary artery disease) Current Visit: Yes Status: Chronic (3) Diabetic foot ulcer with osteomyelitis Current Visit: Yes Status: Acute (4) GERD (gastroesophageal reflux disease) Current Visit: No Status: Chronic (5) Hypertension Current Visit: Yes Status: Chronic (6) Chronic venous stasis Current Visit: No Status: Chronic (7) Sepsis Current Visit: Yes Status: Resolved (8) Acute on chronic kidney failure Current Visit: Yes Status: Acute - Time Spent with Patient Total time spent is greater than 50% in coordination of care (as documented) at patient's floor/unit and/or counseling patient: Internal Medicine: Result - Labs CBC & Chem 7: 04/18/19 16:15 04/20/19 06:00 Labs: BMP 04/20/19 06:00 Sodium 144 Potassium 4.5 Chloride 103 Carbon Dioxide 29 BUN 43 H Creatinine 1.63 H Glucose 177 H Calcium 9.8 - ABG Interpretation ABG results: PT/INR, D-dimer PT 14.3 Seconds (9.4-12.1) H 04/01/19 03:57 - Impressions Impressions Echocardiogram 04/19/19 16:31 Impressions: LVEF 65%. Normal LV chamber size, wall thickness and function. Atypical septal motion consistent with post-operative status. Mild left ventricular diastolic dysfunction. Normal right ventricular structure and function. Mild pulmonary hypertension. No significant valvular dysfunction. Left Ventricular Wall Motion: Rest Echo Findings All wall segments showed normal motion. Findings: Study Quality * Technically sub-optimal due to poor echocardiographic windows. ECG Findings * Normal sinus rhythm. Left Ventricle * LVEF 65%. * Normal LV chamber size, wall thickness and function. * Atypical septal motion consistent with post-operative status. * Mild left ventricular diastolic dysfunction. Right Ventricle * Normal right ventricular structure and function. Left Atrium * Moderately dilated left atrium. Right Atrium * Normal right atrial size. Interatrial Septum * Interatrial septum not well evaluated. Aortic Valve * Trileaflet aortic valve. * Mildly sclerotic aortic valve leaflets. * No aortic regurgitation. * No aortic stenosis. Mitral Valve * Mild mitral annular calcification * No mitral stenosis. * No mitral regurgitation. Tricuspid Valve * Normal tricuspid valve structure and function. * Trace tricuspid regurgitation. * Mild pulmonary hypertension. Pulmonic Valve * Pulmonic valve not well visualized. Aorta * Normally sized aortic root. Pericardium * The pericardium appears normal. IVC * The IVC is not well evaluated. Pulmonary Artery * Pulmonary artery not well visualized. Consult Discharge Plan - Plan Referrals: Antonietta Butler MD [Primary Care Provider] - Suzanne Chavira MD [Partnered Physician] - 05/10/19 10:15 am Prescriptions: Carvedilol [Coreg] 3.125 mg PO BIDWM #60 tablet DAPTOmycin [Daptomycin] 600 mg IV Q48H 34 Days #17 vial metroNIDAZOLE [Flagyl] 500 mg PO TID 30 Days #90 tablet hydrALAZINE [HydrALAZINE] 50 mg PO Q6H #120 tablet Oxycodone HCl/Acetaminophen [Percocet 10-325 mg Tablet] 1 each PO QID 5 Days #20 tablet (1) DM type 2 (diabetes mellitus, type 2) Qualifiers: Diabetes mellitus fci insulin use: with fci use Diabetes mellitus complication status: with kidney complications Diabetes mellitus complication detail: with chronic kidney disease Chronic kidney disease stage: stage 3 (moderate) Qualified Code(s): E11.22 - Type 2 diabetes mellitus with diabetic chronic kidney disease; N18.3 - Chronic kidney disease, stage 3 (moderate); Z79.4 - snf (current) use of insulin (2) CAD (coronary artery disease) Qualifiers: Coronary Disease-Associated Artery/Lesion type: [place] artery [place] vs. transplanted heart: [place] heart Associated angina: without angina Qualified Code(s): I25.10 - Atherosclerotic heart disease of [place] coronary artery without angina pectoris (4) GERD (gastroesophageal reflux disease) Qualifiers: Esophagitis presence: esophagitis presence not specified Qualified Code(s): K21.9 - Gastro-esophageal reflux disease without esophagitis (5) Hypertension Qualifiers: Hypertension type: essential hypertension Qualified Code(s): I10 - Essential (primary) hypertension (7) Sepsis Qualifiers: Sepsis type: sepsis due to unspecified organism Sepsis acute organ dysfunction status: without acute organ dysfunction Qualified Code(s): A41.9 - Sepsis, unspecified organism (8) Acute on chronic kidney failure Qualifiers: Acute renal failure type: unspecified Chronic kidney disease stage: stage 3 (moderate) Qualified Code(s): N17.9 - Acute kidney failure, unspecified; N18.3 - Chronic kidney disease, stage 3 (moderate)
[2019-04-20] MEDS ORDERED: Albumin 25% 25gram/100mL 25 GM/100 ML IV.SOLN IVPB ONE (08:05)
[2019-04-20] MEDS ORDERED: Furosemide 40 MG/4 ML VIAL IVP ONE (08:06)
[2019-04-20] MEDS ORDERED: Albuterol 2.5 MG/3 ML NEBULIZER IH PRN (08:06)
[2019-04-20 11:28] VITALS: BP 154/57
[2019-04-20] MEDS: Acetylcysteine 10% 2 ML INHSOL IH SCH ×2 (11:49→15:22)
--- NOTE | 2019-04-20 11:51 | Podiatry Progress Note ---
Date of Encounter: 04/20/19 Time of Encounter: 11:49 - Assessment and Plan (1) Diabetic foot ulcer with osteomyelitis Current Visit: Yes Status: Acute Assessment: S/P Incision and drainage and debridement of multiple planes right foot, application of puraply graft on 04/03/[address] Mcintyre Bilateral lower extremity dressings with drainage Maceration improved from previous assessment, minimal maceration noted to posterior right lower extremity Guardado grade III ulcer to right calcaneous, slough noted to wound bed, eschar noted to lateral aspect WBC 12.7, no labs today, afebrile Intra-op cultures returned staph epidermis, staph simulans Wound cultures returned staph epidermis, staph simulans Anaerobic cultures returned prevotella oralis, prevotella melaninogenica Path returned gangrenous necrosis ESR 127, CRP 173 2/4 edema noted BLE, erythema noted to BLE Plan: Awaiting placement to ECF Dressing removed, santyl placed to right calcaneous Local wound care orders placed, nursing to change Heel medix boots to BLE Patient to keep BLE elevated at all times when in bed and when in chair Will likely need 6 weeks IV ATB- ID following Follow up in wound care clinc 1 week sp discharge, please make appointment prior to d/c (2) Venous stasis dermatitis of both lower extremities Current Visit: Yes Status: Chronic Assessment: Erythema, edema, and xerosis noted to BLE Plan: Covered with xeroform gauze, kerlix, and reyna wraps Nursing to change daily Subjective Principal diagnosis: Necrotic ulcer Interval history: Patient awake in chair. Alert and oriented. Denies any calf pain or chest pain. Reports shortness of breath at times. Continuos 02 monitoring noted. Denies any fevers, chills, nausea, vomiting, or diarrhea. States he will attempt to keep legs elevated. No other questions or concerns at this time. Objective - Vital Signs Vital Signs: Vital Signs Temp Pulse Resp BP Pulse Ox 04/20/19 11:27 97.8 F 69 16 154/57 94 04/20/19 07:34 97.5 F L 103 18 157/56 90 04/20/19 07:11 17 95 04/20/19 03:53 17 95 04/20/19 03:34 98.1 F 82 18 163/62 94 04/20/19 00:19 17 89 04/19/19 23:02 98.1 F 96 16 157/69 92 04/19/19 20:26 98.5 F 91 16 163/66 92 04/19/19 19:56 17 92 04/19/19 15:46 16 148/55 94 04/19/19 14:21 98.5 F 76 18 148/55 93 Intake and Output 04/19/19 04/20/19 04/20/19 23:59 07:59 15:59 Intake Total 540 / 540 340 / 340 Output Total 620 / 1525 400 / 550 150 / 550 Balance -80 / -985 -400 / -210 190 / -210 Intake: IV Fluids 300 / 300 100 / 100 Flexbumin 25 gm In 100 ml @ 60 200 / 200 mls/hr IVC .Q1H40M [facility] Rx#: [id number] Flexbumin 25 gm In 100 ml @ 60 100 / 100 mls/hr IVPB ONCE ONE Rx#: [id number] Cubicin 600 MG In 0.9 % Sodium 100 / 100 Chloride 100 ML @ 200 mls/hr IVPB Q48H [facility] Rx#:[id number] Oral 240 / 240 240 / 240 Output: Urine 620 / 1525 400 / 550 150 / 550 Other: Meal Dinner Breakfast Percent of Meal Consumed 100% 75% Weight 102.9 kg Blood Glucose* 159 179 266 Patient Weight 04/20/19 23:59 Weight 102.9 kg - Exam Exam: Constitiutional: Alert and oriented x 3. Well nourished. No acute distress noted Vascular: 1/4 DP/PT bilaterally, CFT <3 sec to all digits, warm to warm from tibia to toes bilaterally, no calf pain with squeeze BLE, multiple digit amputations noted, 2/4 edema noted BLE Neurologic: Diminished sensation to touch, normal plantar response Dermatologic: Guardado stage III ulceration right calcaneous, slough noted to wound bed, eschar noted to lateral aspect of wound, maceration noted posterior lower extremity, xerosis noted to LLE, erythematous discoloration noted to BLE Musculoskeletal: 3/5 muscle strength and normal tone bilaterally. - Lab Result Diagrams: 04/18/19 16:15 04/20/19 06:00 Labs: Abnormal lab results WBC 12.7 K/mcL (4.3-11.1) H 04/18/19 16:15 RBC 3.90 M/mcL (4.19-5.50) L 04/18/19 16:15 Hgb 10.6 g/dL (12.9-16.9) L 04/18/19 16:15 Hct 35.1 % (37.5-50.1) L 04/18/19 16:15 MCH 27.2 pg (28.0-33.3) L 04/18/19 16:15 MCHC 30.2 g/dL (31.6-35.5) L 04/18/19 16:15 RDW 16.8 % (11.5-14.5) H 04/18/19 16:15 Plt Count 408 K/mcL (140-400) H 04/12/19 04:00 MPV 9.3 fL (9.4-12.4) L 04/08/19 04:09 Immature Gran % 4.1 % (0-4) H 04/11/19 07:09 Band Neutrophils % 6.0 % (0-4) H 04/08/19 04:09 Myelocytes % 4.0 % (0) H 04/09/19 01:06 Neutrophils # 9.2 K/mcL (1.6-8.9) H 04/18/19 16:15 Monocytes # 1.4 K/mcL (0.0-1.3) H 04/18/19 16:15 Eosinophils # 1.5 K/mcL (0.0-0.6) H 04/09/19 01:06 Nucleated RBCs/100 WBC 0.2 /100 WBC (0) H 04/07/19 03:29 Smudge Cells Present (Not Present) A 04/09/19 01:06 Clumped Platelets Few (Not Present) A 03/31/19 22:50 ESR 127 mm/hr (0-10) H 03/31/19 22:50 PT 14.3 Seconds (9.4-12.1) H 04/01/19 03:57 Potassium 5.6 mEq/L (3.5-5.1) H 04/18/19 04:00 Chloride 111 mEq/L (98-107) H 04/19/19 04:25 Carbon Dioxide 30 mEq/L (23-29) H 04/05/19 05:51 BUN 43 mg/dL (8-23) H 04/20/19 06:00 Creatinine 1.63 mg/dL (0.70-1.30) H 04/20/19 06:00 Est GFR ( Amer) 50 (> 60) L 04/20/19 06:00 Est GFR (Non-Af Amer) 41 (> 60) L 04/20/19 06:00 BUN/Creatinine Ratio 30 (6-26) H 04/19/19 04:25 Glucose 177 mg/dL (70-105) H 04/20/19 06:00 POC Glucose 159 mg/dL (70-99) H 04/19/19 20:40 Hemoglobin A1c 7.3 % (-5.6) H 03/31/19 22:50 Calculated Osmolality 313 (280-300) H 04/20/19 06:00 Phosphorus 4.8 mg/dL (2.7-4.5) H 04/11/19 00:58 Troponin I 0.04 ng/mL (< 0.04) H* 04/18/19 22:30 C-Reactive Protein 173 mg/L (Less than 10) H 03/31/19 22:50 Albumin 3.2 g/dL (3.5-5.7) L 04/10/19 06:21 Albumin (PEP) 3.04 g/dL (3.75-5.01) L 04/12/19 04:00 Albumin/Globulin Ratio 0.9 (1.1-2.2) L 04/10/19 06:21 25-OH Vitamin D Total 21 ng/mL (30-80) L 04/12/19 04:00 PTH Intact 105.2 pg/ml (10.0-65.0) H 04/12/19 04:00 Urine Clarity Cloudy (Clear) A 04/10/19 17:00 Urine Protein 100 mg/dL (Neg-Trace) H 04/10/19 17:00 Urine Glucose (UA) 250 mg/dL (Normal) H 04/10/19 17:00 Urine Blood Small (Negative) H 04/10/19 17:00 Ur Leukocyte Esterase Small (Negative) H 04/10/19 17:00 Urine Microscopic RBC 5-15 per hpf (0-3) H 04/10/19 17:00 Urine Microscopic WBC 30-50 per hpf (0-3) H 04/10/19 17:00 Ur Squamous Epith Cells Many per lpf (None-Few) H 04/10/19 17:00 Urine Yeast Few per hpf (None Seen) H 04/10/19 17:00 Microalb/Creat Ratio 602 mcg/mg (Less than 30) H 04/11/19 16:55 Protein/Creatinin Ratio 1.66 mg/mg (0.00-0.20) H 04/13/19 08:40 Urine Total Protein 108 mg/dL (1-14) H 04/13/19 08:40 U Free [place] Ch 50.80 mg/dL (0.14-2.42) H 04/12/19 00:00 U Free [place] Ch 5.25 mg/dL (0.02-0.67) H 04/12/19 00:00 Vancomycin Trough 20 mcg/mL (5-10) H 04/03/19 19:24 Consult Discharge Plan - Plan Referrals: Antonietta Butler MD [Primary Care Provider] - Suzanne Chavira MD [Partnered Physician] - 05/10/19 10:15 am Prescriptions: Carvedilol [Coreg] 3.125 mg PO BIDWM #60 tablet DAPTOmycin [Daptomycin] 600 mg IV Q48H 34 Days #17 vial metroNIDAZOLE [Flagyl] 500 mg PO TID 30 Days #90 tablet hydrALAZINE [HydrALAZINE] 50 mg PO Q6H #120 tablet Oxycodone HCl/Acetaminophen [Percocet 10-325 mg Tablet] 1 each PO QID 5 Days #20 tablet
--- NOTE | 2019-04-20 13:16 | Infectious Disease Progress No ---
ID Progress Note Date of Encounter: 04/20/19 Time of Encounter: 13:14 - Subjective Subjective: Patient seen and examined. No acute events noted overnight. Patient states he feels okay today. States left sided chest pain improved. Denies fevers, chills, or rigors. States he has a cough when he gets his breathing treatments. Denies shortness of breath today. Denies nausea, vomiting, or diarrhea. Reports he is having BMs regularly. Denies abdominal pain or urinary complaints. Denies oral thrush or skin rashes. States his appetite is good. Reports mild stinging pain to the right foot. - Objective CBC & Chem 7: 04/18/19 16:15 04/20/19 06:00 - Exam Vitals: Temp Pulse Resp BP Pulse Ox 97.8 F 69 16 154/57 92 04/20/19 11:27 04/20/19 11:27 04/20/19 11:49 04/20/19 11:27 04/20/19 11:49 Exam: Head: Atraumatic, normal inspection, normocephalic. Eye: EOMI, PERRLA, no scleral icterus noted. ENT: Mucous membranes moist. No odontogenic infection noted. Neck: Normal inspection, no meningismus. Respiratory: CTA T/O. No rales, respiratory distress, rhonchi, noted. Cardiovascular: Regular rate and rhythm, S1 and S2 audible. No murmurs, rubs, or gallops. GI: Soft, obese, normal bowel sounds. Nontender Extremities:No joint swelling or tenderness noted. 1+ edema noted to the BLE. BLE compression dressing C/D/I. Neurological: Alert, oriented 3, no focal deficits. Psychiatric: normal affect, normal mood. Skin: Dry, intact, warm. Normal color. No rashes. - Assessment and Plan (1) Sepsis Current Visit: Yes Status: Resolved The patient had 2 sepsis criteria on admission plus acute kidney injury. Likely secondary to right foot osteomyelitis. Improved. WBC not checked today. Tachycardia resolved. Blood cultures drawn 03/31/19 at [facility] are negative 2 sets. Repeat blood cultures drawn 04/01/19 are negative 2 sets. Qualifiers: Sepsis type: sepsis due to unspecified organism Sepsis acute organ dysfunction status: without acute organ dysfunction Qualified Code(s): A41.9 - Sepsis, unspecified organism SNOMED Code(s): 78856003 (2) Osteomyelitis Current Visit: No Status: Acute Location: Right calcaneus. Likely secondary to diabetic foot ulcer. Causative organism: S. epi and S. simulans (wound and soft tissue cultures). Anerobic cultures positive. No bone cultures sent. MRI showed findings consistent with early osteomyelitis of the calcaneus. ESR 127, CRP 173. Podiatry consult. Status post I & D right foot multiple planes 04/04/[address] Mcintyre. Operative note reviewed. Soft tissue and wound cultures as above. Pathology positive for gangrenous necrosis. Currently on Dapto and flagyl. Qualifiers: Osteomyelitis location: foot Laterality: right SNOMED Code(s): 71829827 (3) Cellulitis Current Visit: Yes Status: Acute Location: Right lower extremity. Likely secondary to diabetic foot ulcer. Causative organism: S. simulans and S. epi and anaerobes. Podiatry consult and following. Currently on Dapto and flagyl. Qualifiers: Site of cellulitis: extremity Site of cellulitis of extremity: lower extremity Laterality: right Qualified Code(s): L03.115 - Cellulitis of right lower limb SNOMED Code(s): 466634831 (4) Acute kidney injury Current Visit: Yes Status: Acute Likely secondary to sepsis and nephrotoxic medication. Improved. Vanc discontinued. Nephrology consulted and following. RP UTS negative. Dose adjust antibiotics and avoid nephrotoxins as able. SNOMED Code(s): 23343649, 52473936 (5) Diabetic foot ulcer Current Visit: Yes Status: Chronic Location: Right heel. Etiology: Unclear. Podiatry consult and following. Qualifiers: Diabetic foot ulcer location: heel Diabetes mellitus type: type 2 Laterality: right Non-pressure ulcer stage: with fat layer exposed Qualified Code(s): E11.621 - Type 2 diabetes mellitus with foot ulcer; L97.412 - Non- pressure chronic ulcer of right heel and midfoot with fat layer exposed SNOMED Code(s): 631465655 (6) CKD (chronic kidney disease) stage 3, GFR 30-59 ml/min Current Visit: Yes Status: Chronic SNOMED Code(s): 279112342 (7) DM type 2 (diabetes mellitus, type 2) Current Visit: Yes Status: Chronic Recommend aggressive glucose monitoring and control to promote wound healing and prevent reinfection. Management per the primary team. Qualifiers: Diabetes mellitus intermediate project manager insulin use: with penitentiary use Diabetes mellitus complication status: with kidney complications Diabetes mellitus complication detail: with chronic kidney disease Chronic kidney disease stage: stage 3 (moderate) Qualified Code(s): E11.22 - Type 2 diabetes mellitus with diabetic chronic kidney disease; N18.3 - Chronic kidney disease, stage 3 (moderate); Z79.4 - adjunct faculty for medical terminology (current) use of insulin SNOMED Code(s): 10300126 (8) CAD (coronary artery disease) Current Visit: Yes Status: Chronic Qualifiers: Coronary Disease-Associated Artery/Lesion type: [place] artery [place] vs. transplanted heart: [place] heart Associated angina: without angina Qualified Code(s): I25.10 - Atherosclerotic heart disease of [place] coronary artery without angina pectoris SNOMED Code(s): 71475466 (9) Venous stasis dermatitis of both lower extremities Current Visit: Yes Status: Chronic SNOMED Code(s): 83587759 (10) GERD (gastroesophageal reflux disease) Current Visit: No Status: Chronic Qualifiers: Esophagitis presence: esophagitis presence not specified Qualified Code(s): K21.9 - Gastro-esophageal reflux disease without esophagitis SNOMED Code(s): 259219888 (11) Hypertension Current Visit: Yes Status: Chronic Qualifiers: Hypertension type: essential hypertension Qualified Code(s): I10 - Esse ntial (primary) hypertension SNOMED Code(s): 17352151 (12) Constipation Current Visit: Yes Status: Resolved Improved. Bowel regimen per the primary team. Qualifiers: Constipation type: unspecified constipation type Qualified Code(s): K59.00 - Constipation, unspecified SNOMED Code(s): 32572316 (13) Hyperkalemia Current Visit: Yes Status: Resolved Resolved. Management per the primary team. SNOMED Code(s): 04093849 (14) Pneumonia Current Visit: Yes Status: Acute Location: LLL Causative organism: Unclear. Aspiration low on differential. Currently on PO Levaquin. Qualifiers: Pneumonia type: due to unspecified organism Laterality: left Lung location: lower lobe of lung Qualified Code(s): J18.1 - Lobar pneumonia, unspecified organism SNOMED Code(s): 334860939 - Recommendations Recommendations: Wound care per the podiatry team. Continue Daptomycin 6mg/kg IV Q48H (CrCl ~29). Repeat CK 35. Hold atorvastatin while on Daptomycin. Continue flagyl 500mg PO TID. Continue Levaquin 750mg IV Q48H. Duration of treatment depends on the clinical picture, but will likely need 6 weeks of IV Antibiotics (Dapto and PO Flagyl). Treat through at least 05/15/19. Continue Levaquin to complete a 7 day course (through 04/24/19). Can transition to PO when ready for discharge. Monitor renal function and for drug toxicity and dose adjust antibiotics. assessment services manager to assist with discharge planning. Will need weekly CBC, BUN/Cr, ESR, CRP, CK. Will need weekly IV care per protocol. Follow up with ID 05/10/19 at 1015. Consult Discharge Plan - Plan Referrals: [facility] [Other] () Suzanne hCavira MD [Partnered Physician] - 05/10/19 10:15 am Prescriptions: Carvedilol [Coreg] 3.125 mg PO BIDWM #60 tablet DAPTOmycin [Daptomycin] 600 mg IV Q48H 34 Days #17 vial metroNIDAZOLE [Flagyl] 500 mg PO TID 30 Days #90 tablet hydrALAZINE [HydrALAZINE] 50 mg PO Q6H #120 tablet Oxycodone HCl/Acetaminophen [Percocet 10-325 mg Tablet] 1 each PO QID 5 Days #20 tablet
--- NOTE | 2019-04-20 15:01 | Discharge Summary ---
- NOTES TO OUTPATIENT PROVIDER Notes to Outpatient Provider: Patient to continue daptomycin and Flagyl till 05/15/19. He is to continue Levaquin for 5 more days. Date of Encounter: 04/20/19 Time of Encounter: 14:59 - Discharge Diagnosis (1) DM type 2 (diabetes mellitus, type 2) Priority: Secondary Status: Chronic Qualifiers: Diabetes mellitus fpc insulin use: with fpc use Diabetes mellitus complication status: with kidney complications Diabetes mellitus complication detail: with chronic kidney disease Chronic kidney disease stage: stage 3 (moderate) Qualified Code(s): E11.22 - Type 2 diabetes mellitus with diabetic chronic kidney disease; N18.3 - Chronic kidney disease, stage 3 (moderate); Z79.4 - retirement (current) use of insulin (2) CAD (coronary artery disease) Priority: Secondary Status: Chronic Qualifiers: Coronary Disease-Associated Artery/Lesion type: [place] artery [place] vs. transplanted heart: [place] heart Associated angina: without angina Qualified Code(s): I25.10 - Atherosclerotic heart disease of [place] coronary artery without angina pectoris (3) Diabetic foot ulcer with osteomyelitis Priority: Primary Status: Acute (4) GERD (gastroesophageal reflux disease) Priority: Secondary Status: Chronic Qualifiers: Esophagitis presence: esophagitis presence not specified Qualified Code(s): K21.9 - Gastro-esophageal reflux disease without esophagitis (5) Hypertension Priority: Secondary Status: Chronic Qualifiers: Hypertension type: essential hypertension Qualified Code(s): I10 - Essential (primary) hypertension (6) Chronic venous stasis Priority: Secondary Status: Chronic (7) Sepsis Priority: Primary Status: Resolved Qualifiers: Sepsis type: sepsis due to unspecified organism Sepsis acute organ dysfunction status: without acute organ dysfunction Qualified Code(s): A41.9 - Sepsis, unspecified organism (8) Acute on chronic kidney failure Priority: Primary Status: Acute Qualifiers: Acute renal failure type: unspecified Chronic kidney disease stage: stage 3 (moderate) Qualified Code(s): N17.9 - Acute kidney failure, unspecified; N18.3 - Chronic kidney disease, stage 3 (moderate) (9) Acute respiratory failure Priority: Secondary Status: Acute Qualifiers: Respiratory failure complication: hypoxia Qualified Code(s): J96.01 - Acute respiratory failure with hypoxia (10) Hypoxia Priority: Secondary Status: Acute Hospital course: Mr. Galindo is a 73 year old male with past medical history of diabetes, coronary artery disease status post CABG, hypertension, dementia, COPD came in with worsening lower extremity wounds . Patient has signs of sepsis on presentation. He was found to have right calcaneal osteomyelitis. Patient had I&D on 04/03/[address] Jaquez and wound VAC was placed. He had been started on empiric antibiotics and infectious disease consult was obtained. Patient's surgical biopsy grew MDR Staphylococcus simulans, Staphylococcus epidermidis, and also with anaerobic GNRs (Prevotella oralis and melaninogenica). Blood cultures remain negative. Patient also had LORETO on CKD which resolved after holding ibuprofen and IV fluids. Patient was doing well on daptomycin and Flagyl however developed acute hypoxic respiratory failure likely secondary to left lower lobe pneumonia on baseline COPD. He was started on Levaquin in addition to other antibiotics. He was also restarted on Lasix given some fluid overload. Patient will need follow-up with nephrology as outpatient. Patient is awaiting SNF placement. PT recommendation. We will resume his Lasix on discharge along with lo 10 mg as per nephrology Discharge discussed with: patient, nurse, social work, business development consultant - Time Spent with Patient Total time spent providing and/or coordinating discharge services: Time spent: Greater than 30 minutes (40) - Discharge Medications Prescriptions: New DAPTOmycin [Daptomycin] 600 mg IV Q48H 34 Days #17 vial Carvedilol [Coreg] 3.125 mg PO BIDWM #60 tablet metroNIDAZOLE [Flagyl] 500 mg PO TID 30 Days #90 tablet hydrALAZINE [HydrALAZINE] 50 mg PO Q6H #120 tablet Levofloxacin [Levaquin] 750 mg PO Q48H 6 Days #3 tablet Sodium Zirconium Cyclosilicate [Lokelma] 10 gm PO DAILY 30 Days #30 powd.pack Continued Albuterol Neb [Proventil Neb] 2.5 mg IH Q4H Aspirin 81 mg PO DAILY Insulin NPH Hum/Reg Insulin Hm [Novolin 70-30 100 Unit/ml Vial] 50 unit SQ QAM Insulin NPH Hum/Reg Insulin Hm [Novolin 70-30 100 Unit/ml Vial] 40 unit SQ QPM Trazodone HCl 50 mg PO HS Amlodipine Besylate 10 mg PO DAILY Vitamin B Complex [Balanced B-50] 1 each PO HS Oxycodone HCl/Acetaminophen [Percocet 10-325 mg Tablet] 1 each PO QID 5 Days #20 tablet Clopidogrel [Plavix] 75 mg PO DAILY Albuterol Sulfate [Proair Respiclick] 2 puff IH Q4HR PRN PRN Reason: breathing cloNIDine HCl [Clonidine HCl] 0.2 mg PO Q8H #90 tab Loratadine [Claritin] 10 mg PO DAILY Furosemide [Lasix] 20 mg PO DAILY Discontinued Nebivolol HCl [Bystolic] 10 mg PO DAILY Atorvastatin [Lipitor] 40 mg PO HS Ibuprofen 800 mg PO TID PRN #15 tablet PRN Reason: Pain Home Medications: Albuterol Sulfate [Proair Respiclick] 2 puff IH Q4HR PRN 10/04/15 [History] Clopidogrel [Plavix] 75 mg PO DAILY 10/04/15 [History] Albuterol Neb [Proventil Neb] 2.5 mg IH Q4H 10/22/16 [History] Aspirin 81 mg PO DAILY 10/22/16 [History] cloNIDine HCl [Clonidine HCl] 0.2 mg PO Q8H #90 tab 11/06/16 [Rx] Insulin NPH Hum/Reg Insulin Hm [Novolin 70-30 100 Unit/ml Vial] 40 unit SQ QPM 02/11/17 [History] Insulin NPH Hum/Reg Insulin Hm [Novolin 70-30 100 Unit/ml Vial] 50 unit SQ QAM 02/11/17 [History] Loratadine [Claritin] 10 mg PO DAILY 08/29/18 [History] Trazodone HCl 50 mg PO HS 08/30/18 [History] Furosemide [Lasix] 20 mg PO DAILY 09/16/18 [History] Amlodipine Besylate 10 mg PO DAILY 03/31/19 [History] Vitamin B Complex [Balanced B-50] 1 each PO HS 03/31/19 [History] DAPTOmycin [Daptomycin] 600 mg IV Q48H 34 Days #17 vial 04/11/19 [Rx] Carvedilol [Coreg] 3.125 mg PO BIDWM #60 tablet 04/14/19 [Rx] Oxycodone HCl/Acetaminophen [Percocet 10-325 mg Tablet] 1 each PO QID 5 Days #20 tablet 04/14/19 [Rx] hydrALAZINE [HydrALAZINE] 50 mg PO Q6H #120 tablet 04/14/19 [Rx] metroNIDAZOLE [Flagyl] 500 mg PO TID 30 Days #90 tablet 04/14/19 [Rx] Levofloxacin [Levaquin] 750 mg PO Q48H 6 Days #3 tablet 04/20/19 [Rx] Sodium Zirconium Cyclosilicate [Lokelma] 10 gm PO DAILY 30 Days #30 powd.pack 04/20/19 [Rx] Allergies/Adverse Reactions: Allergy/AdvReac Type Severity Reaction Status Date / Time ampicillin AdvReac Vomiting Verified 04/02/19 13:19 sulfamethoxazole AdvReac Vomiting Verified 04/02/19 13:19 [From Bactrim] trimethoprim [From Bactrim] AdvReac Vomiting Verified 04/02/19 13:19 Date of admission: 04/02/19 16:45 Primary care physician: Antonietta Butler Consults: 04/01/19 02:29 Consult to Podiatry [CONS] Routine Consulting Provider: [facility] Reason for Consult: Diabetic foot ulcer, known patient to Dr. Mcintyre. Possible osteomyelitis, MRI ordered. Call Completed: No 04/02/19 16:16 Consult to Infectious Diseases [CONS] Routine Consulting Provider: Infectious [facility] Reason for Consult: Abx recommendation for calcaneus OM Call Completed: Yes 04/04/19 12:27 Consult to Physical Therapy [CONS] Routine Comment: Evaluate, develop and implement POC Reason for Consult: Disposition planning. Therapy - weakness in bed. Does patient have active BEDREST order?: No Is patient medically & hemodynamically stable?: Yes Patient assessed for mobility or mobilized this visit?: No 04/04/19 12:28 Consult to Occupational Therapy [CONS] Routine Comment: Evaluate, develop and implement POC Reason for Consult: Evaluate, develop and implement POC Does patient have active BEDREST order?: No Is patient medically & hemodynamically stable?: Yes Patient assessed for mobility or mobilized this visit?: No 04/04/19 15:34 Consult to Invasive Line Access Team [CONS] Routine Reason for Consult: failed attempt with vein viewer, vancomycin IV Line Type: EPIV 04/10/19 12:06 Consult to Nephrology [CONS] Routine Consulting Provider: [facility]MIRIAM/MALACHI/ANA MARÍA Reason for Consult: worsening kidney function. hyperkalemia Call Completed: No 04/11/19 11:20 Consult to Invasive Line Access Team [CONS] Routine Reason for Consult: Picc Line Insertion Line Type: PICC Discharging clinician: Tena Ng - Constitutional Vitals: Temp Pulse Resp BP Pulse Ox 97.8 F 69 16 154/57 92 04/20/19 11:27 04/20/19 11:27 04/20/19 11:49 04/20/19 11:27 04/20/19 11:49 Exam: General: In no acute distress. Respiratory exam: no accessory muscle use. occasional scattered rhonchi and rales at base Cardiovascular exam: RRR, +S1, +S2. no murmur, gallop, rubs. GI/Abdominal exam: Non-tender, Non-distended, normal bowel sounds, soft, no peritoneal signs. Extremities exam: b/l 2+ pedal edema till knee with compression dressing Neurological exam: CN II-XII intact, AO X3, no focal deficits. Skin exam: LE in compression dressing. No other skin rash. - Patient Status Disposition: Transfer SNF Condition: Fair - Ambulatory Orders Ambulatory Orders: Basic Metabolic Panel [CHEM] Time Frame: 1 Week, Facility: [facility], Location: Lab C-Reactive Protein [CHEM] Time Frame: 1 Week, Facility: [facility], Location: Lab Complete Blood Count [HEME] Time Frame: 1 Week, Facility: [facility], Location: Lab Creatine Kinase [CHEM] Time Frame: 1 Week, Facility: [facility], Location: Lab Erythrocyte Sedimentation Rate [HEME] Time Frame: 1 Week, Facility: [facility], Location: Lab - Discharge Instructions Follow Up With: [facility] [Other] - 04/27/19 1:00 pm () Suzanne Chavira MD [Partnered Physician] - 05/10/19 10:15 am - Diet and Activity Activity: as per physical therapy
[2019-04-20] MEDS: levoFLOXacin 750 MG/150 ML 750 MG/150 ML BAG IVPB SCH (15:45)
--- NOTE | 2019-04-20 16:17 | Physician Discharge Referral ---
ExtendedCare Referral Info Institutional Level of Care: Skilled - Diagnosis (1) DM type 2 (diabetes mellitus, type 2) Status: Chronic (2) CAD (coronary artery disease) Status: Chronic (3) Diabetic foot ulcer with osteomyelitis Status: Acute (4) GERD (gastroesophageal reflux disease) Status: Chronic (5) Hypertension Status: Chronic (6) Chronic venous stasis Status: Chronic (7) Sepsis Status: Resolved (8) Acute on chronic kidney failure Status: Acute (9) Acute respiratory failure Status: Acute (10) Hypoxia Status: Acute - Transfer Medications Prescriptions: Carvedilol [Coreg] 3.125 mg PO BIDWM #60 tablet DAPTOmycin [Daptomycin] 600 mg IV Q48H 34 Days #17 vial metroNIDAZOLE [Flagyl] 500 mg PO TID 30 Days #90 tablet hydrALAZINE [HydrALAZINE] 50 mg PO Q6H #120 tablet Levofloxacin [Levaquin] 750 mg PO Q48H 6 Days #3 tablet Sodium Zirconium Cyclosilicate [Lokelma] 10 gm PO DAILY 30 Days #30 powd.pack Oxycodone HCl/Acetaminophen [Percocet 10-325 mg Tablet] 1 each PO QID 5 Days #20 tablet Home Medications: Albuterol Sulfate [Proair Respiclick] 2 puff IH Q4HR PRN 10/04/15 [History] Clopidogrel [Plavix] 75 mg PO DAILY 10/04/15 [History] Albuterol Neb [Proventil Neb] 2.5 mg IH Q4H 10/22/16 [History] Aspirin 81 mg PO DAILY 10/22/16 [History] cloNIDine HCl [Clonidine HCl] 0.2 mg PO Q8H #90 tab 11/06/16 [Rx] Insulin NPH Hum/Reg Insulin Hm [Novolin 70-30 100 Unit/ml Vial] 40 unit SQ QPM 02/11/17 [History] Insulin NPH Hum/Reg Insulin Hm [Novolin 70-30 100 Unit/ml Vial] 50 unit SQ QAM 02/11/17 [History] Loratadine [Claritin] 10 mg PO DAILY 08/29/18 [History] Trazodone HCl 50 mg PO HS 08/30/18 [History] Furosemide [Lasix] 20 mg PO DAILY 09/16/18 [History] Amlodipine Besylate 10 mg PO DAILY 03/31/19 [History] Vitamin B Complex [Balanced B-50] 1 each PO HS 03/31/19 [History] DAPTOmycin [Daptomycin] 600 mg IV Q48H 34 Days #17 vial 04/11/19 [Rx] Carvedilol [Coreg] 3.125 mg PO BIDWM #60 tablet 04/14/19 [Rx] Oxycodone HCl/Acetaminophen [Percocet 10-325 mg Tablet] 1 each PO QID 5 Days #20 tablet 04/14/19 [Rx] hydrALAZINE [HydrALAZINE] 50 mg PO Q6H #120 tablet 04/14/19 [Rx] metroNIDAZOLE [Flagyl] 500 mg PO TID 30 Days #90 tablet 04/14/19 [Rx] Levofloxacin [Levaquin] 750 mg PO Q48H 6 Days #3 tablet 04/20/19 [Rx] Sodium Zirconium Cyclosilicate [Lokelma] 10 gm PO DAILY 30 Days #30 powd.pack 04/20/19 [Rx] Allergies/Adverse Reactions: Allergy/AdvReac Type Severity Reaction Status Date / Time ampicillin AdvReac Vomiting Verified 04/02/19 13:19 sulfamethoxazole AdvReac Vomiting Verified 04/02/19 13:19 [From Bactrim] trimethoprim [From Bactrim] AdvReac Vomiting Verified 04/02/19 13:19 - Respiratory Orders Smoking Cessation: Smoking cessation has been advised. For more information, call the [place] Tobacco Quit Line at 4-905-WTFG-NOW. CERTIFICATION: I certify that the transfer of the above named patient to an Extended Care Facility is necessary for the continuing treatment of the diagnosis listed. The above information is true and accurate reflection of patient's current condition. Confidential - Redisclosure prohibited without a patient's written consent.
== END 2019-04-20 18:53 | DRG 853 ==
LOC: 3NENU → SUATTDRO 20:32 → 3ANU 04-03 12:22
PROVIDERS: ADMIT Student in an Organized Health Care Education/Training Program; ATTEND Internal Medicine